=== PATIENT | female | born 1980 | race Caucasian/White ===

== ENCOUNTER 2023-10-06 08:14 | Outpatient (OUT) | payer BC, SELFPAY ==
[2023-10-06 08:46] LABS: Basophils Absolute Auto 0.1 10^3/uL (0.0-0.1); Basophils Percent Auto 1.3 % (0.2-2.0); Eosinophils Absolute Auto 0.5 10^3/uL (0.0-0.7); Eosinophils Percent Auto 7.2 % (0.9-7.0); Hematocrit 38.3 % (36.0-48.0); Immature Granulocytes Abs Auto 0.02 10^3/uL (0.00-0.03); Immature Granulocytes Pct Auto 0.3 % (0.0-0.5); Lymphocytes Absolute Auto 1.8 10^3/uL (1.2-3.8); Lymphocytes Percent Auto 25.7 % (20.5-60.0); Mean Corpuscular HGB Conc 31.3 g/dL (29.9-35.2); Mean Corpuscular Hemoglobin 26.7 pg (26.7-34.0); Mean Corpuscular Volume 85.1 fL (81.0-99.0); Mean Platelet Volume 9.3 fL (9.5-13.5); Monocytes Absolute Auto 0.6 10^3/uL (0.3-0.8); Monocytes Percent Auto 8.9 % (1.7-12.0); Neutrophils Absolute Auto 3.9 10^3/uL (1.4-6.5); Neutrophils Percent Auto 56.6 % (43.0-75.0); Platelet Count 340 10^3/uL (150-450); Red Cell Distribution Width 14.6 % (11.0-15.0); White Blood Count 6.9 10^3/uL (4.0-11.0)
[2023-10-06 09:43] LABS: Estimated Average Glucose 103 mg/dL; Glycohemoglobin A1C 5.2 % (4.5-6.2)
[2023-10-06 11:44] LABS: Alanine Aminotransferase 18 U/L (14-59); Albumin Globulin Ratio 0.8; Albumin Level 3.3 g/dL (3.4-5.0); Alkaline Phosphatase 91 U/L (46-116); Anion Gap 13.5; Aspartate Amino Transferase 15 U/L (15-37); BUN Creatinine Ratio 21.1; Bilirubin Total 0.3 mg/dL (0.2-1.0); Calcium 8.6 mg/dL (8.5-10.1); Carbon Dioxide 25.7 mmol/L (21.0-32.0); Chloride 105 mmol/L (98-107); Chol HDL Ratio 4.6; Cholesterol 193 mg/dL (<=200); Estimated GFR (African America >60 (>=60); Estimated GFR (Non-African Ame >60 (>=60); Free T3 3.35 pg/mL (2.18-3.98); Glucose 100 mg/dL (74-106); HDL Cholesterol 42 mg/dL (40-60); LDL Cholesterol Calculated 122.8 mg/dL; Potassium 4.2 mmol/L (3.5-5.1); Sodium 140 mmol/L (136-145); Thyroid Stimulating Hormone 0.325 uIU/mL (0.358-3.740); Total Protein 7.3 g/dL (6.4-8.2); Triglycerides 141 mg/dL (<=150); VLDL CHOLESTEROL 28.2 mg/dL
[2023-10-08 12:07] LABS: Insulin 41.9 uIU/mL (2.6-24.9)
== END 2023-10-06 08:15 | disposition home or self-care (01) ==
PROVIDERS: PCP Nurse Practitioner Family; Visit Provider Nurse Practitioner Family
DX: Z00.00 Encounter for general adult medical examination without abnormal findings (principal)
CPT/HCPCS: 36415; 80053; 80061; 82306; 83036; 83525; 83540; 84436; 84443; 84481; 85025

== ENCOUNTER 2024-12-11 11:53 | Outpatient (OUT) | payer BC, SELFPAY ==
--- NOTE | 2024-12-11 12:00 | CT_ITS ---
[address] [address] Patient Name: LISS PARRA MRN: [id number] date: 1980 Sex: F Assigned Patient Location: CT Current Patient Location: CT Accession/Order Number: [id number] Exam Date: 12/11/2024 13:00 Report Date: 12/11/2024 22:12 At the request of: TOPHER SCHWARTZ MD Procedure: CT abdomen pelvis wo/w con CT abdomen pelvis wo/w con 12/11/2024 1:07 PM SIGNS AND SYMPTOMS: ^intraabdominal and pelvic swelling, mass and lump, splenomeg TECHNIQUE: Multidetector ct axial images of the abdomen and pelvis were obtained with and without IV contrast. Multiplanar reformats were performed and reviewed to further define anatomy and possible pathology. CT was performed with one or more of the following dose reduction techniques: Automated exposure control, adjustment of the mA and/or kV according to patient size, or use of iterative reconstruction technique. COMPARISON: 11/25/2024 FINDINGS: Lower Chest: Within normal limits. ABDOMEN: Liver: The liver is hypoattenuating suggesting hepatic steatosis. Bile Ducts: Normal caliber. Gallbladder: Previously removed Pancreas: Within normal limits. Spleen: There is a 2.2 cm cystlike structure in the spleen with internal areas of increased attenuation on noncontrast CT. No abnormal enhancement is noted on postcontrast imaging. This is nonspecific but may represent a complex cyst versus previous splenic hematoma. Adrenals: Within normal limits. Kidneys: Within normal limits. Pelvis: Reproductive Organs: There is a 3.5 cm suspected fibroid within the uterine fundus. Ureters: Within normal limits. Bladder: Within normal limits. Bowel: Normal caliber. Mesenteric Lymph Nodes: No enlarged mesenteric lymph nodes. Peritoneum: No ascites or free air, no fluid collection. Vessels: within normal limits Retroperitoneum: Within normal limits. Abdominal Wall: There is a fat-containing periumbilical hernia. Bones: Within normal limits. CT/CT abdomen pelvis wo/w con IMPRESSION: There is a 2.2 cm cystlike structure in the spleen with internal areas of increased attenuation on noncontrast CT. No abnormal enhancement is noted on postcontrast imaging. This is nonspecific but may represent a complex cyst versus previous splenic hematoma. This is unchanged. There is a 3.5 cm suspected fibroid within the uterine fundus. Findings suggest hepatic steatosis. There is a fat-containing periumbilical hernia. Impression dictated by: Tj Benton M.D. 12/11/2024 10:12 PM Dictation Location: [place] [address] Electronically authenticated by: [id number] Y Date: 12/11/2024 22:12
--- OUTSIDE RECORDS SUMMARY | 2024-12-11 12:09 | XMS_ITS | CCD ---
Author Organization [facility] Care Team Providers Care Automation Lead Name Role Phone Jamison Chidi Odalys Primary Care Provider Unavailab System, Provider Not In Primary Care Provider Un available Alie Peterson MD Primary Care Provider [phone] Alie Peterson MD Primary Care Provider [phone] HERMES, NORMA Admitting Unavailable HERMES, NORMA Attending Unavailable HERMES, NORMA Primary Care Unavailable DR ROMINA HART V Consulting Unavailable HERMES, NORMA Consulting Unavailable HERMES, NORMA Admitting Unavailable HERMES, NORMA Attending Unavailable HERMES, NORMA Primary Care Unavailable HERMES, NORMA Admitting Unavailable HERMES, NORMA Attending Unavailable HERMES, NORMA Primary Care Unavailable HERMES, NORMA Admitting Unavailable HERMES, NORMA Attending Unavailable HERMES, NORMA Primary Care Unavailable HERMES, NORMA Admitting Unavailable HERMES, NORMA Attending Unavailable HERMES, NORMA Primary Care Unavailable DR ROMINA HART V Consulting Unavailable HERMES, NORMA Consulting Unavailable Alie Peterson MD Primary Care Provider [phone] TERESA Mirza Primary Care Provider [phone] TERESA Mirza Rayna Attending Provider [phone] DO Rishi Lenz Referring Provider TERESA Mirza Rayna Primary Care Provider [phone] Self, Referral Attending Provider Unavailable Natalie Romero Unavailable Jorge Ngo MD Primary Care Provider Natalie Romero M Unavailable SHASHI Preciado Attending Provider Hermes, JUANJOSE-C Norma Rayna Primary Care Provider HOY, ALIE Primary Care Unavailable HOY, ALIE Primary Care Unavailable Hermes DIRECTOR TRAFFIC AND PLANNING-C, Norma Rayna Primary Care Provider Self, Referral Attending Provider Unavailable Hermes DIRECTOR TRAFFIC AND PLANNING-CNorma Attending Provider [phone] Michelle-Nossek PRINTED CIRCUIT BOARD LAYOUT 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Natalie Unavailable Hermes Norma Rayna Primary Care Unavailable Self, Referral Admitting Unavailable Self, Referral Attending Unavailable Hermes, Norma Rayna Admitting Unavailable Hermes, Norma Rayna Primary Care Unavailable Hermes, Norma Way Attending Unavailable Hermes, Norma Rayna Primary Care Unavailable Ozzy Acacia M Admitting Unavailable Ozzy Acacia M Attending Unavailable Hermes, Norma Rayna Primary Care Unavailable Hermes, Norma Oropezae Attending Unavailable Hermes, Norma Rayna Admitting Unavailable KIESHA GRAY Attending Unavailable HERMES, NORMA Referring Unavailable CHINMAY NORMAN Attending Unavailable HERMES, NORMA Referring Unavailable CHINMAY NORMAN Attending Unavailable HERMES, NORMA Referring Unavailable EMERSON, CHINMAY Attending Unavailable HERMES, NORMA Referring Unavailable CHINMAY NORMAN Attending Unavailable HERMES, NORMA Referring Unavailable MICHELLE-NOSSEK, NATALIE M Attending Unavailab le MICHELLE-NOSSEKSANJUNATALIE M Attending Unavailab le MICHELLE-NOSSEKSANJUNATALIE M Attending Unavailab le MICHELLE-NOSSEK, NATALIE M Attending Unavailab agapito MIRZA NORMA S Primary Care Unavailable IONTAVARESHAMID M Admitting Unavailable ION, MUHAMID M Attending Unavailable IRMA PIRES Consulting Unavailable Hermes PRINTED CIRCUIT BOARD LAYOUT DESIGNER-COGNOS REPORT DEVELOPER, Norma S Primary Care Provider LYDAVIDSON MORALES Attending Unavailable HOY, ALIE Primary Care Unavailable LYDAVIDSON Attending Unavailable HOY, ALIE Primary Care Unavailable HOY, ALIE Primary Care Unavailable DAVIDSON LY Attending Unavailable DAVIDSON LY Attending Unavailable HOY, ALIE Primary Care Unavailable Jorge Ngo MD Primary Care Provider Allergies Allergy Classification Reported Allergen(s) Allergy Type Date of Onset Reaction(s) Facility (20 sources) Sulfonamides (Antibiotic); Translations: [SULFA (SULFONAMIDE ANTIBIOTICS)] Propensity to adverse reactions 9 Rash [facility] (1 source) Sulfonamides (Antibiotic) Drug allergy (disorder) 4 [facility] (20 sources) Sulfanilamide Propensity to adverse reactions 3 Rash [facility] Medications Current Medications Medication Drug Class(es) Dates Sig (Normalized) Sig (Original) 0.4 ml adalimumab 100 mg/ml auto-injector (20 sources) Tumor Necrosis Factor Audra Start: 07-11-2024 inject 0.4 mL by subcutaneous injection once adalimumab (Humira,CF, Pen) 40 mg/0.4 mL PnKt Indications: Seropositive rheumatoid arthritis (HCC) Inject 0.4 mL (40 mg total) under the skin every 14 (fourteen) days . 1 kit 11 07/11/2024 Active Start: 07-23-2023 Adalimumab ([place](Cf) Pen) 40 mg/0.4 mL pen injector kit Active 0 SUBCUT .COMPLEX July 23, 2023 12:00am inject one - 40 mg/0.4 mL pen every 2 weeks subcut Start: 02-14-2022 Humira Pen 40 MG/0.4ML Pen-injector Kit pen-injector Inject 40 mg under the skin every 14 (fourteen) days 02/14/2022 Active Start: 03-19-2021 End: 03-28-2024 inject 0.4 mL by subcutaneous injection once adalimumab (Humira,CF, Pen) 40 mg/0.4 mL PnKt Indications: Rheumatoid arthritis, seropositive (HCC) Inject 0.4 mL (40 mg total) under the skin every 14 (fourteen) days . 1 kit 11 09/21/2023 03/28/2024 Discontinued (Availability) adalimumab-ryvk (Simlandi,CF, Autoinjector) 40 mg/0.4 mL atIK (8 sources) Start: 03-28-2024 adalimumab-ryvk (Simlandi,CF, Autoinjector) 40 mg/0.4 mL atIK Indications: Seropositive rheumatoid arthritis (HCC) Inject 40 mg under the skin every 14 (fourteen) days . 2 each 5 03/28/2024 Active [id number] 200 actuat albuterol 0.09 mg/actuat metered dose inhaler (2 sources) beta2-Adrener gic Agonist Start: 07-06-2024 take 1 puff(s) by inhalation every four hours Albuterol Sulfate 90 mcg/actuation HFA aerosol inhaler Active 2 PUFF INHALATION Q4H 1 July 06, 2024 12:00am Start: 01-26-2017 take 2 puff(s) by in halation every four hours as needed PROAIR HFA 90 mcg/actuation inhaler Inhale 2 puffs every 4 (four) hours as needed. 11 01/26/2017 Active albuterol 0.833 mg/ml / ipratropium bromide 0.167 mg/ml inhalation solution (1 source) Anticholinergic, beta2-Adrenergic Agonist Start: 11-26-2024 End: 12-26-2024 take 3 mL by inhalation every six hours as needed for wheezing ipratropium-albuteroL (DUONEB) 0.5 mg-3 mg(2.5 mg base)/3 mL nebulizer Indications: Pneumonia due to infectious organism, unspecified laterality, unspecified part of lung Inhale 3 mL by nebulization every 6 (six) hours as needed for wheezing for up to 30 days. 360 mL 11/26/2024 12/26/2024 Active ALPRAZolam 0.25 mg oral tablet (20 sources) Benzodiazepine Start: 11-06-2024 End: 01-09-2025 take 1 tablet by mouth every eight hours for anxiety ALPRAZolam (Xanax) 0.25 MG tablet Indications: Panic disorder Take 1 tablet (0.25 mg) by mouth every 8 (eight) hours if needed for anxiety 30 tablet 12/10/2024 01/09/2025 Active Start: 07-05-2022 End: 09-19-2024 take 1 tablet by mouth once daily as needed for anxiety, then take 1 tablet by mouth once daily as needed for anxiety ALPRAZolam (Xanax) 0.25 MG tablet Indications: KATHRYN (generalized anxiety disorder) Take 1 tablet (0.25 mg) by mouth Daily as needed for anxiety (1 tablet daily prn) 30 tablet 04/13/2023 09/19/2024 Discontinued Start: 12-12-2016 ALPRAZolam (XA NAX) 0.25 mg tablet 2 12/12/2016 Active amitriptyline hydrochloride 25 mg oral tablet (9 sources) Tricyclic Antidepressant Start: 03-19-2024 take 1 tablet by mouth at bedtime amitriptyline (Elavil) 25 MG tablet Take 25 mg by mouth at bedtime 03/19/2024 Active cholecalciferol 0.05 mg oral capsule (20 sources) Vitamin D Start: 01-14-2022 take 1 capsule by mouth in the morning cholecalciferol (Vitamin D-3) 50 MCG (1999 UT) capsule Take 2,000 Units by mouth in the morning. 01/14/2022 Active Start: 10-09-2021 take 1 capsule by mo uth once daily cholecalciferol (Vitamin D-3) 50 MCG (1999 UT) capsule Take 2,000 Units by mouth Daily 01/14/2022 Active ferrous sulfate 325 mg delayed release oral tablet (20 sources) Start: 07-10-2024 take 1 tablet by lexie once daily at breakfast ferrous sulfate 325 (65 FE) mg EC tablet Take 1 tablet (325 mg total) by mouth daily with breakfast. 07/10/2024 Active Start: 06-27-2022 End: 11-13-2024 take 1 tablet by mouth at mealtime ferrous sulfate 325 (65 Fe) MG tablet Take 325 mg by mouth in the morning. Take with meals. 06/27/2022 Active Start: 04-19-2021 End: 06-15-2022 take 1 tablet by mouth twice daily ferrous sulfate 325 (65 FE) MG tablet Indications: Iron deficiency anemia, unspecified iron deficiency anemia type Take 1 (one) tablet (325 mg total) by mouth 2 (two) times a day . 60 tablet 3 04/19/2021 06/15/2022 Discontinued (Reorder (Suppress CancelRx Message to Pharmacy)) hydroCHLOROthiazide 12.5 mg oral tablet (20 sources) Thiazide Diuretic Start: 10-08-2021 take 1 tablet by mouth once daily hydroCHLOROthiazide (HYDRODIURIL) 12.5 MG tablet Take 1 (one) tablet (12.5 mg total) by mouth daily . 10/08/2021 Active ibuprofen 800 mg oral tablet (20 sources) Nonsteroidal Anti-inflammator y Drug take 1 tablet by mouth every six hours as needed ibuprofen 800 MG tablet Take 800 mg by mouth every 6 (six) hours if needed Active take 1 tablet by lexie th three times daily as needed for pain ibuprofen (ADVIL,MOTRIN) 800 MG tablet T devika 1 (one) tablet (800 mg total) by mouth 3 (three) times a day as needed for pain . Active lamoTRIgine 200 mg oral tablet (20 sources) Mood Stabilizer, Anti-epileptic Agent Start: 01-09-2023 End: 03-10-2025 take 1 tablet by mouth once daily lamoTRIgine (LaMICtal) 200 MG tablet Indications: Bipolar 2 disorder (HCC) Take 1 tablet (200 mg) by mouth Daily 90 tablet 12/10/2024 03/10/2025 Active Start: 01-25-2017 take 1 tablet by lexie th in the morning lamoTRIgine (LaMICtal) 100 mg tablet Take 1 tablet (100 mg total) by mouth in the morning. 1 01/25/2017 Active leflunomide 20 mg oral tablet (20 sources) Antirheumatic Agent Start: 04-03-2023 End: 09-02-2024 take 1 tablet by mouth once daily leFLUNomide (ARAVA) 20 MG tablet Indications: Seropositive rheumatoid arthritis (HCC) Take 1 (one) tablet (20 mg total) by mouth daily . 30 tablet 4 09/02/2024 Active Start: 11-01-2022 End: 03-27-2023 take 1 tablet by mouth once daily leFLUNomide (ARAVA) 20 MG tablet Indications: Rheumatoid arthritis, seropositive (HCC) Take 1 (one) tablet (20 mg total) by mouth daily . 30 tablet 4 11/01/2022 03/27/2023 Discontinued (Reorder (Suppress CancelRx Message to Pharmacy)) Start: 06-27-2022 End: 10-17-2022 take 1 tablet by mouth once daily leflunomide (ARAVA) 20 MG tablet Indications: Rheumatoid arthritis, seropositive (HCC) Take 1 (one) tablet (20 mg total) by mouth daily . 30 tablet 4 06/27/2022 10/17/2022 Discontinued (Reorder (Suppress CancelRx Message to Pharmacy)) Start: 02-17-2021 End: 06-15-2022 take 1 tablet by mouth once daily leflunomide (ARAVA) 20 MG tablet Indications: Rheumatoid arthritis, seropositive (HCC) Take 1 (one) tablet (20 mg total) by mouth daily . 30 tablet 4 02/10/2022 06/15/2022 Discontinued (Reorder (Suppress CancelRx Message to Pharmacy)) Start: 02-15-2021 End: 02-17-2021 take 1 tablet by mouth once daily leflunomide (ARAVA) 10 MG tablet Indications: Rheumatoid arthritis, seropositive (HCC) Take 1 (one) tablet (10 mg total) by mouth daily . 30 tablet 2 02/15/2021 02/17/2021 Discontinued (Reorder) levothyroxine sodium 0.2 mg oral tablet (20 sources) l-Thyroxine Start: 07-23-2023 take 1 tablet by mouth once daily Levothyroxine 200 mcg tablet Active 200 MCG PO Daily July 23, 2023 12:00am Start: 07-26-2022 End: 10-24-2023 take 1 tablet by mouth once daily Levothyroxine 25 mcg tablet Active 25 MCG PO Daily July 23, 2023 12:00am Start: 01-25-2017 levothyroxine (SYNTHROID, LEVOTHROID) 175 MCG tablet 1 01/25/2017 Active Start: 01-25-2017 levothyroxine (SYNTHROID, LEVOTHROID) 175 MCG tablet 225 mcg . 01/25/2017 Active lisinopril 5 mg oral tablet (20 sources) Angiotensin Converting Enzyme Inhibitor Start: 10-09-2021 take 1 tablet by mouth once daily lisinopriL (PRINIVIL,ZESTRIL) 5 MG tablet Take 1 (one) tablet (5 mg total) by mouth daily . 10/09/2021 Active metFORMIN hydrochloride 500 mg oral tablet (20 sources) Biguanide Start: 10-10-2023 take 1 tablet by mouth once daily at bedtime metFORMIN (GLUCOPHAGE) 500 MG tablet Take 1 (one) tablet (500 mg total) by mouth every night at bedtime . 10/10/2023 Active take 1 tablet by lexie th every twenty-four hours at mealtime metFORMIN XR (Glucophage-XR) 500 MG 24 h r tablet Take 500 mg by mouth in the evening. Take with meals Do not crush, chew, or split. Active methylPREDNISolone 4 mg oral tablet (8 sources) Corticosteroid Start: 07-06-2024 methylPREDNISo lone (MEDROL DOSEPACK) 4 mg tablet Take 1 (one) tablet (4 mg total) by mouth . 07/06/2024 Active Start: 07-06-2024 take 1 tablet by mouth once Me thylprednisolone (Medrol ([place])) 4 mg tablets,dose pack Active 0 PO per package directions July 06, 2024 12:00am PO PER PKG DIR for 6 days Start: 06-14-2024 End: 06-20-2024 methylPREDNISolone (MEDROL D OSEPACK) 4 mg tablet Indications: Seropositive rheumatoid arthritis (HCC) Follow package directions . 21 tablet 06/14/2024 06/20/2024 Active metoprolol tartrate 25 mg oral tablet (20 sources) beta-Adrenergic Audra Start: 06-24-2022 End: 12-10-2024 take 1 tablet by mouth in the morning metoprolol tartrate (Lopressor) 25 MG tablet Take 25 mg by mouth in the morning and 25 mg before bedtime. 06/24/2022 12/10/2024 Discontinued (Therapy completed) nabumetone 500 mg oral tablet (20 sources) Nonsteroidal Anti-inflammatory Drug Start: 01-10-2017 nabumetone (Relafen) 500 MG tablet Take 500 mg by mouth as needed in the morning and 500 mg as needed in the evening. 07/26/2022 Active omeprazole 20 mg delayed release oral capsule (20 sources) Proton Pump Inhibitor take 1 capsule by mouth once daily omeprazole (PRILOSEC) 20 MG capsule Take 1 (one) capsule (20 mg total) by mouth daily . Active ondansetron 4 mg disintegrating oral tablet (20 sources) Serotonin-3 Receptor Antagonist Start: 07-06-2024 take 1 tablet by mouth every eight hours as needed Ondansetron 4 mg tablet,disintegra ting Active 4 MG PO Every 8 hours as needed July 06, 2024 12:00am Start: 04-15-2022 ondansetron (Z ofran) 4 MG tablet Take 4 mg by mouth if needed 04/15/2022 Active phentermine hydrochloride 37.5 mg oral tablet (20 sources) Sympathomimetic Amine Anorectic Start: 10-14-2021 take 1 tablet by mouth once daily phentermine (ADIPEX-P) 37.5 mg tablet Take 1 (one) tablet (37.5 mg total) by mouth daily . 10/14/2021 Active Start: 01-08-2021 take 1 tablet by lexie th once daily phentermine (ADIPEX-P) 37.5 mg tablet Take 37.5 mg by mouth daily . 0 01/08/2021 Active predniSONE 2.5 mg oral table t (20 sources) Start: 07-08-2024 End: 11-05-2024 predniSONE (DELTASONE) 2.5 M G tablet Indications: Rheumatoid arthritis, seropositive (HCC) Take 1 (one) tablet to 2 (two) tablets (2.5-5 mg total) by mouth daily With food . 60 tablet 3 07/08/2024 Active Start: 04-21-2023 End: 10-21-2024 take 1 tablet by mouth once daily predniSONE (DELTASONE) 10 MG tablet Indications: Seropositive rheumatoid arthritis (HCC) Take 1 (one) tablet (10 mg total) by mouth daily . 30 tablet 2 04/24/2023 10/21/2024 Discontinued (Therapy completed) Start: 02-22-2017 predniSONE (DE LTASONE) 10 mg tablet Indications: Subacute sinusitis, unspecified location 6 tabs daily x 2 days, 5 tabs daily x 2 days, 4 tabs x 2 days, 3 tablets x 2 days, 2 tablets x 2 days, and 1 tab x 2 days. 42 tablet 02/22/2017 Active Pyrilamine-Dextromethorphan ([place] Dm) 7.5-7.5 mg/5 mL liquid (1 source) Start: 07-06-2024 take 1 mL by mouth every eight hours Pyrilamine-Dextromethorphan ([place] Dm) 7.5-7.5 mg/5 mL liquid Active 10 ML PO Every 8 hours 150 5 July 06, 2024 12:00am QUEtiapine 200 mg oral tablet (20 sources) Atypical Antipsycho tic Start: 12-10-2024 End: 01-09-2025 take 1 tablet by mouth at bedtime QUEtiapine (SEROquel) 200 MG tablet Indications: Bipolar 2 disorder (HCC) Take 1 tablet (200 mg) by mouth at bedtime 30 tablet 1 12/10/2024 01/09/2025 Active Start: 09-28-2023 End: 12-18-2024 take 1 tablet by mouth at bedtime QUEtiapine (SEROquel) 100 MG tablet Indications: Bipolar 2 disorder (HCC) Take 1 tablet (100 mg) by mouth at bedtime 90 tablet 09/19/2024 12/10/2024 Discontinued Start: 07-23-2023 take 1 tablet by lexie th once at bedtime Quetiapine 100 mg tablet Active 100 MG PO once at bedtime July 23, 2023 12:00am Start: 03-06-2023 End: 06-10-2023 take 1 tablet by mouth at bedtime QUEtiapine (SEROquel) 100 MG tablet Indications: Bipolar 2 disorder (CMS/HCC) Take 1 tablet (100 mg) by mouth at bedtime 30 tablet 1 04/11/2023 06/10/2023 Active Start: 01-25-2017 take 2 tablets by mo [facility] once daily QUEtiapine (SEROquel) 50 mg tablet Take 2 tablets (100 mg total) by mouth nightly. 2 01/25/2017 Active Start: 01-25-2017 take 1 tablet by lexie th once daily QUEtiapine (SEROQUEL) 50 MG tablet Take 50 mg by mouth nightly . 0 01/25/2017 Active sertraline 100 mg oral tablet (20 sources) Serotonin Reuptake Inhibitor Start: 01-09-2023 End: 03-10-2025 take 1 tablet by mouth once daily sertraline (Zoloft) 100 MG tablet Indications: KATHRYN (generalized anxiety disorder) Take 1 tablet (100 mg) by mouth Daily 90 tablet 12/10/2024 03/10/2025 Active take 2 tablets by mouth once [place]ermo [place] sertraline HCl (ZOLOFT ORAL) Take 2 tablets by mouth daily . Active take 2 tablets by mouth once guillermo ly sertraline HCl (ZOLOFT ORAL) Take 2 tablets by mouth daily . 0 Active traZODone hydrochloride 50 mg oral tablet (20 sources) Serotonin Reuptake Inhibitor Start: 10-06-2021 End: 04-11-2023 traZODone (DESYREL) 50 MG tablet Take 1 (one) tablet to 2 (two) tablets (50-100 mg total) by mouth at bedtime as needed . 10/06/2021 Active Completed/Discontinued Medications Medication Drug Class(es) Dates Sig (Normalized) Sig (Original) 1 ml etanercept 50 mg/ml prefilled syringe (2 sources) Tumor Necrosis Factor Audra Start: End: 2 inject 1 mL by subcutaneous injection every week etanercept (EnbreL) 50 mg/mL (1 mL) single use prefilled syringe Indications: Rheumatoid arthritis, seropositive (HCC) Inject 1 mL (50 mg total) under the skin once a week . 4 mL 4 03/08/2021 03/18/2021 Discontinued (Cost of medication) hydroxychloroquine sulfate 200 mg oral tablet (13 sources) Antimalarial, Antirheumatic Agent Start: 1 End: 2 take 1 tablet by mouth twice daily hydrOXYchloroQUINE (PLAQUENIL) 200 mg tablet Indications: Rheumatoid arthritis, seropositive (HCC) Take 1 (one) tablet (200 mg total) by mouth 2 (two) times a day . 60 tablet 2 02/15/2021 10/19/2021 Discontinued (Prescriber Discontinued) pantoprazole 40 mg delayed release oral tablet (20 sources) Proton Pump Inhibitor Start: 4 Pantoprazole Active MG PO July 23, 2023 12:00am Start: 06-13-2022 End: 07-06-2024 take 1 tablet by mouth at bedtime pantoprazole (ProtoNix) 40 MG EC tablet Take 40 mg by mouth at bedtime 06/13/2022 Active Problems Active Problems Problem Classification Problem Date Documented Date Episodic/Chronic Anxiety disorders (20 sources) Generalized anxiety disorder; Translations: [Generalized anxiety disorder] Onset: 07-05-2022 07-05-2022 Chronic Complications of surgical procedures or medical care (1 source) Postprocedural hypothyroidism; Translations: [POSTPROCEDURAL HYPOTHYROIDISM] Onset: 03-18-2021 Chronic Deficiency and other anemia (2 sources) Iron deficiency anemia, unspecified; Translations: [Iron deficiency anemia, unspecified] Onset: 11-14-2023 Episodic Fluid and electrolyte disorders (1 source) Hypokalemia; Translations: [Hypokalemia] Onset: 11-25-2024 11-25-2024 Episodic Menstrual disorders (5 sources) Irregular menstruation, unspecified; Translations: [Excessive and frequent menstruation with regular cycle] Onset: 03-15-2021 Chronic Mood disorders (20 sources) Bipolar II disorder; Translations: [Bipolar II disorder] Onset: 07-05-2022 07-05-2022 Chronic Non-Hodgkin`s lymphoma (1 source) Non-Hodgkin lymphoma, unspecified, unspecified site; Translations: [Non-Hodgkin lymphoma, unspecified, unspecified site] Onset: 11-25-2024 Chronic Other aftercare (20 sources) Patient encounter status; Translations: [Other residential (current) drug therapy] Onset: 02-20-2021 Episodic Other aftercare (4 sources) Other residential (current) drug therapy; Translations: [Other rat exterminator (current) drug therapy] Onset: 02-20-2021 Episodic Other aftercare (2 sources) intermission coordinator (current) use of non-steroidal anti-inflammatories (NSAID); Translations: [MCC (current) use of non-steroidal anti-inflammatories (nsaid)] Onset: 02-20-2021 Episodic Other aftercare (2 sources) Taking high risk medication; Translations: [Other rat exterminator (current) drug therapy] 12-09-2024 Episodic Other injuries and conditions due to external causes (6 sources) Thumb injury ; Translations: [Unspecified injury of right wrist, hand and finger(s), initial encounter] 07-23-2023 Episodic Other lower respiratory disease (1 source) Shortness of breath; Translations: [Shortness of breath] Onset: 11-25-2024 Episodic Other lower respiratory disease (1 source) Shortness of breath Onset: 11-25-2024 Episodic Other lower respiratory disease (1 source) Dyspnea; Translations: [Shortness of breath] 12-04-2024 Episodic Other nervous system disorders (2 sources) Anesthesia of skin; Translations: [Anesthesia of skin] Onset: 11-14-2023 Episodic Other non-traumatic joint disorders (6 sources) Pain in left shoulder; Translations: [Pain in joint, shoulder region] Onset: 03-15-2024 03-26-2024 Episodic Other nutritional; endocrine; and metabolic disorders (20 sources) Body mass index 40+ - severely obese; Translations: [Morbid (severe) obesity due to excess calories] Onset: 02-20-2021 Chronic Other nutritional; endocrine; and metabolic disorders (1 source) Hypomagnesemia; Translations: [Hypomagnesemia] Onset: 11-25-2024 11-25-2024 Chronic Other nutritional; endocrine; and metabolic disorders (2 sources) Morbid (severe) obesity due to excess calories; Translations: [Morbid (severe) obesity due to excess calories] Onset: 02-20-2021 Chronic Other nutritional; endocrine; and metabolic disorders (2 sources) Body mass index (BMI) 40.0-44.9, adult; Translations: [Body mass index (BMI) 40.0-44.9, adult] Onset: 02-20-2021 Chronic Other screening for suspected conditions (not mental disorders or infectious disease) (3 sources) Encounter for screening mammogram for malignant neoplasm of breast; Translations: [Other abnormal and inconclusive findings on diagnostic imaging of breast] Onset: 01-13-2022 Episodic Pneumonia (except that caused by tuberculosis or sexually transmitted disease) (2 sources) Pneumonia, unspecified organism; Translations: [Bilateral pneumonia] Onset: 11-25-2024 11-25-2024 Episodic Residual codes; unclassified (1 source) Family history of other malignant neoplasms of lymphoid, hematopoietic and related tissues; Translations: [FAM HX OTH MAL YARY LYMPH HEMATPOETC] Onset: 01-13-2022 Episodic Residual codes; unclassified (2 sources) H/O: high risk medication; Translations: [Personal history of other drug therapy] 12-09-2024 Episodic Rheumatoid arthritis and related disease (20 sources) Seropositive rheumatoid arthritis; Translations: [Rheumatoid arthritis with rheumatoid factor, unspecified] Onset: 02-20-2021 Chronic Superficial injury; contusion (8 sources) Contusion of right thumb; Translations: [Contusion of right thumb without damage to nail, initial encounter] 07-23-2023 Episodic Thyroid disorders (3 sources) Acquired hypothyroidism; Translations: [Goiter] Onset: 12-10-2008 12-10-2008 Chronic Unclassified (1 source) Shortness of Breath; Fever Onset: 11-25-2024 Past or Other Problems Problem Classification Problem Date Documented Da te Episodic/Chronic Deficiency and other anemia (16 sources) Iron deficiency anemia; Translations: [Iron deficiency anemia, unspecified] Onset: 11-14-2023 Episodic Mood disorders (7 sources) Mood disorders Onset: 04-30-2024 Resolved: 12-10-2024 04-30-2024 Other aftercare (12 sources) Long-term current use of drug therapy; Translations: [Other residential (current) drug therapy] Onset: 02-20-2021 02-20-2021 Episodic Other aftercare (12 sources) intermission coordinator current use of non-steroidal anti-inflammatory drug; Translations: [intermission coordinator (current) use of non-steroidal anti-inflammatories (NSAID)] Onset: 02-20-2021 02-20-2021 Episodic Other injuries and conditions due to external causes (1 source) Unspecified injury of right wrist, hand and finger(s), initial encounter; Translations: [Unspecified injury of right wrist, hand and finger(s), initial encounter] Onset: 07-23-2023 Episodic Other nervous system disorders (15 sources) Numbness of foot ; Translations: [Anesthesia of skin] Onset: 11-14-2023 03-27-2023 Episodic Other upper respiratory disease (1 source) Deviated nasal septum; Translations: [Deviated nasal septum] Onset: 02-22-2017 02-22-2017 Episodic Other upper respiratory infections (1 source) Sinusitis; Translations: [Acute sinusitis, unspecified] Onset: 02-22-2017 02-22-2017 Episodic Results Test Name Value Interpretation Reference Range Facility Drugs of abuse panel Screen (U)on 12-10-2024 Amphetamines Ql (U) Negative [facility] Barbiturates Ql (U) Negative [facility] Benzodiazepines Ql (U) Negative [facility] Benzoylecgonine Ql (U) Negative [facility] Carboxy tetrahydrocannabinol (Mec) [Mass/Mass] Negative [facility] Interpretation and review of laboratory results Normal [facility] Methadone (U) [Mass/Vol] Negative [facility] Methamphetamine (U) [Mass/Vol] Negative [facility] Methylenedioxymethamphetamin e Screen Ql (U) Negative [facility] Morphine (U) [Mass/Vol] Negative [facility] Opiates Ql (U) Negative [facility] oxyCODONE Ql (U) Negative [facility] Phencyclidine Ql (U) Negative [facility] Reference Lab Test ID Negative [facility] Tricyclic antidepressants [Mass/Vol] Negative [facility] CBC WITH AUTO DIFFERENTIALon 11-26-2024 BASOPHILS ABSOLUTE COUNT (10*3/UL) BY AUTOMATED COUNT 0.1 10*3/uL Normal 0.0-0.2 [facility] Comment on above: Result Comment: This is an appended report. These results have been appended to a previously preliminary verified report. Performed By: #### D DMR #### [facility] ([address] [address] VIR BASOPHILS RELATIVE PERCENT B Y AUTOMATED COUNT 0.9 % Normal [facility] Comment on above: Result Comment: This is an appended report. These results have been appended to a previously preliminary verified report. Performed By: #### D DMR #### [facility] ([address] [address] VIR CELLAVISION DIFFERENTIAL TYPE AUTOMATED DIFFERENTIAL Normal [facility] Comment on above: Result Comment: This is an appended report. These results have been appended to a previously preliminary verified report. Performed By: #### D DMR #### [facility] ([address] [address] VIR Eosinophils (Bld) [#/Vol] 0.0 10*3/uL Normal 0.0-0.4 [facility] Comment on above: Result Comment: This is an appended report. These results have been appended to a previously preliminary verified report. Performed By: #### D DMR #### [facility] ([address] [address] VIR EOSINOPHILS RELATIVE PERCENT BY AUTOMATED COUNT 0.7 % Normal [facility] Comment on above: Result Comment: This is an appended report. These results have been appended to a previously preliminary verified report. Performed By: #### D DMR #### [facility] ([address] [address] VIR Erythrocyte distribution wid th (RBC) [Ratio] 20.6 % High 11.5-15 [facility] Comment on above: Performed By: #### D DMR #### [facility] ([address] [address] VIR Hematocrit (Bld) [Volume fraction] 31.0 % Low 35-47 [facility] Comment on above: Performed By: #### D DMR #### [facility] ([address] [address] VIR Hemoglobin (Bld) [Mass/Vol] 10.4 g/dL Low 11.7-15. 5 [facility] Comment on above: Performed By: #### D DMR #### [facility] ([address] [address] VIR LYMPHOCYTES ABSOLUTE COUNT (10*3/UL) BY AUTOMATED COUNT 1.4 10*3/uL Normal 1.0-3.5 [facility] Comment on above: Result Comment: This is an appended report. These results have been appended to a previously preliminary verified report. Performed By: #### D DMR #### [address] [address] VIR LYMPHOCYTES RELATIVE PERCENT BY AUTOMATED COUNT 19.6 % Normal [facility] Comment on above: Result Comment: This is an appended report. These results have been appended to a previously preliminary verified report. Performed By: #### D DMR #### [facility] ([address] [address] VIR MCH (RBC) [Entitic mass] 26.3 pg Low 27-34 [facility] Comment on above: Performed By: #### D DMR #### [facility] ([address] [address] VIR MCHC (RBC) [Mass/Vol] 33.6 g/dL Normal 32-36 [facility] Comment on above: Performed By: #### D DMR #### [facility] ([address] [address] VIR MCV (RBC) [Entitic vol] 78 fL Low 80-100 [facility] Comment on above: Performed By: #### D DMR #### [facility] ([place]) [address] [place] [address] VIR MONOCYTES ABSOLUTE COUNT (10*3/UL) BY AUTOMATED COUNT 0.8 10*3/uL Normal 0.0-0.9 [facility] Comment on above: Result Comment: This is an appended report. These results have been appended to a previously preliminary verified report. Performed By: #### D DMR #### [facility] ([address] [address] VIR MONOCYTES RELATIVE PERCENT B Y AUTOMATED COUNT 10.7 % Normal [facility] Comment on above: Result Comment: This is an appended report. These results have been appended to a previously preliminary verified report. Performed By: #### D DMR #### [facility] ([address] [address] VIR NEUTROPHILS ABSOLUTE COUNT B Y AUTOMATED COUNT 4.9 10*3/uL Normal 1.5-6.6 [facility] Comment on above: Result Comment: This is an appended report. These results have been appended to a previously preliminary verified report. Performed By: #### D DMR #### [facility] ([address] [address] VIR NEUTROPHILS RELATIVE PERCENT BY AUTOMATED COUNT 68.1 % Normal [facility] Comment on above: Result Comment: This is an appended report. These results have been appended to a previously preliminary verified report. Performed By: #### D DMR #### [facility] ([address] [address] VIR Platelet mean volume (Bld) [Entitic vol] 7.7 fL Normal 7-12 [facility] Comment on above: Performed By: #### D DMR #### [facility] ([address] [address] VIR Platelets (Bld) [#/Vol] 213 10*3/uL Normal 150-450 [facility] Comment on above: Performed By: #### D DMR #### [facility] ([address] [place] [address] VIR RBC COUNT 3.96 X10E12/L Normal 3.8-5.2 [facility] Comment on above: Performed By: #### D DMR #### [facility] ([address] [place] [address] VIR WBC (Bld) [#/Vol] 7.1 10*3/uL Normal 4-11 [facility] Comment on above: Performed By: #### D DMR #### [facility] ([address] [place] [address] VIR COMPREHENSIVE METABOLIC PANE Timmy 11-26-2024 Albumin [Mass/Vol] 2.8 g/dL Low 3.2-5.3 [facility] Comment on above: Performed By: #### D DMR #### [facility] ([address] [place] [address] VIR ALP [Catalytic activity/Vol] 100 U/L Normal 39-130 [facility] Comment on above: Performed By: #### D DMR #### [facility] ([address] [place] [address] VIR ALT [Catalytic activity/Vol] 51 U/L High <=31 [facility] Comment on above: Performed By: #### D DMR #### [facility] ([address] [place] [address] VIR Anion gap [Moles/Vol] 10 mmol/L Normal 5-15 [facility] Comment on above: Performed By: #### D DMR #### [facility] ([address] [place] [address] VIR AST [Catalytic activity/Vol] 44 U/L High <=41 [facility] Comment on above: Performed By: #### D DMR #### [facility] ([place] [address] [place] [address] VIR Bilirubin [Mass/Vol] 0.6 mg/dL Normal 0.3-1.2 [facility] Comment on above: Performed By: #### D DMR #### [facility] ([place] [address] [place] [address] VIR Calcium [Mass/Vol] 7.4 mg/dL Low 8.5-10.5 [facility] Comment on above: Performed By: #### D DMR #### [facility] ([place] [address] [place] [address] VIR Chloride [Moles/Vol] 102 mmol/L Normal 98-109 [facility] Comment on above: Performed By: #### D DMR #### [facility] ([address] [place] [address] VIR CO2 [Moles/Vol] 23 mmol/L Normal 22-32 [facility] Comment on above: Performed By: #### D DMR #### [facility] ([address] [place] [address] VIR Creatinine [Mass/Vol] 0.69 mg/dL Normal 0.40-1.00 [facility] Comment on above: Result Comment: METH OD TRACEABLE TO IDMS STANDARD Performed By: #### D DMR #### [facility] ([place] [address] [place] [address] VIR EGFR (CKD-EPI) NON-RACE DEPENDENT >^90 Normal >=60 [facility] Comment on above: Result Comment: eGFR not reported due to non-numeric value for Creatinine. Reported eGFR is based on the CKD-EPI 2020 equation that does not use a race coefficient. Performed By: #### D DMR #### [facility] ([place] [address] [place] [address] VIR Glucose [Mass/Vol] 103 mg/dL High 65-99 [facility] Comment on above: Performed By: #### D DMR #### [facility] ([place] [address] [place] [address] VIR Potassium [Moles/Vol] 3.0 mmol/L Low 3.5-5.0 [facility] Comment on above: Performed By: #### D DMR #### [facility] ([address] [place] [address] VIR Protein [Mass/Vol] 6.5 g/dL Normal 6.0-8.0 [facility] Comment on above: Performed By: #### D DMR #### [facility] ([address] [place] [address] VIR Sodium [Moles/Vol] 135 mmol/L Normal 134-146 [facility] Comment on above: Performed By: #### D DMR #### [facility] ([address] [place] [address] VIR Urea nitrogen [Mass/Vol] 9 mg/dL Normal 5-23 [facility] Comment on above: Performed By: #### D DMR #### [facility] ([address] [place] [address] VIR MAGNESIUMon 11-26-2024 Magnesium [Mass/Vol] 2.1 mg/dL Normal 1.8-2.6 [facility] Comment on above: Performed By: #### D DMR #### [facility] ([address] [place] [address] VIR Magnesium [Mass/Vol] 2.1 mg/dL Normal 1.8-2.6 [facility] Comment on above: Performed By: #### D DMR #### [facility] ([address] [place] [address] VIR POTASSIUMon 11-26-2024 Potassium [Moles/Vol] 3.5 mmol/L Normal 3.5-5.0 [facility] Comment on above: Performed By: #### K ####[facility] ([facility])[address] [place] [address] [address] VIR Potassium [Moles/Vol] 3.4 mmol/L Low 3.5-5.0 [facility] Comment on above: Performed By: #### D DMR #### [facility] ([address] [address] VIR ACETONE,(BETAHYDROXYBUTYRATE , KETONE) QUANTITATIVE SERUMon 11-25-2024 BETAHYDROXYBUTYRATE 0.11 mmol/L Normal 0.02-0.27 [facility] Comment on above: Performed By: #### K ETB #### [facility] ([address] [address] VIR B-TYPE NATRIURETIC PEPTIDEon 11-25-2024 Natriuretic peptide B (Bld) [Mass/Vol] 31 pg/mL Normal <=100 [facility] Comment on above: Performed By: #### B DIRECTOR TRAFFIC AND PLANNING #### [facility] ([address] [address] VIR BLOOD CULTUREon 11-25-2024 Bacteria identified Cx Nom (Bld) CULTURE RESULTS NO GROWTH 5 DAYS Normal [facility] Comment on above: Order Comment: *SIRS Criteria: (must display 2 without other explanation)-Temperature < 36 or >38-Pulse >90-Resp rate >20-WBC less than 4K or greater than 12KRepeat blood cultures not needed:-To document that a blood culture is a contaminant when 1 of 2 bottles is positive for a common contaminant (already listed in Epic with the culture result)-To document clearance of gram negative bacteremia in patients with suspected urinary source who are improving Performed By: #### D DMR #### [facility] ([facility]) [address] [place] [address] VIR Bacteria identified Cx Nom (Bld) CULTURE RESULTS NO GROWTH 5 DAYS Normal [facility] Comment on above: Order Comment: *SIRS Criteria: (must display 2 without other explanation)-Temperature < 36 or >38-Pulse >90-Resp rate >20-WBC less than 4K or greater than 12KRepeat blood cultures not needed:-To document that a blood culture is a contaminant when 1 of 2 bottles is positive for a common contaminant (already listed in Epic with the culture result)-To document clearance of gram negative bacteremia in patients with suspected urinary source who are improving Performed By: #### B C ####[facility] (TT)[address] [facility] [address], [place] [address] VIR CBC WITH AUTO DIFFERENTIALon 11-25-2024 BASOPHILS ABSOLUTE COUNT (10*3/UL) BY AUTOMATED COUNT 0.0 10*3/uL Normal 0.0-0.2 [facility] Comment on above: Result Comment: This is an appended report. These results have been appended to a previously preliminary verified report. Performed By: #### C BCA #### [facility] ([facility]) [address] [place] [address] VIR BASOPHILS RELATIVE PERCENT B Y AUTOMATED COUNT 0.5 % Normal [facility] Comment on above: Result Comment: This is an appended report. These results have been appended to a previously preliminary verified report. Performed By: #### C BCA #### [facility] ([facility]) [address] [place] [address]. [place] [address] VIR CELLAVISION DIFFERENTIAL TYPE AUTOMATED DIFFERENTIAL Normal [facility] Comment on above: Result Comment: This is an appended report. These results have been appended to a previously preliminary verified report. Performed By: #### C BCA #### [facility] ([facility]) [address] [place] [address] VIR CELLAVISION RBC FRAGMENTS 1+ Normal [facility] Comment on above: Result Comment: This is an appended report. These results have been appended to a previously preliminary verified report. Performed By: #### C BCA #### [facility] ([facility]) [address] [place] [address] VIR Eosinophils (Bld) [#/Vol] 0.1 10*3/uL Normal 0.0-0.4 [facility] Comment on above: Result Comment: This is an appended report. These results have been appended to a previously preliminary verified report. Performed By: #### C BCA #### [facility] ([address] [address] VIR EOSINOPHILS RELATIVE PERCENT BY AUTOMATED COUNT 0.5 % Normal [facility] Comment on above: Result Comment: This is an appended report. These results have been appended to a previously preliminary verified report. Performed By: #### C BCA #### [facility] ([address] [address] VIR Erythrocyte distribution wid th (RBC) [Ratio] 20.5 % High 11.5-15 [facility] Comment on above: Performed By: #### C BCA #### [facility] ([address] [address] VIR Hematocrit (Bld) [Volume fraction] 38.0 % Normal 35-47 [facility] Comment on above: Performed By: #### C BCA #### [facility] ([address] [address] VIR Hemoglobin (Bld) [Mass/Vol] 12.8 g/dL Normal 11.7-15. 5 [facility] Comment on above: Performed By: #### C BCA #### [facility] ([address] [address] VIR LYMPHOCYTES ABSOLUTE COUNT (10*3/UL) BY AUTOMATED COUNT 0.8 10*3/uL Low 1.0-3.5 [facility] Comment on above: Result Comment: This is an appended report. These results have been appended to a previously preliminary verified report. Performed By: #### C BCA #### [facility] ([address] [address] VIR LYMPHOCYTES RELATIVE PERCENT BY AUTOMATED COUNT 8.2 % Normal [facility] Comment on above: Result Comment: This is an appended report. These results have been appended to a previously preliminary verified report. Performed By: #### C BCA #### [facility] ([facility]) [address] [place] [address] VIR MCH (RBC) [Entitic mass] 26.4 pg Low 27-34 [facility] Comment on above: Performed By: #### C BCA #### [facility] ([address] [address] VIR MCHC (RBC) [Mass/Vol] 33.7 g/dL Normal 32-36 [facility] Comment on above: Performed By: #### C BCA #### [facility] ([address] [address] VIR MCV (RBC) [Entitic vol] 78 fL Low 80-100 [facility] Comment on above: Performed By: #### C BCA #### [facility] ([address] [address] VIR MONOCYTES ABSOLUTE COUNT (10*3/UL) BY AUTOMATED COUNT 1.2 10*3/uL High 0.0-0.9 [facility] Comment on above: Result Comment: This is an appended report. These results have been appended to a previously preliminary verified report. Performed By: #### C BCA #### [facility] ([facility]) [address] [place] [address] VIR MONOCYTES RELATIVE PERCENT B Y AUTOMATED COUNT 12.0 % Normal [facility] Comment on above: Result Comment: This is an appended report. These results have been appended to a previously preliminary verified report. Performed By: #### C BCA #### [facility] ([address] [address] VIR NEUTROPHILS ABSOLUTE COUNT B Y AUTOMATED COUNT 7.5 10*3/uL High 1.5-6.6 [facility] Comment on above: Result Comment: This is an appended report. These results have been appended to a previously preliminary verified report. Performed By: #### C BCA #### [facility] ([address] [address] VIR NEUTROPHILS RELATIVE PERCENT BY AUTOMATED COUNT 78.8 % Normal [facility] Comment on above: Result Comment: This is an appended report. These results have been appended to a previously preliminary verified report. Performed By: #### C BCA #### [facility] ([address] [address] VIR Platelet mean volume (Bld) [Entitic vol] 7.2 fL Normal 7-12 [facility] Comment on above: Performed By: #### C BCA #### [facility] ([address] [address] VIR Platelets (Bld) [#/Vol] 244 10*3/uL Normal 150-450 [facility] Comment on above: Performed By: #### C BCA #### [facility] ([address] [address] VIR RBC COUNT 4.85 X10E12/L Normal 3.8-5.2 [facility] Comment on above: Performed By: #### C BCA #### [facility] ([address] [address] VIR WBC (Bld) [#/Vol] 9.6 10*3/uL Normal 4-11 [facility] Comment on above: Performed By: #### C BCA #### [facility] ([address] [address] VIR COMPREHENSIVE METABOLIC PANE [facility] 11-25-2024 Albumin [Mass/Vol] 3.6 g/dL Normal 3.2-5.3 [facility] Comment on above: Performed By: #### C MP #### [facility] ([facility]) [address] [place] [address] VIR ALP [Catalytic activity/Vol] 103 U/L Normal 39-130 [facility] Comment on above: Performed By: #### C MP #### [facility] ([place] [address] [place] [address] VIR ALT [Catalytic activity/Vol] 42 U/L High <=31 [facility] Comment on above: Performed By: #### C MP #### [facility] ([place] [address] [place] [address] VIR Anion gap [Moles/Vol] 10 mmol/L Normal 5-15 [facility] Comment on above: Performed By: #### C MP #### [facility] ([place] [address] [place] [address] VIR AST [Catalytic activity/Vol] 41 U/L Normal <=41 [facility] Comment on above: Performed By: #### C MP #### [facility] ([place] [address] [place] [address] VIR Bilirubin [Mass/Vol] 0.7 mg/dL Normal 0.3-1.2 [facility] Comment on above: Performed By: #### C MP #### [facility] ([place] [address] [place] [address] VIR Calcium [Mass/Vol] 8.2 mg/dL Low 8.5-10.5 [facility] Comment on above: Performed By: #### C MP #### [facility] ([place] [address] [place] [address] VIR Chloride [Moles/Vol] 99 mmol/L Normal 98-109 [facility] Comment on above: Performed By: #### C MP #### [facility] ([place] [address] [place] [address] VIR CO2 [Moles/Vol] 24 mmol/L Normal 22-32 [facility] Comment on above: Performed By: #### C MP #### [facility] ([address] [place] [address] VIR Creatinine [Mass/Vol] 0.75 mg/dL Normal 0.40-1.00 [facility] Comment on above: Result Comment: METH OD TRACEABLE TO IDMS STANDARD Performed By: #### C MP #### [facility] ([address] [place] [address] VIR EGFR (CKD-EPI) NON-RACE DEPENDENT >^90 Normal >=60 [facility] Comment on above: Result Comment: eGFR not reported due to non-numeric value for Creatinine. Reported eGFR is based on the CKD-EPI 2020 equation that does not use a race coefficient. Performed By: #### C MP #### [facility] ([address] [place] [address] VIR Glucose [Mass/Vol] 105 mg/dL High 65-99 [facility] Comment on above: Performed By: #### C MP #### [facility] ([address] [address] VIR Potassium [Moles/Vol] 3.1 mmol/L Low 3.5-5.0 [facility] Comment on above: Performed By: #### C MP #### [facility] ([address] [place] [address] VIR Protein [Mass/Vol] 7.8 g/dL Normal 6.0-8.0 [facility] Comment on above: Performed By: #### C MP #### [facility] ([address] [address] VIR Sodium [Moles/Vol] 133 mmol/L Low 134-146 [facility] Comment on above: Performed By: #### C MP #### [facility] ([facility]) [address] [place] [address] VIR Urea nitrogen [Mass/Vol] 11 mg/dL Normal 5-23 [facility] Comment on above: Performed By: #### C #### [facility] ([facility]) [address] [place] [address] CTA CHESTon 11-25-[address] CTA CHEST CTA PULMONARY ANGIOGRAM Clinical history: Chest pain with elevated d-dimer. Trouble breathing. Left-sided back pain. Technique: Spiral multidetector CT pulmonary angiogram was performed after the intravenous administration of contrast material including 3-D reconstructions displayed on a PACS workstation and reviewed by the radiologist. Automated dose reduction techniques were utilized. All CT scans at this facility use dose modulation, iterative reconstruction, and/or weight based dosing when appropriate to reduce radiation dose to as low as reasonably achievable. Comparisons: Portable chest x-ray same day. Findings: There are areas of dense consolidation containing air bronchograms within the medial aspect of predominantly the superior segment of both lower lobes. There are some patchy areas of nodular and groundglass opacity in the left upper lobe, right middle lobe and right lower lobe as well. No pleural effusion or pneumothorax. No mediastinal nor hilar lymphadenopathy. There is no axillary lymphadenopathy. No enlarged supraclavicular lymph nodes. No coronary artery calcifications. There is a 2.3 cm low-attenuation lesion within the superior margin of the spleen which is nonspecific. Additionally the visualized portions of the spleen has a diffusely mottled appearance no acute fracture. No destructive bone lesion. IMPRESSION: 1. Bilateral lower lobe dense consolidation containing air bronchograms as well as nodular and groundglass opacities in both lungs. Findings are nonspecific yet multifocal infection including atypical infection is considered most likely. There is a low-attenuation lesion within the spleen in the spleen has somewhat of an infiltrative appearance and other etiologies including sarcoid or pulmonary lymphoma are not completely excluded. [id number] Finalized by Chidi Lara MD on 11/25/2024 12:28 PM Normal [facility] D-DIMERon 11-25-2024 D DIMER 468 ng/mL High 1-255 [facility] Comment on above: Result Comment: Resu lts >255 ng/mL DDU: Results may be indicative of the presence of VTE. The use of the Wells score and further diagnostic tests should be considered. Elevated D-Dimer levels can be associated with DIC, neoplasm, , trauma and liver disease. Elevated levels of rheumatoid factor may lead to an overestimation of the D-Dimer level. Performed By: #### D DMR #### [facility] ([address] [place] [address] VIR LACTATE W/ REFLEXon 11-26-19 25 LACTATE W/REFLEX 0.8 mmol/L Normal 0.4-2.0 [facility] Comment on above: Order Comment: Resul t did not trigger repeat Lactate, re-order if needed. Performed By: #### L ACTS #### [facility] ([address] [place] [address] VIR MAGNESIUMon 11-25-2024 Magnesium [Mass/Vol] 1.7 mg/dL Low 1.8-2.6 [facility] Comment on above: Performed By: #### M G #### [facility] ([address] [place] [address] VIR RESP PATHOGENS PANEL/SARS-CO V-2on 11-25-2024 SARS-CoV-2 (COVID-19) RNA KAYLA+probe Ql (Resp) SARS COV 2 BY PCR Not Detected ADENOVIRUS Not Detected CORONAVIRUS 229E Not Detected CORONAVIRUS HKU1 Not Detected CORONAVIRUS NL63 Not Detected CORONAVIRUS OC43 Not Detected HUMAN METAPNEUVIRUS Not Detected RHINO/ENTEROVIRUS Detected INFLUENZA A Not Detected INFLUENZA B Not Detected PARAINFLUENZA 1 Not Detected PARAINFLUENZA 2 Not Detected PARAINFLUENZA 3 Not Detected PARAINFLUENZA 4 Not Detected RESP SYNCYTIAL VIRUS Not Detected BORD PARAPERTUSSIS Not Detected BORDETELLA PERTUSSIS Not Detected CHLAM.PNEUMONIAE Not Detected MYCOPLASMA PNEUMONIAE Not Detected Normal Not Detected [facility] Comment on above: Order Comment: The B ioFire Respiratory Panel 2.1 (RP2.1) is a multiplexed nucleic acid test intended for the simultaneous qualitative detection and differentiation of nucleic acid from multiple viral and bacterial respiratory organisms, including nucleic acid from Severe Acute Respiratory Syndrome Coronavirus 2 (SARS-CoV-2), in nasopharyngeal swabs obtained from individuals suspected of COVID-19 by their healthcare provider. Testing is limited to laboratories certified under the Clinical Laboratory Improvement Amendments of 1988 (CLIA), to perform high complexity or moderate complexity tests.SARS-CoV-2 RNA and nucleic acids from the other respiratory viral and bacterial organisms identified by this test are generally detectable in nasopharyngeal swabs during the acute phase of infection. The detection and identification of specific viral and bacterial nucleic acids from individuals exhibiting signs and/or symptoms of respiratory infection is indicative of the presence of the identified microorganism and aids in the diagnosis of respiratory infection if used in conjunction with other clinical and epidemiological information. Positive results are indicative of the presence of the identified organism, but do not rule out co-infection with other pathogens. The agent(s) detected by the GnamGname RP2.1 may not be the definite cause of disease and clinical correlation with patient history and other diagnostic information is necessary to determine patient infection status.Negative results in the setting of a respiratory illness may be due to infection with pathogens not detected by this test, or lower respiratory tract infection that may not be detected by a nasopharyngeal specimen. Negative results do not preclude SARS-CoV-2 infection and should not be used as the sole basis for patient management decisions. Negative MARLYS-CoV-2 results must be combined with clinical observations, patient history and epidemiological information. Negative results for other organisms identified by the test may require additional laboratory testing when evaluating a patient with possible respiratory tract infection. Performed By: #### D [facility] #### [facility] ([place] [address] VIR SARS/FLU A+B/RSV BY NAAT/MOL ECULAR (M4RT COLLECTION TUBE)on 11-25-2024 SARS/FLU A+B/RSV BY NAAT/MOLECULAR (M4RT COLLECTION TUBE) FLU A PCR Negative FLU B PCR Negative RSV BY PCR Negative SARS COV 2 BY PCR Not Detected Normal Not Detected [facility] Comment on above: Order Comment: The PivotLink pert Xpress SARS-CoV-2/Flu/RSV Plus test is a rapid, multiplexed real-time RT-PCR test intended for the simultaneous qualitative detection and differentiation of SARS-CoV-2, influenza A, influenza B and respiratory syncytial virus (RSV) viral RNA from individuals suspected of respiratory viral infection consistent with COVID-19 by Their healthcare provider. This test has not been validated in asymptomatic patients. The Xpert Xpress SARS-CoV-2 test is intended for use by qualified and trained operators who are performing tests using either InstaGIS DX or Nexavis systems and is limited to laboratories that meet the CLIA requirements to perform high and moderate complexity tests. The Xpert Xpress SARS-CoV-2/Flu/RSV Plus is only for use under the Food and Drug Administration's Emergency Use Authorization. Results are for the simultaneous detection and differentiation of SARS-CoV-2, influenza A, influenza B and RSV nucleic acids in clinical specimens. SARS-CoV-2, influenza A, influenza B and RSV RNA identified by this test are generally detectable in upper respiratory samples during the acute phase of infection. Positive results are Indicative of the presence of the identified virus, but do not rule out bacterial infection or co-infection with other pathogens not detected by this test. Clinical correlation with patient history and other diagnostic information is necessary to determine patient infection status. The agent detected may not be the definite cause of disease. Negative results do not preclude SARS-CoV-2, influenza A, influenza B and RSV infection and should not be used as the sole basis for treatment or other patient management decisions. Negative results must be combined with clinical observations, patient history and epidemiological information. An Invalid result may occur with specimen-associated inhibition unable to be resolved with specimen repeat. Fact Sheet for Healthcare Providers: https://www.fda.gov/media/985878/download Fact Sheet for Patients: https://www.fda.gov/media/875260/download Performed By: #### C OVFLR #### [facility] ([address] [address] VIR THYROID PROFILE INCLUDES TSH FT4on 11-25-2024 Free T4 [Mass/Vol] 1.09 ng/dL Normal 0.61-1.60 [facility] Comment on above: Performed By: #### D DMR #### [facility] ([address] [address] VIR TSH 0.36 uIU/mL Low 0.49-4.67 [facility] Comment on above: Performed By: #### D DMR #### [facility] ([facility]) [address] [place] [address]. [place] [address] VIR TROP I, HIGH SENSITIVITY 1 H OURon 11-25-2024 TROPONIN I, HIGH SENSITIVITY 6 ng/L Normal <16 [facility] Comment on above: Performed By: #### D DMR #### [facility] ([facility]) [address] [place] [address]. [place] [address] VIR TROPONIN I, HIGH SENSITIVITY 0 HOURon 11-25-2024 TROPONIN I, HIGH SENSITIVITY 6 ng/L Normal <16 [facility] Comment on above: Performed By: #### T NIHS0 #### [facility] ([facility]) [address] [place] [address]. [place] [address] VIR XR CHEST 1 VWon 11-25-2024 XR CHEST 1 VW XR CHEST 1 VW Single view chest History: Cough. Chest pain. Comparison: None Findings: Single portable view of the chest. Cardiac silhouette is stable in size. Low lung volumes. Mild perihilar fullness with left basilar opacity. No pleural effusion. No measurable pneumothorax. Impression: 1. Low lung volumes with mild perihilar fullness with left basilar opacity, possibly pneumonia versus mild pulmonary vascular congestion with atelectasis. 702 Finalized by Valdemar Nguyễn MD on 11/25/2024 11:47 AM Normal [facility] Pardeep 10-22-2024 ALT [Catalytic activity/Vol] 13 U/L Normal -29 [facility] Comment on above: Performed By: #### 6 399, 822, 823, 375, 809 #### [facility] [address], [address] [place] [id number] Repair Order Clerk: Teofilo Quintanilla MD ALT [Catalytic activity/Vol] 13 U/L 6 - 29 U/L [facility] [place] 10-22-2024 AST [Catalytic activity/Vol] 16 U/L Normal 10-30 [facility] Comment on above: Performed By: #### 6 399, 822, 823, 375, 809 #### [facility] [place] [address] Repair Order Clerk: Teofilo Quintanilla MD AST [Catalytic activity/Vol] 16 U/L 10 - 30 U/L [facility] C-REACTIVE PROTEINon 025 CRP [Mass/Vol] 3.9 mg/L Normal <8.0 [facility] Comment on above: Performed By: #### 8 23, 822, 809, 375, 6399 #### [facility] [place] [address] Repair Order Clerk: Teofilo Quintanilla MD CBC (INCLUDES DIFF/PLT)on Basophils (Bld) [#/Vol] 0.087 10*3/uL Normal 0-200 [facility] Comment on above: Performed By: #### 8 23, 822, 809, 375, 6399 #### [facility] [place] [address] Repair Order Clerk: Teofilo Quintanilla MD Basophils/100 WBC (Bld) 1.3 % Normal [facility] Comment on above: Performed By: #### 8 23, 822, 809, 375, 6399 #### [facility] [place] [address] Repair Order Clerk: Teofilo Quintanilla MD Eosinophils (Bld) [#/Vol] 0.362 10*3/uL Normal 15-500 [facility] Comment on above: Performed By: #### 8 23, 822, 809, 375, 6399 #### [facility] [place] [address] Repair Order Clerk: Teofilo Quintanilla MD Eosinophils/100 WBC (Bld) 5.4 % Normal [facility] Comment on above: Performed By: #### 8 23, 822, 809, 375, 6399 #### [facility] [place] [address] Repair Order Clerk: Teofilo Quintanilla MD Hematocrit (Bld) [Volume fraction] 41.7 % Normal 35.0-45.0 [facility] Comment on above: Performed By: #### 8 23, 822, 809, 375, 6399 #### [facility] [place] [address] Repair Order Clerk: Teofilo Quintanilla MD Hemoglobin (Bld) [Mass/Vol] 13.0 g/dL Normal 11.7-15. 5 [facility] Comment on above: Performed By: #### 8 23, 822, 809, 375, 6399 #### [facility] [place] [address] Repair Order Clerk: Teofilo Quintanilla MD Lymphocytes (Bld) [#/Vol] 2.057 10*3/uL Normal 850-390 0 [facility] Comment on above: Performed By: #### 8 23, 822, 809, 375, 6399 #### [facility] [place] [address] Repair Order Clerk: Teofilo Quintanilla MD Lymphocytes/100 WBC (Bld) 30.7 % Normal [facility] Comment on above: Performed By: #### 8 23, 822, 809, 375, 6399 #### [facility] [place] [address] Repair Order Clerk: Teofilo Quintanilla MD MCH (RBC) [Entitic mass] 25.1 pg Low 27.0-33.0 [facility] Comment on above: Performed By: #### 8 23, 822, 809, 375, 6399 #### [facility] [place] [address] Repair Order Clerk: Teofilo Quintanilla MD MCHC (RBC) [Mass/Vol] 31.2 g/dL Low 32.0-36.[address] [facility] Comment on above: Result Comment: For adults, a slight decrease in the calculated MCHC value (in the range of 30 to 32 g/dL) is most likely not clinically significant; however, it should be interpreted with caution in correlation with other red cell parameters and the patient's clinical condition. Performed By: #### 8 23, 822, 809, 375, 6399 #### [facility] [place] [address] Repair Order Clerk: Teofilo Quintanilla MD MCV (RBC) [Entitic vol] 80.5 fL Normal 80.0-100.0 [facility] Comment on above: Performed By: #### 8 23, 822, 809, 375, 6399 #### [facility] [place] [address] Repair Order Clerk: Teofilo Quintanilla MD Monocytes (Bld) [#/Vol] 0.643 10*3/uL Normal 200-950 [facility] Comment on above: Performed By: #### 8 23, 822, 809, 375, 6399 #### [facility] [place] [address] Repair Order Clerk: Teofilo Quintanilla MD Monocytes/100 WBC (Bld) 9.6 % Normal [facility] Comment on above: Performed By: #### 8 23, 822, 809, 375, 6399 #### [facility] [place] [address] Repair Order Clerk: Teofilo Quintanilla MD Neutrophils (Bld) [#/Vol] 3.551 10*3/uL Normal 1500-78 00 [facility] Comment on above: Performed By: #### 8 23, 822, 809, 375, 6399 #### [facility] [place] [address] Repair Order Clerk: Teofilo Quintanilla MD Neutrophils/100 WBC (Bld) 53 % Normal [facility] Comment on above: Performed By: #### 8 23, 822, 809, 375, 6399 #### [facility] [place] [address] Repair Order Clerk: Teofilo Quintanilla MD Platelet mean volume (Bld) [Entitic vol] 9.6 fL Normal 7.5-12.5 [facility] Comment on above: Performed By: #### 8 23, 822, 809, 375, 6399 #### [facility] [place] [address] Repair Order Clerk: Teofilo Quintanilla MD Platelets (Bld) [#/Vol] 293 10*3/uL Normal 140-400 [facility] Comment on above: Performed By: #### 8 23, 822, 809, 375, 6399 #### [facility] [place] [address] Repair Order Clerk: Teofilo Quintanilla MD RBC (Bld) [#/Vol] 5.18 10*6/uL High 3.80-5.10 [facility] Comment on above: Performed By: #### 8 23, 822, 809, 375, 6399 #### [facility] [place] [address] Repair Order Clerk: Teofilo Quintanilla MD RDW Normal 11.0-15.0 [facility] Comment on above: Result Comment: Due to platelet or RBC variability in size or shape the result cannot be reported accurately. Performed By: #### 8 23, 822, 809, 375, 6399 #### [facility] [place] [address] Repair Order Clerk: Teofilo Quintanilla MD WBC (Bld) [#/Vol] 6.7 10*3/uL Normal 3.8-10.8 [facility] Comment on above: Performed By: #### 8 23, 822, 809, 375, 6399 #### [facility] [place] [address] Repair Order Clerk: Teofilo Quintanilla MD CBC and Differentialon 10-22 Basophils (Bld) [#/Vol] 87 10*3/uL [facility] Basophils/100 WBC (Bld) 1.3 % [facility] Eosinophils (Bld) [#/Vol] 362 10*3/uL [facility] Eosinophils/100 WBC (Bld) 5.4 % [facility] Erythrocyte distribution wid th (RBC) [Ratio] 11.0 - 15.0 % [facility] Comment on above: Due to platelet or R BC variability in size or shape the result cannot be reported accurately. Hematocrit (Bld) [Volume fraction] 41.7 % 35.0 - 45.0 % [facility] Hemoglobin (Bld) [Mass/Vol] 13 g/dL 11.7 - 15.5 g/dL [facility] Interpretation and review of laboratory results Abnormal [facility] Lymphocytes (Bld) [#/Vol] 2056 10*3/uL [facility] Lymphocytes/100 WBC (Bld) 30.7 % [facility] MCH (RBC) [Entitic mass] 25.1 pg Low 27. 0 - 33.0 pg [facility] MCHC (RBC) [Mass/Vol] 31.2 g/dL Low 32.0 - 36.0 g/dL [facility] Comment on above: For adults, a slight decrease in the calculated MCHC value (in the range of 30 to 32 g/dL) is most likely not clinically significant; however, it should be interpreted with caution in correlation with other red cell parameters and the patient's clinical condition. MCV (RBC) [Entitic vol] 80.5 fL 80.0 - 100.0 fL [facility] Monocytes (Bld) [#/Vol] 643 10*3/uL [facility] Monocytes/100 WBC (Bld) 9.6 % [facility] Neutrophils (Bld) [#/Vol] 3551 10*3/uL [facility] Neutrophils/100 WBC (Bld) 53 % [facility] Platelet mean volume (Bld) [Entitic vol] 9.6 fL 7.5 - 12.5 fL [facility] Platelets (Bld) [#/Vol] 293 10*3/uL [facility] RBC (Bld) [#/Vol] 5.18 10*6/uL High [facility] ealth WBC (Bld) [#/Vol] 6.7 10*3/uL [facility] alth [facility] CREATININEon 10-22-2024 Creatinine [Mass/Vol] 0.68 mg/dL Normal 0.50-0.99 Counts Include [facility] Comment on above: Performed By: #### 6 399, 822, 823, 375, 809 #### [facility] [place], [address] [place], [place] [id number] Repair Order Clerk: Teofilo Quintanilla MD GFR/1.73 sq M.predicted ashlee g non-blacks MDRD (S/P/Bld) [Vol rate/Area] 110 mL/min/{1.73_m2} Normal > OR = 60 [facility] Comment on above: Performed By: #### 6 399, 822, 823, 375, 809 #### [facility] [address], [address] [place], [place] [id number] Repair Order Clerk: Teofilo Quintanilla MD CRP [Mass/Vol]on 10-22-2024 [facility] CRP, Inflammationon 10-23-19 25 CRP [Mass/Vol] 3.9 mg/L NINF - 8.0 mg/L [facility] Creatinine [Mass/Vol]on 09-28 GFR/1.73 sq M.predicted ashlee g non-blacks MDRD (S/P/Bld) [Vol rate/Area] 110 mL/min/{1.73_m2} > OR = 60 mL/min/1.7 3m2 [facility] Creatinine, serumon 10-23-19 Creatinine [Mass/Vol] 0.68 mg/dL 0.50 - 0.99 mg/dL [facility] ESR Westergren method (Bld) [Velocity]on 10-22-2024 ESR (Bld) [Velocity] 28 mm/h High < OR = 20 [facility] Interpretation and review of laboratory results Abnormal [facility] No Panel Informationon 10-22 [facility] SED RATE BY MODIFIED WESTERG RENon 10-22-2024 SED RATE BY MODIFIED WESTERGREN 28 mm/h High < OR = 20 [facility] Comment on above: Performed By: #### 6 399, 822, 823, 375, 809 #### [facility] [place] [id number] Repair Order Clerk: Teofilo Quintanilla MD [place] 07-09-2024 ALT [Catalytic activity/Vol] 11 U/L Normal - [facility] Comment on above: Performed By: #### 8 23, 822, 809, 375, 6399 #### [facility] [place] [address] Repair Order Clerk: Teofilo Quintanilla MD [place] 07-09-2024 AST [Catalytic activity/Vol] 13 U/L Normal 10-30 [facility] Comment on above: Performed By: #### 8 23, 822, 809, 375, 6399 #### [facility] [place] [address] Repair Order Clerk: Teofilo Quintanilla MD C-REACTIVE PROTEINon CRP [Mass/Vol] 17.8 mg/L High <8.0 [facility] Comment on above: Performed By: #### 8 23, 822, 809, 375, 6399 #### [facility] [place] [address] Repair Order Clerk: Teofilo Quintanilla MD CBC (INCLUDES DIFF/PLT)on Basophils (Bld) [#/Vol] 0.104 10*3/uL Normal 0-200 [facility] Comment on above: Performed By: #### 8 23, 822, 809, 375, 6399 #### [facility] [place] [address] Repair Order Clerk: Teofilo Quintanilla MD Basophils/100 WBC (Bld) 1.0 % Normal [facility] Comment on above: Performed By: #### 8 23, 822, 809, 375, 6399 #### [facility] [place] [address] Repair Order Clerk: Teofilo Quintanilla MD Eosinophils (Bld) [#/Vol] 0.146 10*3/uL Normal 15-500 [facility] Comment on above: Performed By: #### 8 23, 822, 809, 375, 6399 #### [facility] [place] [address] Repair Order Clerk: Teofilo Quintanilla MD Eosinophils/100 WBC (Bld) 1.4 % Normal [facility] Comment on above: Performed By: #### 8 23, 822, 809, 375, 6399 #### [facility] [place] [address] Repair Order Clerk: Teofilo Quintanilla MD Erythrocyte distribution wid th (RBC) [Ratio] 15.5 % High 11.0-15.0 [facility] Comment on above: Performed By: #### 8 23, 822, 809, 375, 6399 #### [facility] [place] [address] Repair Order Clerk: Teofilo Quintanilla MD Hematocrit (Bld) [Volume fraction] 34.1 % Low 35.0-45.0 [facility] Comment on above: Performed By: #### 8 23, 822, 809, 375, 6399 #### [facility] [place] [address] Repair Order Clerk: Teofilo Quintanilla MD Hemoglobin (Bld) [Mass/Vol] 10.1 g/dL Low 11.7-15. 5 [facility] Comment on above: Performed By: #### 8 23, 822, 809, 375, 6399 #### [facility] [place] [address] Repair Order Clerk: Teofilo Quintanilla MD Lymphocytes (Bld) [#/Vol] 4.118 10*3/uL High 850-390 0 [facility] Comment on above: Performed By: #### 8 23, 822, 809, 375, 6399 #### [facility] [place] [address] Repair Order Clerk: Teofilo Quintanilla MD Lymphocytes/100 WBC (Bld) 39.6 % Normal [facility] Comment on above: Performed By: #### 8 23, 822, 809, 375, 6399 #### [facility] [place] [address] Repair Order Clerk: Teofilo Quintanilla MD MCH (RBC) [Entitic mass] 23.7 pg Low 27.0-33.0 [facility] Comment on above: Performed By: #### 8 23, 822, 809, 375, 6399 #### [facility] [place] [address] Repair Order Clerk: Teofilo Quintanilla MD MCHC (RBC) [Mass/Vol] 29.6 g/dL Low 32.0-36.[address] [facility] Comment on above: Result Comment: For adults, a slight decrease in the calculated MCHC value (in the range of 30 to 32 g/dL) is most likely not clinically significant; however, it should be interpreted with caution in correlation with other red cell parameters and the patient's clinical condition. Performed By: #### 8 23, 822, 809, 375, 6399 #### [facility] [place] [address] Repair Order Clerk: Teofilo Quitnanilla MD MCV (RBC) [Entitic vol] 80.0 fL Normal 80.0-100.0 [facility] Comment on above: Performed By: #### 8 23, 822, 809, 375, 6399 #### [facility] [place] [address] Repair Order Clerk: Teofilo Quintanilla MD Monocytes (Bld) [#/Vol] 0.738 10*3/uL Normal 200-950 [facility] Comment on above: Performed By: #### 8 23, 822, 809, 375, 6399 #### [facility] [place] [address] Repair Order Clerk: Tefoilo Quintanilla MD Monocytes/100 WBC (Bld) 7.1 % Normal [facility] Comment on above: Performed By: #### 8 23, 822, 809, 375, 6399 #### [facility] [place] [address] Repair Order Clerk: Teofilo Quintanilla MD Neutrophils (Bld) [#/Vol] 5.294 10*3/uL Normal 1500-78 00 [facility] Comment on above: Performed By: #### 8 23, 822, 809, 375, 6399 #### [facility] of [place] [address] Repair Order Clerk: Teofilo Quintanilla MD Neutrophils/100 WBC (Bld) 50.9 % Normal [facility] Comment on above: Performed By: #### 8 23, 822, 809, 375, 6399 #### [facility] of [place] [address] Repair Order Clerk: Teofilo Quintanilla MD Platelet mean volume (Bld) [Entitic vol] 9.1 fL Normal 7.5-12.5 [facility] Comment on above: Performed By: #### 8 23, 822, 809, 375, 6399 #### [facility] of [place] [address] Repair Order Clerk: Teofilo Quintanilla MD Platelets (Bld) [#/Vol] 415 10*3/uL High 140-400 [facility] Comment on above: Performed By: #### 8 23, 822, 809, 375, 6399 #### [facility] of [place] [address] Repair Order Clerk: Teofilo Quintanilla MD RBC (Bld) [#/Vol] 4.26 10*6/uL Normal 3.80-5.10 [facility] Comment on above: Performed By: #### 8 23, 822, 809, 375, 6399 #### [facility] of [place] [address] Repair Order Clerk: Teofilo Quintanilla MD WBC (Bld) [#/Vol] 10.4 10*3/uL Normal 3.8-10.8 [facility] Comment on above: Performed By: #### 8 23, 822, 809, 375, 6399 #### [facility] of [place] [address] Repair Order Clerk: Teofilo Quintanilla MD CREATININEon 07-09-2024 Creatinine [Mass/Vol] 0.71 mg/dL Normal 0.50-0.99 Counts Include [address] [facility] Comment on above: Performed By: #### 8 23, 822, 809, 375, 6399 #### [facility] [place] [address] Repair Order Clerk: Teofilo Quintanilla MD GFR/1.73 sq M.predicted ashlee g non-blacks MDRD (S/P/Bld) [Vol rate/Area] 108 mL/min/{1.73_m2} Normal > OR = 60 [facility] Comment on above: Performed By: #### 8 23, 822, 809, 375, 6399 #### [facility] [place] [address] Repair Order Clerk: Teofilo Quintanilla MD SED RATE BY MODIFIED WESTERG RENon 07-09-2024 SED RATE BY MODIFIED WESTERGREN 63 mm/h High < OR = 20 [facility] Comment on above: Performed By: #### 8 23, 822, 809, 375, 6399 #### [facility] of [address], [address] [place] [address] Repair Order Clerk: Teofilo Quintanilla MD MTB SCREENon 07-08-2024 MITOGEN-NIL 9.9713 IU/mL Normal [facility] Comment on above: Performed By: #### L [id number] #### [facility] [address] [place] [address] Luan Uribe M.D. [id number] MTB SCREEN INTERPRETATION Negative Normal Negative [facility] Comment on above: Result Comment: No I FN-gamma response to M tuberculosis antigens was detected. Latent infection with M tuberculosis is unlikely. A single negative result does not exclude infection with M tuberculosis. In patients at high risk for M tuberculosis infection,a second test should be considered Performed By: #### L [id number] #### [facility] [address] [place] [address] Luan Uribe M.D. [id number] NIL 0.0287 IU/mL Normal [facility] Comment on above: Performed By: #### L [id number] #### [facility] [address] [place] [address] Luan Uribe M.D. [id number] TB1-NIL 0.0548 IU/mL Normal 0.00 0.34 [facility] Comment on above: Performed By: #### L [id number] #### [facility] [address] [place] [address] Luan Uribe M.D. [id number] TB2-NIL 0.0624 IU/mL Normal 0.00 0.34 [facility] Comment on above: Result Comment: Inte rferon gamma release is measured for specimens from each of the four collection tubes. A qualitative result (Negative, Positive, or Indeterminate) is based on interpretation of the four values, NIL, MITOGEN minus NIL (MITOGEN-NIL), TB1 minus NIL (TB1-NIL), and TB2 minus NIL (TB2-NIL). The NIL value represents nonspecific reactivity produced by the patient specimen. The MITOGEN-NIL value serves as the positive control for the patient specimen, demonstrating successful lymphocyte reactivity. The TB1-NIL tube specifically detects CD4+ lymphocyte reactivity, specifically stimulated by the TB1 antigens. The TB2-NIL tube detects both CD4+ and CD8+ lymphocyte reactivity, stimulated by the TB2 antigens. An overall Negative result does not completely rule out TB Infection. Performed By: #### L [id number] #### [facility] [address] [place] [address] Luan Uribe M.D. [id number] No Panel InformationOrdered By: Yeni Hodges on 07-06-2024 Quick Strep (POC) [facility] MM special view RT w/CADon 0 04-08-2024 MM special view RT w/CAD [facility] Main [address] [address] Ultrasound Report Signed Patient: Robbie Willson MR#: [id number] 63 : 1980 Acct:[id number] Age/Sex: 43 / F ADM Date: 04/08/24 Loc: MS Room: Type: [facility] Attending Dr: Norma Mirza DIRECTOR TRAFFIC AND PLANNING-C Ordering Provider: Norma Mirza CNP Date of Service: 04/08/24 MM/MM special view RT w/CAD: R92.8 ([id number]) US/US breast RT limited: R92.8 Copies to: Norma Mirza CNP RIGHT Diagnostic Full Field digital mammogram with 3-D imaging. Spot compression with mediolateral view COMPARISON: 03/15/2024 HISTORY: Annual screening BREAST COMPOSITION: Scattered fibroglandular densities of the breast parenchyma identified BREAST CALCIFICATIONS: Benign calcifications present. VASCULAR CALCIFICATIONS: None ARCHITECTURAL DISTORTION: None BREAST NODULE: No residual nodularity with compression. AXILLARY LYMPH NODES: Normal POSTSURGICAL CHANGES: None Targeted right breast ultrasound performed. At the 1:00 position 4 cm from the nipple there is an anechoic 3 mm cyst identified. This is benign. US/US breast RT limited IMPRESSION: No mammographic evidence of malignancy. Benign anechoic 3 mm cyst. No further diagnostic assessment recommended. Routine follow-up recommended in one year. RESULT CODE: 2 Benign Findings(s) DENSITY CODE: 2 (approximately 25-50% glandular) FOLLOW UP: 1YR THE FALSE-NEGATIVE RATE OF MAMMOGRAPHY IS APPROXIMATELY 10%. IMAGING OF A PALPABLE ABNORMALITY MUST BE BASED ON CLINICAL GROUNDS. PATIENT WAS ENTERED INTO A REMINDER SYSTEM WITH A TARGET DUE DATE FOR THE NEXT MAMMOGRAM. Impression dictated by: Vladimir Tyson M.D.04/08/2024 11:50 AM Dictation Location: [facility] Tech: Radha Milton Transcribed By: ADAN 04/08/24 1150 Dictated By: Vladimir Tyson DO 04/08/24 1148 Signed By: 04/08/24 1150 Normal [facility] MM screening mammo BI w/CADo n 03-15-2024 MM screening mammo BI w/CAD [facility] [place] [place] [address] Mammography Report Signed Patient: Robbie Willson MR#: [id number] [birth year] : 1980 Acct:[id number] Age/Sex: 43 / F ADM Date: 03/15/24 Loc: MS Room: Type: REG CLI Attending Dr: Referral Self Copies to: Norma Mirza CNP SELF,REFERRAL Ordering Provider: SELF,REFERRAL Date of Service: 03/15/24 MM/MM screening mammo BI w/CAD: SCREENING CLINICAL DATA: Screening for malignancy. SCREENING MAMMOGRAM - FULL FIELD DIGITAL WITH TOMOSYNTHESIS AND CAD COMPARISON:Priors dating back to 2021 Tomosynthesis craniocaudal and mediolateral oblique views of both breasts were obtained using low- dose digital technique. This examination was reviewed with the aid of CAD. Within the superior medial right breast 6 cm from the nipple there is a 3 mm focal asymmetry. This is only seen on the MLO. Otherwise the The breast tissue is almost entirely fatty. There are no no additional dominant masses, typically malignant calcifications or architectural distortion. There has been no significant interval change. MM/MM screening mammo BI w/CAD IMPRESSION: 3 mm focal asymmetry upper inner quadrant right breast requires spot compression views and possible ultrasound. RESULT CODE: 0 Incomplete: Needs Additional Imaging Evaluation DENSITY CODE: 1 (<25% glandular) FOLLOW UP: ADD The false-negative rate of mammography is approximately 10-percent. Management of a palpable abnormality must be based on clinical grounds. Patient was entered into a reminder system with a target due date for the next mammogram. Impression dictated by: Dayo Crenshaw M.D.03/15/2024 1:22 PM Dictation Location: [facility] Transcribed By: [facility] 03/15/24 1322 Dictated By: Dayo Crenshaw MD 03/15/24 1314 Signed By: 03/15/24 1322 Normal [facility] Mammography reportOrdered By : Dayo Crenshaw on 03-15-2024 Diagnostic imaging study [facility] [place] [place] [address] Mammography Report Signed Patient: Robbie Willson MR#: [id number] : 1980 Acct:[id number] Age/Sex: 43 / F ADM Date: 5 Loc: MS Room: Type: REG CLI Attending Dr: Referral Self Copies to: Norma Mirza CNP SELF,REFERRAL ~ Ordering Provider: SELF,REFERRAL Date of Service: 03/15/24 MM/MM screening mammo BI w/CAD: SCREENING CLINICAL DATA: Screening for malignancy. SCREENING MAMMOGRAM - FULL FIELD DIGITAL WITH TOMOSYNTHESIS AND CAD COMPARISON:Priors dating back to 2021 Tomosynthesis craniocaudal and mediolateral oblique views of both breasts were obtained using low-dose digital technique. This examination was reviewed with the aid of CAD. Within the superior medial right breast 6 cm from the nipple there is a 3 mm focal asymmetry. This is only seen on the MLO. Otherwise the The breast tissue is almost entirely fatty. There are no no additional dominant masses, typically malignant calcifications or architectural distortion. There has been no significant interval change. MM/MM screening mammo BI w/CAD IMPRESSION: 3 mm focal asymmetry upper inner quadrant right breast requires spotcompression views and possible ultrasound. RESULT CODE: 0 Incomplete: Needs Additional Imaging Evaluation DENSITY CODE: 1 (<25% glandular) FOLLOW UP: ADD The false-negative rate of mammography is approximately 10-percent. Management of a palpable abnormality must be based on clinical grounds. Patient was entered into a reminder system with a target due date for the next mammogram. Impression dictated by: Dayo Crenshaw M.D.03/15/2024 1:22 PM Dictation Location: [facility] Transcribed By: ADAN 03/15/24 1322 Dictated By: Dayo Crenshaw MD 03/15/24 1314 Signed By: 03/15/24 1322 [facility] Work Phone: X-ray reportOrdered By: Praneeth العراقي on 03-15-2024 Study report [facility] [place] [place] [address] XRay Report Signed Patient: Robbie Willson MR#: [id number] : 1980 Acct:[id number] Age/Sex: 43 / F ADM Date: 5 Loc: XD Room: Type: [facility] Attending Dr: Norma Mirza DIRECTOR TRAFFIC AND PLANNING-C Copies to: Norma Mirza CNP~ Ordering Provider: Norma Mirza CNP Date of Service: 03/15/24 XR/XR shoulder LT min 2V*: M25.512 LEFT SHOULDER - - 3 views CLINICAL HISTORY: Left shoulder pain for months. COMPARISON: None FINDINGS: AC and glenohumeral joints appear unremarkable. Subacromial space appears maintained. XR/XR shoulder LT min 2V* IMPRESSION: No acute bony process. Impression dictated by: Anna Wong Jr.OBrown03/15/2024 3:53 PM Dictation Location: [facility] Transcribed By: PWS 03/15/241552 Dictated By: Jeferson العراقي Jr, DO 03/15/241552 Signed By: 03/15/241552 [facility] XR shoulder LT min 2V*on XR shoulder LT min 2V* [facility] [place] [place] [address] XRay Report Signed Patient: Robbie Willson MR#: [id number] [birth year] : 1980 Acct:[id number] Age/Sex: 43 / F ADM Date: 03/15/24 Loc: XD Room: Type: [facility] Attending Dr: Norma Mirza DIRECTOR TRAFFIC AND PLANNING-C Copies to: Norma Mirza CNP Ordering Provider: Norma Mirza CNP Date of Service: 03/15/24 XR/XR shoulder LT min 2V*: M25.512 LEFT SHOULDER - - 3 views CLINICAL HISTORY: Left shoulder pain for months. COMPARISON: None FINDINGS: AC and glenohumeral joints appear unremarkable. Subacromial space appears maintained. XR/XR shoulder LT min 2V* IMPRESSION: No acute bony process. Impression dictated by: Anna Wong Jr.OBrown03/15/2024 3:53 PM Dictation Location: [facility] Transcribed By: PWS 03/15/24 155 Dictated By: Jeferson العراقي Jr DO 03/15/241552 Signed By: 03/15/241552 [place] [facility] [place] 11-14-2023 ALT [Catalytic activity/Vol] 12 U/L 0-35 U/ L [facility] ALT [Catalytic activity/Vol] 12 U/L Normal 0-35 U/ L [facility] Comment on above: Performed By: #### 4 [id number] #### [facility] [address] [place] [address] Rosemarie Fischer M.D. [id number] [place] 11-14-2023 AST [Catalytic activity/Vol] 15 U/L 0-35 U/ L [facility] AST [Catalytic activity/Vol] 15 U/L Normal 0-35 U/ L [facility] Comment on above: Performed By: #### 4 5131 #### [facility] [address] [place] [address] Rosemarie Fischer M.D. [id number] CBC WITH AUTO DIFFERENTIALon 11-14-2023 AUTO NRBC 0.0 % Normal [facility] Comment on above: Performed By: #### L [id number] #### [facility] [address] [place] [address] Rosemarie Fischer M.D. [id number] AUTO NRBC ABS COUNT 0.00 K/mcL Normal 0.00-0.00 [facility] Comment on above: Performed By: #### L [id number] #### [facility] [address] [place] [address] Rosemarie Fischer M.D. [id number] BASOPHILS ABSOLUTE COUNT 0.07 K/mcL Normal 0.00-0.30 [facility] Comment on above: Performed By: #### L [id number] #### [facility] [address] [place] [address] Rosemarie Fischer M.D. [id number] Basophils/100 WBC (Bld) 0.9 % Normal [facility] Comment on above: Performed By: #### L [id number] #### [facility] [address] [place] [address] Rosemarie Fischer M.D. [id number] Eosinophils (Bld) [#/Vol] 0.66 10*3/uL High 0.00-0.5 0 [facility] Comment on above: Performed By: #### L [id number] #### [facility] [address] [place] [address] Rosemarie Fischer M.D. [id number] Eosinophils/100 WBC (Bld) 8.9 % Normal [facility] Comment on above: Performed By: #### L [id number] #### [facility] [address] [place] [address] Rosemarie Fischer M.D. [id number] Erythrocyte distribution wid th (RBC) [Ratio] 15.0 % High 11.6-14.8 [facility] Comment on above: Performed By: #### L [id number] #### [facility] [address] [place] [address] Rosemarie Fischer M.D. [id number] Hematocrit (Bld) [Volume fraction] 40.0 % Normal 36.0-46.0 [facility] Comment on above: Performed By: #### L [id number] #### [facility] [address] [place] [address] Rosemarie Fischer M.D. [id number] Hemoglobin (Bld) [Mass/Vol] 12.9 g/dL Normal 12.0-16. 0 [facility] Comment on above: Performed By: #### L [id number] #### [facility] [address] [place] [address] Rosemarie Fischer M.D. [id number] IG ABSOLUTE 0.02 K/mcL Normal 0.00-0.30 [facility] Comment on above: Performed By: #### L [id number] #### [facility] [address] [place] [address] Rosemarie Fischer M.D. [id number] IG PERCENT 0.30 % Normal [facility] Comment on above: Result Comment: The IG parameter is the percentage of metamyelocytes, myelocytes and promyelocytes. An immature granulocyte count (IG) of 1% or more suggests the possibility of infection, an IG count of 3% is very likely related to an infection. Performed By: #### L [id number] #### [facility] [address] [place] [address] Rosemarie Fischer M.D. [id number] Lymphocytes (Bld) [#/Vol] 2.40 10*3/uL Normal 0.90-4.0 0 [facility] Comment on above: Performed By: #### L [id number] #### [facility] [address] [place], [place] [address] Rosemarie Fischer M.D. [id number] Lymphocytes/100 WBC (Bld) 32.3 % Normal [facility] Comment on above: Performed By: #### L [id number] #### [facility] [address] [place], [place] [address] Rosemarie Fischer M.D. [id number] MCH (RBC) [Entitic mass] 26.7 pg Normal 26.0-34.0 [facility] Comment on above: Performed By: #### L [id number] #### [facility] [address] [place], [place] [address] Rosemarie Fischer M.D. [id number] MCV (RBC) [Entitic vol] 82.8 fL Normal 80.0-100.0 [facility] Comment on above: Performed By: #### L [id number] #### [facility] [address] [place], [place] [address] Rosemarie Fischer M.D. [id number] MEAN CORPUSCULAR HEMOGLOBIN CONC 32.3 g/dL Normal 31.0-37.0 [facility] Comment on above: Performed By: #### L [id number] #### [facility] [address] [place], [place] [address] Rosemarie Fischer M.D. [id number] Monocytes (Bld) [#/Vol] 0.73 10*3/uL Normal 0.30-0.90 [facility] Comment on above: Performed By: #### L [id number] #### [facility] [address] [place], [place] [address] Rosemarie Fischer M.D. [id number] Monocytes/100 WBC (Bld) 9.8 % Normal [facility] Comment on above: Performed By: #### L [id number] #### [facility] [address] [place] [address] Rosemarie Fischer M.D. [id number] NEUTROPHILS ABSOLUTE COUNT 3.54 K/mcL Normal 1.70-7.00 [facility] Comment on above: Performed By: #### L [id number] #### [facility] [address] [place], [place] [address] Rosemarie Fischer M.D. [id number] Neutrophils/100 WBC (Bld) 47.8 % Normal [facility] Comment on above: Performed By: #### L [id number] #### [facility] [address] [place], [place] [address] Rosemarie Fischer M.D. [id number] Platelet mean volume (Bld) [Entitic vol] 9.9 fL Normal 9.4-12.4 [facility] Comment on above: Performed By: #### L [id number] #### [facility] [address] [place], [place] [address] Rosemarie Fischer M.D. [id number] Platelets (Bld) [#/Vol] 359 10*3/uL Normal 150-400 [facility] Comment on above: Performed By: #### L [id number] #### [facility] [address] [place], [place] [address] Rosemarie Fischer M.D. [id number] RBC (Bld) [#/Vol] 4.83 10*6/uL Normal 4.00-5.20 [facility] Comment on above: Performed By: #### L [id number] #### [facility] [address] [place], [place] [address] Rosemarie Fischer M.D. [id number] WBC (Bld) [#/Vol] 7.42 10*3/uL Normal 4.50-11.00 [facility] Comment on above: Performed By: #### L [id number] #### [facility] [address] [place], [place] [address] Rosemarie Fischer M.D. [id number] CREATININE, SERUMon 11-14-19 24 Creatinine [Mass/Vol] 0.65 mg/dL Normal 0.40-1.10 [facility] Comment on above: Order Comment: [facility] has implemented the eGFR calculation approach that does not have a coefficient for race that conforms to the NKF-ASN Task Force Recommendations. Performed By: #### 4 [id number] #### [facility] [address] [place], [place] [address] Rosemarie Fischer M.D. [id number] EGFR 112 mL/min/1.73 m2 Normal >=60 [facility] Comment on above: Order Comment: [facility] has implemented the eGFR calculation approach that does not have a coefficient for race that conforms to the NKF-ASN Task Force Recommendations. Result Comment: Deyanira mated GFR was calculated using the 2020 CKD-EPI creatinine equation. Performed By: #### 4 [id number] #### [facility] [address] [place], [place] [address] Rosemarie Fischer M.D. [id number] Creatinine [Mass/Vol]on 10-28 GFR/1.73 sq M.predicted CKD- EPI (S/P/Bld) [Vol rate/Area] 112 - PINF [facility] Comment on above: Estimated GFR was ca lculated using the 2020 CKD-EPI creatinine equation. [facility] has implemented the eGFR calculation approach that does not have a coefficient for race that conforms to the NKF-ASN Task Force Recommendations. [facility] Creatinine, serumon 11-14-19 Creatinine [Mass/Vol] 0.65 mg/dL 0.40 - 1.10 mg/dL [facility] IRON STUDY WITH FERRITINon 0 11-14-2023 Ferritin [Mass/Vol] 30 ng/mL Normal 13-150 [facility] Comment on above: Performed By: #### 4 [id number] #### [facility] [address] [place], [place] [address] Rosemarie Fischer M.D. [id number] Iron [Mass/Vol] 44 ug/dL Normal 30-160 [facility] Comment on above: Performed By: #### 4 [id number] #### [facility] [address] [place], [place] [address] Rosemarie Fischer M.D. [id number] IRON SATURATION 15 % Low 20-50 [facility] Comment on above: Performed By: #### 4 7645 #### [facility] [address] [place], [place] [address] Rosemarie Fischer M.D. [id number] TIBC (CALCULATED) 295 mcg/dL Normal 225-430 [facility] Comment on above: Performed By: #### 4 7645 #### [facility] [address] [place], [place] [address] Rosemarie Fischer M.D. [id number] Iron Study with Ferritinon 0 11-14-2023 Ferritin [Mass/Vol] 30 ng/mL 13 - 150 ng/mL [facility] Interpretation and review of laboratory results Abnormal [facility] Iron [Mass/Vol] 44 ug[facility] [Mass/Vol] 295 [facility] Iron saturation [Mass fraction] 15 % Low 20 - 50 % [facility] No Panel Informationon 11-13 Interpretation and review of laboratory results Normal [facility] XR hand RT min 3V*on 024 XR hand RT min 3V* [facility] [place] [address] XRay Report Signed Patient: Robbie Willson MR#: [id number] 63 : 1980 Acct:[id number] Age/Sex: 42 / F ADM Date: 07/23/23 Loc: XDUCLY Room: Type: [facility] Attending Dr: Acacia Preciado APRN Copies to: Acacia Preciado APRN Ordering Provider: Acacia Preciado APRN Date of Service: 07/23/23 XR/XR hand RT min 3V*: S69.91XA - Unspecified injury of right wrist, hand and fi... RIGHT HAND - 3 views CLINICAL DATA: Patient injured right after falling onto hand 3 days ago. COMPARISON: None AP, lateral and oblique views were obtained. There is no evidence of fracture or dislocation. There are no significant soft tissue abnormalities. XR/XR hand RT min 3V* IMPRESSION: NO ACUTE BONY INJURY. Impression dictated by: Melony Cason M.D.07/23/2023 12:18 PM Dictation Location: [place] [address] Transcribed By: [facility] 07/23/23 1218 Dictated By: Melony Cason MD 07/23/23 1218 Signed By: 07/23/23 1218 Normal [facility] [place] 04-03-2023 ALT [Catalytic activity/Vol] 12 U/L 0-35 U/ L [facility] [place] 04-03-2023 AST [Catalytic activity/Vol] 16 U/L 0-35 U/ L [facility] Creatinine [Mass/Vol]on GFR/1.73 sq M.predicted CKD- EPI (S/P/Bld) [Vol rate/Area] 111 - PINF [facility] Comment on above: Estimated GFR was ca lculated using the 2020 CKD-EPI creatinine equation. [facility] Services has implemented the eGFR calculation approach that does not have a coefficient for race that conforms to the NKF-ASN Task Force Recommendations. [facility] Creatinine, serumon 04-03-19 Creatinine [Mass/Vol] 0.70 mg/dL 0.40 - 1.10 mg/dL [facility] No Panel Informationon 04-03 Interpretation and review of laboratory results Normal [facility] Comprehensive metabolic 2000 panelon 06-27-2022 Albumin [Mass/Vol] 3.3 g/dL 3.2 - 5.2 g/dL [facility] ALP [Catalytic activity/Vol] 77 U/L 40 - 150 U/L [facility] ALT [Catalytic activity/Vol] 27 U/L 14 - 65 U/L [facility] Anion gap [Moles/Vol] 7 mmol/L Low 10 - 2 0 mmol/L [facility] AST [Catalytic activity/Vol] 19 U/L 0 - 45 U/L [facility] Bilirubin [Mass/Vol] 0.3 mg/dL 0.0 - 1 .3 mg/dL [facility] Calcium [Mass/Vol] 8.5 mg/dL 8.4 - 10. 2 mg/dL [facility] Chloride [Moles/Vol] 106 mmol/L 98 - 10 8 mmol/L [facility] Creatinine [Mass/Vol] 0.64 mg/dL 0.40 - 1.10 mg/dL [facility] GFR/1.73 sq M.predicted CKD- EPI (S/P/Bld) [Vol rate/Area] 114 - PINF [place] [facility] Comment on above: Estimated GFR was ca lculated using the 2020 CKD-EPI creatinine equation. Glucose [Mass/Vol] 82 mg/dL 65 - 99 mg/dL [facility] HCO3 [Moles/Vol] 25 mmol/L 21 - 32 mmol/L [facility] Interpretation and review of laboratory results Abnormal [facility] Potassium [Moles/Vol] 3.6 mmol/L 3.5 - 5.1 mmol/L [facility] Protein [Mass/Vol] 7.3 g/dL 6.0 - 8.0 g/dL [facility] Sodium [Moles/Vol] 134 mmol/L Low 135 - 145 mmol/L [facility] Urea nitrogen [Mass/Vol] 9 mg/dL 8 - 25 mg/dL [facility] Urea nitrogen/Creatinine [Ma ss ratio] 14.1 mg/mg 10.0 - 20.0 [facility] has implemented the eGFR calculation approach that does not have a coefficient for race that conforms to the NKF-ASN Task Force Recommendations. [facility] INSULINon 01-11-2022 Insulin 24.4 uIU/mL Normal 2.6-24.9 [facility] Comment on above: Performed By: #### I NSULIN ####[facility] [address] [place] [address]Dr. Ghassan Beckham CBC AUTO DIFFon 01-10-2022 BASO # 0.1 103/ul Normal 0.0-0.1 [facility] Comment on above: Performed By: #### C BC #### [facility] [address] [place] [address] Dr. Ghassan Beckham Basophils/100 WBC (Bld) 1.3 % Normal 0.2-2.0 [facility] Comment on above: Performed By: #### C BC #### [facility] [address] [address] [address] Ghassan Beckham EO # 0.6 103/ul Normal 0.0-0.7 [facility] Comment on above: Performed By: #### C BC #### [facility] [address] [address] [address] Ghassan Beckham Eosinophils/100 WBC (Bld) 9.2 % Critically high 0.9-7 .0 [facility] Comment on above: Performed By: #### C BC #### [facility] [address] [place] [address] Dr. Ghassan Beckham Erythrocyte distribution wid th (RBC) [Ratio] 14.7 % Normal 11.0-15.0 [facility] Comment on above: Performed By: #### C BC #### [facility] [address] [place] [address] Dr. Ghassan Beckham Hematocrit (Bld) [Volume fraction] 35.8 % Critically low 36.0-48.0 [facility] Comment on above: Performed By: #### C BC #### [facility] [address] [place] [address] Dr. Ghassan Beckham Hemoglobin (Bld) [Mass/Vol] 11.6 g/dL Critically low 12.0 -16.0 [facility] Comment on above: Performed By: #### C BC #### [facility] [address] [place] [address] Dr. Ghassan Beckham IG # 0.01 10e3/ul Normal 0.00-0.03 [facility] Comment on above: Performed By: #### C BC #### [facility] [address] [place] [address] Dr. Ghassan Beckham IG % 0.2 % Normal 0.0-0.5 [facility] Comment on above: Performed By: #### C BC #### [facility] [address] [place] [address] Dr. Ghassan Beckham LYMPH # 2.1 103/ul Normal 1.2-3.8 [facility] Comment on above: Performed By: #### C BC #### [facility] [address] [place] [address] Dr. Ghassan Beckham Lymphocytes/100 WBC (Bld) 32.6 % Normal 20.5-60.0 [facility] Comment on above: Performed By: #### C BC #### [facility] [address] [place] [address] Dr. Ghassan Beckham MANUAL DIFF REQ NO Normal [facility] Comment on above: Performed By: #### C BC #### [facility] [address] [place] [address] Dr. Ghassan Beckham MCH (RBC) [Entitic mass] 26.2 pg Critically low 26.7-34 .0 [facility] Comment on above: Performed By: #### C BC #### [facility] [address] [place] [address] Dr. Ghassan Beckham MCHC (RBC) [Mass/Vol] 32.4 g/dL Normal 29.9-35.2 [facility] Comment on above: Performed By: #### C BC #### [facility] [address] [place] [address] Dr. Ghassan Beckham MCV (RBC) [Entitic vol] 80.8 fL Critically low 81.0-99. 0 [facility] Comment on above: Performed By: #### C BC #### [facility] [address] [place] [address] Dr. Ghassan Beckham MONO # 0.6 103/ul Normal 0.3-0.8 [facility] Comment on above: Performed By: #### C BC #### [facility] [address] [place] [address] Dr. Ghassan Beckham Monocytes/100 WBC (Bld) 9.7 % Normal 1.7-12.0 [facility] Comment on above: Performed By: #### C BC #### [facility] [address] [place] [address] Dr. Ghassan Beckham NEUT # 3.0 103/ul Normal 1.4-6.5 [facility] Comment on above: Performed By: #### C BC #### [facility] [address] [place] [address] Dr. Ghassan Beckham Neutrophils/100 WBC (Bld) 47.0 % Normal 43.0-75.0 [facility] Comment on above: Performed By: #### C BC #### [facility] [address] [place] [address] Dr. Ghassan Beckham Platelet mean volume (Bld) [Entitic vol] 9.5 fL Normal 9.5-13.5 [facility] Comment on above: Performed By: #### C BC #### [facility] [address] [place] [address] Dr. Ghassan Beckham PLT 305 103/ul Normal 150-450 [facility] Comment on above: Performed By: #### C BC #### [facility] [address] [address] [address] Ghassan Beckham RBC 4.43 106/ul Normal 4.20-5.40 [facility] Comment on above: Performed By: #### C BC #### [facility] [address] [address] [address] Ghassan Beckham WBC 6.3 103/ul Normal 4.0-11.0 [facility] Comment on above: Performed By: #### C BC #### [facility] [address] [address] [address] Ghassan Beckham FREE THYROXINE INDEX T7on FTI 2.01 Normal 1.30-4.50 [facility] Comment on above: Performed By: #### T SH, T7, CMP, LIPID ####[facility] [address] [place] [address]Dr. Ghassan Beckham T3U 30.0 % Normal 30.0-39.0 [facility] Comment on above: Performed By: #### T SH, T7, CMP, LIPID ####[facility] [address] [place] [address]Dr. Ghassan Beckham T4 [Mass/Vol] 6.70 ug/dL Normal 4.80-13.90 [facility] Comment on above: Performed By: #### T SH, T7, CMP, LIPID ####[facility] [address] [place] [address]DrBrown Beckham GLYCOHEMOGLOBIN A1Con 2021 ADA RECOMMENDATION SEE BELOW Normal [facility] Comment on above: Result Comment: ADA RECOMMENDED LIMIT 4.0 - 6.0 ADA THERAPEUTIC TARGET < 7.0 ACTION SUGGESTED > 7.0 Performed By: #### A 1C ####[facility] [address] [place] [address]DrBrown Beckham Glucose [Mass/Vol] 111 mg/dL Normal [facility] Comment on above: Performed By: #### A 1C ####[facility] [address] [place], [place] [address]VwBrown Beckham HbA1c (Bld) [Mass fraction] 5.5 % Normal 4.5-6.2 [facility] Comment on above: Performed By: #### A 1C ####[facility] [address] [place], [place] [address]AyBrown Beckham IRONon 01-10-2022 Iron [Mass/Vol] 32.0 ug/dL Critically low 50.0-170.0 [facility] Comment on above: Performed By: #### V ITAD, IRON #### [facility] [address] [place], [place] [address] Dr. Ghassan Beckham LIPID PROFILEon 01-10-2022 CHOL-HDL RATIO NORM SEE BELOW Normal [facility] Comment on above: Result Comment: 3.3 - 4.4 LOW RISK 4.4 - 7.1 AVERAGE RISK 7.1 - 11.0 MODERATE RISK >11.0 HIGH RISK Performed By: #### T SH, T7, CMP, LIPID ####[facility] [address] [place], [place] [address]If. Ghassan Beckham Cholesterol [Mass/Vol] 201 mg/dL Critically high <=200 [facility] Comment on above: Performed By: #### T SH, T7, CMP, LIPID ####[facility] [address] [place], [place] [address]Lh. Ghassan Beckham Cholesterol in HDL [Mass/Vol] 42 mg/dL Normal 40-60 [facility] Comment on above: Performed By: #### T SH, T7, CMP, LIPID ####[facility] [address] [place], [place] [address]Qi. Ghassan Beckham Cholesterol in LDL [Mass/Vol] 129.8 mg/dL Normal [facility] Comment on above: Performed By: #### T SH, T7, CMP, LIPID ####[facility] [address] [place], [place] [address]Zt. Ghassan Beckham Cholesterol.total/Cholestero l in HDL [Mass ratio] 4.8 {ratio} Normal [facility] Comment on above: Performed By: #### T SH, T7, CMP, LIPID ####[facility] [address] [place] [id number]. Ghassan Beckham HDL NORMAL > or = 60 mg/dl - LOW CARDIOVASCULAR RISK <40 mg/dl - HIGH CARDIOVASCULAR RISK Normal [facility] Comment on above: Performed By: #### T SH, T7, CMP, LIPID ####[facility] [address] [place] [id number]. Ghassan Beckham LDL CALC NORMAL SEE BELOW Normal [facility] Comment on above: Result Comment: <100 mg/dl OPTIMAL 100 - 129 mg/dl NEAR OR ABOVE OPTIMAL 130 - 159 mg/dl BORDERLINE HIGH 160 - 189 mg/dl HIGH >190 mg/dl VERY HIGH Performed By: #### T SH, T7, CMP, LIPID ####[facility] [address] [place] [id number]. Ghassan Beckham Triglyceride [Mass/Vol] 146 mg/dL Normal <=150 [facility] Comment on above: Performed By: #### T SH, T7, CMP, LIPID ####[facility] [address] [place] [id number]. Ghassan Beckham VLDL CALC 29.2 mg/dL Normal [facility] Comment on above: Performed By: #### T SH, T7, CMP, LIPID ####[facility] [address] [place] [id number]. Ghassan Beckham MG MAMM SCREEN 3D ANA LUISA CADon 01-10-2022 MG MAMM SCREEN 3D ANA LUISA CAD Patient: ROBBIE FLORES Exam Date: 01/10/2022 : 1980 Gender:F Ordering : NORMA MIRZA [facility] Admission #: [id number] Family : Order #: [id number] CLICK HERE TO VIEW EXAM RADIOLOGY REPORT PROCEDURE: MAMMOGRAM SCREENING 3D BILATERAL CAD COMPARISON: None. INDICATIONS: Screening mammography Calculator Name NCI Breast Cancer Risk Assessment Tool 5 Year Breast Cancer Risk 0.50% Lifetime Breast Cancer Risk 9.00% Personal Breast Cancer No Personal Ovarian Cancer No Treatments None Family Cancers Mother with non hodgekins lymphoma cancer at age 43. LOCATION: [facility] BREAST COMPOSITION: Scattered areas fibroglandular density. FINDINGS: DIAGNOSTIC CATEGORY 2--BENIGN FINDING: Scattered benign-appearing calcifications are present. Scattered benign-appearing lymph nodes are present. RIGHT BREAST: No significant suspicious finding. Reniform nodular upper-outer quadrant, intramammary lymph node is favored LEFT BREAST: No significant suspicious finding. RECOMMENDATIONS: ROUTINE MAMMOGRAM AND CLINICAL EVALUATION IN 12 MONTHS. PLEASE NOTE: A NORMAL MAMMOGRAM DOES NOT EXCLUDE THE POSSIBILITY OF BREAST CANCER. A CLINICALLY SUSPICIOUS PALPABLE LUMP SHOULD BE BIOPSIED. Dictated by: Romina Hart MD on 01/10/2022 at 15:30 Approved by: Romina Hart MD on 01/10/2022 at 15:31 Normal [facility] PROF 14(COMP METB)on 022 Albumin [Mass/Vol] 3.1 g/dL Critically low 3.4-5.0 [facility] Comment on above: Performed By: #### T SH, T7, CMP, LIPID ####[facility] [address] [place] [address]Dr. Ghassan Beckham Albumin/Globulin [Mass ratio] 0.8 {ratio} Normal [facility] Comment on above: Performed By: #### T SH, T7, CMP, LIPID ####[facility] [address] [place] [id number]. Ghassan Beckham ALP [Catalytic activity/Vol] 73 U/L Normal 46-116 [facility] Comment on above: Performed By: #### T SH, T7, CMP, LIPID ####[facility] [address] [place] [id number]. Ghassan Beckham ALT [Catalytic activity/Vol] 21 U/L Normal 14-59 [facility] Comment on above: Performed By: #### T SH, T7, CMP, LIPID ####[facility] [address] [place] [phone]. Ghassan Beckham Anion gap [Moles/Vol] 7.8 mmol/L Normal [facility] Comment on above: Performed By: #### T SH, T7, CMP, LIPID ####[facility] [address] [place] [phone]. Ghassan Beckham AST [Catalytic activity/Vol] 14 U/L Critically low 15- 37 [facility] Comment on above: Performed By: #### T SH, T7, CMP, LIPID ####[facility] [address] [place] [address]Dr. Ghassan Beckham Bilirubin [Mass/Vol] 0.2 mg/dL Normal 0.2-1.0 [facility] Comment on above: Performed By: #### T SH, T7, CMP, LIPID ####[facility] [address] [place] [address]Dr. Ghassan Beckham Calcium [Mass/Vol] 7.4 mg/dL Critically low 8.5-10.1 Th e [facility] Comment on above: Performed By: #### T SH, T7, CMP, LIPID ####[facility] [address] [place], [place] [address]Dr. Ghassan Beckham Chloride [Moles/Vol] 104 mmol/L Normal 98-107 [facility] Comment on above: Performed By: #### T SH, T7, CMP, LIPID ####[facility] [address] [place], [place] [address]Dr. Ghassan Beckham CO2 [Moles/Vol] 29.6 mmol/L Normal 21.0-32.0 [facility] Comment on above: Performed By: #### T SH, T7, CMP, LIPID ####[facility] [address] [place], [place] [address]Dr. Ghassan Beckham Creatinine [Mass/Vol] 0.65 mg/dL Normal 0.55-1.02 [facility] Comment on above: Performed By: #### T SH, T7, CMP, LIPID ####[facility] [address] [place] [address]Dr. Ghassan Beckham EGFR-AF LIBERIAN >60 Normal >=60 [facility] Comment on above: Performed By: #### T SH, T7, CMP, LIPID ####[facility] [address] [place], [place] [address]Dr. Ghassan Beckham EGFR-NON AF LIBERIAN >60 Normal >=60 [facility] Comment on above: Performed By: #### T SH, T7, CMP, LIPID ####[facility] [address] [place] [address]Dr. Ghassan Beckham Globulin (S) [Mass/Vol] 3.7 g/dL Normal T [facility] Comment on above: Performed By: #### T SH, T7, CMP, LIPID ####[facility] [address] [place] [address]Dr. Ghassan Beckham Glucose [Mass/Vol] 93 mg/dL Normal 74-106 [facility] Comment on above: Performed By: #### T SH, T7, CMP, LIPID ####[facility] [address] [place] [address]Dr. Ghassan Beckham Potassium [Moles/Vol] 3.4 mmol/L Critically low 3.5-5.1 [facility] Comment on above: Performed By: #### T SH, T7, CMP, LIPID ####[facility] [address] [place], [place] [address]Dr. Ghassan Beckham Protein [Mass/Vol] 6.8 g/dL Normal 6.4-8.2 [facility] Comment on above: Performed By: #### T SH, T7, CMP, LIPID ####[facility] [address] [place] [address]Dr. Ghassan Beckham Sodium [Moles/Vol] 138 mmol/L Normal 136-145 [facility] Comment on above: Performed By: #### T SH, T7, CMP, LIPID ####[facility] [address] [place] [address]Dr. Ghassan Beckham Urea nitrogen [Mass/Vol] 11.0 mg/dL Normal 7.0-18.0 [facility] Comment on above: Performed By: #### T SH, T7, CMP, LIPID ####[facility] [address] [place] [address]Dr. Ghassan Beckham Urea nitrogen/Creatinine [Ma ss ratio] 16.9 mg/mg Normal [facility] Comment on above: Performed By: #### T SH, T7, CMP, LIPID ####[facility] [address] [place] [address]Dr. Ghassan Beckham TSHon 01-10-2022 TSH 0.908 uIU/mL Normal 0.358-3.74 0 [facility] Comment on above: Performed By: #### T SH, T7, CMP, LIPID ####[facility] [address] [place], [place] [address]DhDr. Ghassan Beckham VITAMIN D 25 OHon 01-10-2022 VIT D 25-OH 16.6 ng/mL Normal [facility] Comment on above: Performed By: #### V ITAD, IRON #### [facility] [address], [place] [address] Dr. Ghassan Beckham VIT D RANGES SEE BELOW Normal [facility] Comment on above: Result Comment: <20 ng/mL Vit D deficient 20 - <30 ng/mL Vit D insufficient 30 - 100 ng/mL Vit D sufficient >100 ng/mL Potential Toxicity Performed By: #### V ITAD, IRON #### [facility] [address] [place], [place] [address] Dr. Ghassan Beckham Pardeep 04-19-2021 ALT [Catalytic activity/Vol] 21 U/L 14 - 65 U/L [facility] [place] 04-19-2021 AST [Catalytic activity/Vol] 18 U/L 0 - 45 U/L [facility] Creatinine [Mass/Vol]on 03-31 GFR/1.73 sq M.predicted CKD- EPI (S/P/Bld) [Vol rate/Area] 103 >=60 mL/min/1.7 3 m2 [facility] The eGFR should be used for monitoring renal function only and not for medication dosing. [facility] Creatinine, serumon 04-19-19 Creatinine [Mass/Vol] 0.73 mg/dL 0.40 - 1.10 [facility] No Panel Informationon 04-19 Interpretation and review of laboratory results Normal [facility] US PELVIS TRANSVAGon 022 US PELVIS TRANSVAG Begin Addendum #1 The complex myometrial mass likely represents a fibroid. Findings discussed with Dea Glover by telephone Original Report EXAMINATION: US PELVIS TRANSVAG HISTORY: Excessive and frequent menstruation COMPARISON: No relevant comparison available. FINDINGS: The uterus is normal in size size and contour. Complex mass in the fundal myometrium measuring 2.5 x 2.2 x 2.2 cm. The uterus is anteverted. Uterus measures 8.6 x 5.8 x 5.2 cm. Endometrium measures 1.5 cm and is heterogeneous. Areas of hypoechogenicity measuring up to 4 mm, nonspecific. The right ovary is normal in appearance measuring 2.0 x 2.8 x 1.5 cm. Normal resistive index of 0.5. The left ovary measures 2.1 x 2.7 x 1.7 cm. Normal resistive index of 0.5. Area of anechoic echogenicity measuring 1.1 x 1.0 x 1.2 cm, follicle or cyst is favored IMPRESSION: Heterogeneous prominent endometrium, correlate with the menstrual cycle. Consider follow-up in 2 months to document resolution Normal [facility] CBC AUTO DIFFon 03-15-2021 BASO # 0.1 103/ul Normal 0.0-0.1 [facility] Comment on above: Performed By: #### C BC ####[facility] [address] [place] [address]Dr. Ghassan Beckham Basophils/100 WBC (Bld) 1.3 % Normal 0.2-2.0 [facility] Comment on above: Performed By: #### C BC ####[facility] [address] [place] [address]DrBrown Beckham EO # 0.4 103/ul Normal 0.0-0.7 [facility] Comment on above: Performed By: #### C BC ####[facility] [address] [place] [address]DrBrown Beckham Eosinophils/100 WBC (Bld) 4.4 % Normal 0.9-7.0 [facility] Comment on above: Performed By: #### C BC ####[facility] [address] [place] [address]DrBrown Beckham Erythrocyte distribution wid th (RBC) [Ratio] 20.8 % Critically high 11.0-15.0 [facility] Comment on above: Performed By: #### C BC ####[facility] [address] [place] [address]DrBrown Beckham Hematocrit (Bld) [Volume fraction] 33.6 % Critically low 36.0-48.0 [facility] Comment on above: Performed By: #### C BC ####[facility] [address] [place] [address]Dr. Winifredalondra Beckham Hemoglobin (Bld) [Mass/Vol] 10.3 g/dL Critically low 12.0 -16.0 [facility] Comment on above: Performed By: #### C BC ####[facility] [address] [place] [address]Dr. Ghassan Beckham IG # 0.02 10e3/ul Normal 0.00-0.03 [facility] Comment on above: Performed By: #### C BC ####[facility] [address] [place], [place] [address]Dr. Ghassan Beckham IG % 0.3 % Normal 0.0-0.5 [facility] Comment on above: Performed By: #### C BC ####[facility] [address] [place], [place] [address]Dr. Ghassan Beckham LYMPH # 1.9 103/ul Normal 1.2-3.8 [facility] Comment on above: Performed By: #### C BC ####[facility] [address] [place], [place] [address]Dr. Ghassan Beckham Lymphocytes/100 WBC (Bld) 23.6 % Normal 20.5-60.0 [facility] Comment on above: Performed By: #### C BC ####[facility] [address] [place], [place] [address]Dr. Ghassan Beckham MANUAL DIFF REQ NO Normal [facility] Comment on above: Performed By: #### C BC ####[facility] [address] [place], [place] [address]Dr. Ghassan Beckham MCH (RBC) [Entitic mass] 23.7 pg Critically low 26.7-34 .0 [facility] Comment on above: Performed By: #### C BC ####[facility] [address] [place], [place] [address]Dr. Ghassan Beckham MCHC (RBC) [Mass/Vol] 30.7 g/dL Normal 29.9-35.2 [facility] Comment on above: Performed By: #### C BC ####[facility] [address] [place], [place] [address]DrBrown Beckham MCV (RBC) [Entitic vol] 77.2 fL Critically low 81.0-99. 0 [facility] Comment on above: Performed By: #### C BC ####[facility] [address] [place], [place] [address]DrBrown Beckham MONO # 0.6 103/ul Normal 0.3-0.8 [facility] Comment on above: Performed By: #### C BC ####[facility] [address] [address] [place], [place] [address]DrBrown Beckham Monocytes/100 WBC (Bld) 7.1 % Normal 1.7-12.0 [facility] Comment on above: Performed By: #### C BC ####[facility] [address] [place], [place] [address]DrBrown Beckham NEUT # 5.0 103/ul Normal 1.4-6.5 [facility] Comment on above: Performed By: #### C BC ####[facility] [address] [place], [place] [address]DrBrown Beckham Neutrophils/100 WBC (Bld) 63.3 % Normal 43.0-75.0 [facility] Comment on above: Performed By: #### C BC ####[facility] [address] [place], [place] [address]DrBrown Beckham Platelet mean volume (Bld) [Entitic vol] 8.6 fL Critically low 9.5-13.5 [facility] Comment on above: Performed By: #### C BC ####[facility] [address] [place], [place] [address]DrBrown Beckham PLT 370 103/ul Normal 150-450 [facility] Comment on above: Performed By: #### C BC ####[facility] [address] [place], [place] [address]DrBrown Beckham RBC 4.35 106/ul Normal 4.20-5.40 [facility] Comment on above: Performed By: #### C BC ####[facility] [address] [address]Dr. Ghassan Beckham WBC 7.9 103/ul Normal 4.0-11.0 [facility] Comment on above: Performed By: #### C BC ####[facility] [address] [address]Dr. Ghassan Beckham FREE THYROXINE INDEX T7on FTI 2.76 Normal [facility] Comment on above: Performed By: #### P REGQNT, TSH, T7 #### [facility] [address] [address] [address] Ghassan Beckham T3U 30.0 % Normal 23.5-40.5 [facility] Comment on above: Performed By: #### P REGQNT, TSH, T7 #### [facility] [address] [address] [address] Ghassan Beckham T4 [Mass/Vol] 9.20 ug/dL Normal 5.53-11.00 [facility] Comment on above: Performed By: #### P REGQNT, TSH, T7 #### [facility] [address] [address] [address] Ghassan Beckham PREG QUANT HCGon 03-15-2021 HCG QUANT 1 mIU/mL Normal [facility] Comment on above: Performed By: #### P REGQNT, TSH, T7 #### [facility] [address] [place] [address] Dr. Ghassan Beckham HCG RANGE SEE BELOW Normal [facility] Comment on above: Result Comment: 5-50 0-1 WEEK 40-300 1-2 WEEKS 100-1,000 2-3 WEEKS 500-6,000 3-4 WEEKS 5,000-200,000 1-2 MONTHS 10,000-100,000 2-3 MONTHS 3,000-50,000 2ND TRIMESTER 1,000-50,000 3RD TRIMESTER Performed By: #### P REGQNT, TSH, T7 #### [facility] [address] [address] [address] Ghassan Beckham PROTIMEon 03-15-2021 INR Coag (PPP) [Relative time] 0.97 {INR} Normal [facility] Comment on above: Performed By: #### P T, PTT #### [facility] [address] [place] [address] Dr. Ghassan Beckham INR GUIDELINES SEE BELOW Normal [facility] Comment on above: Result Comment: SARAH RED INR: 2.0 - 3.0 CONDITIONS NOT LISTED BELOW 2.5 - 3.5 FOR PROSTHETIC HEART VALVE REPLACEMENT 2.5 - 3.5 RECURRENT THROMBOSIS Performed By: #### P T, PTT #### [facility] [address] [place] [address] Dr. Ghassan Beckham PT Coag (PPP) [Time] 10.5 s Normal 9.0-11.6 [facility] Comment on above: Performed By: #### P T, PTT #### [facility] [address] [place] [address] Dr. Ghassan Beckham PTTon 03-15-2021 aPTT Coag (Bld) [Time] 26.8 s Normal 22.3-36.2 Th e [facility] Comment on above: Performed By: #### P T, PTT #### [facility] [address] [place] [address] Dr. Ghassan Beckham TSHon 03-15-2021 TSH 33.698 uIU/mL Critically high 0.470-4.68 0 [facility] Comment on above: Performed By: #### P REGQNT, TSH, T7 #### [facility] [address] [place] [address] Dr. Ghassan Beckham TSH RANGE SEE BELOW Normal [facility] Comment on above: Result Comment: <0.3 4 UIU/ml HYPERTHYROID 0.34-5.60 UIU/ml EUTHYROID >5.60 UIU/ml HYPOTHYROID Performed By: #### P REGQNT, TSH, T7 #### [facility] [address] [place] [address] Dr. Ghassan Beckham VITAMIN D 25 OHon 03-15-2021 VIT D 25-OH 5.2 ng/mL Normal [facility] Comment on above: Performed By: #### V ITAD ####[facility] [address] [place], [place] [address]Pq. Ghassan Beckham VIT D RANGES SEE BELOW Normal [facility] Comment on above: Result Comment: <20 ng/mL Vit D deficient 20 - <30 ng/mL Vit D insufficient 30 - 100 ng/mL Vit D sufficient >100 ng/mL Potential Toxicity Performed By: #### V ITAD ####[facility] [address] [place], [place] [address]Oz. Ghassan Beckham M. Tuberculosis by QuantiFER ONOrdered By: Jorge Amos on 02-18-2021 M. tuberculosis by Quantifer on in tube Negative Negative [facility] M. 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 The Pap test does not represent a final diagnostic test for cervical cancer. Furthermore, the Pap test was not designed to screen for other malignancies (endometrial, ovarian cancer, etc....). False negatives and false positives have occurred. If clinically indicated, further patient evaluation is recommended. [facility] Vital Signs Date Time Vital Sign Value Performing Clinician Facility 12-10-2024 10: Body mass index (BMI) [Ratio] 36.31 kg/m2 Natalie Lane [employer] Work Phone: [facility] 12-10-2024 10:15 Body weight 92.[address] [employer]ED [employer]ARD LAYOUT DESIGNER[employer]ality Work Phone: [facility] 12-10-2024 [id number] Diastolic blood pressure 84 mm[Hg] Natalie Lane [employer]INTED CIRCUIT BOARD LAYOUT 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 Work Phone: [facility] 12-10-2024 10:15-0400 Heart rate 81 /min Natalie Lane [employer]ED [employer] BOARD LAYOUT 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 Work Phone: [facility] 12-10-2024 10:15-0400 Systolic blood pressure 126 mm[Hg] Natalie Lane [employer]INTED [employer] BOARD LAYOUT 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 Work Phone: [facility] 10-21-2024 14:35-0400 Diastolic blood pressure 96 mm[Hg] Davidson Ly MD Work Phone: [facility] 10-21-2024 14:35-0400 Systolic blood pressure 146 mm[Hg] Davidson Ly MD Work Phone: [facility] 10-21-2024 14:17-0400 Body height 157.5 cm Davidson Ly MD Work Phone: [facility] 10-21-2024 14:17-0400 Body mass index (BMI) [Ratio] 37.71 kg/m2 Davidson Ly MD Work Phone: [facility] 10-21-2024 14:17-0400 Body temperature 98.1 [degF] Davidson Ly MD Work Phone: [facility] 10-21-2024 14:17-0400 Body weight 93.53 kg Davidson Ly MD Work Phone: [facility] 10-21-2024 14:17-0400 Heart rate 96 /min Davidson Ly MD Work Phone: [facility] 10-21-2024 14:17-0400 SaO2% (BldA) [Mass fraction] 94 % Davidson Ly MD Work Phone: [facility] Comment on above: Room air 09-19-2024 15:46-0400 Body mass index (BMI) [Ratio] 36.67 kg/m2 Natalie Lane [employer]ED [employer] BOARD LAYOUT 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 Work Phone: [facility] 09-19-2024 15:46-0400 Body weight 93.89 kg Natalie Michelle-Nossek [employer]ED [employer] BOARD LAYOUT 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 Work Phone: [facility] 09-19-2024 15:46-0400 Diastolic blood pressure 86 mm[Hg] Natalie Michelle-Nossek [employer]INTED [employer] BOARD LAYOUT 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 Work Phone: [facility] 09-19-2024 15:46-0400 Heart rate 90 /min Natalie Michelle-Nossek [employer]ED [employer] BOARD LAYOUT 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 Work Phone: [facility] 09-19-2024 15:46-0400 Systolic blood pressure 130 mm[Hg] Natalie Michelle-Nossek [employer]INTED [employer] BOARD LAYOUT 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 Work Phone: [facility] 07-08-2024 09:15-0400 Diastolic blood pressure 97 mm[Hg] Davidson Ly MD Work Phone: [facility] 07-08-2024 09:15-0400 Systolic blood pressure 146 mm[Hg] Davidson Ly MD Work Phone: [facility] 07-08-2024 08:58-0400 Body height 157.5 cm Davidson Ly MD Work Phone: [facility] 07-08-2024 08:58-0400 Body mass index (BMI) [Ratio] 39.36 kg/m2 Davidson Ly MD Work Phone: [facility] 07-08-2024 08:58-0400 Body temperature 97.81 [degF] Davidson Ly MD Work Phone: [facility] 07-08-2024 08:58-0400 Body weight 97.61 kg Davidson Ly MD Work Phone: [facility] 07-08-2024 08:58-0400 Heart rate 88 /min Davidson Ly MD Work Phone: [facility] 07-08-2024 08:58-0400 SaO2% (BldA) [Mass fraction] 95 % Davidson Ly MD Work Phone: [facility] 07-06-2024 11:07-0400 Body height 157.48 cm [facility] 07-06-2024 11:07-0400 Body mass index (BMI) [Ratio] 39.5 kg/m2 [facility] 07-06-2024 11:07-0400 Body temperature 97.8 [degF] [facility] 07-06-2024 11:07-0400 Body weight 98.08 kg [facility] 07-06-2024 11:07-0400 Diastolic blood pressure 95 mm[Hg] [facility] 07-06-2024 11:07-0400 Heart rate 99 /min [facility] 07-06-2024 11:07-0400 Respiratory rate 18 /min [facility] 07-06-2024 11:07-0400 SaO2% (BldA) [Mass fraction] 95 % [facility] 07-06-2024 11:07-0400 Systolic blood pressure 138 mm[Hg] [facility] 04-30-2024 10:47-0500 Body mass index (BMI) [Ratio] 38.62 kg/m2 Natalie Michelle-Nossek PRINTED [employer] BOARD LAYOUT 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 Work Phone: [facility] 04-30-2024 10:47-0500 Body weight 98.88 kg Natalie Michelle-Nossek [employer]ED [employer]ARD LAYOUT 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 Work Phone: [facility] 04-30-2024 10:47-0500 Diastolic blood pressure 86 mm[Hg] Natalie Michelle-Nossek PRINTED [employer] BOARD LAYOUT 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 Work Phone: [facility] 04-30-2024 10:47-0500 Heart rate 96 /min Natalie Michelle-Nossek PRINTED [employer] BOARD LAYOUT 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 Work Phone: [facility] 04-30-2024 10:47-0500 Systolic blood pressure 140 mm[Hg] Natalie Michelle-Nossek PRINTED [employer] BOARD LAYOUT 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 Work Phone: [facility] 01-30-2024 10:25-0500 Body mass index (BMI) [Ratio] 38.62 kg/m2 Natalie Michelle-Nossek PRINTED [employer] BOARD LAYOUT 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 Work Phone: [facility] 01-30-2024 10:25-0500 Body weight 98.88 kg Natalie [place]-Nossek PRINTED [employer] BOARD LAYOUT 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 Work Phone: [facility] 01-30-2024 10:25-0500 Diastolic blood pressure 78 mm[Hg] Natalie Fieldsor-Nossek PRINTED [employer] BOARD LAYOUT 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 Work Phone: [facility] 01-30-2024 10:25-0500 Heart rate 100 /min Natalie Fieldsor-Nossek PRINTED [employer] BOARD LAYOUT 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 Work Phone: [facility] 01-30-2024 10:25-0500 Systolic blood pressure 118 mm[Hg] Natalie Fieldsor-Nossek PRINTED [employer] BOARD LAYOUT 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 Work Phone: [facility] 11-14-2023 13:05-0400 Body height 157.5 cm Davidson Ly MD Work Phone: [facility] 11-14-2023 13:05-0400 Body mass index (BMI) [Ratio] 39.8 kg/m2 Davidson Ly MD Work Phone: [facility] 11-14-2023 13:05-0400 Body temperature 97.11 [degF] Davidson Ly MD Work Phone: [facility] 11-14-2023 13:05-0400 Body weight 98.7 kg Davidson Ly MD Work Phone: [facility] 11-14-2023 13:05-0400 Diastolic blood pressure 85 mm[Hg] Davidson Ly MD Work Phone: [facility] 11-14-2023 13:05-0400 Heart rate 77 /min Davidson Ly MD Work Phone: [facility] 11-14-2023 13:05-0400 SaO2% (BldA) [Mass fraction] 95 % Davidson Ly MD Work Phone: [facility] Comment on above: Room air 11-14-2023 13:05-0400 Systolic blood pressure 123 mm[Hg] Davidson Ly MD Work Phone: [facility] 10-24-2023 13:23-0400 Body mass index (BMI) [Ratio] 38.09 kg/m2 Natalie Michelle-Nossek PRINTED CIRCUIT BOARD LAYOUT 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 Work Phone: [facility] 10-24-2023 13:23-0400 Body weight 97.52 kg Natalie Michelle-Nossek PRINTED CIRCUIT BOARD LAYOUT 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 Work Phone: [facility] 10-24-2023 13:23-0400 Diastolic blood pressure 86 mm[Hg] Natalie Michelle-Nossek PRINTED [employer] BOARD LAYOUT 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 Work Phone: [facility] 10-24-2023 13:23-0400 Heart rate 77 /min Natalie Michelle-Nossek PRINTED CIRCUIT BOARD LAYOUT 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 Work Phone: [facility] 10-24-2023 13:23-0400 Systolic blood pressure 126 mm[Hg] Natalie Michelle-Nossek PRINTED CIRCUIT BOARD LAYOUT 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 Work Phone: [facility] 07-23-2023 11:07-0400 Body height 157.48 cm DIRECTOR TRAFFIC [employer] PLANNING-C Norma Mccainmer Work Phone: [facility] 07-23-2023 11:07-0400 Body mass index (BMI) [Ratio] 41 kg/m2 DIRECTOR TRAFFIC AND PLANNING-C Norma Hermes Work Phone: [facility] 07-23-2023 11:07-0400 Body temperature 95.7 [degF] DIRECTOR TRAFFIC AND PLANNING-C Norma Hermes Work Phone: [facility] 07-23-2023 11:07-0400 Body weight 101.71 kg DIRECTOR TRAFFIC AND PLANNING-C Norma Hermes Work Phone: [facility] 07-23-2023 11:07-0400 Diastolic blood pressure 89 mm[Hg] DIRECTOR TRAFFIC AND PLANNING-C Norma Hermes Work Phone: [facility] 07-23-2023 11:07-0400 Heart rate 69 /min DIRECTOR TRAFFIC AND PLANNING-C Norma Mirza Work Phone: [facility] 07-23-2023 11:07-0400 Respiratory rate 16 /min DIRECTOR TRAFFIC AND PLANNING-C Norma Mirza Work Phone: [facility] 07-23-2023 11:07-0400 SaO2% (BldA) [Mass fraction] 96 % DIRECTOR TRAFFIC AND PLANNING-C Norma Mirza Work Phone: [facility] 07-23-2023 11:07-0400 Systolic blood pressure 131 mm[Hg] DIRECTOR TRAFFIC AND PLANNING-C Norma Mirza Work Phone: [facility] 04-11-2023 12:55-0500 Body mass index (BMI) [Ratio] 41.81 kg/m2 Natalie Michelle-Nossek PRINTED [employer] BOARD LAYOUT 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 Work Phone: [facility] 04-11-2023 12:55-0500 Body weight 107.05 kg Natalie Michelle-Nossek PRINTED [employer] BOARD LAYOUT 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 Work Phone: [facility] 04-11-2023 12:55-0500 Diastolic blood pressure 82 mm[Hg] Natalie Michelle-Nossek PRINTED CIRCUIT BOARD LAYOUT 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 Work Phone: [facility] 04-11-2023 12:55-0500 Heart rate 90 /min Natalie Michelle-Nossek PRINTED CIRCUIT BOARD LAYOUT 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 Work Phone: [facility] 04-11-2023 12:55-0500 Systolic blood pressure 132 mm[Hg] Natalie Michelle-Nossek PRINTED CIRCUIT BOARD LAYOUT 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 Work Phone: [facility] 04-03-2023 09:47-0500 Body height 157.5 cm Davidson Ly MD Work Phone: [facility] 04-03-2023 09:47-0500 Body mass index (BMI) [Ratio] 42.65 kg/m2 Davidson Ly MD Work Phone: [facility] 04-03-2023 09:47-0500 Body temperature 97.59 [degF] Davidson Ly MD Work Phone: [facility] 04-03-2023 09:47-0500 Body weight 105.78 kg Davidson Ly MD Work Phone: [facility] 04-03-2023 09:47-0500 Diastolic blood pressure 75 mm[Hg] Davidson Ly MD Work Phone: [facility] 04-03-2023 09:47-0500 Heart rate 78 /min Davidson Ly MD Work Phone: [facility] 04-03-2023 09:47-0500 Systolic blood pressure 117 mm[Hg] Davidson Ly MD Work Phone: [facility] 11-01-2022 13:04-0400 Body height 157.5 cm Davidson Ly MD Work Phone: [facility] 11-01-2022 13:04-0400 Body mass index (BMI) [Ratio] 42.8 kg/m2 Davidson Ly MD Work Phone: [facility] 11-01-2022 13:04-0400 Body temperature 98.1 [degF] Davidson Ly MD Work Phone: [facility] 11-01-2022 13:04-0400 Body weight 106.14 kg Davidson Ly MD Work Phone: [facility] 11-01-2022 13:04-0400 Diastolic blood pressure 89 mm[Hg] Davidson Ly MD Work Phone: [facility] 11-01-2022 13:04-0400 Heart rate 71 /min Davidson Ly MD Work Phone: [facility] 11-01-2022 13:04-0400 SaO2% (BldA) [Mass fraction] 95 % Davidson Ly MD Work Phone: [facility] 11-01-2022 13:04-0400 Systolic blood pressure 131 mm[Hg] Davidson Ly MD Work Phone: [facility] 06-27-2022 15:05-0400 Body height 157.5 cm Davidson Ly MD Work Phone: [facility] 06-27-2022 15:05-0400 Body mass index (BMI) [Ratio] 40.79 kg/m2 Davidson Ly MD Work Phone: [facility] 06-27-2022 15:05-0400 Body temperature 97.3 [degF] Davidson Ly MD Work Phone: [facility] 06-27-2022 15:05-0400 Body weight 101.15 kg Davidson yL MD Work Phone: [facility] 06-27-2022 15:05-0400 Diastolic blood pressure 85 mm[Hg] Davidson Ly MD Work Phone: [facility] 06-27-2022 15:05-0400 Heart rate 73 /min Davidson Ly MD Work Phone: [facility] 06-27-2022 15:05-0400 SaO2% (BldA) [Mass fraction] 95 % Davidson Ly MD Work Phone: [facility] Comment on above: Room air 06-27-2022 15:05-0400 Systolic blood pressure 121 mm[Hg] Davidson Ly MD Work Phone: [facility] 02-24-2022 09:51-0500 Body height 157.5 cm Davidson Ly MD Work Phone: [facility] 02-24-2022 09:51-0500 Body mass index (BMI) [Ratio] 40.24 kg/m2 Davidson Ly MD Work Phone: [facility] 02-24-2022 09:51-0500 Body temperature 96.91 [degF] Davidson Ly MD Work Phone: [facility] 02-24-2022 09:51-0500 Body weight 99.79 kg Davidson Ly MD Work Phone: [facility] 02-24-2022 09:51-0500 Diastolic blood pressure 83 mm[Hg] Davidson Ly MD Work Phone: [facility] 02-24-2022 09:51-0500 Heart rate 89 /min Davidson Ly MD Work Phone: [facility] 02-24-2022 09:51-0500 SaO2% (BldA) [Mass fraction] 98 % Davidson Ly MD Work Phone: [facility] Comment on above: room air 02-24-2022 09:51-0500 Systolic blood pressure 127 mm[Hg] Davidson Ly MD Work Phone: [facility] 10-19-2021 13:28-0400 Body height 157.5 cm Davidson Ly MD Work Phone: [facility] 10-19-2021 13:28-0400 Body mass index (BMI) [Ratio] 41.7 kg/m2 Davidson Ly MD Work Phone: [facility] 10-19-2021 13:28-0400 Body temperature 98.01 [degF] Davidson Ly MD Work Phone: [facility] 10-19-2021 13:28-0400 Body weight 103.42 kg Davidson Ly MD Work Phone: [facility] 10-19-2021 13:28-0400 Diastolic blood pressure 85 mm[Hg] Davidson Ly MD Work Phone: [facility] 10-19-2021 13:28-0400 Heart rate 85 /min Davidson Ly MD Work Phone: [facility] 10-19-2021 13:28-0400 SaO2% (BldA) [Mass fraction] 95 % Davidson Ly MD Work Phone: [facility] Comment on above: ROOM AIR 10-19-2021 13:28-0400 Systolic blood pressure 122 mm[Hg] Davidson Ly MD Work Phone: [facility] 04-19-2021 08:38-0500 Body height 157.5 cm Davidson Ly MD Work Phone: [facility] 04-19-2021 08:38-0500 Body mass index (BMI) [Ratio] 41.85 kg/m2 Davidson Ly MD Work Phone: [facility] 04-19-2021 08:38-0500 Body temperature 98.01 [degF] Davidson Ly MD Work Phone: [facility] 04-19-2021 08:38-0500 Body weight 103.78 kg Davidson Ly MD Work Phone: [facility] 04-19-2021 08:38-0500 Diastolic blood pressure 86 mm[Hg] Davidson Ly MD Work Phone: [facility] 04-19-2021 08:38-0500 Heart rate 96 /min Davidson Ly MD Work Phone: [facility] 04-19-2021 08:38-0500 SaO2% (BldA) [Mass fraction] 96 % Davidson Ly MD Work Phone: [facility] 04-19-2021 08:38-0500 Systolic blood pressure 132 mm[Hg] Davidson Ly MD Work Phone: [facility] 02-15-2021 10:23-0500 Body height 157.5 cm Davidson Ly MD Work Phone: [facility] 02-15-2021 10:23-0500 Body mass index (BMI) [Ratio] 42.8 kg/m2 Davidson Ly MD Work Phone: [facility] 02-15-2021 10:23-0500 Body temperature 97.9 [degF] Davidson Ly MD Work Phone: [facility] 02-15-2021 10:23-0500 Body weight 106.14 kg Davidson Ly MD Work Phone: [facility] 02-15-2021 10:23-0500 Diastolic blood pressure 90 mm[Hg] Davidson Ly MD Work Phone: [facility] 02-15-2021 10:23-0500 Heart rate 95 /min Davidson Ly MD Work Phone: [facility] 02-15-2021 10:23-0500 SaO2% (BldA) [Mass fraction] 94 % Davidson Ly MD Work Phone: [facility] 02-15-2021 10:23-0500 Systolic blood pressure 126 mm[Hg] Davidson Ly MD Work Phone: [facility] Encounters Encounter Date Encounter Type Care Provider Facility Start: 12-10-2024 End: 12-10-2024 [place] Natalie Tamar [employer] Work Phone: [facility] Start: 12-10-2024 End: 12-10-2024 [place] Natalie Tamar [employer] Work Phone: [facility] Start: 12-10-2024 End: 12-10-2024 Office outpatient visit 25 minutes Natalie Tamar [employer] Work Phone: [employer] Comment on above: Hx of high risk medi cation treatment; High risk medication use; KATHRYN (generalized anxiety disorder); Bipolar 2 disorder (HCC); Panic disorder Start: 12-04-2024 End: 12-04-2024 Orders Only Jamilah Lemus [facility] Pulmonary/Sleep Medicine Comment on above: SOB (shortness of br eath) (Primary Dx) Start: 12-03-2024 End: 12-03-2024 Documentation procedure Davidson Ly MD Work Phone: [facility] Comment on above: Julio Denial Start: 12-03-2024 ambulatory DAVIDSON LY [facility] Start: 11-25-2024 End: 11-26-2024 ambulatory NORMALAURYN MIRZA [facility] Start: 10-21-2024 End: 10-21-2024 Office outpatient visit 25 minutes Davidson Ly MD Work Phone: [facility] Comment on above: Rheumatoid arthritis , seropositive (HCC) (Primary Dx); Encounter for long-term (current) use of medications; NSAID long-term use; Morbid obesity with BMI of 40.0-44.9, adult (HCC); Numbness in feet Start: 10-21-2024 End: 10-21-2024 ambulatory [facility] Start: 09-19-2024 End: 09-19-2024 Office outpatient visit [address] PRINTED CIRCUIT BOARD LAYOUT 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 Work Phone: [facility] Comment on above: Bipolar 2 disorder ( HCC); KATHRYN (generalized anxiety disorder) Start: 09-19-2024 End: 09-19-[address] Not Available Start: 09-02-2024 End: 09-02-2024 Refill Davidson Ly MD Work Phone: [facility] Comment on above: Seropositive rheumat oid arthritis (HCC) Start: 07-11-2024 End: 07-11-2024 Documentation procedure Davidson Ly MD Work Phone: [facility] Comment on above: Humira Authorization Seropositive rheumat oid arthritis (HCC) (Primary Dx) Start: 07-08-2024 End: 07-08-2024 ambulatory [facility] Start: 07-08-2024 End: 07-08-2024 Office outpatient visit 25 minutes Davidson Ly MD Work Phone: [facility] Comment on above: Rheumatoid arthritis , seropositive (HCC) (Primary Dx); Encounter for long-term (current) use of medications; NSAID long-term use; Morbid obesity with BMI of 40.0-44.9, adult (HCC); Numbness in feet Start: 07-06-2024 End: 07-06-2024 ambulatory [facility] Work Phone: Start: 07-06-2024 End: 07-06-2024 Patient encounter procedure [facility] [place] Work Phone: Start: 06-14-2024 End: 06-14-2024 Orders Only Davidson Ly MD Work Phone: [facility] Comment on above: Seropositive rheumat oid arthritis (HCC) (Primary Dx) Start: 04-30-2024 End: 04-30-2024 Bamboo flowsheet Natalie Boyle Michelle-Nossek PRINTED CIRCUIT BOARD LAYOUT 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 Work Phone: [facility] Start: 04-30-2024 End: 04-30-2024 Bamboo flowsheet Natalie Tamar Michelle-Nossek PRINTED CIRCUIT BOARD LAYOUT 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 Work Phone: [facility] Start: 04-30-2024 End: 04-30-2024 Office outpatient visit 15 minutes Natalie M Michelle-Nossek PRINTED CIRCUIT BOARD LAYOUT 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 Work Phone: [facility] Comment on above: Bipolar 2 disorder ( CMS/HCC); KATHRYN (generalized anxiety disorder) (CMS/HCC) Start: 04-30-2024 End: 04-30-2024 ambulatory NATALIE Boyle MICHELLE-NOSSEK Not Available Start: 04-12-2024 End: 04-17-2024 Telephone encounter Chinmay Norman HAM DOCTOR [facility] Comment on above: Cx PT today (Pending pt call back.); fu (Last PT 04/08) Start: 04-08-2024 End: 04-08-2024 ambulatory Chinmay Norman HAM DOCTOR [facility] Comment on above: Left shoulder pain, unspecified chronicity (Primary Dx) Start: 04-08-2024 End: 04-08-2024 Patient encounter procedure Norma Mirza DIRECTOR TRAFFIC AND PLANNING-C Work Phone: [facility] Work Phone: Start: 04-08-2024 End: 04-08-2024 ambulatory Norma Mirza DIRECTOR TRAFFIC AND PLANNING-C Work Phone: [facility] Work Phone: Start: 04-05-2024 End: 04-05-2024 ambulatory Chinmay Norman HAM DOCTOR [facility] Comment on above: Left shoulder pain, unspecified chronicity (Primary Dx) Start: 04-05-2024 End: 04-05-2024 Bamboo flowsheet Chinmay Norman HAM DOCTOR [facility] Start: 04-05-2024 End: 04-05-2024 Bamboo flowsheet Chinmay Norman HAM DOCTOR [facility] Start: 04-01-2024 End: 04-01-2024 ambulatory Chinmay Norman HAM DOCTOR [facility] Comment on above: Left shoulder pain, unspecified chronicity (Primary Dx) Start: 04-01-2024 End: 04-01-2024 Bamboo flowsheet Chinmay Norman HAM DOCTOR [facility] Start: 04-01-2024 End: 04-01-2024 Bamboo flowsheet Chinmay Norman HAM DOCTOR [facility] Start: 03-28-2024 End: 03-28-2024 ambulatory Chinmay Norman HAM DOCTOR [facility] Comment on above: Left shoulder pain, unspecified chronicity (Primary Dx) Start: 03-28-2024 End: 03-28-2024 Bamboo flowsheet Chinmay Norman HAM DOCTOR [facility] Start: 03-28-2024 End: 03-28-2024 Bamboo flowsheet Chinmay Norman HAM DOCTOR [facility] Start: 03-28-2024 End: 03-28-2024 Documentation procedure Davidson Ly MD Work Phone: [facility] Comment on above: Senait Authorizati on Seropositive rheumat oid arthritis (HCC) (Primary Dx) Start: 03-26-2024 End: 03-26-2024 ambulatory Kiesha Gray PT [facility] Comment on above: Left shoulder pain, unspecified chronicity (Primary Dx) Start: 03-26-2024 End: 03-26-2024 Bamboo flowsheet Kiesha Gray PT [facility] Start: 03-26-2024 End: 03-26-2024 Bamboo flowsheet Kiesha Gray PT [facility] Start: 03-21-2024 End: 03-21-2024 Documentation procedure Davidson Ly MD Work Phone: [facility] Comment on above: Insurance change to [facility] Start: 03-15-2024 End: 03-15-2024 Patient encounter procedure Norma Mirza DIRECTOR TRAFFIC AND PLANNING-C Work Phone: [facility] Work Phone: Start: 03-15-2024 End: 03-15-2024 ambulatory Norma Rayna Mirza DIRECTOR TRAFFIC AND PLANNING-C Work Phone: [facility] Work Phone: Start: 03-12-2024 End: 03-13-2024 Refill Natalie Tamar Michelle-Nossek PRINTED CIRCUIT BOARD LAYOUT 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 Work Phone: [facility] Comment on above: Bipolar 2 disorder ( CMS/HCC) Start: 01-30-2024 End: 01-30-2024 Bamboo flowsheet Natalie Tamar Michelle-Nossek PRINTED CIRCUIT BOARD LAYOUT 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 Work Phone: [facility] Start: 01-30-2024 End: 01-30-2024 Bamboo flowsheet Natalie Tamar Michelle-Nossek PRINTED CIRCUIT BOARD LAYOUT 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 Work Phone: [facility] Start: 01-30-2024 End: 01-30-2024 Office outpatient visit 25 minutes Natalie Tamar Michelle-Nossek PRINTED CIRCUIT BOARD LAYOUT 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 Work Phone: [facility] Comment on above: Bipolar 2 disorder ( CMS/HCC) Start: 01-30-2024 End: 01-30-2024 ambulatory NATALIE Tamar MICHELLE-NOSSEK Not Available Start: 11-14-2023 End: 11-18-2023 ambulatory [facility] Start: 11-14-2023 End: 11-14-2023 Office outpatient visit 25 minutes Davidson Ly MD Work Phone: [facility] Comment on above: Seropositive rheumat oid arthritis (HCC) (Primary Dx); Encounter for long-term (current) use of medications; NSAID long-term use; Morbid obesity with BMI of 40.0-44.9, adult ([facility]); Numbness in feet; Iron deficiency anemia, unspecified iron deficiency anemia type Start: 10-24-2023 End: 10-24-2023 Bamboo flowsheet Natalie Martinez-Bradsek PRINTED CIRCUIT BOARD LAYOUT 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 Work Phone: [facility] Start: 10-24-2023 End: 10-24-2023 Bamboo flowsheet Natalie Boyle Michelle-Nossek PRINTED CIRCUIT BOARD LAYOUT 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 Work Phone: [facility] Start: 10-24-2023 End: 10-24-2023 Office outpatient visit 15 minutes Natalie Fieldsor-Nossek PRINTED CIRCUIT BOARD LAYOUT 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 Work Phone: [facility] Comment on above: KATHRYN (generalized anx iety disorder) ([facility]); Bipolar 2 disorder ([facility]) Start: 10-24-2023 End: 10-24-2023 ambulatory NATALIE DAMONSEWellington Not Available Start: 09-21-2023 End: 09-21-2023 Refill Davidson Ly MD Work Phone: [facility] Comment on above: Rheumatoid arthritis , seropositive ([facility]) Start: 09-12-2023 End: 09-12-2023 Documentation procedure Davidson Ly MD Work Phone: [facility] Comment on above: Humira Authorization Start: 07-23-2023 End: 07-23-2023 Patient encounter procedure DIRECTOR TRAFFIC AND PLANNING-C Norma Mirza Work Phone: [facility] [place] Work Phone: Start: 07-23-2023 End: 07-23-2023 ambulatory DIRECTOR TRAFFIC AND PLANNING-C Norma Mirza Work Phone: [facility] Work Phone: Start: 07-23-2023 End: 07-23-2023 ambulatory DIRECTOR TRAFFIC AND PLANNING-C Norma Mirza Work Phone: [facility] Work Phone: Start: 07-23-2023 End: 07-23-2023 Patient encounter procedure DIRECTOR TRAFFIC AND PLANNING-C Norma Mirza Work Phone: [facility] [place] Work Phone: Start: 04-21-2023 Orders Only Davidson Ly MD Work Phone: [facility] Comment on above: Seropositive rheumat oid arthritis (HCC) (Primary Dx) Start: 04-13-2023 Refill Tahmina Epps GAMMA RAY OPERATOR [facility] Comment on above: KATHRYN (generalized anx iety disorder) (CMS/HCC) Start: 04-11-2023 Bamboo flowsheet Natalie M Fio r-Nossek PRINTED CIRCUIT BOARD LAYOUT 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 Work Phone: [facility] Start: 04-11-2023 Bamboo flowsheet Natalie M Fio r-Nossek PRINTED CIRCUIT BOARD LAYOUT 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 Work Phone: [facility] Start: 04-11-2023 End: 04-11-2023 Office outpatient visit 25 minutes Natalie Tamar Michelle-Nossek PRINTED CIRCUIT BOARD LAYOUT 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 Work Phone: [facility] Comment on above: KATHRYN (generalized anx iety disorder) (CMS/HCC); Bipolar 2 disorder (CMS/HCC) Start: 04-03-2023 End: 04-07-2023 ambulatory [facility] Start: 04-03-2023 End: 04-03-2023 Office outpatient visit 25 minutes Davidson Ly MD Work Phone: [facility] Comment on above: Rheumatoid arthritis , seropositive (HCC) (Primary Dx); Encounter for long-term (current) use of medications; NSAID long-term use; Morbid obesity with BMI of 40.0-44.9, adult (HCC); Numbness in feet; Iron deficiency anemia, unspecified iron deficiency anemia type Start: 02-07-2023 End: 02-07-2023 ambulatory DIRECTOR TRAFFIC AND PLANNING-C Norma Mirza Work Phone: [facility] Work Phone: Start: 02-07-2023 End: 02-07-2023 Patient encounter procedure DIRECTOR TRAFFIC AND PLANNING-C Norma Mirza Work Phone: [facility] Work Phone: Start: 01-17-2023 Refill Davidson Ly MD Work Phone: [facility] Comment on above: Rheumatoid arthritis , seropositive (HCC) Start: 11-01-2022 End: 11-01-2022 Office outpatient visit 25 minutes Davidson Ly MD Work Phone: [facility] Comment on above: Rheumatoid arthritis , seropositive (HCC) (Primary Dx); Encounter for long-term (current) use of medications; NSAID long-term use; Morbid obesity with BMI of 40.0-44.9, adult (HCC); Iron deficiency anemia, unspecified iron deficiency anemia type Start: 06-27-2022 End: 06-27-2022 Office outpatient visit 15 minutes Davidson Ly MD Work Phone: [facility] Comment on above: Rheumatoid arthritis , seropositive (HCC) (Primary Dx); Encounter for long-term (current) use of medications; NSAID long-term use; Morbid obesity with BMI of 40.0-44.9, adult (HCC); Iron deficiency anemia, unspecified iron deficiency anemia type Start: 03-21-2022 End: 03-21-2022 ambulatory DIRECTOR TRAFFIC AND PLANNING-C Norma Mirza Work Phone: [facility] Work Phone: Start: 03-21-2022 End: 03-21-2022 Patient encounter procedure DIRECTOR TRAFFIC AND PLANNING-C Norma Miraz Work Phone: [facility] Work Phone: Start: 03-15-2022 End: 03-15-2022 ambulatory DIRECTOR TRAFFIC AND PLANNING-C Norma Mirza Work Phone: [facility] Work Phone: Start: 03-15-2022 End: 03-15-2022 Patient encounter procedure DIRECTOR TRAFFIC AND PLANNING-C Norma Mirza Work Phone: [facility] Work Phone: Start: 02-24-2022 End: 02-24-2022 Office outpatient visit 15 minutes Davidson Ly MD Work Phone: [facility] Comment on above: Rheumatoid arthritis , seropositive (HCC) (Primary Dx); Encounter for long-term (current) use of medications; NSAID long-term use; Morbid obesity with BMI of 40.0-44.9, adult (HCC) Start: 02-14-2022 Refill Davidson Ly MD Work Phone: [facility] Comment on above: Rheumatoid arthritis , seropositive (HCC) Start: 02-10-2022 Refill Davidson Ly MD Work Phone: [facility] Comment on above: Rheumatoid arthritis , seropositive (HCC) Start: 01-13-2022 Encounter for genera l adult medical examination without abnormal findings NORMA MIRZA [facility] Start: 01-10-2022 End: 01-11-2022 ambulatory NORMA MIRZA Facility:[facility] Start: 01-10-2022 End: 01-11-2022 Encounter for general adult medical examination without abnormal findings NORMA MIRZA Facility:[facility] Start: 10-20-2021 Documentation procedure Davidson Ly MD Work Phone: [facility] Comment on above: Humira approval Start: 10-19-2021 End: 10-19-2021 Office outpatient visit 15 minutes Davidson Ly MD Work Phone: [facility] Comment on above: Rheumatoid arthritis , seropositive (HCC) (Primary Dx); Encounter for long-term (current) use of medications; NSAID long-term use; Morbid obesity with BMI of 40.0-44.9, adult (HCC) Start: 09-09-2021 ambulatory NORMA MIRZA Facility: [facility] Start: 07-19-2021 Refill Davidson Ly MD Work Phone: [facility] Comment on above: Rheumatoid arthritis , seropositive (HCC) Start: 04-27-2021 ambulatory NORMA MIRZA Facility: Start: 04-19-2021 Orders Only Davidson Ly MD Work Phone: [facility] Comment on above: Iron deficiency anem ia, unspecified iron deficiency anemia type (Primary Dx) Start: 04-19-2021 End: 04-19-2021 Office outpatient visit 25 minutes Davidson Ly MD Work Phone: [facility] Comment on above: Rheumatoid arthritis , seropositive (HCC) (Primary Dx); Encounter for long-term (current) use of medications; NSAID long-term use; Morbid obesity with BMI of 40.0-44.9, adult (HCC) Start: 04-01-2021 Documentation procedure Davidson Ly MD Work Phone: [facility] Comment on above: Aravindira Start: 03-25-2021 Documentation procedure Davidson Ly MD Work Phone: [facility] Comment on above: Humira Approval Start: 03-18-2021 Orders Only Davidson Ly MD Work Phone: [facility] Comment on above: Rheumatoid arthritis , seropositive (HCC) (Primary Dx) Start: 03-15-2021 End: 03-16-2021 ambulatory NORMALAURYN MCCAINMER Facility: Start: 03-13-2021 ambulatory [facility]MA [facility] Facility: Start: 03-12-2021 Documentation procedure Davidson Ly MD Work Phone: [facility] Comment on above: Enbrel Denial Start: 02-17-2021 Refill Davidson Ly MD Work Phone: [facility] Comment on above: Rheumatoid arthritis , seropositive (HCC) Start: 02-15-2021 End: 02-15-2021 Office outpatient new 45 minutes Davidson Ly MD Work Phone: [facility] Comment on above: Rheumatoid arthritis , seropositive (HCC) (Primary Dx); Encounter for long-term (current) use of medications; NSAID long-term use; Morbid obesity with BMI of 40.0-44.9, adult (HCC) Start: 01-05-2021 Transcribe Orders Kristin Parson MA [facility] Comment on above: Rheumatoid arthritis , seropositive (HCC) (Primary Dx) Start: 12-31-2020 Chart abstracting Davidson Ly MD Work Phone: [facility] Start: 04-06-1998 End: 04-06-1998 Patient encounter procedure Conversion Darlene Migue [facility] Start: 04-06-1998 Results Only Conversion Darlene Migue [facility] Procedures Date Procedure Procedure Detail Performing Clinician Start: 12-10-2024 Drug test prsmv read direct optical obs pr date Natalie Lane PRINTED CIRCUIT BOARD LAYOUT 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 Work Phone: Start: 10-21-2024 C-reactive protein Stephanie Ly MD Work Phone: Start: 10-21-2024 Complete blood count with white cell differential, manual Davidson Ly MD Work Phone: Start: 10-21-2024 Creatinine blood Davidson Ly MD Work Phone: Start: 07-06-2024 Quick Strep (POC) Start: 04-08-2024 Ultrasonography of r ight breast Norma Hermes DIRECTOR TRAFFIC AND PLANNING-C Work Phone: Start: 04-08-2024 Mammography of right breast Norma Hermes DIRECTOR TRAFFIC AND PLANNING-C Work Phone: Start: 03-15-2024 Plain X-ray of left shoulder Norma Hermes DIRECTOR TRAFFIC AND PLANNING-C Work Phone: Start: 03-15-2024 Screening mammograph y of bilateral breasts Norma Hermes DIRECTOR TRAFFIC AND PLANNING-C Work Phone: Start: 07-23-2023 Plain X-ray of right hand DIRECTOR TRAFFIC AND PLANNING-C Norma Hermes Work Phone: Start: 04-06-1998 CONVERTED CYTOLOGY DIGITAL INTERN Conversion Darlene Camarena Start: 04-06-1998 Microscopic observat ion [Identifier] in Cervix by Cyto stain Natalie Lane PRINTED CIRCUIT BOARD LAYOUT 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 Work Phone: Plan of Treatment Date Care Activity Detail Author Start: 11-25-2025 Adult BMI Screening Adult BMI Screening [facility] Start: 11-25-2025 Tobacco Screening Tobacco Screening [facility] Start: 03-04-2025 End: 03-04-2025 Patient encounter procedure 03/04/2025 2:00 PM EST Office Visit [facility] [address] [facility] [place] [address] Davidson Ly MD [address] [facility] [place] [address] [facility] Start: 01-09-2025 End: 01-09-2025 Patient encounter procedure 01/09/2025 11:00 AM EST Office Visit [facility] [address] [facility] [address] [place] [address], PRINTED CIRCUIT BOARD LAYOUT 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 [address] [facility] [facility] [address] [place] [address] [facility] Start: 12-26-2024 End: 12-26-2024 Patient encounter procedure 12/26/2024 1:00 PM EDT Office Visit [facility] [address] [facility] [address] [place] [address], PRINTED CIRCUIT BOARD LAYOUT 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 [address] [facility] [address] [place] [address] [facility] Start: 12-18-2024 End: 12-18-2024 Patient encounter procedure 12/18/2024 10:00 AM EDT Office Visit [facility] [address] [address] Magali Washington MD [address] [address] [facility] Start: 12-18-2024 End: 12-18-2024 ambulatory 12/18/2024 9:30 AM EDT Support Visit [facility] [address] [facility] [address] [place] [id number] [facility] Start: 12-10-2024 End: 12-10-2024 Patient encounter procedure 12/10/2024 10:30 AM EDT Office Visit [facility] [address] [facility] [address] [place] [address], PRINTED CIRCUIT BOARD LAYOUT 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 [address] [facility] [address] [place] [address] Hx of high risk medication treatment; High risk medication use [facility] Comment on above: Hx of high risk medication treatment; High risk medication use Start: 10-28-2024 COVID-19 Vaccine () COVID-19 Vaccine () [facility] Start: 10-28-2024 Influenza vaccination [facility] Start: 10-08-2024 End: 10-08-2024 Patient encounter procedure 10/08/2024 2:30 PM EDT Office Visit [facility] [address] [place] [phone] [place] [address] [place] [id number] [facility] Start: 07-31-2024 End: 07-31-2024 Patient encounter procedure 07/31/2024 4:00 PM EDT Office Visit [facility] [address] [facility] [address] [place] [address], PRINTED CIRCUIT BOARD LAYOUT 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 [address] [facility] [address] [place] [address] [facility] Start: 06-27-2024 End: 06-27-2024 Patient encounter procedure 06/27/2024 9:45 AM EDT Office Visit [facility] [address] [place] [address] Davidson Ly MD [address] [place] [address] [facility] Start: 05-13-2024 End: 05-13-2024 Patient encounter procedure 05/13/2024 2:00 PM EDT Office Visit [facility] [address] [place] [address] Davidson Ly MD [address] [place] [address] [facility] Start: 04-30-2024 End: 04-30-2024 Patient encounter procedure [facility] Comment on above: Bipolar 2 disorder (CMS/HCC); KATHRYN (generalized anxiety disorder) (CMS/[facility]) Start: 04-11-2024 End: 04-11-2024 ambulatory 04/11/2024 2:30 PM EST Treatment [facility] [address] [place] [address] Kiesha Gray, PT [facility] Start: 04-08-2024 End: 04-08-2024 ambulatory 04/08/2024 2:30 PM EST Treatment [facility] [address] [place] [address] Chinmay Norman, HAM DOCTOR [facility] Start: 04-05-2024 End: 04-05-2024 ambulatory [facility] Comment on above: Arrived Start: 04-04-2024 End: 04-04-2024 ambulatory 04/04/2024 2:30 PM EST Treatment [facility] [address] [place] [address] Chinmay Norman, HAM DOCTOR [facility] Start: 04-01-2024 End: 04-01-2024 ambulatory [facility] Comment on above: Arrived Start: 03-28-2024 End: 03-28-2024 ambulatory [facility] Comment on above: Arrived Start: 03-26-2024 End: 03-26-2024 ambulatory 03/26/2024 2:30 PM EST Evaluation [facility] [address] [place] [address] Kiesha Gray, PT Arrived [facility] Comment on above: Arrived Start: 01-30-2024 End: 01-30-2024 Patient encounter procedure 01/30/2024 10:30 AM EST Office Visit [facility] [address] [place] [address], PRINTED CIRCUIT BOARD LAYOUT 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 [address] [place] [address] Arrived [facility] Comment on above: Arrived Start: 01-24-2024 End: 01-24-2024 Patient encounter procedure 01/24/2024 1:00 PM EST Office Visit [facility] [address] [place] [address], PRINTED CIRCUIT BOARD LAYOUT 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 [address] [facility] [address] [place] [address] [facility] Start: 10-29-2023 COVID-19 Vaccine ( season) COVID-19 Vaccine ( season) [facility] Start: 10-29-2023 COVID-19 Vaccine ( season) COVID-19 Vaccine ( season) [facility] Start: 10-29-2023 Influenza vaccination Influenza Vaccine (#1) [facility] [facility] Start: 10-24-2023 End: 10-24-2023 Patient encounter procedure 10/24/2023 1:30 PM EDT Office Visit [facility] [address] [place] [address], PRINTED CIRCUIT BOARD LAYOUT 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 [address] [place] [address] Arrived [facility] Comment on above: Arrived Start: 10-03-2023 End: 10-03-2023 Patient encounter procedure 10/03/2023 8:45 AM EDT Office Visit [facility] [address] [place] [address] Davidson Ly MD [address] [place] [address] [facility] Start: 08-03-2023 End: 08-03-2023 Patient encounter procedure 08/03/2023 2:15 PM EDT Office Visit [facility] [address] [place] [id number] Davidson Ly MD [address] [place] [address] [facility] Start: 07-10-2023 End: 07-10-2023 Patient encounter procedure 07/10/2023 1:00 PM EDT Office Visit [facility] [address] [facility] [address] [place] [address], PRINTED CIRCUIT BOARD LAYOUT 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 [address] [facility] [address] [place] [address] [facility] Start: 04-11-2023 End: 04-11-2023 Patient encounter procedure 04/11/2023 1:00 PM EST Office Visit [facility] [address] [facility] [address] [place] [address], PRINTED CIRCUIT BOARD LAYOUT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 blood pressure monitor, ask your primary care provider if you would benefit from measuring your blood pressure at home. documented in this encounter [facility] 10-21-2024 History of Present illness Narrative RAPID3 Composite Score MDHAQ (0-10): 0.3 Patient pain VAS (0-10): 2 Patient global assessment VAS (0-10): 0 RAPID3 Total Score: 2.3 Remission: <3 Low Disease Activity: <6 Moderate Disease Activity: >=6 and <=12 High Disease Activity: >12 Review of Systems CONSTITUTIONAL: Fever no Fatigue no Abnormal weight loss/gain no HEENT: Change of Vision no Dry eyes yes Painful eye yes Dry Mouth no Mouth sores/lesions no Hair loss no Difficulty swallowing no Scalp Tenderness no Jaw Pain no Swollen glands no CVS: Chest pain/ discomfort no Palpitations no RESPIRATORY: Shortness of breath no Difficulty breathing no Cough no Edema no : Blood in urine no Painful urination no GI: Change in stool no Black stool no Visible blood in stool no Abdominal pain no Heartburn no NEURO: Convulsions no Headache no Dizziness yes Weakness no Numbness no INTEGUMENTARY: Rash, generalized no Rash, facial no Finger pain with discoloration (Raynaud s)no Digital ulcers no HEMATOLOGY: Easy bruisability no PSYCH: Anxiety no Depression no Problems with social activities no Cosigned by Davidson Ly MD at 10/22/2024 1:35 PM EDT I had the pleasure of seeing Robbie Willson in FOLLOW UP at [facility] [address] [place] [phone] for Management of 1. Rheumatoid arthritis, seropositive (HCC) Sedimentation Rate CRP, Inflammation Sedimentation Rate CRP, Inflammation 2. Encounter for long-term (current) use of medications ALT AST CBC and Differential Creatinine, serum CBC and Differential Creatinine, serum AST ALT 3. NSAID long-term use 4. Morbid obesity with BMI of 40.0-44.9, adult (HCC) 5. Numbness in feet Interim history: Last visit 3 months ago, she was not doing very well. Biosimilar Humira/Simlandi was on hold because of repeated infections including COVID and parainfluenza about 6 months ago she also has had shingles on the face. She is back on brand Humira, tolerating better than Simlandi and doing better. Also continues on Arava 20 mg daily for seropositive rheumatoid arthritis. she is up-to-date on immunization. She has lost weight, about 9 pounds she is not using as much of Motrin. She is off the prednisone No hair loss from Arava She is on iron supplementation for iron deficiency anemia, he is taking it only 3 times a week now Numbness in the feet is improved Medications: Current Outpatient Medications Medication Sig Dispense Refill adalimumab (Humira,CF, Pen) 40 mg/0.4 mL PnKt Inject 0.4 mL (40 mg total) under the skin every 14 (fourteen) days . 1 kit 11 cholecalciferol, vitamin D3, 50 mcg (2,000 unit) cap Take by mouth daily . ferrous sulfate 325 (65 FE) MG tablet Take 1 (one) tablet (325 mg total) by mouth 2 (two) times a day . (Patient taking differently: Take 1 (one) tablet (325 mg total) by mouth daily with breakfast .) 60 tablet 4 ibuprofen (ADVIL,MOTRIN) 800 MG tablet Take 1 (one) tablet (800 mg total) by mouth 3 (three) times a day as needed for pain . lamoTRIgine (LAMICTAL) 100 MG tablet Take 1 (one) tablet (100 mg total) by mouth daily . leFLUNomide (ARAVA) 20 MG tablet Take 1 (one) tablet (20 mg total) by mouth daily . 30 tablet 4 levothyroxine (SYNTHROID, LEVOTHROID) 175 MCG tablet 225 mcg . metFORMIN (GLUCOPHAGE) 500 MG tablet Take 1 (one) tablet (500 mg total) by mouth every night at bedtime . metoprolol tartrate (LOPRESSOR) 25 MG tablet nabumetone (RELAFEN) 500 MG tablet pantoprazole (PROTONIX) 40 MG tablet Take 1 (one) tablet (40 mg total) by mouth daily . QUEtiapine (SEROQUEL) 50 MG tablet Take 2 (two) tablets (100 mg total) by mouth nightly . sertraline HCl (ZOLOFT ORAL) Take 2 tablets by mouth daily . traZODone (DESYREL) 50 MG tablet Take 1 (one) tablet to 2 (two) tablets (50-100 mg total) by mouth at bedtime as needed . adalimumab-ryvk (WANDA Sapp, Autoinjector) 40 mg/0.4 mL atIK Inject 40 mg under the skin every 14 (fourteen) days . 2 each 5 hydroCHLOROthiazide (HYDRODIURIL) 12.5 MG tablet Take 1 (one) tablet (12.5 mg total) by mouth daily . lisinopriL (PRINIVIL,ZESTRIL) 5 MG tablet Take 1 (one) tablet (5 mg total) by mouth daily . methylPREDNISolone (MEDROL DOSEPACK) 4 mg tablet Take 1 (one) tablet (4 mg total) by mouth . omeprazole (PRILOSEC) 20 MG capsule Take 1 (one) capsule (20 mg total) by mouth daily . phentermine (ADIPEX-P) 37.5 mg tablet Take 1 (one) tablet (37.5 mg total) by mouth daily . predniSONE (DELTASONE) 10 MG tablet Take 1 (one) tablet (10 mg total) by mouth daily . (Patient not taking: Reported on 11/14/2023 .) 30 tablet 2 predniSONE (DELTASONE) 2.5 MG tablet Take 1 (one) tablet to 2 (two) tablets (2.5-5 mg total) by mouth daily With food . 60 tablet 3 No current facility-administered medications for this visit. Past Medical History: She Past Medical History: Diagnosis Date Arthropathy of wrist COVID Deviated septum Frozen shoulder Hand swelling Hypothyroidism Knee swelling Migraine Periarthritis of shoulder Post-influenza syndrome Seropositive rheumatoid arthritis (HCC) Shingles Subacute sinusitis Past Surgical History: She Past Surgical History: Procedure Laterality Date ADENOIDECTOMY CHOLECYSTECTOMY THYROIDECTOMY TONSILLECTOMY Social History: She Social History Socioeconomic History Marital status: Tobacco Use Smoking status: Never Smokeless tobacco: Never Vaping Use Vaping status: Never Used Substance and Sexual Activity Alcohol use: Yes Comment: Couple times a year Drug use: Never Sexual activity: Yes Partners: Male control/protection: Vasectomy Comment: had vasectomy ROS- SEE ATTESTED STAFF NOTE Physical Examination: BP (!) 153/101 (BP Location: Left arm, Patient Position: Sitting, BP Cuff Size: Adult) Pulse 96 Temp 98.1 F (36.7 C) (Oral) Ht 5' 2 Wt 93.5 kg (206 lb 3.2 oz) SpO2 94% Comment: Room air BMI 37.71 kg/m last visit 215 pounds and prior to that 233 pounds GENERAL: She is in no apparent distress. HEENT: No oral ulcers, malar rash ,parotid gland enlargement, uveitis. NECK: Supple without thyromegaly. No cervical or supraclavicular lymphadenopathy. HEART: Regular rate and rhythm without murmurs, rubs, or gallops. LUNGS: Clear to auscultation bilaterally without use of accessory muscles.No crakcles or rales MUSCULOSKELETAL: Reveals normal range of motion in all the joints, including both the shoulders and hips . Left trochanteric bursa tenderness absent. Hip is normal. Bilateral knee crepitus but no obvious synovitis in any of the joints, no obvious joint deformities, no subluxation or ulnar deviation. No synovitis small joints of the hands Diagnostic Data: Component Latest Ref Rng 07/08/2024 WBC ([facility]) 3.8 - 10.8 Thousand/uL 10.4 RBC ([facility]) 3.80 - 5.10 Million/uL 4.26 Hemoglobin ([facility]) 11.7 - 15.5 g/dL 10.1 (L) HCT ([facility]) 35.0 - 45.0 % 34.1 (L) MCV ([facility]) 80.0 - 100.0 fL 80.0 MCH ([facility]) 27.0 - 33.0 pg 23.7 (L) MCHC (Quest) 32.0 - 36.0 g/dL 29.6 (L) RDW ([facility]) 11.0 - 15.0 % 15.5 (H) Platelets ([facility]) 140 - 400 Thousand/uL 415 (H) MPV ([facility]) 7.5 - 12.5 fL 9.1 Absolute Neutrophils ([facility]) 1,500 - 7,800 cells/uL 5,294 Absolute Lymphocytes ([facility]) 850 - 3,900 cells/uL 4,118 (H) Absolute Monocytes ([facility]) 200 - 950 cells/uL 738 Absolute Eosinophils (Quest) 15 - 500 cells/uL 146 Absolute Basophils ([facility]) 0 - 200 cells/uL 104 Neutrophils (Quest) % 50.9 Lymphocytes (Quest) % 39.6 Monocytes (Quest) % 7.1 Eosinophils (Quest) % 1.4 Basophils (Quest) % 1.0 Creatinine (Quest) 0.50 - 0.99 mg/dL 0.71 eGFR (Quest) > OR = 60 mL/min/1.73m2 108 Sed Rate (Quest) < OR = 20 mm/h 63 (H) AST (Quest) 10 - 30 U/L 13 ALT ([facility]) 6 - 29 U/L 11 C - Reactive Protein ([facility]) <8.0 mg/L 17.8 (H) Legend: (L) Low (H) High Component Latest Ref Rng 11/14/2023 WBC 4.50 - 11.00 K/mcL 7.42 RBCs 4.00 - 5.20 M/mcL 4.83 Hemoglobin 12.0 - 16.0 g/dL 12.9 Hematocrit 36.0 - 46.0 % 40.0 MCV 80.0 - 100.0 fL 82.8 MCH 26.0 - 34.0 pg 26.7 MCHC 31.0 - 37.0 g/dL 32.3 Platelets 150 - 400 K/mcL 359 RDW 11.6 - 14.8 % 15.0 (H) MPV 9.4 - 12.4 fL 9.9 Neutrophils % 47.8 Lymphocytes % 32.3 Monocytes % 9.8 Eosinophils % 8.9 Basophils % 0.9 IG Percent % 0.30 Neutrophils Abs 1.70 - 7.00 K/mcL 3.54 Lymphocytes Abs 0.90 - 4.00 K/mcL 2.40 Monocytes Abs 0.30 - 0.90 K/mcL 0.73 Eosinophils Abs 0.00 - 0.50 K/mcL 0.66 (H) Basophils Abs 0.00 - 0.30 K/mcL 0.07 IG Absolute 0.00 - 0.30 K/mcL 0.02 Nucleated RBC % 0.0 Nucleated RBC Abs 0.00 - 0.00 K/mcL 0.00 Iron 30 - 160 mcg/dL 44 TIBC 225 - 430 mcg/dL 295 Iron Saturation 20 - 50 % 15 (L) Ferritin 13 - 150 ng/mL 30 Creatinine 0.40 - 1.10 mg/dL 0.65 eGFR >=60 mL/min/1.73 m2 112 ALT 0-35 U/L U/L 12 AST 0-35 U/L U/L 15 Legend: (H) High (L) Low Component Latest Ref [facility] 04/03/2023 WBC 4.50 - 11.00 K/mcL 10.39 RBCs 4.00 - 5.20 M/mcL 4.80 Hemoglobin 12.0 - 16.0 g/dL 13.4 Hematocrit 36.0 - 46.0 % 41.4 MCV 80.0 - 100.0 fL 86.3 MCH 26.0 - 34.0 pg 27.9 MCHC 31.0 - 37.0 g/dL 32.4 Platelets 150 - 400 K/mcL 361 RDW 11.6 - 14.8 % 14.1 MPV 9.4 - 12.4 fL 10.1 Neutrophils % 48.5 Lymphocytes % 36.3 Monocytes % 9.8 Eosinophils % 4.1 Basophils % 1.0 IG Percent % 0.30 Neutrophils Abs 1.70 - 7.00 K/mcL 5.04 Lymphocytes Abs 0.90 - 4.00 K/mcL 3.77 Monocytes Abs 0.30 - 0.90 K/mcL 1.02 (H) Eosinophils Abs 0.00 - 0.50 K/mcL 0.43 Basophils Abs 0.00 - 0.30 K/mcL 0.10 IG Absolute 0.00 - 0.30 K/mcL 0.03 Nucleated RBC % 0.0 Nucleated RBC Abs 0.00 - 0.00 K/mcL 0.00 Creatinine 0.40 - 1.10 mg/dL 0.70 eGFR >=60 mL/min/1.73 m2 111 ALT 0-35 U/L U/L 12 AST 0-35 U/L U/L 16 Legend: (H) High Component Latest Ref [facility] 06/27/2022 WBC 4.50 - 11.00 K/mcL 8.41 RBCs 4.00 - 5.20 M/mcL 4.72 Hemoglobin 12.0 - 16.0 g/dL 13.4 Hematocrit 36.0 - 46.0 % 41.4 MCV 80.0 - 100.0 fL 87.7 MCH 26.0 - 34.0 pg 28.4 MCHC 31.0 - 37.0 g/dL 32.4 Platelets 150 - 400 K/mcL 346 RDW 11.6 - 14.8 % 14.2 MPV 9.4 - 12.4 fL 9.8 Neutrophils % 53.7 Lymphocytes % 29.5 Monocytes % 9.9 Eosinophils % 5.4 Basophils % 1.3 IG Percent % 0.20 Neutrophils Abs 1.70 - 7.00 K/mcL 4.52 Lymphocytes Abs 0.90 - 4.00 K/mcL 2.48 Monocytes Abs 0.30 - 0.90 K/mcL 0.83 Eosinophils Abs 0.00 - 0.50 K/mcL 0.45 Basophils Abs 0.00 - 0.30 K/mcL 0.11 IG Absolute 0.00 - 0.30 K/mcL 0.02 Nucleated RBC % 0.0 Nucleated RBC Abs 0.00 - 0.00 K/mcL 0.00 Sodium 135 - 145 mmol/L 134 (L) Potassium 3.5 - 5.1 mmol/L 3.6 Chloride 98 - 108 mmol/L 106 Bicarbonate 21 - 32 mmol/L 25 Anion Gap 10 - 20 mmol/L 7 (L) Glucose 65 - 99 mg/dL 82 BUN 8 - 25 mg/dL 9 Creatinine 0.40 - 1.10 mg/dL 0.64 eGFR >=60 mL/min/1.73 m2 114 BUN/Creatinine Ratio 10.0 - 20.0 14.1 Total Protein 6.0 - 8.0 g/dL 7.3 Albumin 3.2 - 5.2 g/dL 3.3 Calcium 8.4 - 10.2 mg/dL 8.5 ALK PHOS 40 - 150 U/L 77 AST 0 - 45 U/L 19 Total Bilirubin 0.0 - 1.3 mg/dL 0.3 ALT 14 - 65 U/L 27 Legend: (L) Low Component Latest Ref Rng & Units 02/15/2021 Hep A Total Ab Negative Negative Hep B Core Total Ab Negative Negative Hep B S Ab Negative Positive (A) Hepatitis C Ab Negative Negative Hepatitis B surface antigen negative QuantiFERON-TB test negative in June 2024 and March 2023 My clinical impression and plan 1. Rheumatoid arthritis, seropositive (HCC), well-controlled continue Arava at the same dose along with prednisone 2.5 mg daily and Humira 40 mg subcu injection every 2 weeks Sed rate and CRP ordered to assess disease activity 2. Encounter for long-term (current) use of medications, no infections on Humira did have infections on Simlandi ALT AST CBC and Differential Creatinine, serum today, Up-to-date on COVID vaccination, declines flu and pneumonia vaccine 3. NSAID long-term use, she is taking it minimally, blood pressure is slightly high Encouraged to discontinue 4. Morbid obesity with BMI of 40.0-44.9, adult (HCC), marked improvement, BMI dropped from 42.6-37.7 today continue lifestyle modification 5. numbness bilateral feet. Improved Because autoimmune disease is associated with increased risk of atherosclerosis, recommend careful attention to blood pressure and lipid control. I recommend using the preventive guidelines established for people with diabetes. Return in about 4 months (around 02/20/2025) for Next scheduled follow up. Davidson Ly M.D. Rheumatology Alie Peterson MD;No ref. provider found Note: This dictation was generated using [employer] voice recognition software. Please excuse any grammatical or spelling errors that may have occurred using the system. documented in this encounter [facility] 10-21-2024 Note I had the pleasure o f seeing Robbie Anamika in FOLLOW UP at [facility] [address] [place] [id number] for Management of 1. Rheumatoid arthritis, seropositive (HCC) Sedimentation Rate CRP, Inflammation Sedimentation Rate CRP, Inflammation 2. Encounter for long-term (current) use of medications ALT AST CBC and Differential Creatinine, serum CBC and Differential Creatinine, serum AST ALT 3. NSAID long-term use 4. Morbid obesity with BMI of 40.0-44.9, adult (HCC) 5. Numbness in feet Interim history: Last visit 3 months ago, she was not doing very well. Biosimilar Humira/Simlandi was on hold because of repeated infections including COVID and parainfluenza about 6 months ago she also has had shingles on the face. She is back on brand Humira, tolerating better than Simlandi and doing better. Also continues on Arava 20 mg daily for seropositive rheumatoid arthritis. she is up-to-date on immunization. She has lost weight, about 9 pounds she is not using as much of Motrin. She is off the prednisone No hair loss from Arava She is on iron supplementation for iron deficiency anemia, he is taking it only 3 times a week now Numbness in the feet is improved Medications: Current Outpatient Medications Medication Sig Dispense Refill adalimumab (Humira,CF, Pen) 40 mg/0.4 mL PnKt Inject 0.4 mL (40 mg total) under the skin every 14 (fourteen) days . 1 kit 11 cholecalciferol, vitamin D3, 50 mcg (2,000 unit) cap Take by mouth daily . ferrous sulfate 325 (65 FE) MG tablet Take 1 (one) tablet (325 mg total) by mouth 2 (two) times a day . (Patient taking differently: Take 1 (one) tablet (325 mg total) by mouth daily with breakfast .) 60 tablet 4 ibuprofen (ADVIL,MOTRIN) 800 MG tablet Take 1 (one) tablet (800 mg total) by mouth 3 (three) times a day as needed for pain . lamoTRIgine (LAMICTAL) 100 MG tablet Take 1 (one) tablet (100 mg total) by mouth daily . leFLUNomide (ARAVA) 20 MG tablet Take 1 (one) tablet (20 mg total) by mouth daily . 30 tablet 4 levothyroxine (SYNTHROID, LEVOTHROID) 175 MCG tablet 225 mcg . metFORMIN (GLUCOPHAGE) 500 MG tablet Take 1 (one) tablet (500 mg total) by mouth every night at bedtime . metoprolol tartrate (LOPRESSOR) 25 MG tablet nabumetone (RELAFEN) 500 MG tablet pantoprazole (PROTONIX) 40 MG tablet Take 1 (one) tablet (40 mg total) by mouth daily . QUEtiapine (SEROQUEL) 50 MG tablet Take 2 (two) tablets (100 mg total) by mouth nightly . sertraline HCl (ZOLOFT ORAL) Take 2 tablets by mouth daily . traZODone (DESYREL) 50 MG tablet Take 1 (one) tablet to 2 (two) tablets (50-100 mg total) by mouth at bedtime as needed . adalimumab-ryvk (WANDA Sapp, Autoinjector) 40 mg/0.4 mL atIK Inject 40 mg under the skin every 14 (fourteen) days . 2 each 5 hydroCHLOROthiazide (HYDRODIURIL) 12.5 MG tablet Take 1 (one) tablet (12.5 mg total) by mouth daily . lisinopriL (PRINIVIL,ZESTRIL) 5 MG tablet Take 1 (one) tablet (5 mg total) by mouth daily . methylPREDNISolone (MEDROL DOSEPACK) 4 mg tablet Take 1 (one) tablet (4 mg total) by mouth . omeprazole (PRILOSEC) 20 MG capsule Take 1 (one) capsule (20 mg total) by mouth daily . phentermine (ADIPEX-P) 37.5 mg tablet Take 1 (one) tablet (37.5 mg total) by mouth daily . predniSONE (DELTASONE) 10 MG tablet Take 1 (one) tablet (10 mg total) by mouth daily . (Patient not taking: Reported on 11/14/2023 .) 30 tablet 2 predniSONE (DELTASONE) 2.5 MG tablet Take 1 (one) tablet to 2 (two) tablets (2.5-5 mg total) by mouth daily With food . 60 tablet 3 No current facility-administered medications for this visit. Past Medical History: She Past Medical History: Diagnosis Date Arthropathy of wrist COVID Deviated septum Frozen shoulder Hand swelling Hypothyroidism Knee swelling Migraine Periarthritis of shoulder Post-influenza syndrome Seropositive rheumatoid arthritis (HCC) Shingles Subacute sinusitis Past Surgical History: She Past Surgical History: Procedure Laterality Date ADENOIDECTOMY CHOLECYSTECTOMY THYROIDECTOMY TONSILLECTOMY Social History: She Social History Socioeconomic History Marital status: Tobacco Use Smoking status: Never Smokeless tobacco: Never Vaping Use Vaping status: Never Used Substance and Sexual Activity Alcohol use: Yes Comment: Couple times a year Drug use: Never Sexual activity: Yes Partners: Male control/protection: Vasectomy Comment: had vasectomy ROS- SEE ATTESTED STAFF NOTE Physical Examination: BP (!) 153/101 (BP Location: Left arm, Patient Position: Sitting, BP Cuff Size: Adult) Pulse 96 Temp 98.1 degrees F (36.7 degrees C) (Oral) Ht 5' 2 Wt 93.5 kg (206 lb 3.2 oz) SpO2 94% Comment: Room air BMI 37.71 kg/m last visit 215 pounds and prior to that 233 pounds GENERAL: She is in no apparent dist (more content not included)... [facility] 09-19-2024 History of Present illness Narrative Images from the original note were not included. HPI: Robbie Willson is a 44 y.o. female with a history of Bipolar II Disorder and Anxiety. Patient is here today for follow-up. Patient has been stable since last appointment. Mood is reported as Good. Denies depression or anxiety. Sleep is 8 HOURS. Patient reports they have been compliant with medication regimen. Patient denies any side effects or somatic complaints. Patient denies abuse of substances. Medical problems since last visit: On amitriptyline at hs for migraines. COVID, SHINGlES, Flu. Psychosocial stressors include: 17 yr old is having a baby. Middle child bought a house. Best friend having complications after mastectomy. Had to put dog down. SUBJECTIVE: PAST MEDICAL HISTORY: Past Medical History: Diagnosis Date Anemia Anxiety Bipolar disorder (CMS/HCC) Depression (CMS/HCC) 1995 H/O total thyroidectomy (CMS/HCC) 2014 History of laparoscopic cholecystectomy 2016 Hx of appendectomy 2017 Hx of headache Hx of tonsillectomy 1996 Hypertension (CMS/HCC) Hypothyroidism (CMS/HCC) Panic attack (CMS/[facility]) 1995 POTS (postural orthostatic tachycardia syndrome) Post COVID Rheumatoid arthritis ([facility]) MEDICATIONS: Current Outpatient Medications Medication Instructions ALPRAZolam (XANAX) 0.25 mg, Oral, Daily PRN amitriptyline (ELAVIL) 25 mg, Nightly cholecalciferol (VITAMIN D-3) 2,000 Units, Daily ferrous sulfate 325 mg, Daily with breakfast Humira (2 Pen) 40 mg, Every 14 days ibuprofen 800 mg, Every 6 hours PRN lamoTRIgine (LAMICTAL) 200 mg, Oral, Daily leflunomide (ARAVA) 20 mg, Daily levothyroxine (SYNTHROID, LEVOXYL) 200 mcg, Daily before breakfast metFORMIN XR (GLUCOPHAGE-XR) 500 mg, Daily with evening meal metoprolol tartrate (LOPRESSOR) 25 mg, 2 times daily nabumetone (RELAFEN) 500 mg, 2 times daily PRN ondansetron (ZOFRAN) 4 mg, As needed pantoprazole (PROTONIX) 40 mg, Nightly QUEtiapine (SEROQUEL) 100 mg, Oral, Nightly sertraline (ZOLOFT) 100 mg, Oral, Daily ALLERGIES: Allergies Allergen Reactions Sulfanilamide Rash SURGICAL HISTORY: No past surgical history on file. FAMILY HISTORY: Family History Problem Relation Name Age of Onset Mental illness Mother Flor Stroke Mother Flor Cancer Mother Flor Rheum arthritis Mother Flor Hypothyroidism Mother Flor Atrial fibrillation Mother Flor Anxiety disorder Mother Flor Depression Mother Flor Mental illness Father Brian Hypertension Father Brian Anxiety disorder Father Brian Depression Father Brian Mental illness Mother's Sister Mental illness Mother's Brother Dementia Maternal Grandfather Beth ADD / ADHD Other Son SOCIAL HISTORY: Social History Tobacco Use Smoking status: Never Smokeless tobacco: Never Vaping Use Vaping status: Never Used Substance Use Topics Alcohol use: Yes Comment: Couple times a year Caffine: 12 oz daily Drug use: Never Types: Marijuana Patient Health Questionnaire-9 Score: 0 KATHRYN-7 Total Score: 1 Patient Care Team: Jorge Ngo MD as PCP - General (Family Medicine) JOSE ColladoRECYCLING MANAGER as Nurse Practitioner (Psychiatry) PSYCHIATRIC REVIEW OF SYMPTOMS AND MENTAL STATUS EXAM ROS: Appearance Appearance: Normal grooming and hygiene. Appears stated age. Dressed appropriately for weather. Behavior Calm, cooperative, pleasant. Good posture. Psychomotor Activity Intact. No abnormal movements noted. Eye contact Good Speech Normal, clear, regular rate, rhythm and volume Affect Full range. Stable. Appropriate and congruent with mood. Mood Euthymic, SAD Thought Process Organized, logical, and goal directed Thought Content: Denies suicidal and homicidal ideation. Perception: Denies auditory or visual hallucinations. No evidence of delusions. Denies derealization and depersonalization. Cognition Alert and attentive during visit Memory Immediate, recent and remote memory intact Insight Good. Acknowledges predominant symptoms of illness and need for treatment Judgement Good. Able to make reasonable life decisions. OBJECTIVE: Visit Vitals BP 140/86 (BP Location: Right arm, Patient Position: Sitting, BP Cuff Size: Adult) Pulse 96 Wt 218 lb BMI 38.62 kg/m Smoking Status Never BSA 2.1 m No results found for: TSH Lab Results Component Value Date GLU 82 06/27/2022 CALCIUM 8.5 06/27/2022 BUN 9 06/27/2022 CREATININE 0.65 11/14/2023 No results found for: WBC , HGB , HCT , MCV , PLT No results found for: CHOL No results found for: HDL No results found for: LDLCALC No results found for: TRIG ASSESSMENT AND PLAN: Impression: This is a 41 year old being treated for KATHRYN and Bipolar II Disorder will continue current medications Quetiapine and lamictal to target mood. Zoloft target depression and anxiety. Xanax is prn severe anxiety. Assessment/Plan Diagnoses and all orders for this visit: Bipolar 2 disorder ([facility]) KATHRYN (generalized anxiety disorder) ([facility]) Plans to fax labs done -LAST DONE 10/20 QUEtiapine Fumarate Tablet, 100 MG, TAKE 1 TABLET BY MOUTH EVERY DAY, Orally, at hs, LaMICtal Tablet, 200 MG, 1 tablet, Orally, daily, Zoloft Tablet, 100 MG, 1 tablet, Orally, Once a day, DECLINES COUNSELING - RTC in 3 months. Discussed any medication changes and follow-up plan with patient. Encouraged patient to call office sooner if symptoms worsen or if any questions/concerns arise. Patient was seen Face to Face, Total time spent with patient was 25MIN, which includes reviewing chart documents, previous notes/records, counseling and discussion with patient and/or coordination of care as described above. Electronically signed by Natalie Lane PRINTED CIRCUIT BOARD LAYOUT 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 at 09/19/2024 4:23 PM EDT documented in this encounter [facility] 07-11-2024 History of Present illness Narrative Kierra Approved Humira Valid 07/11/24-12/28/24. Claim Number [id number]. documented in this encounter [facility] 07-08-2024 Instructions Sandip Alston MA - 07/08/2024 9:16 AM EDT Start prednisone 2.5 mg 1-2 tablets daily with food Complete labs Our office is going to request humira for you Our office does not accept electronic refill requests from pharmacies. If you need refills, please notify our staff at the time of your office visit or by contacting our office via phone or [employer]. Based on your blood pressure reading today while in our office we recommend you notify your primary care provider as soon as possible. If you do not have a primary care provider you can visit our website at [email or web address] or call our Physician Referral line at [phone] to locate a provider of your choice. If you have a blood pressure monitor at home, please read over the patient education hand out How to measure your blood pressure at home . If you do not have a blood pressure monitor, ask your primary care provider if you would benefit from measuring your blood pressure at home. Thank You For Trusting [facility] with Your Care! Our goal is to provide you with exceptional patient care. You may receive a patient satisfaction survey via email or text from [employer]. We appreciate your feedback and kindly ask that you complete the survey The associates caring for you today were: Fuel Cell Systems Engineer: Sandip Nurse: Taylor Straw Hat Brim Raiser Operator: Sobia You can help manage your healthcare 19/09 with [facility] [employer]. To activate your account, visit [email or web address]. Until your next visit, Davidson yL MD and Team documented in this encounter [facility] 07-08-2024 Note I had the pleasure o f seeing Robbie Willson in FOLLOW UP at [facility] [place] [place] [id number] for Management of 1. Rheumatoid arthritis, seropositive (HCC) Sedimentation Rate CRP, Inflammation predniSONE (DELTASONE) 2.5 MG tablet 2. Encounter for long-term (current) use of medications ALT AST CBC and Differential Creatinine, serum MTB SCREEN 3. NSAID long-term use 4. Morbid obesity with BMI of 40.0-44.9, adult (HCC) 5. Numbness in feet Interim history: Last visit 8 months ago, last appointment missed. She has been sick. About 2-1/2 months ago she was diagnosed with COVID infection then came down with shingles on the face and then most recently couple of weeks ago she was diagnosed with parainfluenza. She is recovering okay. She was treated with a Medrol Dosepak for pulmonary issues associated with parainfluenza. Before that she had called my office because she has had worsening joint symptoms and she was given Medrol Dosepak at that stage. Steroids have helped her joints She continues on Arava 20 mg daily along with Humira biosimilar Simlandi 40 mg subcu injections every 2 weeks for seropositive rheumatoid arthritis. She does not think Simlandi is working as well and also she has been having more frequent infections since she has been on it. She has had increased swelling in the hands and feet no injection site reaction headaches. she is up-to-date on immunization. She has not lost any more weight She is not using as much of Motrin. No hair loss from Arava She is on iron supplementation for iron deficiency anemia, he is taking it only 3 times a week now Numbness in the feet is improved Medications: Current Outpatient Medications Medication Sig Dispense Refill adalimumab-ryvk (Simlandi,CF, Autoinjector) 40 mg/0.4 mL atIK Inject 40 mg under the skin every 14 (fourteen) days . 2 each 5 cholecalciferol, vitamin D3, 50 mcg (2,000 unit) cap Take by mouth daily . ibuprofen (ADVIL,MOTRIN) 800 MG tablet Take 1 (one) tablet (800 mg total) by mouth 3 (three) times a day as needed for pain . lamoTRIgine (LAMICTAL) 100 MG tablet Take 1 (one) tablet (100 mg total) by mouth daily . leFLUNomide (ARAVA) 20 MG tablet Take 1 (one) tablet (20 mg total) by mouth daily . 30 tablet 4 levothyroxine (SYNTHROID, LEVOTHROID) 175 MCG tablet 225 mcg . metFORMIN (GLUCOPHAGE) 500 MG tablet Take 1 (one) tablet (500 mg total) by mouth every night at bedtime . methylPREDNISolone (MEDROL DOSEPACK) 4 mg tablet Take 1 (one) tablet (4 mg total) by mouth . metoprolol tartrate (LOPRESSOR) 25 MG tablet nabumetone (RELAFEN) 500 MG tablet pantoprazole (PROTONIX) 40 MG tablet Take 1 (one) tablet (40 mg total) by mouth daily . QUEtiapine (SEROQUEL) 50 MG tablet Take 2 (two) tablets (100 mg total) by mouth nightly . sertraline HCl (ZOLOFT ORAL) Take 2 tablets by mouth daily . traZODone (DESYREL) 50 MG tablet Take 1 (one) tablet to 2 (two) tablets (50-100 mg total) by mouth at bedtime as needed . ferrous sulfate 325 (65 FE) MG tablet Take 1 (one) tablet (325 mg total) by mouth 2 (two) times a day . (Patient not taking: Reported on 07/08/2024 .) 60 tablet 4 hydroCHLOROthiazide (HYDRODIURIL) 12.5 MG tablet Take 1 (one) tablet (12.5 mg total) by mouth daily . lisinopriL (PRINIVIL,ZESTRIL) 5 MG tablet Take 1 (one) tablet (5 mg total) by mouth daily . omeprazole (PRILOSEC) 20 MG capsule Take 1 (one) capsule (20 mg total) by mouth daily . phentermine (ADIPEX-P) 37.5 mg tablet Take 1 (one) tablet (37.5 mg total) by mouth daily . predniSONE (DELTASONE) 10 MG tablet Take 1 (one) tablet (10 mg total) by mouth daily . (Patient not taking: Reported on 11/14/2023 .) 30 tablet 2 predniSONE (DELTASONE) 2.5 MG tablet Take 1 (one) tablet to 2 (two) tablets (2.5-5 mg total) by mouth daily With food . 60 tablet 3 No current facility-administered medications for this visit. Past Medical History: She Past Medical History: Diagnosis Date Arthropathy of wrist COVID Deviated septum Frozen shoulder Hand swelling Hypothyroidism Knee swelling Migraine Periarthritis of shoulder Post-influenza syndrome Seropositive rheumatoid arthritis (HCC) Shingles Subacute sinusitis Past Surgical History: She Past Surgical History: Procedure Laterality Date ADENOIDECTOMY CHOLECYSTECTOMY THYROIDECTOMY TONSILLECTOMY Social History: She Social History Socioeconomic History Marital status: Tobacco Use Smoking status: Never Smokeless tobacco: Never Vaping Use Vaping status: Never Used Substance and Sexual Activity Alcohol use: Yes Comment: Couple times a year Drug use: Never Sexual activity: Yes Partners: Male control/protection: Vasectomy Comment: had vasectomy ROS- SEE ATTESTED STAFF NOTE Physical Examination: BP (!) 146/97 (BP Location: Left arm, (more content not included)... [facility] 07-08-2024 History of Present illness Narrative I had the pleasure of seeing Robbie Willson in FOLLOW UP at [facility] [address] [place] [phone] for Management of 1. Rheumatoid arthritis, seropositive (HCC) Sedimentation Rate CRP, Inflammation predniSONE (DELTASONE) 2.5 MG tablet 2. Encounter for long-term (current) use of medications ALT AST CBC and Differential Creatinine, serum MTB SCREEN 3. NSAID long-term use 4. Morbid obesity with BMI of 40.0-44.9, adult (HCC) 5. Numbness in feet Interim history: Last visit 8 months ago, last appointment missed. She has been sick. About 2-1/2 months ago she was diagnosed with COVID infection then came down with shingles on the face and then most recently couple of weeks ago she was diagnosed with parainfluenza. She is recovering okay. She was treated with a Medrol Dosepak for pulmonary issues associated with parainfluenza. Before that she had called my office because she has had worsening joint symptoms and she was given Medrol Dosepak at that stage. Steroids have helped her joints She continues on Arava 20 mg daily along with Humira biosimilar Simlandi 40 mg subcu injections every 2 weeks for seropositive rheumatoid arthritis. She does not think Simlandi is working as well and also she has been having more frequent infections since she has been on it. She has had increased swelling in the hands and feet no injection site reaction headaches. she is up-to-date on immunization. She has not lost any more weight She is not using as much of Motrin. No hair loss from Arava She is on iron supplementation for iron deficiency anemia, he is taking it only 3 times a week now Numbness in the feet is improved Medications: Current Outpatient Medications Medication Sig Dispense Refill adalimumab-ryvk (Simlandi,CF, Autoinjector) 40 mg/0.4 mL atIK Inject 40 mg under the skin every 14 (fourteen) days . 2 each 5 cholecalciferol, vitamin D3, 50 mcg (2,000 unit) cap Take by mouth daily . ibuprofen (ADVIL,MOTRIN) 800 MG tablet Take 1 (one) tablet (800 mg total) by mouth 3 (three) times a day as needed for pain . lamoTRIgine (LAMICTAL) 100 MG tablet Take 1 (one) tablet (100 mg total) by mouth daily . leFLUNomide (ARAVA) 20 MG tablet Take 1 (one) tablet (20 mg total) by mouth daily . 30 tablet 4 levothyroxine (SYNTHROID, LEVOTHROID) 175 MCG tablet 225 mcg . metFORMIN (GLUCOPHAGE) 500 MG tablet Take 1 (one) tablet (500 mg total) by mouth every night at bedtime . methylPREDNISolone (MEDROL DOSEPACK) 4 mg tablet Take 1 (one) tablet (4 mg total) by mouth . metoprolol tartrate (LOPRESSOR) 25 MG tablet nabumetone (RELAFEN) 500 MG tablet pantoprazole (PROTONIX) 40 MG tablet Take 1 (one) tablet (40 mg total) by mouth daily . QUEtiapine (SEROQUEL) 50 MG tablet Take 2 (two) tablets (100 mg total) by mouth nightly . sertraline HCl (ZOLOFT ORAL) Take 2 tablets by mouth daily . traZODone (DESYREL) 50 MG tablet Take 1 (one) tablet to 2 (two) tablets (50-100 mg total) by mouth at bedtime as needed . ferrous sulfate 325 (65 FE) MG tablet Take 1 (one) tablet (325 mg total) by mouth 2 (two) times a day . (Patient not taking: Reported on 07/08/2024 .) 60 tablet 4 hydroCHLOROthiazide (HYDRODIURIL) 12.5 MG tablet Take 1 (one) tablet (12.5 mg total) by mouth daily . lisinopriL (PRINIVIL,ZESTRIL) 5 MG tablet Take 1 (one) tablet (5 mg total) by mouth daily . omeprazole (PRILOSEC) 20 MG capsule Take 1 (one) capsule (20 mg total) by mouth daily . phentermine (ADIPEX-P) 37.5 mg tablet Take 1 (one) tablet (37.5 mg total) by mouth daily . predniSONE (DELTASONE) 10 MG tablet Take 1 (one) tablet (10 mg total) by mouth daily . (Patient not taking: Reported on 11/14/2023 .) 30 tablet 2 predniSONE (DELTASONE) 2.5 MG tablet Take 1 (one) tablet to 2 (two) tablets (2.5-5 mg total) by mouth daily With food . 60 tablet 3 No current facility-administered medications for this visit. Past Medical History: She Past Medical History: Diagnosis Date Arthropathy of wrist COVID Deviated septum Frozen shoulder Hand swelling Hypothyroidism Knee swelling Migraine Periarthritis of shoulder Post-influenza syndrome Seropositive rheumatoid arthritis (HCC) Shingles Subacute sinusitis Past Surgical History: She Past Surgical History: Procedure Laterality Date ADENOIDECTOMY CHOLECYSTECTOMY THYROIDECTOMY TONSILLECTOMY Social History: She Social History Socioeconomic History Marital status: Tobacco Use Smoking status: Never Smokeless tobacco: Never Vaping Use Vaping status: Never Used Substance and Sexual Activity Alcohol use: Yes Comment: Couple times a year Drug use: Never Sexual activity: Yes Partners: Male control/protection: Vasectomy Comment: had vasectomy ROS- SEE ATTESTED STAFF NOTE Physical Examination: BP (!) 146/97 (BP Location: Left arm, Patient Position: Sitting, BP Cuff Size: X-large Adult) Pulse 88 Temp 97.8 F (36.6 C) (Oral) Ht 5' 2 Wt 97.6 kg (215 lb 3.2 oz) SpO2 95% BMI 39.36 kg/m last visit 217 pounds and prior to that 233 pounds GENERAL: She is in no apparent distress. HEENT: No oral ulcers, malar rash ,parotid gland enlargement, uveitis. NECK: Supple without thyromegaly. No cervical or supraclavicular lymphadenopathy. HEART: Regular rate and rhythm without murmurs, rubs, or gallops. LUNGS: Clear to auscultation bilaterally without use of accessory muscles.No crakcles or rales MUSCULOSKELETAL: Reveals normal range of motion in all the joints, including both the shoulders and hips . Left trochanteric bursa tenderness absent. Hip is normal. Bilateral knee crepitus but no obvious synovitis in any of the joints, no obvious joint deformities, no subluxation or ulnar deviation. Of note patient is status post 2 Medrol Dosepak's over the last few weeks, masking physical findings. She brings a picture of active synovitis in the hands Diagnostic Data: Component Latest Ref Rng 11/14/2023 WBC 4.50 - 11.00 K/mcL 7.42 RBCs 4.00 - 5.20 M/mcL 4.83 Hemoglobin 12.0 - 16.0 g/dL 12.9 Hematocrit 36.0 - 46.0 % 40.0 MCV 80.0 - 100.0 fL 82.8 MCH 26.0 - 34.0 pg 26.7 MCHC 31.0 - 37.0 g/dL 32.3 Platelets 150 - 400 K/mcL 359 RDW 11.6 - 14.8 % 15.0 (H) MPV 9.4 - 12.4 fL 9.9 Neutrophils % 47.8 Lymphocytes % 32.3 Monocytes % 9.8 Eosinophils % 8.9 Basophils % 0.9 IG Percent % 0.30 Neutrophils Abs 1.70 - 7.00 K/mcL 3.54 Lymphocytes Abs 0.90 - 4.00 K/mcL 2.40 Monocytes Abs 0.30 - 0.90 K/mcL 0.73 Eosinophils Abs 0.00 - 0.50 K/mcL 0.66 (H) Basophils Abs 0.00 - 0.30 K/mcL 0.07 IG Absolute 0.00 - 0.30 K/mcL 0.02 Nucleated RBC % 0.0 Nucleated RBC Abs 0.00 - 0.00 K/mcL 0.00 Iron 30 - 160 mcg/dL 44 TIBC 225 - 430 mcg/dL 295 Iron Saturation 20 - 50 % 15 (L) Ferritin 13 - 150 ng/mL 30 Creatinine 0.40 - 1.10 mg/dL 0.65 eGFR >=60 mL/min/1.73 m2 112 ALT 0-35 U/L U/L 12 AST 0-35 U/L U/L 15 Legend: (H) High (L) Low Component Latest Ref Rng 04/03/2023 WBC 4.50 - 11.00 K/mcL 10.39 RBCs 4.00 - 5.20 M/mcL 4.80 Hemoglobin 12.0 - 16.0 g/dL 13.4 Hematocrit 36.0 - 46.0 % 41.4 MCV 80.0 - 100.0 fL 86.3 MCH 26.0 - 34.0 pg 27.9 MCHC 31.0 - 37.0 g/dL 32.4 Platelets 150 - 400 K/mcL 361 RDW 11.6 - 14.8 % 14.1 MPV 9.4 - 12.4 fL 10.1 Neutrophils % 48.5 Lymphocytes % 36.3 Monocytes % 9.8 Eosinophils % 4.1 Basophils % 1.0 IG Percent % 0.30 Neutrophils Abs 1.70 - 7.00 K/mcL 5.04 Lymphocytes Abs 0.90 - 4.00 K/mcL 3.77 Monocytes Abs 0.30 - 0.90 K/mcL 1.02 (H) Eosinophils Abs 0.00 - 0.50 K/mcL 0.43 Basophils Abs 0.00 - 0.30 K/mcL 0.10 IG Absolute 0.00 - 0.30 K/mcL 0.03 Nucleated RBC % 0.0 Nucleated RBC Abs 0.00 - 0.00 K/mcL 0.00 Creatinine 0.40 - 1.10 mg/dL 0.70 eGFR >=60 mL/min/1.73 m2 111 ALT 0-35 U/L U/L 12 AST 0-35 U/L U/L 16 Legend: (H) High Component Latest Ref Rng 06/27/2022 WBC 4.50 - 11.00 K/mcL 8.41 RBCs 4.00 - 5.20 M/mcL 4.72 Hemoglobin 12.0 - 16.0 g/dL 13.4 Hematocrit 36.0 - 46.0 % 41.4 MCV 80.0 - 100.0 fL 87.7 MCH 26.0 - 34.0 pg 28.4 MCHC 31.0 - 37.0 g/dL 32.4 Platelets 150 - 400 K/mcL 346 RDW 11.6 - 14.8 % 14.2 MPV 9.4 - 12.4 fL 9.8 Neutrophils % 53.7 Lymphocytes % 29.5 Monocytes % 9.9 Eosinophils % 5.4 Basophils % 1.3 IG Percent % 0.20 Neutrophils Abs 1.70 - 7.00 K/mcL 4.52 Lymphocytes Abs 0.90 - 4.00 K/mcL 2.48 Monocytes Abs 0.30 - 0.90 K/mcL 0.83 Eosinophils Abs 0.00 - 0.50 K/mcL 0.45 Basophils Abs 0.00 - 0.30 K/mcL 0.11 IG Absolute 0.00 - 0.30 K/mcL 0.02 Nucleated RBC % 0.0 Nucleated RBC Abs 0.00 - 0.00 K/mcL 0.00 Sodium 135 - 145 mmol/L 134 (L) Potassium 3.5 - 5.1 mmol/L 3.6 Chloride 98 - 108 mmol/L 106 Bicarbonate 21 - 32 mmol/L 25 Anion Gap 10 - 20 mmol/L 7 (L) Glucose 65 - 99 mg/dL 82 BUN 8 - 25 mg/dL 9 Creatinine 0.40 - 1.10 mg/dL 0.64 eGFR >=60 mL/min/1.73 m2 114 BUN/Creatinine Ratio 10.0 - 20.0 14.1 Total Protein 6.0 - 8.0 g/dL 7.3 Albumin 3.2 - 5.2 g/dL 3.3 Calcium 8.4 - 10.2 mg/dL 8.5 ALK PHOS 40 - 150 U/L 77 AST 0 - 45 U/L 19 Total Bilirubin 0.0 - 1.3 mg/dL 0.3 ALT 14 - 65 U/L 27 Legend: (L) Low Component Latest Ref Rng & Units 02/15/2021 Hep A Total Ab Negative Negative Hep B Core Total Ab Negative Negative Hep B S Ab Negative Positive (A) Hepatitis C Ab Negative Negative Hepatitis B surface antigen negative QuantiFERON-TB test negative March 2023 My clinical impression and plan 1. Rheumatoid arthritis, seropositive (HCC), not as well-controlled as used to be continue Arava at the same dose along with prednisone 2.5 mg daily I would hold off on bio similar Simlandi because of ongoing infections Will check base with the insurance and see if they would cover the original Humira as that was more effective for her 2. Encounter for long-term (current) use of medications, appears to have increased frequency of infections ALT AST CBC and Differential Creatinine, serum today, Mycobacterium tuberculosis testing also Up-to-date on COVID vaccination, declines flu and pneumonia vaccine Advised to hold Senait, would request the original Humira injections 3. NSAID long-term use, she is taking it minimally, blood pressure is slightly high Encouraged to discontinue 4. Morbid obesity with BMI of 40.0-44.9, adult (HCC), marked improvement, BMI dropped from 42.6-39. 4 today, continue lifestyle modification 5. numbness bilateral feet. Improved Because autoimmune disease is associated with increased risk of atherosclerosis, recommend careful attention to blood pressure and lipid control. I recommend using the preventive guidelines established for people with diabetes. Return in about 3 months (around 10/08/2024) for Next scheduled follow up. Davidson Ly M.D. Rheumatology Alie Peterson MD;No ref. provider found Note: This dictation was generated using [employer] voice recognition software. Please excuse any grammatical or spelling errors that may have occurred using the system. RAPID3 Composite Score MDHAQ (0-10): 3 Patient pain VAS (0-10): 7 Patient global assessment VAS (0-10): 5 RAPID3 Total Score: 15 Remission: <3 Low Disease Activity: <6 Moderate Disease Activity: >=6 and <=12 High Disease Activity: >12 Review of Systems CONSTITUTIONAL: Fever no Fatigue yes Abnormal weight loss/gain no HEENT: Change of Vision no Dry eyes no Painful eye no Dry Mouth no Mouth sores/lesions no Hair loss no Difficulty swallowing no Scalp Tenderness no Jaw Pain yes Swollen glands no CVS: Chest pain/ discomfort no Palpitations no RESPIRATORY: Shortness of breath no Difficulty breathing no Cough yes Edema no : Blood in urine no Painful urination no GI: Change in stool no Black stool no Visible blood in stool no Abdominal pain no Heartburn no NEURO: Convulsions no Headache yes Dizziness no Weakness no Numbness no INTEGUMENTARY: Rash, generalized no Rash, facial no Finger pain with discoloration (Raynaud s)no Digital ulcers no HEMATOLOGY: Easy bruisability no PSYCH: Anxiety no Depression no Problems with social activities no Cosigned by Davidson Ly MD at 07/08/2024 9:05 AM EDT documented in this encounter [facility] 04-30-2024 History of Present illness Narrative Images from the original note were not included. HPI: Robbie Willson is a 43 y.o. female with a history of Bipolar II Disorder and Anxiety. Patient is here today for follow-up. Patient has improved since last appointment. Mood is reported as 'VERY GOOD. ' Denies depression and anxiety. Sleep is reported as good. Patient reports they have been compliant with medication regimen. Patient denies any side effects or somatic complaints. Patient denies abuse of substances. Medical problems since last visit: Was put on amitriptyline at for migraines. Feels it has helps. Psychosocial stressors include: 17 yr old is having a baby. Middle child bought a house. SUBJECTIVE: PAST MEDICAL HISTORY: Past Medical History: Diagnosis Date Anemia Anxiety Bipolar disorder ([facility]) Depression ([facility]) 1995 H/O total thyroidectomy ([facility]) 2014 History of laparoscopic cholecystectomy 2016 Hx of appendectomy 2017 Hx of headache Hx of tonsillectomy 1995 Hypertension (CMS/HCC) Hypothyroidism ([facility]) Panic attack ([facility]) 1995 POTS (postural orthostatic tachycardia syndrome) Post COVID Rheumatoid arthritis ([facility] [facility]) MEDICATIONS: Current Outpatient Medications Medication Instructions ALPRAZolam (XANAX) 0.25 mg, Oral, Daily PRN amitriptyline (ELAVIL) 25 mg, Nightly cholecalciferol (VITAMIN D-3) 2,000 Units, Daily ferrous sulfate 325 mg, Daily with breakfast Humira (2 Pen) 40 mg, Every 14 days ibuprofen 800 mg, Every 6 hours PRN lamoTRIgine (LAMICTAL) 200 mg, Oral, Daily leflunomide (ARAVA) 20 mg, Daily levothyroxine (SYNTHROID, LEVOXYL) 200 mcg, Daily before breakfast metFORMIN XR (GLUCOPHAGE-XR) 500 mg, Daily with evening meal metoprolol tartrate (LOPRESSOR) 25 mg, 2 times daily nabumetone (RELAFEN) 500 mg, 2 times daily PRN ondansetron (ZOFRAN) 4 mg, As needed pantoprazole (PROTONIX) 40 mg, Nightly QUEtiapine (SEROQUEL) 100 mg, Oral, Nightly sertraline (ZOLOFT) 100 mg, Oral, Daily ALLERGIES: Allergies Allergen Reactions Sulfanilamide Rash SURGICAL HISTORY: No past surgical history on file. FAMILY HISTORY: Family History Problem Relation Name Age of Onset Mental illness Mother Flor Stroke Mother Flor Cancer Mother Flor Rheum arthritis Mother Flor Hypothyroidism Mother Flor Atrial fibrillation Mother Flor Anxiety disorder Mother Flor Depression Mother Flor Mental illness Father Brian Hypertension Father Brian Anxiety disorder Father Brian Depression Father Brian Mental illness Mother's Sister Mental illness Mother's Brother Dementia Maternal Grandfather Beth ADD / ADHD Other Son SOCIAL HISTORY: Social History Tobacco Use Smoking status: Never Smokeless tobacco: Never Vaping Use Vaping status: Never Used Substance Use Topics Alcohol use: Yes Comment: Couple times a year Caffine: 12 oz daily Drug use: Never Types: Marijuana Patient Health Questionnaire-9 Score: 0 KATHRYN-7 Total Score: 1 Patient Care Team: Jorge Ngo MD as PCP - General (Family Medicine) Natalie Lane APRN-MECCA as Nurse Practitioner (Psychiatry) PSYCHIATRIC REVIEW OF SYMPTOMS AND MENTAL STATUS EXAM ROS: Appearance Appearance: Normal grooming and hygiene. Appears stated age. Dressed appropriately for weather. Behavior Calm, cooperative, pleasant. Good posture. Psychomotor Activity Intact. No abnormal movements noted. Eye contact Good Speech Normal, clear, regular rate, rhythm and volume Affect Full range. Stable. Appropriate and congruent with mood. Mood Euthymic Thought Process Organized, logical, and goal directed Thought Content: Denies suicidal and homicidal ideation. Perception: Denies auditory or visual hallucinations. No evidence of delusions. Denies derealization and depersonalization. Cognition Alert and attentive during visit Memory Immediate, recent and remote memory intact Insight Good. Acknowledges predominant symptoms of illness and need for treatment Judgement Good. Able to make reasonable life decisions. OBJECTIVE: Visit Vitals BP 140/86 (BP Location: Right arm, Patient Position: Sitting, BP Cuff Size: Adult) Pulse 96 Wt 218 lb BMI 38.62 kg/m Smoking Status Never BSA 2.1 m No results found for: TSH Lab Results Component Value Date GLU 82 06/27/2022 CALCIUM 8.5 06/27/2022 BUN 9 06/27/2022 CREATININE 0.65 11/14/2023 No results found for: WBC , HGB , HCT , MCV , PLT No results found for: CHOL No results found for: HDL No results found for: LDLCALC No results found for: TRIG ASSESSMENT AND PLAN: Impression: This is a 41 year old being treated for KATHRYN and Bipolar II Disorder will continue current medications Quetiapine and lamictal to target mood. Zoloft target depression and anxiety. Xanax is prn severe anxiety. Assessment/Plan Diagnoses and all orders for this visit: Bipolar 2 disorder ([facility]) KATHRYN (generalized anxiety disorder) ([facility]) Plans to fax labs done -from [place]. -Not receieved QUEtiapine Fumarate Tablet, 100 MG, TAKE 1 TABLET BY MOUTH EVERY DAY, Orally, at hs, LaMICtal Tablet, 200 MG, 1 tablet, Orally, daily, Zoloft Tablet, 100 MG, 1 tablet, Orally, Once a day, Xanax Tablet, 0.25 MG, 1 tablet, Orally, daily prn-has not needed - Continue counseling for additional mental health support and treatment. - RTC in 3 months. Discussed any medication changes and follow-up plan with patient. Encouraged patient to call office sooner if symptoms worsen or if any questions/concerns arise. Patient was seen Face to Face, Total time spent with patient was 21min , which includes reviewing chart documents, previous notes/records, counseling and discussion with patient and/or coordination of care as described above. documented in this encounter [facility] 04-16-2024 Telephone encounter Note Called to offer RS of PT from 04/12 cx. She said she is going [id number] and return date is not known. I informed if needed to contact saurabh; and she said if so she will. No fu w/ status. [facility] 04-16-2024 Miscellaneous Notes Called to offer RS of PT from 04/12 cx. She said she is going [id number] and return date is not known. I informed if needed to contact saurabh; and she said if so she will. No fu w/ status. She called for Robbie, due to the need to cx PT for today; she said Robbie will call back to rs. documented in this encounter [facility] 04-12-2024 Telephone encounter Note She called for Robbie, due to the need to cx PT for today; she said Robbie will call back to rs. [facility] 04-08-2024 Radiology Diagnostic study note [facility] Main [place] [address] [place] [address] Ultrasound Report Signed Patient: Robbie Willson MR#: [id number] : 1980 Acct:[id number] Age/Sex: 43 / F ADM Date: 5 Loc: MS Room: Type: [facility] Attending Dr: Norma Mirza DIRECTOR TRAFFIC AND PLANNING-C Ordering Provider: Norma Mirza CNP Date of Service: 04/08/24 MM/MM special view RT w/CAD: R92.8 ([id number]) US/US breast RT limited: R92.8 Copies to: Norma Mirza CNP~ RIGHT Diagnostic Full Field digital mammogram with 3-D imaging. Spot compression with mediolateral view COMPARISON: 03/15/2024 HISTORY: Annual screening BREAST COMPOSITION: Scattered fibroglandular densities of the breast parenchyma identified BREAST CALCIFICATIONS: Benign calcifications present. VASCULAR CALCIFICATIONS: None ARCHITECTURAL DISTORTION: None BREAST NODULE: No residual nodularity with compression. AXILLARY LYMPH NODES: Normal POSTSURGICAL CHANGES: None Targeted right breast ultrasound performed. At the 1:00 position 4 cm from the nipple there is an anechoic 3 mm cyst identified. This is benign. US/US breast RT limited IMPRESSION: No mammographic evidence of malignancy. Benign anechoic 3 mm cyst. No further diagnostic assessment recommended. Routine follow-up recommended in one year. RESULT CODE: 2 Benign Findings(s) DENSITY CODE: 2 (approximately 25-50% glandular) FOLLOW UP: 1YR THE FALSE-NEGATIVE RATE OF MAMMOGRAPHY IS APPROXIMATELY 10%. IMAGING OF A PALPABLE ABNORMALITY MUST BE BASED ON CLINICAL GROUNDS. PATIENT WAS ENTERED INTO A REMINDER SYSTEM WITH A TARGET DUE DATE FOR THE NEXT MAMMOGRAM. Impression dictated by: Vladimir Tyson M.D.04/08/2024 11:50 AM Dictation Location: [facility] Tech: Radha Milton Transcribed By: ADAN 04/08/24 1150 Dictated By: Vladimir Tyson DO 04/08/24 1148 Signed By: 04/08/24 1150 [facility] 03-28-2024 History of Present illness Narrative Kierra approved Simlandi valid 03/28/24-09/24/24. Claim# [id number] documented in this encounter [facility] 03-26-2024 History of Present illness Narrative Images from the original note were not included. Physical Therapy Evaluation Visit Patient Name: Robbie Willson Today's Date: 03/26/2024 Encounter Diagnoses Name Primary? Left shoulder pain, unspecified chronicity Yes Visit number: 1 Timed Code Treatment Minutes: 44 minutes Total Treatment Time: 44 minutes Time In: 1430 Time Out: 1516 History: Pt states she has been having pain in left shoulder for quite some time. States she initially thought pain was due to her RA. Recent was seen by RA specialist who believes pain is not related to her RA. Pt states she gets sharp shooting pain in left shoulder at random times. States pain is gradually becoming more frequent. Notes fatigue with overhead activities. Precautions: [place] Subjective: Left shoulder and upper arm Pain: 3/10 constant ache, 6/10 when getting sharp pains Objective: PT Evaluation (03/26/2024) LEFT SHOULDER AROM: 124 degrees flexion, 91 degrees abduction, 65 degrees ER, IR to lower thoracic region PROM: 138 degrees flexion, 101 degrees abduction, 95 degrees ER Joint play: hypermobility noted with inferior and posterior glide vs right Strength: all MMT in neutral: 4/5 flexion, 4+/5 IR, ER and abduction 4- to 4/5; supraspinatus 4-/5; all testing limited due to pain Palpation: Moderate tenderness left RC insertion and bicep tendon Special Test: Pain with Neer's at 100 degrees elevation, mild discomfort with Rebollar Roman; Pain with Speeds testing Treatment: Education: HEP education with demonstration, Educated on Eval Findings and POC Manual Therapy: Passive ROM, Joint mobilization, Soft Tissue Mobilization, Myofascial Release, Muscle Energy Technique, Neural Mobilization, Myofascial Cupping, Dry Needling, IASTM, and Scar mobilization as needed. Therapeutic Exercise: (24 minutes) Strength, Endurance, Flexibility, ROM, HEP, Neural Mobilization, Power, and Core Stability as needed. Pt performed and instructed in home program this date; written instructions and pictures issued with good pt understanding. Therapeutic Activity: Exercises to improve dynamic activities, functional tasks, functional mobility to return to prior activity level as needed. Neuromuscular re-education: Balance Training, Muscle Facilitation, Dynamic Stability, Core Stabilization, and Blood Flow Restriction Training (BFRT) as needed. Modalities: Heat, Ice, Electrical Stimulation, Ultrasound, Cervical Mechanical Traction, Lumbar Mechanical Traction, Iontophoresis, and Fluidotherapy as needed. Assessment: Pt is 43 y/o female with complaints of chronic left shoulder pain. Pt with limited active and passive ROM left shoulder. Pain with MMT. Pt with increase pain with impingement testing and Speeds testing. Moderate tenderness at RC insertion and biceps tendon. Pt instructed in home program and will benefit from further PT. Outcome Measure: Upper Extremity Functional Index (UEFI): 69/80 Rehab Diagnosis: left shoulder pain and weakness Short Term Goal: To be met in 2 weeks Goal 1: Pt to be instructed in home exercise program. Mcc Goals: To be met in 10 weeks Goal 1: Pt to report independence and compliance with home program. Goal 2: Pt to achieve 150 degrees of left shoulder flexion to assist with overhead reaching. Goal 3: Pt to achieve 130 degrees of left shoulder abduction to assist with grooming hair. Goal 4: Pt to achieve 4+ to 5/5 strength left shoulder in all planes to assist with functional tasks and lifting. Goal 5: Pt to score no less than 76/80 on UEFI indicating improved QOL. Pt will benefit from skilled PT for 2-3x/week from 03/26/2024 to 06/04/2024 to address the above impairments. I hereby deem this POC medically necessary. Please sign below. Date: documented in this encounter [facility] 03-21-2024 History of Present illness Narrative Received notification from patient's insurance that Humira needs changed to biosimilar Simlandi due to formulary change. documented in this encounter [facility] 03-13-2024 Telephone encounter Note Patient sent a message in requesting a refill on Seroquel 100mg sent to [facility] in [place]. Patient has a follow up on 04/30/24 [facility] 03-13-2024 Miscellaneous Notes Patient sent a message in requesting a refill on Seroquel 100mg sent to [facility] in [place]. Patient has a follow up on 04/30/24 documented in this encounter [facility] 01-30-2024 History of Present illness Narrative Images from the original note were not included. Robbie Willson is a 43 y.o. female presents for Medication Management. HPI: Patient is here for medication follow up. Patient is doing well. Mood is reported as not having depression. At times feels overwhelmed with helping with her mother. Otherwise anxiety is under control. Sleeping 8-9 hours. Medication compliant. No reported side effects. Denies abuse of substances. 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 Medical problems since last visit. Hx RA on Humira and Psychosocial stressors include her mother who has early dementia. SUBJECTIVE: PAST MEDICAL HISTORY: Past Medical History: Diagnosis Date Anemia Anxiety Bipolar disorder ([facility]) Depression ([facility]) 1995 H/O total thyroidectomy ([facility]) 2014 History of laparoscopic cholecystectomy 2016 Hx of appendectomy 2017 Hx of headache Hx of tonsillectomy 1995 Hypertension ([facility]) Hypothyroidism ([facility]) Panic attack ([facility]) 1995 POTS (postural orthostatic tachycardia syndrome) Post COVID Rheumatoid arthritis ([facility]) ALLERGIES: Allergies Allergen Reactions Sulfanilamide Rash SURGICAL HISTORY: No past surgical history on file. FAMILY HISTORY: Family History Problem Relation Name Age of Onset Mental illness Mother Flor Stroke Mother Flor Cancer Mother Flor Rheum arthritis Mother Flor Hypothyroidism Mother Flor Atrial fibrillation Mother Flor Anxiety disorder Mother Flor Depression Mother Flor Mental illness Father Brian Hypertension Father Brian Anxiety disorder Father Brian Depression Father Brian Mental illness Mother's Sister Mental illness Mother's Brother Dementia Maternal Grandfather Beth ADD / ADHD Other Son SOCIAL HISTORY: Social History Tobacco Use Smoking status: Never Smokeless tobacco: Never Vaping Use Vaping status: Never Used Substance Use Topics Alcohol use: Yes Comment: Couple times a uear Drug use: Never Types: Marijuana Depression: Not at risk (10/24/2023) PHQ-2 PHQ-2 Score: 0 REVIEW OF SYMPTOMS - MENTAL STATUS EXAM Appearance Appearance: Casual dress, normal grooming and hygiene Attitude Attitude: Cooperative, conversant, engaged, and with good eye contact. Behavior Cooperative, conversant, engaged, and with good eye contact. Speech Normal, clear, regular rate, rhythm and volume Affect full affect appropriate with mood Mood Anxious and overwhelmed at times. 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 Generalized anxiety disorder - F41.1 2. Bipolar II disorder - F31.81 (Primary) 3. Panic disorder [episodic paroxysmal anxiety] - F41.0 This is a 41 year old being treated for KATHRYN and Bipolar II Disorder will continue current medications Quetiapine and lamictal to target mood. Zoloft target depression and anxiety. Xanax is prn severe anxiety. QUEtiapine Fumarate Tablet, 100 MG, TAKE 1 TABLET BY MOUTH EVERY DAY, Orally, at hs, LaMICtal Tablet, 200 MG, 1 tablet, Orally, daily, Zoloft Tablet, 100 MG, 1 tablet, Orally, Once a day, Xanax Tablet, 0.25 MG, 1 tablet, Orally, daily prn Plans to fax labs done -from [place]. Patient was seen Face to Face, Reviewed chart documents and documentation, Visit time : 35min Follow up -21/2 months documented in this encounter [facility] 11-14-2023 Instructions Sandip Alston MA - 11/14/2023 1:28 PM EDT Continue same treatment Complete labs Our office does not accept electronic refill requests from pharmacies. If you need refills, please notify our staff at the time of your office visit or by contacting our office via phone or MyChart. documented in this encounter [facility] 11-14-2023 History of Present illness Narrative RAPID3 Composite Score MDHAQ (0-10): 0 Patient pain VAS (0-10): 5 Patient global assessment VAS (0-10): 1 RAPID3 Total Score: 6 Remission: <3 Low Disease Activity: <6 Moderate Disease Activity: >=6 and <=12 High Disease Activity: >12 Review of Systems CONSTITUTIONAL: Fever no Fatigue no Abnormal weight loss/gain no HEENT: Change of Vision no Dry eyes no Painful eye no Dry Mouth no Mouth sores/lesions no Hair loss no Difficulty swallowing no Scalp Tenderness no Jaw Pain no Swollen glands no CVS: Chest pain/ discomfort no Palpitations no RESPIRATORY: Shortness of breath no Difficulty breathing no Cough no Edema no : Blood in urine no Painful urination no GI: Change in stool no Black stool no Visible blood in stool no Abdominal pain no Heartburn no NEURO: Convulsions no Headache yes Dizziness no Weakness no Numbness no INTEGUMENTARY: Rash, generalized no Rash, facial no Finger pain with discoloration (Raynaud s)no Digital ulcers no HEMATOLOGY: Easy bruisability no PSYCH: Anxiety no Depression no Problems with social activities no I had the pleasure of seeing Robbie Willson in FOLLOW UP at [facility] [address] [place] [phone] for Management of 1. Seropositive rheumatoid arthritis (HCC) leFLUNomide (ARAVA) 20 MG tablet 2. Encounter for long-term (current) use of medications ALT AST CBC and Differential Creatinine, serum 3. NSAID long-term use 4. Morbid obesity with BMI of 40.0-44.9, adult (HCC) 5. Numbness in feet 6. Iron deficiency anemia, unspecified iron deficiency anemia type ferrous sulfate 325 (65 FE) MG tablet Iron Study with Ferritin Interim history: Last visit 7 months ago, last appointment missed She continues on Arava 20 mg daily along with Humira 40 mg subcu injections every 2 weeks for seropositive rheumatoid arthritis. She doing well with minimal pain swelling stiffness. No fatigue. Right shoulder has been bothersome no injection site reaction headaches. she is up-to-date on immunization. She has , Lost significant weight She is not using as much of Motrin. No hair loss from Arava She is on iron supplementation for iron deficiency anemia, he is taking it only 3 times a week now Numbness in the feet is improved She has had some left hip pain, she does take prednisone sparingly for a few days in case of a flare Medications: Current Outpatient Medications Medication Sig Dispense Refill adalimumab (Humira,CF, Pen) 40 mg/0.4 mL PnKt Inject 0.4 mL (40 mg total) under the skin every 14 (fourteen) days . 1 kit 11 cholecalciferol, vitamin D3, 50 mcg (2,000 unit) cap Take by mouth daily . ferrous sulfate 325 (65 FE) MG tablet Take 1 (one) tablet (325 mg total) by mouth 2 (two) times a day . 60 tablet 3 ibuprofen (ADVIL,MOTRIN) 800 MG tablet Take 1 (one) tablet (800 mg total) by mouth 3 (three) times a day as needed for pain . lamoTRIgine (LAMICTAL) 100 MG tablet Take 1 (one) tablet (100 mg total) by mouth daily . leFLUNomide (ARAVA) 20 MG tablet Take 1 (one) tablet (20 mg total) by mouth daily . 30 tablet 4 levothyroxine (SYNTHROID, LEVOTHROID) 175 MCG tablet 225 mcg . metFORMIN (GLUCOPHAGE) 500 MG tablet Take 1 (one) tablet (500 mg total) by mouth every night at bedtime . metoprolol tartrate (LOPRESSOR) 25 MG tablet nabumetone (RELAFEN) 500 MG tablet pantoprazole (PROTONIX) 40 MG tablet Take 1 (one) tablet (40 mg total) by mouth daily . QUEtiapine (SEROQUEL) 50 MG tablet Take 2 (two) tablets (100 mg total) by mouth nightly . sertraline HCl (ZOLOFT ORAL) Take 2 tablets by mouth daily . traZODone (DESYREL) 50 MG tablet Take 1 (one) tablet to 2 (two) tablets (50-100 mg total) by mouth at bedtime as needed . hydroCHLOROthiazide (HYDRODIURIL) 12.5 MG tablet Take 1 (one) tablet (12.5 mg total) by mouth daily . lisinopriL (PRINIVIL,ZESTRIL) 5 MG tablet Take 1 (one) tablet (5 mg total) by mouth daily . omeprazole (PRILOSEC) 20 MG capsule Take 1 (one) capsule (20 mg total) by mouth daily . phentermine (ADIPEX-P) 37.5 mg tablet Take 1 (one) tablet (37.5 mg total) by mouth daily . predniSONE (DELTASONE) 10 MG tablet Take 1 (one) tablet (10 mg total) by mouth daily . (Patient not taking: Reported on 11/14/2023 .) 30 tablet 2 No current facility-administered medications for this visit. Past Medical History: She Past Medical History: Diagnosis Date Deviated septum Hypothyroidism Migraine Seropositive rheumatoid arthritis (HCC) Subacute sinusitis Past Surgical History: She Past Surgical History: Procedure Laterality Date ADENOIDECTOMY CHOLECYSTECTOMY THYROIDECTOMY TONSILLECTOMY Social History: She Social History Socioeconomic History Marital status: Tobacco Use Smoking status: Never Smokeless tobacco: Never Vaping Use Vaping status: Never Used Substance and Sexual Activity Alcohol use: Yes Comment: RARELY Drug use: Never ROS- SEE ATTESTED STAFF NOTE Physical Examination: BP 123/85 (BP Location: Left arm, Patient Position: Sitting, BP Cuff Size: X-large Adult) Pulse 77 Temp 97.1 F (36.2 C) (Temporal) Ht 5' 2 Wt 98.7 kg (217 lb 9.6 oz) SpO2 95% Comment: Room air BMI 39.80 kg/m last visit 233 pounds GENERAL: She is in no apparent distress. HEENT: No oral ulcers, malar rash ,parotid gland enlargement, uveitis. NECK: Supple without thyromegaly. No cervical or supraclavicular lymphadenopathy. HEART: Regular rate and rhythm without murmurs, rubs, or gallops. LUNGS: Clear to auscultation bilaterally without use of accessory muscles.No crakcles or rales MUSCULOSKELETAL: Reveals normal range of motion in all the joints, including both the shoulders and hips but with slight tenderness at the right shoulder at 90 degree abduction. Left trochanteric bursa tenderness present. Hip is normal. No crepitus or synovitis in any of the joints, no obvious joint deformities, no subluxation or ulnar deviation. Diagnostic Data: Component Latest Ref Rng 04/03/2023 WBC 4.50 - 11.00 K/mcL 10.39 RBCs 4.00 - 5.20 M/mcL 4.80 Hemoglobin 12.0 - 16.0 g/dL 13.4 Hematocrit 36.0 - 46.0 % 41.4 MCV 80.0 - 100.0 fL 86.3 MCH 26.0 - 34.0 pg 27.9 MCHC 31.0 - 37.0 g/dL 32.4 Platelets 150 - 400 K/mcL 361 RDW 11.6 - 14.8 % 14.1 MPV 9.4 - 12.4 fL 10.1 Neutrophils % 48.5 Lymphocytes % 36.3 Monocytes % 9.8 Eosinophils % 4.1 Basophils % 1.0 IG Percent % 0.30 Neutrophils Abs 1.70 - 7.00 K/mcL 5.04 Lymphocytes Abs 0.90 - 4.00 K/mcL 3.77 Monocytes Abs 0.30 - 0.90 K/mcL 1.02 (H) Eosinophils Abs 0.00 - 0.50 K/mcL 0.43 Basophils Abs 0.00 - 0.30 K/mcL 0.10 IG Absolute 0.00 - 0.30 K/mcL 0.03 Nucleated RBC % 0.0 Nucleated RBC Abs 0.00 - 0.00 K/mcL 0.00 Creatinine 0.40 - 1.10 mg/dL 0.70 eGFR >=60 mL/min/1.73 m2 111 ALT 0-35 U/L U/L 12 AST 0-35 U/L U/L 16 Legend: (H) High Component Latest Ref Rng 06/27/2022 WBC 4.50 - 11.00 K/mcL 8.41 RBCs 4.00 - 5.20 M/mcL 4.72 Hemoglobin 12.0 - 16.0 g/dL 13.4 Hematocrit 36.0 - 46.0 % 41.4 MCV 80.0 - 100.0 fL 87.7 MCH 26.0 - 34.0 pg 28.4 MCHC 31.0 - 37.0 g/dL 32.4 Platelets 150 - 400 K/mcL 346 RDW 11.6 - 14.8 % 14.2 MPV 9.4 - 12.4 fL 9.8 Neutrophils % 53.7 Lymphocytes % 29.5 Monocytes % 9.9 Eosinophils % 5.4 Basophils % 1.3 IG Percent % 0.20 Neutrophils Abs 1.70 - 7.00 K/mcL 4.52 Lymphocytes Abs 0.90 - 4.00 K/mcL 2.48 Monocytes Abs 0.30 - 0.90 K/mcL 0.83 Eosinophils Abs 0.00 - 0.50 K/mcL 0.45 Basophils Abs 0.00 - 0.30 K/mcL 0.11 IG Absolute 0.00 - 0.30 K/mcL 0.02 Nucleated RBC % 0.0 Nucleated RBC Abs 0.00 - 0.00 K/mcL 0.00 Sodium 135 - 145 mmol/L 134 (L) Potassium 3.5 - 5.1 mmol/L 3.6 Chloride 98 - 108 mmol/L 106 Bicarbonate 21 - 32 mmol/L 25 Anion Gap 10 - 20 mmol/L 7 (L) Glucose 65 - 99 mg/dL 82 BUN 8 - 25 mg/dL 9 Creatinine 0.40 - 1.10 mg/dL 0.64 eGFR >=60 mL/min/1.73 m2 114 BUN/Creatinine Ratio 10.0 - 20.0 14.1 Total Protein 6.0 - 8.0 g/dL 7.3 Albumin 3.2 - 5.2 g/dL 3.3 Calcium 8.4 - 10.2 mg/dL 8.5 ALK PHOS 40 - 150 U/L 77 AST 0 - 45 U/L 19 Total Bilirubin 0.0 - 1.3 mg/dL 0.3 ALT 14 - 65 U/L 27 Legend: (L) Low Component Latest Ref Rng & Units 02/15/2021 Hep A Total Ab Negative Negative Hep B Core Total Ab Negative Negative Hep B S Ab Negative Positive (A) Hepatitis C Ab Negative Negative Hepatitis B surface antigen negative QuantiFERON-TB test negative March 2023 My clinical impression and plan 1. Rheumatoid arthritis, seropositive (HCC), very well controlled continue Humira and Arava the same dose and frequency Okay to stay off the Plaquenil and monitor. We can restart if symptoms worsen 2. Encounter for long-term (current) use of medications, no reported side effects from immunosuppression ALT AST CBC and Differential Creatinine, serum today Up-to-date on COVID vaccination, declines flu and pneumonia vaccine Advised to hold immunosuppressants while in the middle of an infection 3. NSAID long-term use, she is taking it minimally, blood pressure is normalized can use it sporadically 4. Morbid obesity with BMI of 40.0-44.9, adult (HCC), marked improvement, BMI dropped from 42.6-39.8 continue lifestyle modification 5. numbness bilateral feet. Improved Because autoimmune disease is associated with increased risk of atherosclerosis, recommend careful attention to blood pressure and lipid control. I recommend using the preventive guidelines established for people with diabetes. Return in about 6 months (around 05/13/2024) for Next scheduled follow up. Davidson Ly M.D. Rheumatology Alie Peterson MD;No ref. provider found Note: This dictation was generated using [employer] voice recognition software. Please excuse any grammatical or spelling errors that may have occurred using the system. documented in this encounter [facility] 10-24-2023 History of Present illness Narrative Images from the original note were not included. Robbie Willson is a 43 y.o. female presents for Medication Management. HPI: Patient is here for medication follow up. Has not been seen since 2022. Patient has improved since last appt. Mood is reported as not having any depression. I feel really good. Happy about things. Denies kellie or depression. Hasn't needed xanax . Started working out. Anxiety has been under control. Has been reading more. Sleeping 8 hours a night. Medication compliant. No reported side effects. Denies abuse of substances. Medical problems since last visit. Dx as prediabetic. Psychosocial stressors include father's diagnosis with colon cancer. Looking forward to sons baby, other son engaged, SUBJECTIVE: PAST MEDICAL HISTORY: Past Medical History: Diagnosis Date Anemia Anxiety Bipolar disorder ([facility]) H/O total thyroidectomy ([facility]) 2014 History of laparoscopic cholecystectomy 2016 Hx of appendectomy 2017 Hx of headache Hx of tonsillectomy 1996 Hypertension ([facility]) Hypothyroidism ([facility]) POTS (postural orthostatic tachycardia syndrome) Post COVID Rheumatoid arthritis ([facility]) ALLERGIES: Allergies Allergen Reactions Sulfanilamide Rash SURGICAL HISTORY: No past surgical history on file. FAMILY HISTORY: Family History Problem Relation Name Age of Onset Mental illness Mother Stroke Mother Cancer Mother Rheum arthritis Mother Hypothyroidism Mother Atrial fibrillation Mother Mental illness Father Hypertension Father Mental illness Mother's Sister Mental illness Mother's Brother SOCIAL HISTORY: Social History Tobacco Use Smoking status: Never Smokeless tobacco: Never Vaping Use Vaping status: Never Used Substance Use Topics Alcohol use: Not Currently Comment: rare alcohol use. 1 pop a day Drug use: Not Currently Types: Marijuana Depression: Not at risk (01/09/2023) PHQ-2 PHQ-2 Score: 0 REVIEW OF SYMPTOMS - MENTAL STATUS EXAM Appearance Appearance: Casual dress, normal grooming and hygiene Attitude Attitude: Cooperative, conversant, engaged, and with good eye contact. Behavior Cooperative, conversant, engaged, and with good eye contact. Speech Normal, clear, regular rate, rhythm and volume Affect full affect appropriate with mood Mood Depressed and Anxious Thought Process Organized and Clear Thought Content No Suicidal Ideation and No Homicidal ideation Perception No perceptual abnormalities noted Orientation Appropriate to age, Person, Place, and Time Memory/Concentration Short term intact and residential intact Insight/Judgement Good OBJECTIVE: Visit Vitals Smoking Status Never No results found for: TSH Lab Results Component Value Date GLU 82 06/27/2022 CALCIUM 8.5 06/27/2022 BUN 9 06/27/2022 CREATININE 0.70 04/03/2023 No results found for: WBC , HGB , HCT , MCV , PLT No results found for: CHOL No results found for: HDL No results found for: LDLCALC No results found for: TRIG ASSESSMENT AND PLAN: Assessment/Plan 1. Generalized anxiety disorder - F41.1 2. Bipolar II disorder - F31.81 (Primary) 3. Panic disorder [episodic paroxysmal anxiety] - F41.0 This is a 41 year old being treated for KATHRYN and Bipolar II Disorder will continue current medications Quetiapine and lamictal to target mood. Zoloft target depression and anxiety. Xanax is prn severe anxiety. QUEtiapine Fumarate Tablet, 100 MG, TAKE 1 TABLET BY MOUTH EVERY DAY, Orally, at hs, LaMICtal Tablet, 200 MG, 1 tablet, Orally, daily, Zoloft Tablet, 100 MG, 1 tablet, Orally, Once a day, Xanax Tablet, 0.25 MG, 1 tablet, Orally, daily prn Plans to fax labs done -from [place]. Patient was seen Face to Face, Reviewed chart documents and documentation, Visit time : 22min F/U 3months documented in this encounter [facility] 09-21-2023 Telephone encounter Note Patient updated. [facility] 09-21-2023 Miscellaneous Notes Patient updated. Received notification that [facility] is no longer her Specialty Pharmacy. Script will be sent to [facility]. Patient can call them at [phone] to arrange shipment of humira. documented in this encounter [facility] 09-21-2023 Telephone encounter Note Received notification that [facility] is no longer her Specialty Pharmacy. Script will be sent to [facility]. Patient can call them at [phone] to arrange shipment of humira. [facility] 09-12-2023 History of Present illness Narrative [facility] approved Humira valid 09/21/2023-09/20/2025. Claim Number [id number]. documented in this encounter [facility] 04-11-2023 History of Present illness Narrative Images from the original note were not included. History of Present Illness This is an in office appt for medication management. Overall she was doing doing well. Sleeping 8 hours. Denies depression and mild anxiety. Medication compliant. No longer twitching. Denies abuse of substances. New Medical problems since last visit. RA. Stress test and Holter and was neg. Dx with Post COVID [place]. Hasn't had any sx. Stressors are grandmother going to fci. Son having stomach issues age 16, was started on medical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 Migraine Seropositive rheumatoid arthritis (HCC) Subacute sinusitis Past Surgical History: She Past Surgical History: Procedure Laterality Date ADENOIDECTOMY CHOLECYSTECTOMY THYROIDECTOMY TONSILLECTOMY Social History: She Social History Socioeconomic History Marital status: Tobacco Use Smoking status: Never Smokeless tobacco: Never Vaping Use Vaping status: Never Used Substance and Sexual Activity Alcohol use: Yes Comment: RARELY Drug use: Never ROS- SEE ATTESTED STAFF NOTE Physical Examination: BP 121/85 (BP Location: Left arm, Patient Position: Sitting, BP Cuff Size: X-large Adult) Pulse 73 Temp 97.3 F (36.3 C) (Temporal) Ht 5' 2 Wt 101.2 kg (223 lb) SpO2 95% Comment: Room air BMI 40.79 kg/m -8 pounds GENERAL: She is in no apparent distress. HEENT: No oral ulcers, malar rash ,parotid gland enlargement, uveitis. NECK: Supple without thyromegaly. No cervical or supraclavicular lymphadenopathy. HEART: Regular rate and rhythm without murmurs, rubs, or gallops. LUNGS: Clear to auscultation bilaterally without use of accessory muscles.No crakcles or rales MUSCULOSKELETAL: Reveals normal range of motion in all the joints, no crepitus or synovitis in any of the joints, no obvious joint deformities, no subluxation or ulnar deviation. Diagnostic Data: Component Latest Ref Rng & Units 02/15/2021 Hep A Total Ab Negative Negative Hep B Core Total Ab Negative Negative Hep B S Ab Negative Positive (A) Hepatitis C Ab Negative Negative Hepatitis B surface antigen negative QuantiFERON-TB test negative My clinical impression and plan 1. Rheumatoid arthritis, seropositive (HCC), very well controlled continue Humira and Arava the same dose and frequency Okay to stay off the Plaquenil and monitor. We can restart if symptoms worsen 2. Encounter for long-term (current) use of medications, no reported side effects from immunosuppression ALT AST CBC and Differential Creatinine, serum today Up-to-date on COVID vaccination, declines flu and pneumonia vaccine 3. NSAID long-term use, she is taking it minimally, blood pressure is normalized can use it sporadically 4. Morbid obesity with BMI of 40.0-44.9, adult (HCC), significant improvement overall, none since the last visit continue lifestyle modification Because autoimmune disease is associated with increased risk of atherosclerosis, recommend careful attention to blood pressure and lipid control. I recommend using the preventive guidelines established for people with diabetes. Return in about 4 months (around 10/28/2022) for Next scheduled follow up. Davidson Ly M.D. Rheumatology Alie Peterson MD;No ref. provider found Note: This dictation was generated using [employer] voice recognition software. Please excuse any grammatical or spelling errors that may have occurred using the system. documented in this encounter [facility] 02-24-2022 Instructions Priscila Ellis LPN - 02/24/2022 10:01 AM EST Continue same treatment Recommend vaccinations documented in this encounter [facility] 02-24-2022 History of Present illness Narrative RAPID3 Composite Score MDHAQ (0-10): 0.3 Patient pain VAS (0-10): 4 Patient global assessment VAS (0-10): 1 RAPID3 Total Score: 5.3 Remission: <3 Low Disease Activity: <6 Moderate Disease Activity: >=6 and <=12 High Disease Activity: >12 Review of Systems CONSTITUTIONAL: Fever No Fatigue No Abnormal weight loss/gain No HEENT: Change of Vision No Dry eyes No Painful eye No Dry Mouth No Mouth sores/lesions No Hair loss No Difficulty swallowing No Scalp Tenderness No Jaw Pain yes Swollen glands No CVS: Chest pain/ discomfort No Palpitations No RESPIRATORY: Shortness of breath No Difficulty breathing No Cough No Edema No : Blood in urine No Painful urination No GI: Change in stool No Black stool No Visible blood in stool No Abdominal pain No Heartburn No NEURO: Convulsions No Headache yes Dizziness No Weakness No Numbness No INTEGUMENTARY: Rash, generalized No Rash, facial No Finger pain with discoloration (Raynaud s)No Digital ulcers No HEMATOLOGY: Easy bruisability No PSYCH: Anxiety No Depression No Problems with social activities No I reviewed the ROS as documented By my staff above and agree Davidson Ly MD I had the pleasure of seeing Robbie Willson in FOLLOW UP at [facility] [id number] for Management of 1. Rheumatoid arthritis, seropositive (HCC) 2. Encounter for long-term (current) use of medications ALT AST CBC and Differential Creatinine, serum M. Tuberculosis by QuantiFERON 3. NSAID long-term use 4. Morbid obesity with BMI of 40.0-44.9, adult (HCC) Interim history: Last visit 4 months ago, She continues on Arava 20 mg daily along with Humira 40 mg subcu injections every 2 weeks for seropositive rheumatoid arthritis. On the last visit, she was out of Plaquenil and decision was made not to restart she also continues She doing well with decreased pain swelling stiffness. No fatigue. She has had intermittent right shoulder pain which improves with daily stretching exercises no injection site reaction headaches or infections. She is up-to-date on immunization. She is more active she has lost weight. She is not using as much of Motrin. No hair loss from Arava Medications: Current Outpatient Medications Medication Sig Dispense Refill adalimumab (Humira,CF, Pen) 40 mg/0.4 mL PnKt Inject 0.4 mL (40 mg total) under the skin every 14 (fourteen) days . 1 kit 11 cholecalciferol, vitamin D3, 50 mcg (2,000 unit) cap Take by mouth daily . ferrous sulfate 325 (65 FE) MG tablet Take 1 (one) tablet (325 mg total) by mouth 2 (two) times a day . 60 tablet 3 hydroCHLOROthiazide (HYDRODIURIL) 12.5 MG tablet Take 1 (one) tablet (12.5 mg total) by mouth daily . ibuprofen (ADVIL,MOTRIN) 800 MG tablet Take 800 mg by mouth 3 (three) times a day as needed for pain . lamoTRIgine (LAMICTAL) 100 MG tablet Take 100 mg by mouth daily . leflunomide (ARAVA) 20 MG tablet Take 1 (one) tablet (20 mg total) by mouth daily . 30 tablet 4 levothyroxine (SYNTHROID, LEVOTHROID) 175 MCG tablet TAKE 1 TABLET BY MOUTH IN THE MORNING on an empty stomach , wait 30 MIN BEFORE EATING lisinopriL (PRINIVIL,ZESTRIL) 5 MG tablet Take 1 (one) tablet (5 mg total) by mouth daily . nabumetone (RELAFEN) 500 MG tablet omeprazole (PRILOSEC) 20 MG capsule Take 20 mg by mouth daily . phentermine (ADIPEX-P) 37.5 mg tablet Take 1 (one) tablet (37.5 mg total) by mouth daily . QUEtiapine (SEROQUEL) 50 MG tablet Take 50 mg by mouth nightly . sertraline HCl (ZOLOFT ORAL) Take 2 tablets by mouth daily . traZODone (DESYREL) 50 MG tablet Take 1 (one) tablet to 2 (two) tablets (50-100 mg total) by mouth at bedtime as needed . No current facility-administered medications for this visit. Past Medical History: She Past Medical History: Diagnosis Date Deviated septum Hypothyroidism Migraine Seropositive rheumatoid arthritis (HCC) Subacute sinusitis Past Surgical History: She Past Surgical History: Procedure Laterality Date ADENOIDECTOMY CHOLECYSTECTOMY THYROIDECTOMY TONSILLECTOMY Social History: She Social History Socioeconomic History Marital status: Tobacco Use Smoking status: Never Smokeless tobacco: Never Vaping Use Vaping Use: Never used Substance and Sexual Activity Alcohol use: Yes Comment: RARELY Drug use: Never ROS- SEE ATTESTED STAFF NOTE Physical Examination: BP 127/83 (BP Location: Left arm, Patient Position: Sitting, BP Cuff Size: X-large Adult) Pulse 89 Temp 96.9 F (36.1 C) (Temporal) Ht 5' 2 Wt 99.8 kg (220 lb) SpO2 98% Comment: room air BMI 40.24 kg/m -8 pounds GENERAL: She is in no apparent distress. HEENT: No oral ulcers, malar rash ,parotid gland enlargement, uveitis. NECK: Supple without thyromegaly. No cervical or supraclavicular lymphadenopathy. HEART: Regular rate and rhythm without murmurs, rubs, or gallops. LUNGS: Clear to auscultation bilaterally without use of accessory muscles.No crakcles or rales MUSCULOSKELETAL: Reveals normal range of motion in all the joints, no crepitus or synovitis in any of the joints, no obvious joint deformities, no subluxation or ulnar deviation. Diagnostic Data: Component Latest Ref Rng & Units 02/15/2021 Hep A Total Ab Negative Negative Hep B Core Total Ab Negative Negative Hep B S Ab Negative Positive (A) Hepatitis C Ab Negative Negative Hepatitis B surface antigen negative QuantiFERON-TB test negative My clinical impression and plan 1. Rheumatoid arthritis, seropositive (HCC), very well controlled continue Humira and Arava the same dose and frequency Okay to stay off the Plaquenil and monitor. We can restart if symptoms worsen 2. Encounter for long-term (current) use of medications, no reported side effects from immunosuppression ALT AST CBC and Differential Creatinine, serum today Up-to-date on COVID vaccination, declines flu and pneumonia vaccine 3. NSAID long-term use, she is taking it minimally, blood pressure is normalized can use it sporadically 4. Morbid obesity with BMI of 40.0-44.9, adult (HCC), significant improvement continue lifestyle modification Because autoimmune disease is associated with increased risk of atherosclerosis, recommend careful attention to blood pressure and lipid control. I recommend using the preventive guidelines established for people with diabetes. Return in about 4 months (around 06/25/2022) for Next scheduled follow up. Davidson Ly M.D. Rheumatology Alie Peterson MD;No ref. provider found Note: This dictation was generated using [employer] voice recognition software. Please excuse any grammatical or spelling errors that may have occurred using the system. documented in this encounter [facility] 10-20-2021 History of Present illness Narrative Julio Approved. [id number]. HUMIRA PEN INJ 40/0.4ML is approved through 10/19/2022. documented in this encounter [facility] 10-19-2021 Instructions Kristin Parson MA - 10/19/2021 1:37 PM EDT CONTINUE SAME TREATMENT documented in this encounter [facility] 10-19-2021 History of Present illness Narrative I had the pleasure of seeing Robbie Willson in FOLLOW UP at [facility] [address] [facility] [place] [id number] for Management of 1. Rheumatoid arthritis, seropositive (HCC) 2. Encounter for long-term (current) use of medications ALT AST CBC and Differential Creatinine, serum 3. NSAID long-term use 4. Morbid obesity with BMI of 40.0-44.9, adult ([facility]) Interim history: Last visit 6 months ago, she missed her 3-month appointment p She was advised to continue Plaquenil 400 mg daily and Arava 20 mg daily for seropositive rheumatoid arthritis. She has been out of Plaquenil for the last 4 weeks but continues Arava. She also continues on Humira 40 mg subcu injections every 2 weeks She feels much better with decreased pain swelling stiffness. No fatigue. If possible she does not want to start Plaquenil at this time no injection site reaction headaches or infections. She is up-to-date on immunization. She is more active she has lost weight. She is not using as much of Motrin. No hair loss from Arava She is up-to-date on her eye exam She has lost some weight Medications: Current Outpatient Medications Medication Sig Dispense Refill adalimumab (Humira,CF, Pen) 40 mg/0.4 mL PnKt Inject 0.4 mL (40 mg total) under the skin every 14 (fourteen) days . 1 kit 11 cholecalciferol, vitamin D3, 50 mcg (2,000 unit) cap Take by mouth daily . ferrous sulfate 325 (65 FE) MG tablet Take 1 (one) tablet (325 mg total) by mouth 2 (two) times a day . 60 tablet 3 hydroCHLOROthiazide (HYDRODIURIL) 12.5 MG tablet Take 1 (one) tablet (12.5 mg total) by mouth daily . ibuprofen (ADVIL,MOTRIN) 800 MG tablet Take 800 mg by mouth 3 (three) times a day as needed for pain . lamoTRIgine (LAMICTAL) 100 MG tablet Take 100 mg by mouth daily . leflunomide (ARAVA) 20 MG tablet Take 1 (one) tablet (20 mg total) by mouth daily . 30 tablet 3 levothyroxine (SYNTHROID, LEVOTHROID) 175 MCG tablet TAKE 1 TABLET BY MOUTH IN THE MORNING on an empty stomach , wait 30 MIN BEFORE EATING lisinopriL (PRINIVIL,ZESTRIL) 5 MG tablet Take 1 (one) tablet (5 mg total) by mouth daily . omeprazole (PRILOSEC) 20 MG capsule Take 20 mg by mouth daily . QUEtiapine (SEROQUEL) 50 MG tablet Take 50 mg by mouth nightly . sertraline HCl (ZOLOFT ORAL) Take 2 tablets by mouth daily . traZODone (DESYREL) 50 MG tablet Take 1 (one) tablet to 2 (two) tablets (50-100 mg total) by mouth at bedtime as needed . hydrOXYchloroQUINE (PLAQUENIL) 200 mg tablet Take 1 (one) tablet (200 mg total) by mouth 2 (two) times a day . (Patient not taking: Reported on 10/19/2021 .) 60 tablet 2 nabumetone (RELAFEN) 500 MG tablet phentermine (ADIPEX-P) 37.5 mg tablet Take 1 (one) tablet (37.5 mg total) by mouth daily . No current facility-administered medications for this visit. Past Medical History: She Past Medical History: Diagnosis Date Deviated septum Hypothyroidism Migraine Seropositive rheumatoid arthritis (HCC) Subacute sinusitis Past Surgical History: She Past Surgical History: Procedure Laterality Date ADENOIDECTOMY CHOLECYSTECTOMY THYROIDECTOMY TONSILLECTOMY Social History: She Social History Socioeconomic History Marital status: Tobacco Use Smoking status: Never Smokeless tobacco: Never Vaping Use Vaping Use: Never used Substance and Sexual Activity Alcohol use: Yes Comment: RARELY Drug use: Never ROS- SEE ATTESTED STAFF NOTE Physical Examination: BP 122/85 (BP Location: Right arm, Patient Position: Sitting, BP Cuff Size: Adult) Pulse 85 Temp 98 F (36.7 C) (Oral) Ht 5' 2 Wt 103.4 kg (228 lb) SpO2 95% Comment: ROOM AIR BMI 41.70 kg/m -6 pounds GENERAL: She is in no apparent distress. HEENT: No oral ulcers, malar rash ,parotid gland enlargement, uveitis. NECK: Supple without thyromegaly. No cervical or supraclavicular lymphadenopathy. HEART: Regular rate and rhythm without murmurs, rubs, or gallops. LUNGS: Clear to auscultation bilaterally without use of accessory muscles.No crakcles or rales MUSCULOSKELETAL: Reveals normal range of motion in all the joints, no crepitus or synovitis in any of the joints, no obvious joint deformities, no subluxation or ulnar deviation. Diagnostic Data: Component Latest Ref Rng & Units 02/15/2021 Hep A Total Ab Negative Negative Hep B Core Total Ab Negative Negative Hep B S Ab Negative Positive (A) Hepatitis C Ab Negative Negative Hepatitis B surface antigen negative QuantiFERON-TB test negative My clinical impression and plan 1. Rheumatoid arthritis, seropositive (HCC), very well controlled continue Humira and Arava the same dose and frequency Okay to stay off the Plaquenil and monitor. We can restart if symptoms worsen 2. Encounter for long-term (current) use of medications, no reported side effects from immunosuppression ALT AST CBC and Differential Creatinine, serum today Up-to-date on immunization 3. NSAID long-term use, she is taking it minimally, blood pressure is normalized can use it sporadically 4. Morbid obesity with BMI of 40.0-44.9, adult (HCC), significant improvement continue lifestyle modification Because autoimmune disease is associated with increased risk of atherosclerosis, recommend careful attention to blood pressure and lipid control. I recommend using the preventive guidelines established for people with diabetes. Return in about 4 months (around 02/18/2022). Davidson Ly M.D. Rheumatology Alie Peterson MD;No ref. provider found Note: This dictation was generated using [employer] voice recognition software. Please excuse any grammatical or spelling errors that may have occurred using the system. RAPID3 Composite Score MDHAQ (0-10): 1.0 Patient pain VAS (0-10): 3.0 Patient global assessment VAS (0-10): 0 RAPID3 Total Score: 4.0 Remission: <3 Low Disease Activity: <6 Moderate Disease Activity: >=6 and <=12 High Disease Activity: >12 Review of Systems CONSTITUTIONAL: Fever No Fatigue No Abnormal weight loss/gain No HEENT: Change of Vision No Dry eyes No Painful eye No Dry Mouth No Mouth sores/lesions No Hair loss No Difficulty swallowing No Scalp Tenderness No Jaw Pain No Swollen glands No CVS: Chest pain/ discomfort No Palpitations No RESPIRATORY: Shortness of breath No Difficulty breathing No Cough No Edema No : Blood in urine No Painful urination No GI: Change in stool No Black stool No Visible blood in stool No Abdominal pain No Heartburn No NEURO: Convulsions No Headache No Dizziness No Weakness No Numbness No INTEGUMENTARY: Rash, generalized No Rash, facial No Finger pain with discoloration (Raynaud s)No Digital ulcers No HEMATOLOGY: Easy bruisability No PSYCH: Anxiety yes Depression yes Problems with social activities No I reviewed the ROS as documented By my staff above and agree Davidson Ly MD documented in this encounter [facility] 04-19-2021 Instructions Kristin Parson MA - 04/19/2021 8:53 AM EST CONTINUE SAME TREATMENT - IN 1 MONTHS DECREASE PLAQUENIL TO 1 A DAY documented in this encounter [facility] 04-19-2021 History of Present illness Narrative I had the pleasure of seeing Robbie Willson in FOLLOW UP at [facility] [address] [place] [phone] for Management of 1. Rheumatoid arthritis, seropositive ([facility]) 2. Encounter for long-term (current) use of medications 3. NSAID long-term use 4. Morbid obesity with BMI of 40.0-44.9, adult ([facility]) Interim history: Patient was first evaluated in this clinic 2 months ago to establish rheumatologic care. She was advised to continue Plaquenil 400 mg daily and Arava 20 mg daily for seropositive rheumatoid arthritis. Vectra DA was ordered to assess disease activity, the number was 49, indicating high disease activity. Humira 40 mg subcu injections every 2 weeks were added. She feels much better with decreased pain swelling stiffness. No fatigue. No injection site reaction headaches or infections. She is up-to-date on immunization. She is more active she has lost weight. She is not using as much of Motrin. No hair loss from Arava She is up-to-date on her eye exam Medications: Current Outpatient Medications Medication Sig Dispense Refill adalimumab (Humira,CF, Pen) 40 mg/0.4 mL PnKt Inject 0.4 mL (40 mg total) under the skin every 14 (fourteen) days . 1 kit 11 hydrOXYchloroQUINE (PLAQUENIL) 200 mg tablet Take 1 (one) tablet (200 mg total) by mouth 2 (two) times a day . 60 tablet 2 ibuprofen (ADVIL,MOTRIN) 800 MG tablet Take 800 mg by mouth 3 (three) times a day as needed for pain . lamoTRIgine (LAMICTAL) 100 MG tablet Take 100 mg by mouth daily . leflunomide (ARAVA) 20 MG tablet Take 1 (one) tablet (20 mg total) by mouth daily . 30 tablet 3 levothyroxine (SYNTHROID, LEVOTHROID) 175 MCG tablet TAKE 1 TABLET BY MOUTH IN THE MORNING on an empty stomach , wait 30 MIN BEFORE EATING nabumetone (RELAFEN) 500 MG tablet omeprazole (PRILOSEC) 20 MG capsule Take 20 mg by mouth daily . phentermine (ADIPEX-P) 37.5 mg tablet Take 37.5 mg by mouth daily . QUEtiapine (SEROQUEL) 50 MG tablet Take 50 mg by mouth nightly . sertraline HCl (ZOLOFT ORAL) Take 2 tablets by mouth daily . No current facility-administered medications for this visit. Past Medical History: She Past Medical History: Diagnosis Date Deviated septum Hypothyroidism Migraine Seropositive rheumatoid arthritis (HCC) Subacute sinusitis Past Surgical History: She Past Surgical History: Procedure Laterality Date ADENOIDECTOMY CHOLECYSTECTOMY THYROIDECTOMY TONSILLECTOMY Social History: She Social History Socioeconomic History Marital status: Tobacco Use Smoking status: Never Smoker Smokeless tobacco: Never Used Vaping Use Vaping Use: Never used Substance and Sexual Activity Alcohol use: Yes Comment: RARELY Drug use: Never ROS- SEE ATTESTED STAFF NOTE Physical Examination: BP 132/86 (BP Location: Right arm, Patient Position: Sitting, BP Cuff Size: Adult) Pulse 96 Temp 98 F (36.7 C) (Oral) Ht 5' 2 Wt 103.8 kg (228 lb 12.8 oz) SpO2 96% BMI 41.85 kg/m -6 pounds GENERAL: She is in no apparent distress. HEENT: No oral ulcers, malar rash ,parotid gland enlargement, uveitis. NECK: Supple without thyromegaly. No cervical or supraclavicular lymphadenopathy. HEART: Regular rate and rhythm without murmurs, rubs, or gallops. LUNGS: Clear to auscultation bilaterally without use of accessory muscles.No crakcles or rales MUSCULOSKELETAL: Reveals normal range of motion in all the joints, no crepitus or synovitis in any of the joints, no obvious joint deformities, no subluxation or ulnar deviation. Diagnostic Data: Component Latest Ref Rng & Units 02/15/2021 Hep A Total Ab Negative Negative Hep B Core Total Ab Negative Negative Hep B S Ab Negative Positive (A) Hepatitis C Ab Negative Negative Hepatitis B surface antigen negative QuantiFERON-TB test negative My clinical impression and plan 1. Rheumatoid arthritis, seropositive (HCC), very well controlled continue Humira and Arava the same dose and frequency In 1 month if she continues to feel well, she can try to decrease Plaquenil to 1 a day 2. Encounter for long-term (current) use of medications, no reported side effects from immunosuppression ALT AST CBC and Differential Creatinine, serum today Up-to-date on immunization 3. NSAID long-term use, she is taking it minimally, blood pressure is normalized can use it sporadically 4. Morbid obesity with BMI of 40.0-44.9, adult (HCC), significant improvement continue lifestyle modification Because autoimmune disease is associated with increased risk of atherosclerosis, recommend careful attention to blood pressure and lipid control. I recommend using the preventive guidelines established for people with diabetes. Return in about 3 months (around 07/17/2021) for Next scheduled follow up. Davidson Ly M.D. Rheumatology Alie Peterson MD;No ref. provider found Note: This dictation was generated using [employer] voice recognition software. Please excuse any grammatical or spelling errors that may have occurred using the system. RAPID3 Composite Score MDHAQ (0-10): 1 Patient pain VAS (0-10): 2 Patient global assessment VAS (0-10): 2 RAPID3 Total Score: 5 Remission: <3 Low Disease Activity: <6 Moderate Disease Activity: >=6 and <=12 High Disease Activity: >12 Review of Systems CONSTITUTIONAL: Fever no Fatigue no Abnormal weight loss/gain no HEENT: Change of Vision no Dry eyes no Painful eye yes Dry Mouth no Mouth sores/lesions no Hair loss yes Difficulty swallowing no Scalp Tenderness no Jaw Pain no Swollen glands no CVS: Chest pain/ discomfort no Palpitations no RESPIRATORY: Shortness of breath no Difficulty breathing no Cough no Edema no : Blood in urine no Painful urination no GI: Change in stool no Black stool no Visible blood in stool no Abdominal pain no Heartburn yes NEURO: Convulsions no Headache yes Dizziness no Weakness no Numbness no INTEGUMENTARY: Rash, generalized no Rash, facial no Finger pain with discoloration (Raynaud s)no Digital ulcers no HEMATOLOGY: Easy bruisability no PSYCH: Anxiety no Depression no Problems with social activities no I reviewed the ROS as documented By my staff above and agree Davidson Ly MD documented in this encounter [facility] 04-01-2021 History of Present illness Narrative Called and spoke with pt and pt received medication yesterday and does not have any further questions or concerns. Advised the patient to call with any questions or concerns. Pt voiced understanding by phone. documented in this encounter [facility] 03-25-2021 History of Present illness Narrative Humira approval [employer] approved Humira Pen Inj. 40/0.4 ml approved for 6 months through 09/20/2021. TERESA# [id number]. documented in this encounter [facility] 03-12-2021 History of Present illness Narrative Enbrel Denial Insurance denied approval for Enbrel due to the follow reasons: One of the following: - There are paid claims or your doctor submits medical records (for example: chart notes) showing that the patient has tried or cannot use two of the follow (or a trial is not suitable): Cimzia, Humira, Rinvoq, Simponi, Xeljanz/Xeljanz XR. There are paid claims or the doctor submits medical records showing that the patient has tried or cannot us Actemra or Orencia. documented in this encounter [facility] 02-18-2021 Note The M. Tuberculosis antigen levels cannot be correlated to state or degree of infection, response to therapy or likelihood for progression to active disease. Results from QuantiFERON TB Gold must be used in conjunction with individual epidemiological history, current medical status, and results of other diagnostic evaluation. Test performed by: [facility] [address] [place] [phone] [facility] 02-15-2021 Instructions Kristin Parson MA - 02/15/2021 10:52 AM EST Get an eye exam completed Continue plaquenil and arava documented in this encounter [facility] 02-15-2021 History of Present illness Narrative I had the pleasure of seeing Robbie Willson in consultation at [facility] [address] [place] [phone] for evaluation of Alie Peterson MD;System, Provider Not In HISTORY OF PRESENT ILLNESS: External medical record reviewed, patient interviewed Robbie Willson is a 40 y.o. female who presents with known history of rheumatoid arthritis which was diagnosed in the year 2013. She was initially treated with steroids which she took for a short while and was pain-free. She did not go back for follow-up and was on no treatment until 2015 when she developed symptoms again and was started on Plaquenil, this was effective for several years until June 2020 when she developed significant pain swelling and stiffness in multiple joints especially shoulders. At this time she was started on prednisone and Arava. She was also advised to start Biologics which she was not keen on. She still has joint symptoms. More recently she was started on Relafen 500 mg twice daily which seems to help her joints. Currently she is not on prednisone. She is here to establish rheumatologic care She denies any vision problems from Plaquenil, last eye examination was in July 2019 and unremarkable. She is up-to-date on Covid vaccine but does not desire flu or pneumonia vaccine. She admits lack of regular exercise on account of pain. She is not a smoker. 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 lamoTRIgine (LAMICTAL) 100 MG tablet Take 100 mg by mouth daily . leflunomide (ARAVA) 10 MG tablet Take 10 mg by mouth daily . levothyroxine (SYNTHROID, LEVOTHROID) 175 MCG tablet TAKE 1 TABLET BY MOUTH IN THE MORNING on an empty stomach , wait 30 MIN BEFORE EATING nabumetone (RELAFEN) 500 MG tablet omeprazole (PRILOSEC) 20 MG capsule Take 20 mg by mouth daily . phentermine (ADIPEX-P) 37.5 mg tablet Take 37.5 mg by mouth daily . QUEtiapine (SEROQUEL) 50 MG tablet Take 50 mg by mouth nightly . sertraline HCl (ZOLOFT ORAL) Take 2 tablets by mouth daily . ibuprofen (ADVIL,MOTRIN) 800 MG tablet Take 800 mg by mouth 3 (three) times a day as needed for pain . No current facility-administered medications for this visit. Past Medical History: She Past Medical History: Diagnosis Date Deviated septum Hypothyroidism Migraine Seropositive rheumatoid arthritis (HCC) Subacute sinusitis Past Surgical History: She Past Surgical History: Procedure Laterality Date ADENOIDECTOMY CHOLECYSTECTOMY THYROIDECTOMY TONSILLECTOMY Family History: Her Family History Problem Relation Age of Onset Arthritis Mother Cancer Mother Rheum arthritis Mother Lupus Mother Congenital heart disease Mother Hypothyroidism Mother Fibromyalgia Mother Arthritis Father Hypertension Father Fibromyalgia Father Social History: She Social History Socioeconomic History Marital status: Tobacco Use Smoking status: Never Smoker Smokeless tobacco: Never Used Vaping Use Vaping Use: Never used Substance and Sexual Activity Alcohol use: Yes Comment: RARELY Drug use: Never ROS, SEE ATTESTED STAFF NOTE BP (!) 126/90 (BP Location: Right arm, Patient Position: Sitting, BP Cuff Size: X-large Adult) Pulse 95 Temp 97.9 F (36.6 C) (Infrared) Ht 5' 2 Wt 106.1 kg (234 lb) SpO2 94% BMI 42.80 kg/m General appearance: :well developed, well nourished, alert, oriented in no acute distress Head: Normocephalic, without obvious abnormality, atraumatic, No alopecia, No parotid gland enlargement Eyes: conjunctivae/corneas clear. PERRL, EOM's intact. ,no uveitis Throat: Lips, mucosa, and tongue normal. Teeth and gums normal. No oral ulcers, Normal salivary pool Neck: supple, symmetrical, no adenopathy and no thyromegaly , no tenderness/mass/nodules Back: no kyphosis present, no scoliosis present, range of motion normal , slight lumbar paravertebral muscle tenderness Lungs: clear to auscultation bilaterally, no rales or crackles, Heart: regular rate and rhythm, S1, S2 normal, no murmur, click, rub or gallop Abdomen: soft, non-tender. Bowel sounds normal. No masses, no hepatosplenomegaly Extremities: No clubbing cyanosis , edema ,varicosities, stasis dermatitis Pulses: 2+ and symmetric Skin: Skin color, texture, turgor normal. No rashes ,petechiae, no sub-cutaneous nodules Musculoskeletal: Reveals normal range of motion in all the joints except for significant restriction at both the shoulders, bilateral knee crepitus without effusion. Several PIP joints tender, MCP synovial thickening and tenderness 10 out of 10 joints is mild. No synovitis in the toes or ankle REVIEW OF DATA: Outside labs dated July 15, WBC 6.89, hemoglobin 11.2 hematocrit 35, MCV low, platelets normal at 329, complete metabolic profile is good, showing normal blood sugar of 93, creatinine 0.86 total albumin 4.3, normal AST and ALT at 14 and 21 respectively, sed rate was 73, CRP high at 26, T3 and T4 free within normal, TSH high at 18.5 Patient also states had labs done recently in December 2020, will get them faxed IMPRESSION/PLAN 1. Rheumatoid arthritis, seropositive (HCC), not fully controlled Vectra DA ordered to assess disease activity hydrOXYchloroQUINE (PLAQUENIL) 200 mg tablet, 2 tablets daily to continue Arava 20 mg daily to continue We will get either Enbrel or Humira approved, will add biologic therapy if Vectra DA significantly high Adverse effects of biologic agents discussed at length including but not limited to injection site reaction, infusion reactions, cutaneous problems like psoriasis, common bacterial infections, rare fungal and opportunistic infections, herpes zoster, lupus-like syndromes, precipitation of congestive heart failure and rare Demyelination syndrome especially with anti-TNF agents. 2. Encounter for long-term (current) use of medications, no reported side effects Hepatitis Profile (ABC) M. Tuberculosis by QuantiFERON Recent labs okay Encouraged to get yearly eye exam on Plaquenil Encouraged to get flu and pneumonia vaccine as she is on immunosuppressant 3. NSAID long-term use, elevated blood pressure noted encouraged to use ibuprofen sparingly, cardiac renal and GI toxicity discussed 4. Morbid obesity with BMI of 40.0-44.9, adult (HCC), contributing to some of the joint discomfort and also increases risk of cardiovascular disease diet and exercise emphasized Because autoimmune disease is associated with increased risk of atherosclerosis, recommend careful attention to blood pressure and lipid control. I recommend using the preventive guidelines established for people with diabetes. Return in about 2 months (around 04/18/2021) for Next scheduled follow up. Davidson Ly MD Rheumatology Note: This dictation was generated using [employer] voice recognition software. Please excuse any grammatical or spelling errors that may have occurred using the system. RAPID3 Composite Score MDHAQ (0-10): 0.7 Patient pain VAS (0-10): 7.0 Patient global assessment VAS (0-10): 2.5 RAPID3 Total Score: 10.2 Remission: <3 Low Disease Activity: <6 Moderate Disease Activity: >=6 and <=12 High Disease Activity: >12 Review of Systems CONSTITUTIONAL: Fever no Fatigue no Abnormal weight loss/gain no HEENT: Change of Vision no Dry eyes no Painful eye no Dry Mouth no Mouth sores/lesions no Hair loss no Difficulty swallowing no Scalp Tenderness no Jaw Pain yes Swollen glands no CVS: Chest pain/ discomfort no Palpitations no RESPIRATORY: Shortness of breath no Difficulty breathing no Cough no Edema yes : Blood in urine no Painful urination no GI: Change in stool no Black stool no Visible blood in stool no Abdominal pain no Heartburn yes NEURO: Convulsions no Headache yes Dizziness no Weakness no Numbness no INTEGUMENTARY: Rash, generalized no Rash, facial no Finger pain with discoloration (Raynaud s)no Digital ulcers no HEMATOLOGY: Easy bruisability no PSYCH: Anxiety yes Depression yes Problems with social activities no I reviewed the ROS as documented By my staff above and agree Davidson Ly MD documented in this encounter [facility] Evaluation note Diagnosis Rheumatoid arthritis, seropositive (HCC)- [facility], [facility]ositive [facility] Diagnosis Rheumatoid arthritis, seropositive (HCC)- Primary Encounter for long-term (current) use of medications Encounter for long-term (current) use of other medications NSAID long-term use Encounter for long-term (current) use of non-steroidal anti-inflammatories Morbid obesity with BMI of 40.0-44.9, adult (HCC) [facility] Diagnosis Rheumatoid arthritis, seropositive (HCC)- Primary [facility] Diagnosis Rheumatoid arthritis, seropositive (HCC)- Primary Encounter for long-term (current) use of medications Encounter for long-term (current) use of other medications NSAID long-term use Encounter for long-term (current) use of non-steroidal anti-inflammatories Morbid obesity with BMI of 40.0-44.9, adult (HCC) [facility] Diagnosis Iron deficiency anemia, unspecified iron deficiency anemia type- Primary [facility] Diagnosis Rheumatoid arthritis, seropositive (HCC)- Primary Encounter for long-term (current) use of medications Encounter for long-term (current) use of other medications NSAID long-term use Encounter for long-term (current) use of non-steroidal anti-inflammatories Morbid obesity with BMI of 40.0-44.9, adult (HCC) Iron deficiency anemia, unspecified iron deficiency anemia type Rheumatoid arthritis, seropositive (HCC) [facility] Rheumatoid arthritis, seropositive (HCC)- Primary Encounter for long-term (current) use of medications Encounter for long-term (current) use of other medications NSAID long-term use Encounter for long-term (current) use of non-steroidal anti-inflammatories Morbid obesity with BMI of 40.0-44.9, adult (HCC) [facility] Diagnosis Rheumatoid arthritis, seropositive (HCC) Rheumatoid arthritis, seropositive (HCC)- Primary Encounter for long-term (current) use of medications Encounter for long-term (current) use of other medications NSAID long-term use Encounter for long-term (current) use of non-steroidal anti-inflammatories Morbid obesity with BMI of 40.0-44.9, adult (HCC) [facility] Diagnosis Rheumatoid arthritis, seropositive (HCC) Rheumatoid arthritis, seropositive (HCC)- Primary Encounter for long-term (current) use of medications Encounter for long-term (current) use of other medications NSAID long-term use Encounter for long-term (current) use of non-steroidal anti-inflammatories Morbid obesity with BMI of 40.0-44.9, adult (HCC) [facility] Diagnosis Rheumatoid arthritis, seropositive (HCC)- Primary Encounter for long-term (current) use of medications Encounter for long-term (current) use of other medications NSAID long-term use Encounter for long-term (current) use of non-steroidal anti-inflammatories Morbid obesity with BMI of 40.0-44.9, adult (HCC) documented in this encounter [facility]No assessment information [facility] Work Phone: Evaluation note* Diagnosis Rheumatoid arthritis, seropositive (HCC)- Primary Encounter for long-term (current) use of medications Encounter for long-term (current) use of other medications NSAID long-term use Encounter for long-term (current) use of non-steroidal anti-inflammatories Morbid obesity with BMI of 40.0-44.9, adult (HCC) Iron deficiency anemia, unspecified iron deficiency anemia type [facility]* Diagnosis Rheumatoid arthritis, seropositive (HCC)- Primary Encounter for long-term (current) use of medications Encounter for long-term (current) use of other medications NSAID long-term use Encounter for long-term (current) use of non-steroidal anti-inflammatories Morbid obesity with BMI of 40.0-44.9, adult (HCC) Iron deficiency anemia, unspecified iron deficiency anemia type [facility] Diagnosis Rheumatoid arthritis, seropositive (HCC) [facility] Diagnosis Rheumatoid arthritis, seropositive (HCC)- Primary Encounter for long-term (current) use of medications Encounter for long-term (current) use of other medications NSAID long-term use Encounter for long-term (current) use of non-steroidal anti-inflammatories Morbid obesity with BMI of 40.0-44.9, adult (HCC) Numbness in feet Iron deficiency anemia, unspecified iron deficiency anemia type [facility] Diagnosis KATHRYN (generalized anxiety disorder) (CMS/HCC) Generalized anxiety disorder Bipolar 2 disorder (CMS/[facility]) Other bipolar disorders [facility] KATHRYN (generalized anxiety disorder) (CMS/[facility]) Generalized anxiety disorder [facility] Diagnosis Seropositive rheumatoid arthritis (HCC)- Primary [facility]* Diagnosis Onset Date Resolution Status Contusion of right thumb [facility] Work Phone: Evaluation note* Diagnosis Rheumatoid arthritis, seropositive (HCC) [facility]* Diagnosis Seropositive rheumatoid arthritis (HCC)- Primary Encounter for long-term (current) use of medications Encounter for long-term (current) use of other medications NSAID long-term use Encounter for long-term (current) use of non-steroidal anti-inflammatories Morbid obesity with BMI of 40.0-44.9, adult (HCC) Numbness in feet Iron deficiency anemia, unspecified iron deficiency anemia type [facility] Diagnosis Bipolar 2 disorder (CMS/HCC) Other bipolar disorders [facility] Diagnosis KATHRYN (generalized anxiety disorder) (CMS/HCC) Generalized anxiety disorder Bipolar 2 disorder (CMS/HCC) Other bipolar disorders [facility] Diagnosis Bipolar 2 disorder (CMS/HCC) Other bipolar disorders [facility] Diagnosis Left shoulder pain, unspecified chronicity- Primary [facility] Diagnosis Seropositive rheumatoid arthritis (HCC)- [facility] Diagnosis Left shoulder pain, unspecified chronicity- Primary [facility] HealthcareEvaluation note* Diagnosis Left shoulder pain, unspecified chronicity- Primary documented [facility] this encounter [facility] Diagnosis Left shoulder pain, unspecified chronicity- Primary documented in this encounter [facility]* Diagnosis Bipolar 2 disorder (CMS/HCC) Other bipolar disorders KATHRYN (generalized anxiety disorder) (CMS/HCC) Generalized anxiety disorder documented in this encounter [facility]* Diagnosis Seropositive rheumatoid arthritis (HCC)- [facility] Rheumatoid arthritis, seropositive (HCC)- Primary Encounter for long-term (current) use of medications Encounter for long-term (current) use of other medications NSAID long-term use Encounter for long-term (current) use of non-steroidal anti-inflammatories Morbid obesity with BMI of 40.0-44.9, adult (HCC) Numbness in feet [facility] Diagnosis Seropositive rheumatoid arthritis (HCC)- [facility] Diagnosis Seropositive rheumatoid arthritis (HCC) [facility] Diagnosis Bipolar 2 disorder (HCC) Other bipolar disorders KATHRYN (generalized anxiety disorder) Generalized anxiety disorder documented in this encounter [facility]* Diagnosis SOB (shortness of breath)- Primary Shortness of breath [facility] Hx of high risk medication treatment High risk medication use KATHRYN (generalized anxiety disorder) Generalized anxiety disorder Bipolar 2 disorder (HCC) Other bipolar disorders Panic disorder Panic disorder without agoraphobia documented in this encounter [facility] HealthcareInstructionsNot on filedocumented in this encounterPro[facility] SystemReason for visit Narrative* Rehabilitation - Outpatient (Routine) - Authorized Specialty Diagnoses / Procedures Referred By Contmuna t Referred To Contact Physical Therapy Diagnoses Pain in left shoulder Procedures DC PHYSICAL THERAPY EVALUATION LOW COMPLEX 20 MINS DC OFFICE/OUTPATIENT NEW HIGH MDM 60 MINUTES Norma Mirza MD [facility] [place] [address] Phone: tel: fax: [facility] [address] [place] [address] Phone: tel: fax: Referral ID Status Reason Start Date Expiration Date V isits Requested Visits Authorized [id number] Authorized 03/20/2024 09/16/2024 60 60 [facility] HealthcareReason for [facility] Narrative* Rehabilitation - Outpatient (Routine) - Authorized Specialty Diagnoses / Procedures Referred By Contac t Referred To Contact Physical Therapy Diagnoses Pain in left shoulder Procedures DC PHYSICAL THERAPY EVALUATION LOW COMPLEX 20 MINS DC OFFICE/OUTPATIENT NEW HIGH MDM 60 MINUTES Norma Mirza MD [address] [place] [address] Phone: tel:[phone] fax: [facility] [address] [address] Phone: tel: fax: Referral ID Status Reason Start Date Expiration Date V isits Requested Visits Authorized [id number] Authorized 03/20/2024 02/26/2025 60 60 [facility] Reason for Referral Specialty Diagnoses / Procedures Referred By Contac t Referred To Contact Rheumatology Diagnoses Rheumatoid arthritis, seropositive (HCC) System, Provider Not In Davidson Ly MD [address] [place] [phone] Referral ID Status Reason Start Date Expiration Date V isits Requested Visits Authorized [id number] Authorized 01/05/2021 01/05/2022 1 1 Specialty Diagnoses / Procedures Referred By Contac t Referred To Contact Diagnoses Rheumatoid arthritis, seropositive (HCC) Davidson Ly MD [address] [place] [phone] Referral ID Status Reason Start Date Expiration Date V isits Requested Visits Authorized [id number] Pending Review 1 1 Referral ID Status Reason Start Date Expiration Date Visits Re quested Visits Authorized [id number] Closed 1 1 Advance Directives Documents on File Type Date 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 Advance Directives and Livin g Will 02/15/2021 10:07 AM Advance Directive Response Recorded Date/ Time Advance Directives No October 4:28pm Advance Directive Response Recorded Date/ Time Advance Directives No October 5:28pm Date Activated Date Inactivated Comments 11/25/2024 5:48 PM 11/26/2024 3:55 PM Summary Purpose Family History No Family History Records FoundNo Family History Records FoundNo Family History Records FoundNo Family History Records FoundNo Family History Records FoundNo Family History Records FoundNo Family History Records Found Chief Complaint and Reason for Visit Chief Complaint r00.0 Chief Complaint r00.0 r00.0 Chief Complaint Screening Chief Complaint Right thumb pain wit h injury S69.91XA - Unspecified injury of right wrist, hand Reason for Visit Contusion of right t humb Chief Complaint Admit Date Screening March 15, 2024 9 :38am [id number] March 15, 2024 1 0:05am Chief Complaint Admit Date Screening March 15, 2024 9 :38am [id number] March 15, 2024 1 0:05am r92.8 April 08, 2024 10:26am Chief Complaint Admit Date sinus pressure, cough, congestion July 062024 11:02am Additional Source Comments Source Comments (unrecognize d section and content) In the event this informatio n is protected by the Federal Confidentiality of Alcohol and Drug Abuse Patient Records regulations: The Federal rules restrict any use of the information to criminally investigate or prosecute any alcohol or drug abuse patient.[facility] Care Teams (unrecognized sec tion and content) Automation Lead Relationship Specialty Start Date End Date System, Provider Not In PCP - General 12/31/20 Automation Lead Relationship Specialty Start Date End Date System, Provider Not In PCP - General 12/31/20 Automation Lead Relationship Specialty Start Date End Date Alie Peterson MD [address] [facility] [place] [address] PCP - General Family Medicine 02/15/21 Automation Lead Relationship Specialty Start Date End Date Alie Peterson MD [address] [facility] [place] [address] PCP - General Family Medicine 02/15/21 Automation Lead Relationship Specialty Start Date End Date Alie Peterson MD [address] [facility] [place] [address] PCP - General Family Medicine 02/15/21 Automation Lead Relationship Specialty Start Date End Date Alie Peterson MD [address] [facility] [place] [address] PCP - General Family Medicine 02/15/21 Automation Lead Relationship Specialty Start Date End Date Alie Peterson MD [address] [facility] [place] [address] PCP - General Family Medicine 02/15/21 Automation Lead Relationship Specialty Start Date End Date lAie Peterson MD [address] [facility] [place] [address] PCP - General Family Medicine 02/15/21 Automation Lead Relationship Specialty Start Date End Date Alie Peterson MD [address] [facility] [place] [address] PCP - General Family Medicine 02/15/21 Automation Lead Relationship Specialty Start Date End Date Alie Peterson MD [address] [facility] [place] [address] PCP - General Family Medicine 02/15/21 Automation Lead Relationship Specialty Start Date End Date Alie Peterson MD [address] [facility] [place] [address] PCP - General Family Medicine 02/15/21 Automation Lead Relationship Specialty Start Date End Date Alie Peterson MD [address] [facility] [place] [address] PCP - General Family Medicine 02/15/21 Automation Lead Relationship Specialty Start Date End Date Alie Peterson MD [address] [facility] [place] [address] PCP - General Family Medicine 02/15/21 Automation Lead Relationship Specialty Start Date End Date Alie Peterson MD [address] [place] [address] PCP - General Family Medicine 02/15/21 Team Status: Inactive Member Role Status Dates Norma Mirza NP-C Primary Care Provider, Attend ing Provider Active W Maxi Lenz DO Referring Provider Active Team Status: Active Member Role Status Dates Norma Mirza NP-C Primary Care Provider Active Team Status: Inactive Member Role Status Dates Norma Mirza NP-C Primary Care Provider, Attend ing Provider Active Automation Lead Relationship Specialty Start Date End Date Alie Peterson MD [address] [place] [address] PCP - General Family Medicine 02/15/21 Automation Lead Relationship Specialty Start Date End Date Alie Peterson MD [address] [place] [address] PCP - General Family Medicine 02/15/21 Automation Lead Relationship Specialty Start Date End Date Alie Peterson MD [address] [place] [address] PCP - General Family Medicine 02/15/21 Team Status: Inactive Member Role Status Dates AMANDA LopezC Primary Care Provider Active Referral Self Attending Provider Active Automation Lead Relationship Specialty Start Date End Date Alie Peterson MD [address] [place] [address] PCP - General Family Medicine 02/15/21 Automation Lead Relationship Specialty Start Date End Date Natalie Lane, PRINTED CIRCUIT BOARD LAYOUT 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 [address] [address] PCP - [place] [employer] 05/28/20 Jorge Ngo MD [address] [place] [address] PCP - General Family Medicine 08/04/22 Automation Lead Relationship Specialty Start Date End Date Natalie Lane, PRINTED CIRCUIT BOARD LAYOUT DESIGNER-[facility] [address] [address] PCP - [place] [employer] 05/28/20 [place] [address] [place], [place] [phone] PCP - General Family Medicine 08/04/22 Automation Lead Relationship Specialty Start Date End Date Natalie Lane, PRINTED CIRCUIT BOARD LAYOUT DESIGNER-[facility] [address] [place] [address] PCP - [place] [employer] 05/28/20 Jorge Ngo MD [address] [place] [address] PCP - General Family Medicine 08/04/22 Automation Lead Relationship Specialty Start Date End Date Alie Peterson MD [address] [place] [address] PCP - General Family Medicine 02/15/21 Team Status: Inactive Member Role Status Dates Norma Mirza DIRECTOR TRAFFIC AND PLANNING-C Primary Care Provider Active Start: July 23, 2023 End: July 23, 2023 Acacia Preciado APRN Attending Provider Active S tart: July 23, 2023 End: July 23, 2023 Team Status: Active Member Role Status Dates Acacia Preciado APRN Attending Provider Active S tart: July 23, 2023 Norma Mirza NP-Sandra Primary Care Provider Active Start: July 23, 2023 Team Status: Inactive Member Role Status Dates Acacia Preciado APRN Attending Provider Active S tart: July 23, 2023 End: July 23, 2023 Norma Mirza NP-C Primary Care Provider Active Start: July 23, 2023 End: July 23, 2023 Automation Lead Relationship Specialty Start Date End Date Alie Peterson MD [address] [place] [address] PCP - General Family Medicine 02/15/21 Automation Lead Relationship Specialty Start Date End Date Alie Peterson MD [address] [place] [address] PCP - General Family Medicine 02/15/21 Automation Lead Relationship Specialty Start Date End Date Alie Peterson MD [address] [place] [address] PCP - General Family Medicine 02/15/21 Automation Lead Relationship Specialty Start Date End Date Jorge Ngo MD [address] [place] [phone] PCP - General Family Medicine 08/04/22 Automation Lead Relationship Specialty Start Date End Date Jorge Ngo MD [address] [place] [phone] PCP - General Family Medicine 08/04/22 Automation Lead Relationship Specialty Start Date End Date Jorge Ngo MD [address] [place] [address] PCP - General Family Medicine 08/04/22 Automation Lead Relationship Specialty Start Date End Date Jorge Ngo MD [address] [place] [address] PCP - General Family Medicine 08/04/22 Team Status: Inactive Member Role Status Dates Norma Mirza DIRECTOR TRAFFIC AND PLANNING-C Primary Care Provider Active Start: March 15, 2024 End: March 15, 2024 Referral Self Attending Provider Active Start: Marysol [email or web address] End: March 15, 2024 Team Status: Inactive Member Role Status Dates Norma Mirza DIRECTOR TRAFFIC AND PLANNING-C Primary Care Pr ovider, Attending Provider Active Start: March 15, 2024 End: March 15, 2024 Automation Lead Relationship Specialty Start Date End Date Alie Peterson MD [address] [place] [address] PCP - General Family Medicine 02/15/21 Automation Lead Relationship Specialty Start Date End Date Jorge Ngo MD [address] [place] [address] PCP - General Family Medicine 08/04/[address] APRN-RECYCLING MANAGER [address] [place] [address] Nurse Practitioner Psychiatry 03/15/24 Automation Lead Relationship Specialty Start Date End Date Jorge Ngo MD [address] [place] [address] PCP - General Family Medicine 08/04/[address] APRN-RECYCLING MANAGER [address] [facility] [address] [place] [address] Nurse Practitioner Psychiatry 03/15/24 Automation Lead Relationship Specialty Start Date End Date Jorge Ngo MD [address] [place] [address] PCP - General Family Medicine 08/04/[address], PRINTED CIRCUIT BOARD LAYOUT 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 [address] [facility] [address] [place] [address] Nurse Practitioner Psychiatry 03/15/24 Automation Lead Relationship Specialty Start Date End Date Alie Peterson MD [address] [place] [address] PCP - General Family Medicine 02/15/21 Automation Lead Relationship Specialty Start Date End Date Jorge Ngo MD [address] [place] [phone] PCP - General Family Medicine 08/04/[address], PRINTED CIRCUIT BOARD LAYOUT 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 [address] [facility] [address] [place] [address] Nurse Practitioner Psychiatry 03/15/24 Automation Lead Relationship Specialty Start Date End Date Jorge Ngo MD [address] [place] [phone] PCP - General Family Medicine 08/04/[address], PRINTED CIRCUIT BOARD LAYOUT 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 [address] [facility] [address] [place] [address] Nurse Practitioner Psychiatry 03/15/24 Automation Lead Relationship Specialty Start Date End Date Jorge Ngo MD [address] [place] [address] PCP - General Family Medicine 08/04/[address], PRINTED CIRCUIT BOARD LAYOUT 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 [address] [address] Nurse Practitioner Psychiatry 03/15/24 Automation Lead Relationship Specialty Start Date End Date Jorge Ngo MD [address] [place] [address] PCP - General Family Medicine 08/04/[address], PRINTED CIRCUIT BOARD LAYOUT 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 [address] [address] Nurse Practitioner Psychiatry 03/15/24 Automation Lead Relationship Specialty Start Date End Date Jorge Ngo MD [address] [place] [address] PCP - General Family Medicine 08/04/[address], PRINTED CIRCUIT BOARD LAYOUT 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 [address] [address] Nurse Practitioner Psychiatry 03/15/24 Team Status: Inactive Member Role Status Dates Norma Mirza DIRECTOR TRAFFIC AND PLANNING-C Primary Care Pr ovidsuman, Attending Provider Active Start: April 08, 2024 End: April 08, 2024 Automation Lead Relationship Specialty Start Date End Date oJrge Ngo MD [address] [place] [address] PCP - General Family Medicine 08/04/[address] APRN-RECYCLING MANAGER [address] [place] [address] [address] [place] [address] Nurse Practitioner Psychiatry 03/15/24 Automation Lead Relationship Specialty Start Date End Date Jorge Ngo MD [address] [place] [address] PCP - General Family Medicine 08/04/[address] APRN-RECYCLING MANAGER [address] [place] [address] [address] [place] [address] Nurse Practitioner Psychiatry 03/15/24 Automation Lead Relationship Specialty Start Date End Date Alie Peterson MD [address] [place] [address] PCP - General Family Medicine 02/15/21 Automation Lead Relationship Specialty Start Date End Date Alie Peterson MD [address] [place] [address] PCP - General Family Medicine 02/15/21 Team Status: Inactive Member Role Status Dates Norma Mirza DIRECTOR TRAFFIC AND PLANNING-C Primary Care Provider Active Start: July 06, 2024 End: July 06, 2024 Yeni Hodges APRN Attending Provider Active Start: July 06, 2024 End: July 06, 2024 Automation Lead Relationship Specialty Start Date End Date Alie Peterson MD [address] [place] [address] PCP - General Family Medicine 02/15/21 Automation Lead Relationship Specialty Start Date End Date Norma Mirza APRN-[employer] REPORT DEVELOPER [address] [place] [phone] PCP - General Family Medicine 11/25/24 Automation Lead Relationship Specialty Start Date End Date Jorge Ngo MD [address] [facility] [place] [address] [phone] PCP - General Family Medicine 08/04/[address], PRINTED CIRCUIT BOARD LAYOUT 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 [address] [facility] [address] [place] [address] Nurse Practitioner Psychiatry 03/15/24 Reason for Visit (unrecogniz ed section and content) Reason Onset Date Comments Medication Refill 02/17/2021 Reason Comments Consult RA Specialty Diagnoses / Procedures Referred By Contac t Referred To Contact Rheumatology Diagnoses Rheumatoid arthritis, seropositive (HCC) System, Provider Not In LyDavidson powers MD [address] [place] [phone] Referral ID Status Reason Start Date Expiration Date V isits Requested Visits Authorized [id number] Pending Review 01/05/2021 01/05/2022 1 1 Reason Onset Date Comments Enbrel Denial 03/12/2021 Reason Onset Date Comments Humira Approval 03/25/2021 Reason Onset Date Comments Humira 04/01/2021 Reason Comments Establish Care RA Reason Onset Date Comments Medication Refill 07/19/2021 Reason Comments Follow-up [facility] Reason Onset Date Comments Humira approval 10/20/2021 Reason Onset Date Comments Medication Refill 02/10/2022 Reason Onset Date Comments Medication Refill 02/14/2022 Reason Comments Follow-up RA Reason Comments Establish Care Rheumatoid arthritis , seropositive (HCC) Reason Comments Follow-up Reason Onset Date Comments Medication Refill 01/17/2023 Reason Comments Med Management Follow-up Reason Onset Date Comments Med Refill 04/13/2023 Patient was in T ues and forgot to ask for a refill of Xanax to [facility] Reason Onset Date Comments Humira Authorization 09/12/2023 Reason Onset Date Comments Medication Refill 09/21/2023 Reason Comments Med Refill Reason Onset Date Comments Insurance change to Sim[employer] 03/21/2024 Reason Onset Date Comments Simlandi Authorization 03/28/2024 Reason Onset Date Comments Medication Refill 03/28/2024 Reason Onset Date Comments Cx PT today 04/12/2024 Pending pt call back. fu 04/16/2024 Last PT 04/08 Reason Comments Establish Care Seropositive rheumat oid arthritis (HCC) Reason Onset Date Comments Humira Authorization 07/11/2024 Reason Onset Date Comments Medication Refill 07/11/2024 Reason Onset Date Comments Medication Refill 09/02/2024 Reason Onset Date Comments Humira Denial 12/03/2024 INFORMATION SOURCE (unrecogn ized section and content) DATE CREATED AUTHOR 01/14/2022 [facility] DATE CREATED AUTHOR AUTHOR'S ORGANIZ ATION 11/20/2023 [facility] DATE CREATED AUTHOR AUTHOR'S ORGANIZ ATION 06/13/[address] [facility] DATE CREATED AUTHOR AUTHOR'S ORGANIZ ATION 09/21/2024 [facility] EPIC DATE CREATED AUTHOR AUTHOR'S ORGANIZ ATION 10/23/2024 [facility] DATE CREATED AUTHOR AUTHOR'S ORGANIZ ATION 12/01/2024 [facility] DATE CREATED AUTHOR AUTHOR'S ORGANIZ ATION 12/06/2024 [facility] Goals (unrecognized section and content) Goals may be documented in a n alternate sectionGoals may be documented in an alternate sectionGoals may be documented in an alternate sectionGoals may be documented in an alternate sectionGoals may be documented in an alternate sectionGoals may be documented in an alternate sectionGoals may be documented in an alternate sectionGoals may be documented in an alternate sectionGoals may be documented in an alternate section FOR RECORDS PERTAINING TO PATIENTS WHO ARE OR HAVE BEEN ENROLLED IN A CHEMICAL DEPENDENCY/SUBSTANCEABUSE PROGRAM, SOME INFORMATION MAY BE OMITTED. This clinical summary was aggregated from multiple sources. Caution should be exercised in using it in the provision of clinical care. This summary normalizes information from multiple sources, and as a consequence, information in this document may materially change the coding, format and clinical context of patient data. In addition, data may be omitted in some cases. CLINICAL DECISIONS SHOULD BE BASED ON THE PRIMARY CLINICAL RECORDS. [facility] Facility[facility]. provides no warranty or guarantee of the accuracy or completeness of information in this document.
== END 2024-12-11 11:54 | disposition home or self-care (01) ==
LOC: CT 11:53
PROVIDERS: PCP Nurse Practitioner Family; Visit Provider Internal Medicine Hematology & Oncology
DX: R19.09 Other intra-abdominal and pelvic swelling, mass and lump (principal); R16.1 Splenomegaly, not elsewhere classified; D64.9 Anemia, unspecified; D25.9 Leiomyoma of uterus, unspecified; K42.9 Umbilical hernia without obstruction or gangrene
CPT/HCPCS: 74178; Q9967

== ENCOUNTER 2024-12-16 13:47 | Outpatient (OUT) | payer BC, SELFPAY ==
--- OUTSIDE RECORDS SUMMARY | 2024-12-16 13:55 | XMS_ITS | CCD ---
Author Organization [facility] Care Team Providers Care Vice President Talent Management Name Role Phone Jamison Chidi Odalys Primary Care Provider Unavailab System, Provider Not In Primary Care Provider Un available Alie Peterson MD Primary Care Provider [phone] Alie Peterson MD Primary Care Provider [phone] HERMES, NORMA Admitting Unavailable HERMES, NORMA Attending Unavailable HERMES, NORMA Primary Care Unavailable DR ROMINA HART V Consulting Unavailable HERMES, NORMA Consulting Unavailable HERMES, NORMA Admitting Unavailable HERMES, NORMA Attending Unavailable HERMES, NORMA Primary Care Unavailable HERMES, NORAM Admitting Unavailable HERMES, NORMA Attending Unavailable HERMES, NORMA Primary Care Unavailable HERMES, NORMA Admitting Unavailable HERMES, NORMA Attending Unavailable HERMES, NORMA Primary Care Unavailable EHRMES, NORMA Admitting Unavailable HERMES, NORAM Attending Unavailable HERMES, NORMA Primary Care Unavailable DR ROMINA HART V Consulting Unavailable HERMES, NORMA Consulting Unavailable Alie Peterson MD Primary Care Provider [phone] TERESA Mirza Primary Care Provider [phone] TERESA Mirza Rayna Attending Provider [phone] DO Rishi Lenz Referring Provider TERESA Mirza Rayna Primary Care Provider [phone] Self, Referral Attending Provider Unavailable Natalie Romero Unavailable Jorge Ngo MD Primary Care Provider Natalie Romero M Unavailable SHASHI Preciado Attending Provider [phone] Hermes, MEDICAL IMAGING TECHNICIAN-C Norma Rayna Primary Care Provider HOY, ALIE Primary Care Unavailable HOY, ALIE Primary Care Unavailable Hermes MEDICAL IMAGING TECHNICIAN-C, Norma Rayna Primary Care Provider [phone] Self, Referral Attending Provider Unavailable Hermes MEDICAL IMAGING TECHNICIAN-C, Norma Way Attending Provider Michelle-Nossek ASSEMBLY MECHANIC-UROLOGIC SURGEON, Natalie M Unavailable Hermes Norma Rayna Primary Care Unavailable Self, Referral Admitting Unavailable Self, Referral Attending Unavailable Hermes, Norma Rayna Admitting Unavailable Hermes, Norma Rayna Primary Care Unavailable Hermes, Norma Rayna Attending Unavailable Hermes, Norma Rayna Primary Care Unavailable Ozzy Acacia M Admitting Unavailable Ozzy Acacia M Attending Unavailable Hermes, Norma Rayna Primary Care Unavailable Hermes, Norma Rayna Attending Unavailable Hermes, Norma Rayna Admitting Unavailable HERMES, NORMA S Primary Care Unavailable NEVIN LEMON Admitting Unavailable TAVARES LEMONHAMID M Attending Unavailable IRMA PIRES Consulting Unavailable Hermes ASSEMBLY MECHANIC-CYANIDE POT HARDENER, Norma S Primary Care Provider LYDAVIDSON MORALES Attending Unavailable HOY, ALIE Primary Care Unavailable LY, DAVIDSON Attending Unavailable HOY, ALIE Primary Care Unavailable HOY, ALIE Primary Care Unavailable LY, DAVIDSON Attending Unavailable LY, DAVIDSON Attending Unavailable HOY, ALIE Primary Care Unavailable Jorge Ngo MD Primary Care Provider KIESHA GRAY Attending Unavailable HERMES, NORMA Referring Unavailable CHINMAY NORMAN Attending Unavailable NORMA MIRZA Referring Unavailable CHINMAY NORMAN Attending Unavailable HERMES, NORMA Referring Unavailable CHINMAY NORMAN Attending Unavailable HERMES NORMA Referring Unavailable CHINMAY NORMAN Attending Unavailable HERMES, NORMA Referring Unavailable MICHELLE-NOSSEK, NATALIE M Attending Unavailab le MICHELLE-NOSSEK, NATALIE M Attending Unavailab le MICHELLE-NOSSEK, NATALIE M Attending Unavailab le MICHELLE-NOSSEK, NATALIE M Attending Unavailab le Allergies Allergy Classification Reported Allergen(s) Allergy Type Date of Onset Reaction(s) Facility (20 sources) Sulfonamides (Antibiotic); Translations: [SULFA (SULFONAMIDE ANTIBIOTICS)] Propensity to adverse reactions 9 Rash [facility] (1 source) Sulfonamides (Antibiotic) Drug allergy (disorder) [address] [facility] (20 sources) Sulfanilamide Propensity to [...] days . 2 each 5 03/28/2024 Active [id number] 200 actuat albuterol 0.09 mg/actuat metered dose [...] 2 days. 42 tablet 02/22/2017 Active Pyrilamine-Dextromethorphan ([place] [facility]) 7.5-7.5 mg/5 mL liquid (1 source) Start: 07-06-2024 take 1 mL by mouth every eight hours Pyrilamine-Dextromethorphan ([place] [facility]) 7.5-7.5 mg/5 mL liquid Active 10 [...] Start: 01-25-2017 take 2 tablets by mo [facility] once daily QUEtiapine (SEROquel) 50 mg tablet [...] (20 sources) Patient encounter status; Translations: [Other intermediate (current) drug therapy] Onset: 02-20-2021 Episodic Other aftercare (4 sources) Other intermediate (current) drug therapy; Translations: [Other supervisor intermediates (current) drug therapy] Onset: 02-20-2021 Episodic Other aftercare (2 sources) 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); Translations: [[facility] (current) use of non-steroidal anti-inflammatories (nsaid)] Onset: 02-20-2021 Episodic Other aftercare (2 sources) Taking high risk medication; Translations: [Other supervisor intermediates (current) drug therapy] 12-09-2024 Episodic Other injuries [...] current use of drug therapy; Translations: [Other intermediate (current) drug therapy] Onset: 02-20-2021 02-20-2021 Episodic Other aftercare (12 sources) rat exterminator current use of non-steroidal anti-inflammatory drug; Translations: [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 These results have been appended to a previously preliminary verified report. Performed By: #### D DMR #### [facility] ([address] [address] VIR BASOPHILS RELATIVE PERCENT B Y AUTOMATED COUNT 0.9 % Normal [facility] Comment on above: Result Comment: This is an appended report. These results have been appended to a previously preliminary verified report. Performed By: #### D DMR #### [facility] ([address] [address] VIR CELLAVISION DIFFERENTIAL TYPE AUTOMATED DIFFERENTIAL Normal [facility] Comment on above: Result Comment: This is an appended report. These results have been appended to a previously preliminary verified report. Performed By: #### D DMR #### [facility] ([address] [address] VIR Eosinophils (Bld) [#/Vol] 0.0 10*3/uL Normal 0.0-0.4 [facility] Comment on above: Result Comment: This is an appended report. These results have been appended to a previously preliminary verified report. Performed By: #### D DMR #### [facility] ([address] [address] VIR EOSINOPHILS RELATIVE PERCENT BY AUTOMATED COUNT 0.7 % Normal [facility] Comment on above: Result Comment: This is an appended report. These results have been appended to a previously preliminary verified report. Performed By: #### D DMR #### [facility] ([address] [address] VIR Erythrocyte distribution wid th (RBC) [Ratio] 20.6 % High 11.5-15 [facility] Comment on above: Performed By: #### D DMR #### [facility] ([address] [address] VIR Hematocrit (Bld) [Volume fraction] 31.0 % Low 35-47 [facility] Comment on above: Performed By: #### D DMR #### [facility] ([address] [address] VIR Hemoglobin (Bld) [Mass/Vol] 10.4 g/dL Low 11.7-15. 5 [facility] Comment on above: Performed By: #### D DMR #### [facility] ([address] [address] VIR LYMPHOCYTES ABSOLUTE COUNT (10*3/UL) BY AUTOMATED COUNT 1.4 10*3/uL Normal 1.0-3.5 [facility] Comment on above: Result Comment: This is an appended report. These results have been appended to a previously preliminary verified report. Performed By: #### D DMR #### [address] [address] VIR LYMPHOCYTES RELATIVE PERCENT BY AUTOMATED COUNT 19.6 % Normal [facility] Comment on above: Result Comment: This is an appended report. These results have been appended to a previously preliminary verified report. Performed By: #### D DMR #### [facility] ([address] [address] VIR MCH (RBC) [Entitic mass] 26.3 pg Low 27-34 [facility] Comment on above: Performed By: #### D DMR #### [facility] ([address] [address] VIR MCHC (RBC) [Mass/Vol] 33.6 g/dL Normal 32-36 [facility] Comment on above: Performed By: #### D DMR #### [facility] ([address] [address] VIR MCV (RBC) [Entitic vol] 78 fL Low 80-100 [facility] Comment on above: Performed By: #### D DMR #### [facility] ([place]) [address] [place] [address] VIR MONOCYTES ABSOLUTE COUNT (10*3/UL) BY AUTOMATED COUNT 0.8 10*3/uL Normal 0.0-0.9 [facility] Comment on above: Result Comment: This is an appended report. These results have been appended to a previously preliminary verified report. Performed By: #### D DMR #### [facility] ([address] [address] VIR MONOCYTES RELATIVE PERCENT B Y AUTOMATED COUNT 10.7 % Normal [facility] Comment on above: Result Comment: This is an appended report. These results have been appended to a previously preliminary verified report. Performed By: #### D DMR #### [facility] ([address] [address] VIR NEUTROPHILS ABSOLUTE COUNT B Y AUTOMATED COUNT 4.9 10*3/uL Normal 1.5-6.6 [facility] Comment on above: Result Comment: This is an appended report. These results have been appended to a previously preliminary verified report. Performed By: #### D DMR #### [facility] ([address] [address] VIR NEUTROPHILS RELATIVE PERCENT BY AUTOMATED COUNT 68.1 % Normal [facility] Comment on above: Result Comment: This is an appended report. These results have been appended to a previously preliminary verified report. Performed By: #### D DMR #### [facility] ([address] [address] VIR Platelet mean volume (Bld) [Entitic vol] 7.7 fL Normal 7-12 [facility] Comment on above: Performed By: #### D DMR #### [facility] ([address] [address] VIR Platelets (Bld) [#/Vol] 213 10*3/uL Normal 150-450 [facility] Comment on above: Performed By: #### D DMR #### [facility] ([address] [place] [address] VIR RBC COUNT 3.96 X10E12/L Normal 3.8-5.2 [facility] Comment on above: Performed By: #### D DMR #### [facility] ([address] [place] [address] VIR WBC (Bld) [#/Vol] 7.1 10*3/uL Normal 4-11 [facility] Comment on above: Performed By: #### D DMR #### [facility] ([address] [place] [address] VIR COMPREHENSIVE METABOLIC PANE Timmy 11-26-2024 Albumin [Mass/Vol] 2.8 g/dL Low 3.2-5.3 [facility] Comment on above: Performed By: #### D DMR #### [facility] ([address] [place] [address] VIR ALP [Catalytic activity/Vol] 100 U/L Normal 39-130 [facility] Comment on above: Performed By: #### D DMR #### [facility] ([address] [place] [address] VIR ALT [Catalytic activity/Vol] 51 U/L High <=31 [facility] Comment on above: Performed By: #### D DMR #### [facility] ([address] [place] [address] VIR Anion gap [Moles/Vol] 10 mmol/L Normal 5-15 [facility] Comment on above: Performed By: #### D DMR #### [facility] ([address] [place] [address] VIR AST [Catalytic activity/Vol] 44 U/L High <=41 [facility] Comment on above: Performed By: #### D DMR #### [facility] ([place] [address] [place] [address] VIR Bilirubin [Mass/Vol] 0.6 mg/dL Normal 0.3-1.2 [facility] Comment on above: Performed By: #### D DMR #### [facility] ([place] [address] [place] [address] VIR Calcium [Mass/Vol] 7.4 mg/dL Low 8.5-10.5 [facility] Comment on above: Performed By: #### D DMR #### [facility] ([place] [address] [place] [address] VIR Chloride [Moles/Vol] 102 mmol/L Normal 98-109 [facility] Comment on above: Performed By: #### D DMR #### [facility] ([address] [place] [address] VIR CO2 [Moles/Vol] 23 mmol/L Normal 22-32 [facility] Comment on above: Performed By: #### D DMR #### [facility] ([address] [address] VIR Creatinine [Mass/Vol] 0.69 mg/dL Normal 0.40-1.00 [facility] Comment on above: Result Comment: METH OD TRACEABLE TO IDMS STANDARD Performed By: #### D DMR #### [facility] ([place] [address] [place] [address] VIR EGFR (CKD-EPI) NON-RACE DEPENDENT >^90 Normal >=60 [facility] Comment on above: Result Comment: eGFR not reported due to non-numeric value for Creatinine. Reported eGFR is based on the CKD-EPI 2020 equation that does not use a race coefficient. Performed By: #### D DMR #### [facility] ([place] [address] [facility] [address] VIR Glucose [Mass/Vol] 103 mg/dL High 65-99 [facility] Comment on above: Performed By: #### D DMR #### [facility] ([place] [address] [place] [address] VIR Potassium [Moles/Vol] 3.0 mmol/L Low 3.5-5.0 [facility] Comment on above: Performed By: #### D DMR #### [facility] ([address] [place] [address] VIR Protein [Mass/Vol] 6.5 g/dL Normal 6.0-8.0 [facility] Comment on above: Performed By: #### D DMR #### [facility] ([address] [place] [address] VIR Sodium [Moles/Vol] 135 mmol/L Normal 134-146 [facility] Comment on above: Performed By: #### D DMR #### [facility] ([address] [place] [address] VIR Urea nitrogen [Mass/Vol] 9 mg/dL Normal 5-23 [facility] Comment on above: Performed By: #### D DMR #### [facility] ([address] [place] [address] VIR MAGNESIUMon 11-26-2024 Magnesium [Mass/Vol] 2.1 mg/dL Normal 1.8-2.6 [facility] Comment on above: Performed By: #### D DMR #### [facility] ([address] [place] [address] VIR Magnesium [Mass/Vol] 2.1 mg/dL Normal 1.8-2.6 [facility] Comment on above: Performed By: #### D DMR #### [facility] ([address] [place] [address] VIR POTASSIUMon 11-26-2024 Potassium [Moles/Vol] 3.5 mmol/L Normal 3.5-5.0 [facility] Comment on above: Performed By: #### K ####[facility] ([facility])[address] [place] [address].[place] [address] VIR Potassium [Moles/Vol] 3.4 mmol/L Low 3.5-5.0 [facility] Comment on above: Performed By: #### D DMR #### [facility] ([address] [address] VIR ACETONE,(BETAHYDROXYBUTYRATE , KETONE) QUANTITATIVE SERUMon 11-25-2024 BETAHYDROXYBUTYRATE 0.11 mmol/L Normal 0.02-0.27 [facility] Comment on above: Performed By: #### K ETB #### [facility] ([address] [address] VIR B-TYPE NATRIURETIC PEPTIDEon 11-25-2024 Natriuretic peptide B (Bld) [Mass/Vol] 31 pg/mL Normal <=100 [facility] Comment on above: Performed By: #### B MEDICAL IMAGING TECHNICIAN #### [facility] ([address] [address] VIR BLOOD CULTUREon 11-25-2024 Bacteria identified Cx Nom (Bld) CULTURE RESULTS NO GROWTH 5 DAYS Normal [facility] Comment on above: Order Comment: *SIRS Criteria: [...] improving Performed By: #### D DMR #### [facility] ([facility]) [address] [place] [address] VIR Bacteria identified Cx Nom (Bld) CULTURE RESULTS NO GROWTH 5 DAYS Normal [facility] Comment on above: Order Comment: *SIRS Criteria: [...] are improving Performed By: #### B C ####[facility] (TT)[address] [facility] [address], [place] [address] VIR CBC WITH AUTO DIFFERENTIALon 11-25-2024 BASOPHILS ABSOLUTE COUNT (10*3/UL) BY AUTOMATED COUNT 0.0 10*3/uL Normal 0.0-0.2 [facility] Comment on above: Result Comment: This is an appended report. These results have been appended to a previously preliminary verified report. Performed By: #### C BCA #### [facility] ([facility]) [address] [place] [address] VIR BASOPHILS RELATIVE PERCENT B Y AUTOMATED COUNT 0.5 % Normal [facility] Comment on above: Result Comment: This is an appended report. These results have been appended to a previously preliminary verified report. Performed By: #### C BCA #### [facility] ([facility]) [address] [place] [address]. [place] [address] VIR CELLAVISION DIFFERENTIAL TYPE AUTOMATED DIFFERENTIAL Normal [facility] Comment on above: Result Comment: This is an appended report. These results have been appended to a previously preliminary verified report. Performed By: #### C BCA #### [facility] ([facility]) [address] [place] [address] VIR CELLAVISION RBC FRAGMENTS 1+ Normal [facility] Comment on above: Result Comment: This is an appended report. These results have been appended to a previously preliminary verified report. Performed By: #### C BCA #### [facility] ([facility]) [address] [place] [address] VIR Eosinophils (Bld) [#/Vol] 0.1 10*3/uL Normal 0.0-0.4 [facility] Comment on above: Result Comment: This is an appended report. These results have been appended to a previously preliminary verified report. Performed By: #### C BCA #### [facility] ([address] [address] VIR EOSINOPHILS RELATIVE PERCENT BY AUTOMATED COUNT 0.5 % Normal [facility] Comment on above: Result Comment: This is an appended report. These results have been appended to a previously preliminary verified report. Performed By: #### C BCA #### [facility] ([address] [address] VIR Erythrocyte distribution wid th (RBC) [Ratio] 20.5 % High 11.5-15 [facility] Comment on above: Performed By: #### C BCA #### [facility] ([address] [address] VIR Hematocrit (Bld) [Volume fraction] 38.0 % Normal 35-47 [facility] Comment on above: Performed By: #### C BCA #### [facility] ([address] [address] VIR Hemoglobin (Bld) [Mass/Vol] 12.8 g/dL Normal 11.7-15. 5 [facility] Comment on above: Performed By: #### C BCA #### [facility] ([address] [address] VIR LYMPHOCYTES ABSOLUTE COUNT (10*3/UL) BY AUTOMATED COUNT 0.8 10*3/uL Low 1.0-3.5 [facility] Comment on above: Result Comment: This is an appended report. These results have been appended to a previously preliminary verified report. Performed By: #### C BCA #### [facility] ([address] [address] VIR LYMPHOCYTES RELATIVE PERCENT BY AUTOMATED COUNT 8.2 % Normal [facility] Comment on above: Result Comment: This is an appended report. These results have been appended to a previously preliminary verified report. Performed By: #### C BCA #### [facility] ([facility]) [address] [place] [address] VIR MCH (RBC) [Entitic mass] 26.4 pg Low 27-34 [facility] Comment on above: Performed By: #### C BCA #### [facility] ([address] [address] VIR MCHC (RBC) [Mass/Vol] 33.7 g/dL Normal 32-36 [facility] Comment on above: Performed By: #### C BCA #### [facility] ([address] [address] VIR MCV (RBC) [Entitic vol] 78 fL Low 80-100 [facility] Comment on above: Performed By: #### C BCA #### [facility] ([address] [address] VIR MONOCYTES ABSOLUTE COUNT (10*3/UL) BY AUTOMATED COUNT 1.2 10*3/uL High 0.0-0.9 [facility] Comment on above: Result Comment: This is an appended report. These results have been appended to a previously preliminary verified report. Performed By: #### C BCA #### [facility] ([facility]) [address] [place] [address] VIR MONOCYTES RELATIVE PERCENT B Y AUTOMATED COUNT 12.0 % Normal [facility] Comment on above: Result Comment: This is an appended report. These results have been appended to a previously preliminary verified report. Performed By: #### C BCA #### [facility] ([address] [address] VIR NEUTROPHILS ABSOLUTE COUNT B Y AUTOMATED COUNT 7.5 10*3/uL High 1.5-6.6 [facility] Comment on above: Result Comment: This is an appended report. These results have been appended to a previously preliminary verified report. Performed By: #### C BCA #### [facility] ([address] [address] VIR NEUTROPHILS RELATIVE PERCENT BY AUTOMATED COUNT 78.8 % Normal [facility] Comment on above: Result Comment: This is an appended report. These results have been appended to a previously preliminary verified report. Performed By: #### C BCA #### [facility] ([address] [address] VIR Platelet mean volume (Bld) [Entitic vol] 7.2 fL Normal 7-12 [facility] Comment on above: Performed By: #### C BCA #### [facility] ([address] [address] VIR Platelets (Bld) [#/Vol] 244 10*3/uL Normal 150-450 [facility] Comment on above: Performed By: #### C BCA #### [facility] ([address] [address] VIR RBC COUNT 4.85 X10E12/L Normal 3.8-5.2 [facility] Comment on above: Performed By: #### C BCA #### [facility] ([address] [address] VIR WBC (Bld) [#/Vol] 9.6 10*3/uL Normal 4-11 [facility] Comment on above: Performed By: #### C BCA #### [facility] ([address] [address] VIR COMPREHENSIVE METABOLIC PANE [facility] 11-25-2024 Albumin [Mass/Vol] 3.6 g/dL Normal 3.2-5.3 [facility] Comment on above: Performed By: #### C MP #### [facility] ([facility]) [address] [place] [address] VIR ALP [Catalytic activity/Vol] 103 U/L Normal 39-130 [facility] Comment on above: Performed By: #### C MP #### [facility] ([place] [address] [place] [address] VIR ALT [Catalytic activity/Vol] 42 U/L High <=31 [facility] Comment on above: Performed By: #### C MP #### [facility] ([place] [address] [place] [address] VIR Anion gap [Moles/Vol] 10 mmol/L Normal 5-15 [facility] Comment on above: Performed By: #### C MP #### [facility] ([place] [address] [place] [address] VIR AST [Catalytic activity/Vol] 41 U/L Normal <=41 [facility] Comment on above: Performed By: #### C MP #### [facility] ([place] [address] [place] [address] VIR Bilirubin [Mass/Vol] 0.7 mg/dL Normal 0.3-1.2 [facility] Comment on above: Performed By: #### C MP #### [facility] ([place] [address] [place] [address] VIR Calcium [Mass/Vol] 8.2 mg/dL Low 8.5-10.5 [facility] Comment on above: Performed By: #### C MP #### [facility] ([place] [address] [place] [address] VIR Chloride [Moles/Vol] 99 mmol/L Normal 98-109 [facility] Comment on above: Performed By: #### C MP #### [facility] ([place] [address] [place] [address] VIR CO2 [Moles/Vol] 24 mmol/L Normal 22-32 [facility] Comment on above: Performed By: #### C MP #### [facility] ([address] [place] [address] VIR Creatinine [Mass/Vol] 0.75 mg/dL Normal 0.40-1.00 [facility] Comment on above: Result Comment: METH OD TRACEABLE TO IDMS STANDARD Performed By: #### C MP #### [facility] ([address] [place] [address] VIR EGFR (CKD-EPI) NON-RACE DEPENDENT >^90 Normal >=60 [facility] Comment on above: Result Comment: eGFR not reported due to non-numeric value for Creatinine. Reported eGFR is based on the CKD-EPI 2020 equation that does not use a race coefficient. Performed By: #### C MP #### [facility] ([address] [place] [address] VIR Glucose [Mass/Vol] 105 mg/dL High 65-99 [facility] Comment on above: Performed By: #### C MP #### [facility] ([address] [address] VIR Potassium [Moles/Vol] 3.1 mmol/L Low 3.5-5.0 [facility] Comment on above: Performed By: #### C MP #### [facility] ([address] [place] [address] VIR Protein [Mass/Vol] 7.8 g/dL Normal 6.0-8.0 [facility] Comment on above: Performed By: #### C MP #### [facility] ([address] [address] VIR Sodium [Moles/Vol] 133 mmol/L Low 134-146 [facility] Comment on above: Performed By: #### C MP #### [facility] ([facility]) [address] [place] [address] VIR Urea nitrogen [Mass/Vol] 11 mg/dL Normal 5-23 [facility] Comment on above: Performed By: #### C #### [facility] ([facility]) [address] [address]A CHESTon 11-25-2024 CT CTA [...] Lara MD on 11/25/2024 12:28 PM Normal [facility] D-DIMERon 11-25-2024 D DIMER 468 ng/mL High 1-255 [facility] Comment on above: Result Comment: Resu lts [...] level. Performed By: #### D DMR #### [facility] ([address] [place] [address] VIR LACTATE W/ REFLEXon 11-26-19 25 LACTATE W/REFLEX 0.8 mmol/L Normal 0.4-2.0 [facility] Comment on above: Order Comment: Resul t did not trigger repeat Lactate, re-order if needed. Performed By: #### L ACTS #### [facility] ([address] [place] [address] VIR MAGNESIUMon 11-25-2024 Magnesium [Mass/Vol] 1.7 mg/dL Low 1.8-2.6 [facility] Comment on above: Performed By: #### M G #### [facility] ([address] [place] [address] VIR RESP PATHOGENS PANEL/SARS-CO V-2on 11-25-2024 SARS-CoV-2 [...] MYCOPLASMA PNEUMONIAE Not Detected Normal Not Detected [facility] Comment on above: Order Comment: The B [...] other pathogens. The agent(s) detected by the WinLocale RP2.1 may not be the definite cause [...] respiratory tract infection. Performed By: #### D [facility] #### [facility] ([place] [address] VIR SARS/FLU A+B/RSV BY NAAT/MOL ECULAR (M4RT COLLECTION TUBE)on 11-25-2024 SARS/FLU A+B/RSV BY NAAT/MOLECULAR (M4RT COLLECTION TUBE) FLU A PCR Negative FLU B PCR Negative RSV BY PCR Negative SARS COV 2 BY PCR Not Detected Normal Not Detected [facility] Comment on above: Order Comment: The Mdundo pert Xpress SARS-CoV-2/Flu/RSV Plus test is a [...] operators who are performing tests using either [employer] DX or [employer] systems and is limited to laboratories that [...] specimen repeat. Fact Sheet for Healthcare Providers: https://www.fda.gov/media/163580/download Fact Sheet for Patients: https://www.fda.gov/media/159462/download Performed By: #### C OVFLR #### [facility] ([address] [address] VIR THYROID PROFILE INCLUDES TSH FT4on 11-25-2024 Free T4 [Mass/Vol] 1.09 ng/dL Normal 0.61-1.60 [facility] Comment on above: Performed By: #### D DMR #### [facility] ([address] [address] VIR TSH 0.36 uIU/mL Low 0.49-4.67 [facility] Comment on above: Performed By: #### D DMR #### [facility] ([facility]) [address] [place] [address]. [place] [address] VIR TROP I, HIGH SENSITIVITY 1 H OURon 11-25-2024 TROPONIN I, HIGH SENSITIVITY 6 ng/L Normal <16 [facility] Comment on above: Performed By: #### D DMR #### [facility] ([facility]) [address] [place] [address]. [place] [address] VIR TROPONIN I, HIGH SENSITIVITY 0 HOURon 11-25-2024 TROPONIN I, HIGH SENSITIVITY 6 ng/L Normal <16 [facility] Comment on above: Performed By: #### T [id number] #### [facility] ([facility]) [address] [place] [address]. [place] [address] VIR XR CHEST 1 VWon 11-25-2024 XR [...] Nguyễn MD on 11/25/2024 11:47 AM Normal [facility] Pardeep 10-22-2024 ALT [Catalytic activity/Vol] 13 U/L Normal -29 [facility] Comment on above: Performed By: #### 6 399, 822, 823, 375, 809 #### [facility] [address], [address] [place] [phone] Questioned Documents Examiner: Teofilo Quintanilla MD ALT [Catalytic activity/Vol] 13 U/L 6 - 29 U/L [facility] [place] 10-22-2024 AST [Catalytic activity/Vol] 16 U/L Normal 10-30 [facility] Comment on above: Performed By: #### 6 399, 822, 823, 375, 809 #### [facility] of [place] [address] Questioned Documents Examiner: Teofilo Quintanilla MD AST [Catalytic activity/Vol] 16 U/L 10 - 30 U/L [facility] C-REACTIVE PROTEINon 025 CRP [Mass/Vol] 3.9 mg/L Normal <8.0 [facility] Comment on above: Performed By: #### 8 23, 822, 809, 375, 6399 #### [facility] of [place] [address] Questioned Documents Examiner: Teofilo Quintanilla MD CBC (INCLUDES DIFF/PLT)on Basophils (Bld) [#/Vol] 0.087 10*3/uL Normal 0-200 [facility] Comment on above: Performed By: #### 8 23, 822, 809, 375, 6399 #### [facility] of [place] [address] Questioned Documents Examiner: Teofilo Quintanilla MD Basophils/100 WBC (Bld) 1.3 % Normal [facility] Comment on above: Performed By: #### 8 23, 822, 809, 375, 6399 #### [facility] of [place] [address] Questioned Documents Examiner: Teofilo Quintanilla MD Eosinophils (Bld) [#/Vol] 0.362 10*3/uL Normal 15-500 [facility] Comment on above: Performed By: #### 8 23, 822, 809, 375, 6399 #### [facility] of [place] [address] Questioned Documents Examiner: Teofilo Quintanilla MD Eosinophils/100 WBC (Bld) 5.4 % Normal [facility] Comment on above: Performed By: #### 8 23, 822, 809, 375, 6399 #### [facility] of [place] [address] Questioned Documents Examiner: Teofilo Quintanilla MD Hematocrit (Bld) [Volume fraction] 41.7 % Normal 35.0-45.0 [facility] Comment on above: Performed By: #### 8 23, 822, 809, 375, 6399 #### [facility] of [place] [address] Questioned Documents Examiner: Teofilo Quintanilla MD Hemoglobin (Bld) [Mass/Vol] 13.0 g/dL Normal 11.7-15. 5 [facility] Comment on above: Performed By: #### 8 23, 822, 809, 375, 6399 #### [facility] of [place] [address] Questioned Documents Examiner: Teofilo Quintanilla MD Lymphocytes (Bld) [#/Vol] 2.057 10*3/uL Normal 850-390 0 [facility] Comment on above: Performed By: #### 8 23, 822, 809, 375, 6399 #### [facility] of [place] [address] Questioned Documents Examiner: Teofilo Quintanilla MD Lymphocytes/100 WBC (Bld) 30.7 % Normal [facility] Comment on above: Performed By: #### 8 23, 822, 809, 375, 6399 #### [facility] of [place] [address] Questioned Documents Examiner: Teofilo Quintanilla MD MCH (RBC) [Entitic mass] 25.1 pg Low 27.0-33.0 [facility] Comment on above: Performed By: #### 8 23, 822, 809, 375, 6399 #### [facility] [place] [address] Questioned Documents Examiner: Teofilo Quintanilla MD MCHC (RBC) [Mass/Vol] 31.2 [...] 809, 375, 6399 #### [facility] [place] [address] Questioned Documents Examiner: Teofilo Quintanilla MD MCV (RBC) [Entitic vol] 80.5 fL Normal 80.0-100.0 [facility] Comment on above: Performed By: #### 8 23, 822, 809, 375, 6399 #### [facility] [place] [address] Questioned Documents Examiner: Teofilo Quintanilla MD Monocytes (Bld) [#/Vol] 0.643 10*3/uL Normal 200-950 [facility] Comment on above: Performed By: #### 8 23, 822, 809, 375, 6399 #### [facility] [place] [address] Questioned Documents Examiner: Teofilo Quintanilla MD Monocytes/100 WBC (Bld) 9.6 % Normal [facility] Comment on above: Performed By: #### 8 23, 822, 809, 375, 6399 #### [facility] [place] [address] Questioned Documents Examiner: Teofilo Quintanilla MD Neutrophils (Bld) [#/Vol] 3.551 10*3/uL Normal 1500-78 00 [facility] Comment on above: Performed By: #### 8 23, 822, 809, 375, 6399 #### [facility] [place] [address] Questioned Documents Examiner: Teofilo Quintanilla MD Neutrophils/100 WBC (Bld) 53 % Normal [facility] Comment on above: Performed By: #### 8 23, 822, 809, 375, 6399 #### [facility] [place] [address] Questioned Documents Examiner: Teofilo Quintanilla MD Platelet mean volume (Bld) [Entitic vol] 9.6 fL Normal 7.5-12.5 [facility] Comment on above: Performed By: #### 8 23, 822, 809, 375, 6399 #### [facility] [place] [address] Questioned Documents Examiner: Teofilo Quintanilla MD Platelets (Bld) [#/Vol] 293 10*3/uL Normal 140-400 [facility] Comment on above: Performed By: #### 8 23, 822, 809, 375, 6399 #### [facility] [place] [address] Questioned Documents Examiner: Teofilo Quintanilla MD RBC (Bld) [#/Vol] 5.18 10*6/uL High 3.80-5.10 [facility] Comment on above: Performed By: #### 8 23, 822, 809, 375, 6399 #### [facility] [place] [address] Questioned Documents Examiner: Teofilo Quintanilla MD RDW Normal 11.0-15.0 [facility] Comment on above: Result Comment: Due to platelet or RBC variability in size or shape the result cannot be reported accurately. Performed By: #### 8 23, 822, 809, 375, 6399 #### [facility] [place] [address] Questioned Documents Examiner: Teofilo Quintanilla MD WBC (Bld) [#/Vol] 6.7 10*3/uL Normal 3.8-10.8 [facility] Comment on above: Performed By: #### 8 23, 822, 809, 375, 6399 #### [facility] [place] [address] Questioned Documents Examiner: Teofilo Quintanilla MD CBC and Differentialon 10-22 Basophils (Bld) [#/Vol] 87 10*3/uL [facility] Basophils/100 WBC (Bld) 1.3 % [facility] Eosinophils (Bld) [#/Vol] 362 10*3/uL [facility] Eosinophils/100 WBC (Bld) 5.4 % [facility] Erythrocyte distribution wid th (RBC) [Ratio] 11.0 - 15.0 % [facility] Comment on above: Due to platelet or R BC variability in size or shape the result cannot be reported accurately. Hematocrit (Bld) [Volume fraction] 41.7 % 35.0 - 45.0 % [facility] Hemoglobin (Bld) [Mass/Vol] 13 g/dL 11.7 - 15.5 g/dL [facility] Interpretation and review of laboratory results Abnormal [facility] Lymphocytes (Bld) [#/Vol] 2056 10*3/uL [facility] Lymphocytes/100 WBC (Bld) 30.7 % [facility] MCH (RBC) [Entitic mass] 25.1 pg Low 27. 0 - 33.0 pg [facility] MCHC (RBC) [Mass/Vol] 31.2 g/dL Low 32.0 - 36.0 g/dL [facility] Comment on above: For adults, a slight decrease in the calculated MCHC value (in the range of 30 to 32 g/dL) is most likely not clinically significant; however, it should be interpreted with caution in correlation with other red cell parameters and the patient's clinical condition. MCV (RBC) [Entitic vol] 80.5 fL 80.0 - 100.0 fL [facility] Monocytes (Bld) [#/Vol] 643 10*3/uL [facility] Monocytes/100 WBC (Bld) 9.6 % [facility] Neutrophils (Bld) [#/Vol] 3551 10*3/uL [facility] Neutrophils/100 WBC (Bld) 53 % [facility] Platelet mean volume (Bld) [Entitic vol] 9.6 fL 7.5 - 12.5 fL [facility] Platelets (Bld) [#/Vol] 293 10*3/uL [facility] RBC (Bld) [#/Vol] 5.18 10*6/uL High [facility] ealth WBC (Bld) [#/Vol] 6.7 10*3/uL [facility] alth [facility] CREATININEon 10-22-2024 Creatinine [Mass/Vol] 0.68 mg/dL Normal 0.50-0.99 [facility] [employer] Comment on above: Performed By: #### 6 399, 822, 823, 375, 809 #### [facility] [facility] [place], [address] [place], [place] [phone] Questioned Documents Examiner: Teofilo Quintanilla MD GFR/1.73 sq M.predicted ashlee g non-blacks MDRD (S/P/Bld) [Vol rate/Area] 110 mL/min/{1.73_m2} Normal > OR = 60 [facility] Comment on above: Performed By: #### 6 399, 822, 823, 375, 809 #### [facility] [address], [address] [place], [place] [phone] Questioned Documents Examiner: Teofilo Quintanilla MD CRP [Mass/Vol]on 10-22-2024 [facility] CRP, Inflammationon 10-23-19 25 CRP [Mass/Vol] 3.9 mg/L NINF - 8.0 mg/L [facility] Creatinine [Mass/Vol]on 09-28 GFR/1.73 sq M.predicted ashlee g non-blacks MDRD (S/P/Bld) [Vol rate/Area] 110 mL/min/{1.73_m2} > OR = 60 mL/min/1.7 3m2 [facility] Creatinine, serumon 10-23-19 Creatinine [Mass/Vol] 0.68 mg/dL 0.50 - 0.99 mg/dL [facility] ESR Westergren method (Bld) [Velocity]on 10-22-2024 ESR (Bld) [Velocity] 28 mm/h High < OR = 20 [facility] Interpretation and review of laboratory results Abnormal [facility] No Panel Informationon 10-22 [facility] SED RATE BY MODIFIED WESTERG RENon 10-22-2024 SED RATE BY MODIFIED WESTERGREN 28 mm/h High < OR = 20 [facility] Comment on above: Performed By: #### 6 399, 822, 823, 375, 809 #### [facility] [place] [phone] Questioned Documents Examiner: Teofilo Quintanilla MD [place] 07-09-2024 ALT [Catalytic activity/Vol] 11 U/L Normal - [facility] Comment on above: Performed By: #### 8 23, 822, 809, 375, 6399 #### [facility] [place] [address] Questioned Documents Examiner: Teofilo Quintanilla MD [place] 07-09-2024 AST [Catalytic activity/Vol] 13 U/L Normal 10-30 [facility] Comment on above: Performed By: #### 8 23, 822, 809, 375, 6399 #### [facility] [place] [address] Questioned Documents Examiner: Teofilo Quintanilla MD C-REACTIVE PROTEINon CRP [Mass/Vol] 17.8 mg/L High <8.0 [facility] Comment on above: Performed By: #### 8 23, 822, 809, 375, 6399 #### [facility] [place] [address] Questioned Documents Examiner: Teofilo Quintanilla MD CBC (INCLUDES DIFF/PLT)on Basophils (Bld) [#/Vol] 0.104 10*3/uL Normal 0-200 [facility] Comment on above: Performed By: #### 8 23, 822, 809, 375, 6399 #### [facility] [place] [address] Questioned Documents Examiner: Teofilo Quintanilla MD Basophils/100 WBC (Bld) 1.0 % Normal [facility] Comment on above: Performed By: #### 8 23, 822, 809, 375, 6399 #### [facility] [place] [address] Questioned Documents Examiner: Teofilo Quintanilla MD Eosinophils (Bld) [#/Vol] 0.146 10*3/uL Normal 15-500 [facility] Comment on above: Performed By: #### 8 23, 822, 809, 375, 6399 #### [facility] [place] [address] Questioned Documents Examiner: Teofilo Quintanilla MD Eosinophils/100 WBC (Bld) 1.4 % Normal [facility] Comment on above: Performed By: #### 8 23, 822, 809, 375, 6399 #### [facility] [place] [address] Questioned Documents Examiner: Teofilo Quintanilla MD Erythrocyte distribution wid th (RBC) [Ratio] 15.5 % High 11.0-15.0 [facility] Comment on above: Performed By: #### 8 23, 822, 809, 375, 6399 #### [facility] [place] [address] Questioned Documents Examiner: Teofilo Quintanilla MD Hematocrit (Bld) [Volume fraction] 34.1 % Low 35.0-45.0 [facility] Comment on above: Performed By: #### 8 23, 822, 809, 375, 6399 #### [facility] [place] [address] Questioned Documents Examiner: Teofilo Quintanilla MD Hemoglobin (Bld) [Mass/Vol] 10.1 g/dL Low 11.7-15. 5 [facility] Comment on above: Performed By: #### 8 23, 822, 809, 375, 6399 #### [facility] [place] [address] Questioned Documents Examiner: Teofilo Quintanilla MD Lymphocytes (Bld) [#/Vol] 4.118 10*3/uL High 850-390 0 [facility] Comment on above: Performed By: #### 8 23, 822, 809, 375, 6399 #### [facility] [place] [address] Questioned Documents Examiner: Teofilo Quintanilla MD Lymphocytes/100 WBC (Bld) 39.6 % Normal [facility] Comment on above: Performed By: #### 8 23, 822, 809, 375, 6399 #### [facility] [place] [address] Questioned Documents Examiner: Teofilo Quintanilla MD MCH (RBC) [Entitic mass] 23.7 pg Low 27.0-33.0 [facility] Comment on above: Performed By: #### 8 23, 822, 809, 375, 6399 #### [facility] [place] [address] Questioned Documents Examiner: Teofilo Quintanilla MD MCHC (RBC) [Mass/Vol] 29.6 [...] 822, 809, 375, 6399 #### [facility] [place] [address] Questioned Documents Examiner: Teofilo Quintanilla MD MCV (RBC) [Entitic vol] 80.0 fL Normal 80.0-100.0 [facility] Comment on above: Performed By: #### 8 23, 822, 809, 375, 6399 #### [facility] [place] [address] Questioned Documents Examiner: Teofilo Quintanilla MD Monocytes (Bld) [#/Vol] 0.738 10*3/uL Normal 200-950 [facility] Comment on above: Performed By: #### 8 23, 822, 809, 375, 6399 #### [facility] [place] [address] Questioned Documents Examiner: Teofilo Quintanilla MD Monocytes/100 WBC (Bld) 7.1 % Normal [facility] Comment on above: Performed By: #### 8 23, 822, 809, 375, 6399 #### [facility] [place] [address] Questioned Documents Examiner: Teofilo Quintanilla MD Neutrophils (Bld) [#/Vol] 5.294 10*3/uL Normal 1500-78 00 [facility] Comment on above: Performed By: #### 8 23, 822, 809, 375, 6399 #### [facility] [place] [address] Questioned Documents Examiner: Tefoilo Quintanilla MD Neutrophils/100 WBC (Bld) 50.9 % Normal [facility] Comment on above: Performed By: #### 8 23, 822, 809, 375, 6399 #### [facility] [place] [address] Questioned Documents Examiner: Teofilo Quintanilla MD Platelet mean volume (Bld) [Entitic vol] 9.1 fL Normal 7.5-12.5 [facility] Comment on above: Performed By: #### 8 23, 822, 809, 375, 6399 #### [facility] [place] [address] Questioned Documents Examiner: Teofilo Quintanilla MD Platelets (Bld) [#/Vol] 415 10*3/uL High 140-400 [facility] Comment on above: Performed By: #### 8 23, 822, 809, 375, 6399 #### [facility] [place] [address] Questioned Documents Examiner: Teofilo Quintanilla MD RBC (Bld) [#/Vol] 4.26 10*6/uL Normal 3.80-5.10 [facility] Comment on above: Performed By: #### 8 23, 822, 809, 375, 6399 #### [facility] [place] [address] Questioned Documents Examiner: Teofilo Quintanilla MD WBC (Bld) [#/Vol] 10.4 10*3/uL Normal 3.8-10.8 [facility] Comment on above: Performed By: #### 8 23, 822, 809, 375, 6399 #### [facility] [place] [address] Questioned Documents Examiner: Teofilo Quintanilla MD CREATININEon 07-09-2024 Creatinine [Mass/Vol] 0.71 mg/dL Normal 0.50-0.[address] [facility] Comment on above: Performed By: #### 8 23, 822, 809, 375, 6399 #### [facility] [place] [address] Questioned Documents Examiner: Teofilo Quintanilla MD GFR/1.73 sq M.predicted ashlee g non-blacks MDRD (S/P/Bld) [Vol rate/Area] 108 mL/min/{1.73_m2} Normal > OR = 60 [facility] Comment on above: Performed By: #### 8 23, 822, 809, 375, 6399 #### [facility] [place] [address] Questioned Documents Examiner: Teofilo Quintanilla MD SED RATE BY MODIFIED WESTERG RENon 07-09-2024 SED RATE BY MODIFIED WESTERGREN 63 mm/h High < OR = 20 [facility] Comment on above: Performed By: #### 8 23, 822, 809, 375, 6399 #### [facility] of [address], [address] [place] [address] Questioned Documents Examiner: Teofilo Quintanilla MD MTB SCREENon 07-08-2024 MITOGEN-NIL 9.9713 IU/mL Normal [facility] Comment on above: Performed By: #### L [id number] #### [facility] [address] [place] [address] Luan Uribe M.D. [id number] MTB SCREEN INTERPRETATION Negative Normal Negative [facility] Comment on above: Result Comment: No I FN-gamma response to M tuberculosis antigens was detected. Latent infection with M tuberculosis is unlikely. A single negative result does not exclude infection with M tuberculosis. In patients at high risk for M tuberculosis infection,a second test should be considered Performed By: #### L [id number] #### [facility] [address] [place] [address] Luan Uribe M.D. [id number] NIL 0.0287 IU/mL Normal [facility] Comment on above: Performed By: #### L [id number] #### [facility] [address] [place] [address] Luan Uribe M.D. [id number] TB1-NIL 0.0548 IU/mL Normal 0.00 0.34 [facility] Comment on above: Performed By: #### L [id number] #### [facility] [address] [place] [address] Luan Uribe M.D. [id number] TB2-NIL 0.0624 IU/mL Normal 0.00 0.34 [facility] Comment on above: Result Comment: [...] out TB Infection. Performed By: #### L [id number] #### [facility] [address] [place] [address] Luan Uribe M.D. [id number] No Panel InformationOrdered By: Yeni Hodges on 07-06-2024 Quick Strep (POC) [facility] MM special view RT w/CADon 0 04-08-2024 MM special view RT w/CAD [facility] Main [address] [address] Ultrasound Report Signed Patient: Robbie Willson MR#: [id number] 63 : 1980 Acct:[id number] Age/Sex: 43 / F ADM Date: 04/08/24 Loc: [place] Room: [facility] Attending Dr: Norma Mirza MEDICAL IMAGING TECHNICIAN-C Ordering Provider: Norma Mirza CNP Date of Service: 04/08/24 MM/MM special view RT w/CAD: R92.8 ([id number]) US/US breast RT limited: R92.8 Copies to: [...] Vladimir Tyson M.D.04/08/2024 11:50 AM Dictation Location: [facility] Tech: Radha Milton Transcribed By: ADAN 04/08/24 1150 Dictated By: Vladimir Tyson DO 04/08/24 1148 Signed By: 04/08/24 1150 Normal [facility] MM screening mammo BI w/CADo n 03-15-2024 MM screening mammo BI w/CAD [facility] [place] [address] Mammography Report Signed Patient: Robbie Willson MR#: [id number] 63 : 1980 Acct:[id number] Age/Sex: 43 / F ADM Date: 03/15/24 Loc: [place] Room: Type: REG CLI Attending Dr: Referral [...] Dayo Crenshaw M.D.03/15/2024 1:22 PM Dictation Location: [facility] Transcribed By: [facility] 03/15/24 1322 Dictated By: Dayo Crenshaw MD 03/15/24 1314 Signed By: 03/15/24 1322 Normal [facility] Mammography reportOrdered By : Dayo Crenshaw on 03-15-2024 Diagnostic imaging study [facility] [place] [address] Mammography Report Signed Patient: Robbie Willson MR#: [id number] : 1980 Acct:[id number] Age/Sex: 43 / F ADM Date: 5 Loc: MA Room: Type: REG CLI Attending Dr: Referral [...] Dayo Crenshaw M.D.03/15/2024 1:22 PM Dictation Location: [facility] Transcribed By: ADAN 03/15/24 1322 Dictated By: Dayo Crenshaw MD 03/15/24 1314 Signed By: 03/15/24 1322 [facility] Work Phone: X-ray reportOrdered By: Praneeth العراقي on 03-15-2024 Study report [facility] [place] [address] XRay Report Signed Patient: Robbie Willson MR#: [id number] : 1980 Acct:[id number] Age/Sex: 43 / F ADM Date: 5 Loc: XD Room: Type: [facility] Attending Dr: Norma Mirza MEDICAL IMAGING TECHNICIAN-C Copies to: Norma Mirza CNP~ Ordering Provider: [...] العراقي Jr, DO 03/15/241552 Signed By: 03/15/241552 [facility] XR shoulder LT min 2V*on XR shoulder LT min 2V* [facility] [place] [address] XRay Report Signed Patient: Robbie Willson MR#: [id number] [birth year] : 1980 Acct:[id number] Age/Sex: 43 / F ADM Date: 03/15/24 Loc: XD Room: Type: [facility] Attending Dr: Norma Mirza MEDICAL IMAGING TECHNICIAN-C Copies to: Norma Mirza CNP Ordering Provider: [...] العراقي Jr DO 03/15/241552 Signed By: 03/15/241552 [place] [facility] [place] 11-14-2023 ALT [Catalytic activity/Vol] 12 U/L 0-35 U/ L [facility] ALT [Catalytic activity/Vol] 12 U/L Normal 0-35 U/ L [facility] Comment on above: Performed By: #### 4 [id number] #### [facility] [address] [place] [address] Rosemarie Fischer M.D. [id number] [place] 11-14-2023 AST [Catalytic activity/Vol] 15 U/L 0-35 U/ L [facility] AST [Catalytic activity/Vol] 15 U/L Normal 0-35 U/ L [facility] Comment on above: Performed By: #### 4 5131 #### [facility] [address] [address] Rosemarie Fischer M.D. [id number] CBC WITH AUTO DIFFERENTIALon 11-14-2023 AUTO NRBC 0.0 % Normal [facility] Comment on above: Performed By: #### L [id number] #### [facility] [address] [address] Rosemarie Fischer M.D. [id number] AUTO NRBC ABS COUNT 0.00 K/mcL Normal 0.00-0.00 [facility] Comment on above: Performed By: #### L [id number] #### [facility] [address] [address] Rosemarie Fischer M.D. [id number] BASOPHILS ABSOLUTE COUNT 0.07 K/mcL Normal 0.00-0.30 [facility] Comment on above: Performed By: #### L [id number] #### [facility] [address] [address] Rosemarie Fischer M.D. [id number] Basophils/100 WBC (Bld) 0.9 % Normal [facility] Comment on above: Performed By: #### L [id number] #### [facility] [address] [address] Rosemarie Fischer M.D. [id number] Eosinophils (Bld) [#/Vol] 0.66 10*3/uL High 0.00-0.5 0 [facility] Comment on above: Performed By: #### L [id number] #### [facility] [address] [place] [address] Rosemarie Fischer M.D. [id number] Eosinophils/100 WBC (Bld) 8.9 % Normal [facility] Comment on above: Performed By: #### L [id number] #### [facility] [address] [address] Rosemarie Fischer M.D. [id number] Erythrocyte distribution wid th (RBC) [Ratio] 15.0 % High 11.6-14.8 [facility] Comment on above: Performed By: #### L [id number] #### [facility] [address] [address] Rosemarie Fischer M.D. [id number] Hematocrit (Bld) [Volume fraction] 40.0 % Normal 36.0-46.0 [facility] Comment on above: Performed By: #### L [id number] #### [facility] [address] [address] Rosemarie Fischer M.D. [id number] Hemoglobin (Bld) [Mass/Vol] 12.9 g/dL Normal 12.0-16. 0 [facility] Comment on above: Performed By: #### L [id number] #### [facility] [address] [address] Rosemarie Fischer M.D. [id number] IG ABSOLUTE 0.02 K/mcL Normal 0.00-0.30 [facility] Comment on above: Performed By: #### L [id number] #### [facility] [address] [address] Rosemarie Fischer M.D. [id number] IG PERCENT 0.30 % Normal [facility] Comment on above: Result Comment: The IG parameter is the percentage of metamyelocytes, myelocytes and promyelocytes. An immature granulocyte count (IG) of 1% or more suggests the possibility of infection, an IG count of 3% is very likely related to an infection. Performed By: #### L [id number] #### [facility] [address] [address] Rosemarie Fischer M.D. [id number] Lymphocytes (Bld) [#/Vol] 2.40 10*3/uL Normal 0.90-4.0 0 [facility] Comment on above: Performed By: #### L [id number] #### [facility] [address] [place], [place] [address] Rosemarie Fischer M.D. [id number] Lymphocytes/100 WBC (Bld) 32.3 % Normal [facility] Comment on above: Performed By: #### L [id number] #### [facility] [address] [place], [place] [address] Rosemarie Fischer M.D. [id number] MCH (RBC) [Entitic mass] 26.7 pg Normal 26.0-34.0 [facility] Comment on above: Performed By: #### L [id number] #### [facility] [address] [place], [place] [address] Rosemarie Fischer M.D. [id number] MCV (RBC) [Entitic vol] 82.8 fL Normal 80.0-100.0 [facility] Comment on above: Performed By: #### L [id number] #### [facility] [address] [place], [place] [address] Rosemarie Fischer M.D. [id number] MEAN CORPUSCULAR HEMOGLOBIN CONC 32.3 g/dL Normal 31.0-37.0 [facility] Comment on above: Performed By: #### L [id number] #### [facility] [address] [place], [place] [address] Rosemarie Fischer M.D. [id number] Monocytes (Bld) [#/Vol] 0.73 10*3/uL Normal 0.30-0.90 [facility] Comment on above: Performed By: #### L [id number] #### [facility] [address] [place], [place] [address] Rosemarie Fischer M.D. [id number] Monocytes/100 WBC (Bld) 9.8 % Normal [facility] Comment on above: Performed By: #### L [id number] #### [facility] [address] [place] [address] Rosemarie Fischer M.D. [id number] NEUTROPHILS ABSOLUTE COUNT 3.54 K/mcL Normal 1.70-7.00 [facility] Comment on above: Performed By: #### L [id number] #### [facility] [address] [place], [place] [address] Rosemarie Fischer M.D. [id number] Neutrophils/100 WBC (Bld) 47.8 % Normal [facility] Comment on above: Performed By: #### L [id number] #### [facility] [address] [place], [place] [address] Rosemarie Fischer M.D. [id number] Platelet mean volume (Bld) [Entitic vol] 9.9 fL Normal 9.4-12.4 [facility] Comment on above: Performed By: #### L [id number] #### [facility] [address] [place], [place] [address] Rosemarie Fischer M.D. [id number] Platelets (Bld) [#/Vol] 359 10*3/uL Normal 150-400 [facility] Comment on above: Performed By: #### L [id number] #### [facility] [address] [place], [place] [address] Rosemarie Fischer M.D. [id number] RBC (Bld) [#/Vol] 4.83 10*6/uL Normal 4.00-5.20 [facility] Comment on above: Performed By: #### L [id number] #### [facility] [address] [place], [place] [address] Rosemarie Fischer M.D. [id number] WBC (Bld) [#/Vol] 7.42 10*3/uL Normal 4.50-11.00 [facility] Comment on above: Performed By: #### L [id number] #### [facility] [address] [place], [place] [address] Rosemarie Fischer M.D. [id number] CREATININE, SERUMon 11-14-19 24 Creatinine [Mass/Vol] 0.65 mg/dL Normal 0.40-1.10 [facility] Comment on above: Order Comment: [facility] [place] [facility] has implemented the eGFR calculation approach that does not have a coefficient for race that conforms to the NKF-ASN Task Force Recommendations. Performed By: #### 4 5336 #### [facility] [address] [place], [place] [address] Rosemarie Fischer M.D. [id number] EGFR 112 mL/min/1.73 m2 Normal >=60 [facility] Comment on above: Order Comment: [facility] [place] [facility] has implemented the eGFR calculation approach that does not have a coefficient for race that conforms to the NKF-ASN Task Force Recommendations. Result Comment: Deyanira mated GFR was calculated using the 2020 CKD-EPI creatinine equation. Performed By: #### 4 5336 #### [facility] [address] [place], [place] [address] Rosemarie Fischer M.D. [id number] Creatinine [Mass/Vol]on 10-28 GFR/1.73 sq M.predicted CKD- EPI (S/P/Bld) [Vol rate/Area] 112 - PINF [facility] Comment on above: Estimated GFR was ca lculated using the 2020 CKD-EPI creatinine equation. [facility] has implemented the eGFR calculation approach that does not have a coefficient for race that conforms to the NKF-ASN Task Force Recommendations. [facility] Creatinine, serumon 11-14-19 Creatinine [Mass/Vol] 0.65 mg/dL 0.40 - 1.10 mg/dL [facility] IRON STUDY WITH FERRITINon 0 11-14-2023 Ferritin [Mass/Vol] 30 ng/mL Normal 13-150 [facility] Comment on above: Performed By: #### 4 [id number] #### [facility] [address] [place], [place] [address] Rosemarie Fischer M.D. [id number] Iron [Mass/Vol] 44 ug/dL Normal 30-160 [facility] Comment on above: Performed By: #### 4 7645 #### [facility] [address] [place], [place] [address] Rosemarie Fischer M.D. [id number] IRON SATURATION 15 % Low 20-50 [facility] Comment on above: Performed By: #### 4 7645 #### [facility] [address] [place], [place] [address] Rosemarie Fischer M.D. [id number] TIBC (CALCULATED) 295 mcg/dL Normal 225-430 [facility] Comment on above: Performed By: #### 4 7645 #### [facility] [address] [place], [place] [address] Rosemarie Fischer M.D. [id number] Iron Study with Ferritinon 0 11-14-2023 Ferritin [Mass/Vol] 30 ng/mL 13 - 150 ng/mL [facility] Interpretation and review of laboratory results Abnormal [facility] Iron [Mass/Vol] 44 ug[facility] capacity [Mass/Vol] 295 [facility] Iron saturation [Mass fraction] 15 % Low 20 - 50 % [facility] No Panel Informationon 11-13 Interpretation and review of laboratory results Normal [facility] XR hand RT min 3V*on 024 XR hand RT min 3V* [facility] [place] [address] XRay Report Signed Patient: Robbie Willson MR#: [id number] [birth year] : 1980 Acct:[id number] Age/Sex: 42 / F ADM Date: 07/23/23 Loc: XDUCLY Room: Type: [facility] Attending Dr: Acacia Preciado APRN Copies to: [...] Melony Cason M.D.07/23/2023 12:18 PM Dictation Location: [place] [address] Transcribed By: [facility] 07/23/23 1218 Dictated By: Melony Cason MD 07/23/23 1218 Signed By: 07/23/23 1218 Normal [facility] [place] 04-03-2023 ALT [Catalytic activity/Vol] 12 U/L 0-35 U/ L [facility] [place] 04-03-2023 AST [Catalytic activity/Vol] 16 U/L 0-35 U/ L [facility] Creatinine [Mass/Vol]on GFR/1.73 sq M.predicted CKD- EPI (S/P/Bld) [Vol rate/Area] 111 - PINF [facility] Comment on above: Estimated GFR was ca lculated using the 2020 CKD-EPI creatinine equation. [facility] has implemented the eGFR calculation approach that does not have a coefficient for race that conforms to the NKF-ASN Task Force Recommendations. [facility] Creatinine, serumon 04-03-19 Creatinine [Mass/Vol] 0.70 mg/dL 0.40 - 1.10 mg/dL [facility] No Panel Informationon 04-03 Interpretation and review of laboratory results Normal [facility] Comprehensive metabolic 2000 panelon 06-27-2022 Albumin [Mass/Vol] 3.3 g/dL 3.2 - 5.2 g/dL [facility] ALP [Catalytic activity/Vol] 77 U/L 40 - 150 U/L [facility] ALT [Catalytic activity/Vol] 27 U/L 14 - 65 U/L [facility] Anion gap [Moles/Vol] 7 mmol/L Low 10 - 2 0 mmol/L [facility] AST [Catalytic activity/Vol] 19 U/L 0 - 45 U/L [facility] Bilirubin [Mass/Vol] 0.3 mg/dL 0.0 - 1 .3 mg/dL [facility] Calcium [Mass/Vol] 8.5 mg/dL 8.4 - 10. 2 mg/dL [facility] Chloride [Moles/Vol] 106 mmol/L 98 - 10 8 mmol/L [facility] Creatinine [Mass/Vol] 0.64 mg/dL 0.40 - 1.10 mg/dL [facility] GFR/1.73 sq M.predicted CKD- EPI (S/P/Bld) [Vol rate/Area] 114 - PINF [facility] Comment on above: Estimated GFR was ca lculated using the 2020 CKD-EPI creatinine equation. Glucose [Mass/Vol] 82 mg/dL 65 - 99 mg/dL [facility] HCO3 [Moles/Vol] 25 mmol/L 21 - 32 mmol/L [facility] Interpretation and review of laboratory results Abnormal [facility] Potassium [Moles/Vol] 3.6 mmol/L 3.5 - 5.1 mmol/L [facility] Protein [Mass/Vol] 7.3 g/dL 6.0 - 8.0 g/dL [facility] Sodium [Moles/Vol] 134 mmol/L Low 135 - 145 mmol/L [facility] Urea nitrogen [Mass/Vol] 9 mg/dL 8 - 25 mg/dL [facility] Urea nitrogen/Creatinine [Ma ss ratio] 14.1 mg/mg 10.0 - 20.0 [facility] has implemented the eGFR calculation approach that does not have a coefficient for race that conforms to the NKF-ASN Task Force Recommendations. [facility] INSULINon 01-11-2022 Insulin 24.4 uIU/mL Normal 2.6-24.9 [facility] Comment on above: Performed By: #### I NSULIN ####[facility] [address] [place] [address]Dr. Ghassan Beckham CBC AUTO DIFFon 01-10-2022 BASO # 0.1 103/ul Normal 0.0-0.1 [facility] Comment on above: Performed By: #### C BC #### [facility] [address] [place] [address] Dr. Ghassan Beckham Basophils/100 WBC (Bld) 1.3 % Normal 0.2-2.0 [facility] Comment on above: Performed By: #### C BC #### [facility] [address] [address] [address] Ghassan Beckham EO # 0.6 103/ul Normal 0.0-0.7 [facility] Comment on above: Performed By: #### C BC #### [facility] [address] [address] [address] Ghassan Beckham Eosinophils/100 WBC (Bld) 9.2 % Critically high 0.9-7 .0 [facility] Comment on above: Performed By: #### C BC #### [facility] [address] [place] [address] Dr. Ghassan Beckham Erythrocyte distribution wid th (RBC) [Ratio] 14.7 % Normal 11.0-15.0 [facility] Comment on above: Performed By: #### C BC #### [facility] [address] [place] [address] Dr. Ghassan Beckham Hematocrit (Bld) [Volume fraction] 35.8 % Critically low 36.0-48.0 [facility] Comment on above: Performed By: #### C BC #### [facility] [address] [place] [address] Dr. Ghassan Beckham Hemoglobin (Bld) [Mass/Vol] 11.6 g/dL Critically low 12.0 -16.0 [facility] Comment on above: Performed By: #### C BC #### [facility] [address] [place] [address] Dr. Ghassan Beckham IG # 0.01 10e3/ul Normal 0.00-0.03 [facility] Comment on above: Performed By: #### C BC #### [facility] [address] [place] [address] Dr. Ghassan Beckham IG % 0.2 % Normal 0.0-0.5 [facility] Comment on above: Performed By: #### C BC #### [facility] [address] [place] [address] Dr. Ghassan Beckham LYMPH # 2.1 103/ul Normal 1.2-3.8 [facility] Comment on above: Performed By: #### C BC #### [facility] [address] [place] [address] Dr. Ghassan Beckham Lymphocytes/100 WBC (Bld) 32.6 % Normal 20.5-60.[address] [facility] Comment on above: Performed By: #### C BC #### [facility] [address] [place] [address] Dr. Ghassan Beckham MANUAL DIFF REQ NO Normal [facility] Comment on above: Performed By: #### C BC #### [facility] [address] [place] [address] Dr. Ghassan Beckham MCH (RBC) [Entitic mass] 26.2 pg Critically low 26.7-34 .0 [facility] Comment on above: Performed By: #### C BC #### [facility] [address] [place] [address] Dr. Ghassan Beckham MCHC (RBC) [Mass/Vol] 32.4 g/dL Normal 29.9-35.2 [facility] Comment on above: Performed By: #### C BC #### [facility] [address] [place] [address] Dr. Ghassan Beckham MCV (RBC) [Entitic vol] 80.8 fL Critically low 81.0-99. 0 [facility] Comment on above: Performed By: #### C BC #### [facility] [address] [place] [address] Dr. Ghassan Beckham MONO # 0.6 103/ul Normal 0.3-0.8 [facility] Comment on above: Performed By: #### C BC #### [facility] [address] [place] [address] Dr. Ghassan Beckham Monocytes/100 WBC (Bld) 9.7 % Normal 1.7-12.0 [facility] Comment on above: Performed By: #### C BC #### [facility] [address] [place] [address] Dr. Ghassan Beckham NEUT # 3.0 103/ul Normal 1.4-6.5 [facility] Comment on above: Performed By: #### C BC #### [facility] [address] [place] [address] Dr. Ghassan Beckham Neutrophils/100 WBC (Bld) 47.0 % Normal 43.0-75.0 [facility] Comment on above: Performed By: #### C BC #### [facility] [address] [place] [address] Dr. Ghassan Beckham Platelet mean volume (Bld) [Entitic vol] 9.5 fL Normal 9.5-13.5 [facility] Comment on above: Performed By: #### C BC #### [facility] [address] [place] [address] Dr. Ghassan Beckham PLT 305 103/ul Normal 150-450 [facility] Comment on above: Performed By: #### C BC #### [facility] [address] [place] [address] [address] Ghassan Beckham RBC 4.43 106/ul Normal 4.20-5.40 [facility] Comment on above: Performed By: #### C BC #### [facility] [address] [place] [address] [address] Ghassan Beckham WBC 6.3 103/ul Normal 4.0-11.0 [facility] Comment on above: Performed By: #### C BC #### [facility] [address] [place] [address] [address] Ghassan Beckham FREE THYROXINE INDEX T7on FTI 2.01 Normal 1.30-4.50 [facility] Comment on above: Performed By: #### T SH, T7, CMP, LIPID ####[facility] [address] [place] [address]Dr. Ghassan Beckham T3U 30.0 % Normal 30.0-39.0 [facility] Comment on above: Performed By: #### T SH, T7, CMP, LIPID ####[facility] [address] [place] [address]Dr. Ghassan Beckham T4 [Mass/Vol] 6.70 ug/dL Normal 4.80-13.90 [facility] Comment on above: Performed By: #### T SH, T7, CMP, LIPID ####[facility] [address] [place] [address]DrBrown Beckham GLYCOHEMOGLOBIN A1Con 2021 ADA RECOMMENDATION SEE BELOW Normal [facility] [place] [facility] Comment on above: Result Comment: ADA RECOMMENDED LIMIT 4.0 - 6.0 ADA THERAPEUTIC TARGET < 7.0 ACTION SUGGESTED > 7.0 Performed By: #### A 1C ####[facility] [address] [place] [address]DrBrown Beckham Glucose [Mass/Vol] 111 mg/dL Normal [facility] [place] [facility] Comment on above: Performed By: #### A 1C ####[facility] [address] [place], [place] [address]PjBrown Beckham HbA1c (Bld) [Mass fraction] 5.5 % Normal 4.5-6.[address] [facility] Comment on above: Performed By: #### A 1C ####[facility] [address] [place], [place] [address]SrBrown Beckham IRONon 01-10-2022 Iron [Mass/Vol] 32.0 ug/dL Critically low 50.0-170.0 [facility] Comment on above: Performed By: #### V ITAD, IRON #### [facility] [address] [place], [place] [address] Dr. Ghassan Beckham LIPID PROFILEon 01-10-2022 CHOL-HDL RATIO NORM SEE BELOW Normal [facility] Comment on above: Result Comment: 3.3 - 4.4 LOW RISK 4.4 - 7.1 AVERAGE RISK 7.1 - 11.0 MODERATE RISK >11.0 HIGH RISK Performed By: #### T SH, T7, CMP, LIPID ####[facility] [address] [place], [place] [address]Eh. Ghassan Beckham Cholesterol [Mass/Vol] 201 mg/dL Critically high <=[address] [facility] Comment on above: Performed By: #### T SH, T7, CMP, LIPID ####[facility] [address] [place], [place] [address]Vo. Ghassan Beckham Cholesterol in HDL [Mass/Vol] 42 mg/dL Normal 40-[address] [facility] Comment on above: Performed By: #### T SH, T7, CMP, LIPID ####[facility] [address] [place], [place] [address]Uv. Ghassan Beckham Cholesterol in LDL [Mass/Vol] 129.8 mg/dL Normal [facility] Comment on above: Performed By: #### T SH, T7, CMP, LIPID ####[facility] [address] [place], [place] [address]Yl. Ghassan Beckham Cholesterol.total/Cholestero l in HDL [Mass ratio] 4.8 {ratio} Normal [facility] Comment on above: Performed By: #### T SH, T7, CMP, LIPID ####[facility] [address] [place] [id number]. Ghassan Beckham HDL NORMAL > or = 60 mg/dl - LOW CARDIOVASCULAR RISK <40 mg/dl - HIGH CARDIOVASCULAR RISK Normal [facility] Comment on above: Performed By: #### T SH, T7, CMP, LIPID ####[facility] [address] [place] [id number]. Ghassan Beckham LDL CALC NORMAL SEE BELOW Normal [facility] Comment on above: Result Comment: <100 mg/dl OPTIMAL 100 - 129 mg/dl NEAR OR ABOVE OPTIMAL 130 - 159 mg/dl BORDERLINE HIGH 160 - 189 mg/dl HIGH >190 mg/dl VERY HIGH Performed By: #### T SH, T7, CMP, LIPID ####[facility] [address] [place] [id number]. Ghassan Beckham Triglyceride [Mass/Vol] 146 mg/dL Normal <=150 [facility] Comment on above: Performed By: #### T SH, T7, CMP, LIPID ####[facility] [address] [place] [id number]. Ghassan Beckham VLDL CALC 29.2 mg/dL Normal [facility] Comment on above: Performed By: #### T SH, T7, CMP, LIPID ####[facility] [address] [place] [id number]. Ghassan Beckham MG MAMM SCREEN 3D ANA LUISA CADon 01-10-2022 MG MAMM SCREEN 3D ANA LUISA CAD Patient: ROBBIE FLORES Exam Date: 01/10/2022 : 1980 Gender:F Ordering : [facility] Admission #: [id number] Family : Order #: [id number] CLICK HERE TO VIEW EXAM RADIOLOGY REPORT PROCEDURE: MAMMOGRAM SCREENING 3D BILATERAL CAD COMPARISON: None. INDICATIONS: Screening mammography Calculator Name NCI Breast Cancer Risk Assessment Tool 5 Year Breast Cancer Risk 0.50% Lifetime Breast Cancer Risk 9.00% Personal Breast Cancer No Personal Ovarian Cancer No Treatments None Family Cancers Mother with non hodgekins lymphoma cancer at age 43. LOCATION: [facility] BREAST COMPOSITION: Scattered areas fibroglandular density. [...] Hart MD on 01/10/2022 at 15:31 Normal [facility] PROF 14(COMP METB)on 022 Albumin [Mass/Vol] 3.1 g/dL Critically low 3.4-5.0 [facility] Comment on above: Performed By: #### T SH, T7, CMP, LIPID ####[facility] [address] [place] [address]Dr. Ghassan Beckham Albumin/Globulin [Mass ratio] 0.8 {ratio} Normal [facility] Comment on above: Performed By: #### T SH, T7, CMP, LIPID ####[facility] [address] [place] [id number]. Ghassan Beckham ALP [Catalytic activity/Vol] 73 U/L Normal 46-116 [facility] [facility] Comment on above: Performed By: #### T SH, T7, CMP, LIPID ####[facility] If[address]jajdc[address] [place] [id number]. Ghassan Beckham ALT [Catalytic activity/Vol] 21 U/L Normal 14-59 [facility] Comment on above: Performed By: #### T SH, T7, CMP, LIPID ####[facility] Xvjwscugrt47[address] [place] [id number]. Ghassan Beckham Anion gap [Moles/Vol] 7.8 mmol/L Normal [facility] Comment on above: Performed By: #### T SH, T7, CMP, LIPID ####[facility] Cfexxmkonq66[address] [place] [id number]. Ghassan Beckham AST [Catalytic activity/Vol] 14 U/L Critically low 15- 37 [facility] Comment on above: Performed By: #### T SH, T7, CMP, LIPID ####[facility] L[address]fo[address]if[address] [place] [address]Dr. Ghassan Beckham Bilirubin [Mass/Vol] 0.2 mg/dL Normal 0.2-1.[address] [facility] Comment on above: Performed By: #### T SH, T7, CMP, LIPID ####[facility] Msaxkasobe[address] [place] [address]Dr. Ghassan Beckham Calcium [Mass/Vol] 7.4 mg/dL Critically low 8.5-10.[address] [facility] Comment on above: Performed By: #### T SH, T7, CMP, LIPID ####[facility] [address] [place], [place] [address]Dr. Ghassan Beckham Chloride [Moles/Vol] 104 mmol/L Normal 98-[address] [facility] Comment on above: Performed By: #### T SH, T7, CMP, LIPID ####[facility] [address] [place], [place] [address]Dr. Ghassan Beckham CO2 [Moles/Vol] 29.6 mmol/L Normal 21.0-32.0 [facility] Comment on above: Performed By: #### T SH, T7, CMP, LIPID ####[facility] [address] [place], [place] [address]Dr. Ghassan Beckham Creatinine [Mass/Vol] 0.65 mg/dL Normal 0.55-1.[address] [facility] Comment on above: Performed By: #### T SH, T7, CMP, LIPID ####[facility] [address] [place] [address]Dr. Ghassan Beckham EGFR-AF OMANI >60 Normal >=60 [facility] Comment on above: Performed By: #### T SH, T7, CMP, LIPID ####[facility] [address] [place], [place] [address]Dr. Ghassan Beckham EGFR-NON AF OMANI >60 Normal >=[address] [facility] Comment on above: Performed By: #### T SH, T7, CMP, LIPID ####[facility] [address]uk[address] [place] [address]Dr. Ghassan Beckham Globulin (S) [Mass/Vol] 3.7 g/dL Normal [facility] Comment on above: Performed By: #### T SH, T7, CMP, LIPID ####[facility] F[address]krcyytmr[address] [place] [address]Dr. Ghassan Beckham Glucose [Mass/Vol] 93 mg/dL Normal 74-106 [facility] [place] [facility] Comment on above: Performed By: #### T SH, T7, CMP, LIPID ####[facility] Pdpkporfml[address] [place] [address]Dr. Ghassan Beckham Potassium [Moles/Vol] 3.4 mmol/L Critically low 3.5-5.1 [facility] Comment on above: Performed By: #### T SH, T7, CMP, LIPID ####[facility] [address] [place], [place] [address]Dr. Ghassan Beckham Protein [Mass/Vol] 6.8 g/dL Normal 6.4-8.2 [facility] [place] [facility] Comment on above: Performed By: #### T SH, T7, CMP, LIPID ####[facility] [address]wrx[address]ed[address] [place] [address]Dr. Ghassan Beckham Sodium [Moles/Vol] 138 mmol/L Normal 136-145 [facility] [place] [facility] Comment on above: Performed By: #### T SH, T7, CMP, LIPID ####[facility] [address]lie[address] [place] [address]Dr. Ghassan Beckham Urea nitrogen [Mass/Vol] 11.0 mg/dL Normal 7.0-18.0 [facility] Comment on above: Performed By: #### T SH, T7, CMP, LIPID ####[facility] X[address]rahvw[address] [place] [address]Dr. Ghassan Beckham Urea nitrogen/Creatinine [Ma ss ratio] 16.9 mg/mg Normal [facility] Comment on above: Performed By: #### T SH, T7, CMP, LIPID ####[facility] [address]grpblwm[address] [place] [address]Dr. Ghassan Beckham TSHon 01-10-2022 TSH 0.908 uIU/mL Normal 0.358-3.[address] [facility] Comment on above: Performed By: #### T SH, T7, CMP, LIPID ####[facility] [address]sx[address] [place], [place] [address]Dr. Ghassan Beckham VITAMIN D 25 OHon 01-10-2022 VIT D 25-OH 16.6 ng/mL Normal [facility] Comment on above: Performed By: #### V ITAD, IRON #### [facility] [address] [place], [place] [address] Dr. Ghassan Beckham VIT D RANGES SEE BELOW Normal [facility] Comment on above: Result Comment: <20 ng/mL Vit D deficient 20 - <30 ng/mL Vit D insufficient 30 - 100 ng/mL Vit D sufficient >100 ng/mL Potential Toxicity Performed By: #### V ITAD, IRON #### [facility] [address] [place], [place] [address] Dr. Ghassan Beckham Pardeep 04-19-2021 ALT [Catalytic activity/Vol] 21 U/L 14 - 65 U/L [facility] [place] 04-19-2021 AST [Catalytic activity/Vol] 18 U/L 0 - 45 U/L [facility] Creatinine [Mass/Vol]on 03-31 GFR/1.73 sq M.predicted CKD- EPI (S/P/Bld) [Vol rate/Area] 103 >=60 mL/min/1.7 3 m2 [facility] The eGFR should be used for monitoring renal function only and not for medication dosing. [facility] Creatinine, serumon 04-19-19 Creatinine [Mass/Vol] 0.73 mg/dL 0.40 - 1.10 [facility] No Panel Informationon 04-19 Interpretation and review of laboratory results Normal [facility] US PELVIS TRANSVAGon 022 US PELVIS TRANSVAG [...] 2 months to document resolution Normal [facility] CBC AUTO DIFFon 03-15-2021 BASO # 0.1 103/ul Normal 0.0-0.[address] [facility] Comment on above: Performed By: #### C BC ####[facility] W[address]cpdss[address] [place] [address]Dr. Ghassan Beckham Basophils/100 WBC (Bld) 1.3 % Normal 0.2-2.0 [facility] Comment on above: Performed By: #### C BC ####[facility] [address] [place] [address]DrBrown Beckham EO # 0.4 103/ul Normal 0.0-0.[address] [facility] Comment on above: Performed By: #### C BC ####[facility] Ieqxiafqor[address] [place] [address]DrBrown Beckham Eosinophils/100 WBC (Bld) 4.4 % Normal 0.9-7.[address] [facility] Comment on above: Performed By: #### C BC ####[facility] X[address]iaivbgi[address] [place] [address]DrBrown Beckham Erythrocyte distribution wid th (RBC) [Ratio] 20.8 % Critically high 11.0-15.0 [facility] Comment on above: Performed By: #### C BC ####[facility] Fchtntowlx87[address] [place] [address]DrBrown Beckham Hematocrit (Bld) [Volume fraction] 33.6 % Critically low 36.0-48.0 [facility] Comment on above: Performed By: #### C BC ####[facility] [address]mfvbphe[address] [place] [address]Dr. Winifredalondra Beckham Hemoglobin (Bld) [Mass/Vol] 10.3 g/dL Critically low 12.0 -16.0 [facility] Comment on above: Performed By: #### C BC ####[facility] Ekvfnfqkoj[address] [place] [address]Dr. Ghassan Beckham IG # 0.02 10e3/ul Normal 0.00-0.03 [facility] Comment on above: Performed By: #### C BC ####[facility] [address] [place], [place] [address]Dr. Ghassan Beckham IG % 0.3 % Normal 0.0-0.5 [facility] Comment on above: Performed By: #### C BC ####[facility] [address] [place], [place] [address]Dr. Ghassan Beckham LYMPH # 1.9 103/ul Normal 1.2-3.[address] [facility] Comment on above: Performed By: #### C BC ####[facility] [address]uf[address] [place], [place] [address]Dr. Ghassan Beckham Lymphocytes/100 WBC (Bld) 23.6 % Normal 20.5-60.0 [facility] Comment on above: Performed By: #### C BC ####[facility] [address] [place], [place] [address]Dr. Ghassan Beckham MANUAL DIFF REQ NO Normal [facility] Comment on above: Performed By: #### C BC ####[facility] [address]gc[address] [place], [place] [address]Dr. Ghassan Beckham MCH (RBC) [Entitic mass] 23.7 pg Critically low 26.7-[address] [facility] Comment on above: Performed By: #### C BC ####[facility] [address]wia[address] [place], [place] [address]Dr. Ghassan Beckham MCHC (RBC) [Mass/Vol] 30.7 g/dL Normal 29.9-35.2 [facility] Comment on above: Performed By: #### C BC ####[facility] [address]fu[address] [place], [place] [address]DrBrown Beckham MCV (RBC) [Entitic vol] 77.2 fL Critically low 81.0-99. 0 [facility] Comment on above: Performed By: #### C BC ####[facility] [address]pa[address] [place], [place] [address]DrBrown Beckham MONO # 0.6 103/ul Normal 0.3-0.8 [facility] Comment on above: Performed By: #### C BC ####[facility] [address] [place], [place] [address]DrBrown Beckham Monocytes/100 WBC (Bld) 7.1 % Normal 1.7-12.0 [facility] Comment on above: Performed By: #### C BC ####[facility] [address] [place], [place] [address]DrBrown Beckham NEUT # 5.0 103/ul Normal 1.4-6.5 [facility] Comment on above: Performed By: #### C BC ####[facility] [address] [place], [place] [address]DrBrown Beckham Neutrophils/100 WBC (Bld) 63.3 % Normal 43.0-75.0 [facility] Comment on above: Performed By: #### C BC ####[facility] [address] [place], [place] [address]DrBrown Beckham Platelet mean volume (Bld) [Entitic vol] 8.6 fL Critically low 9.5-13.5 [facility] Comment on above: Performed By: #### C BC ####[facility] [address] [place], [place] [address]DrBrown Beckham PLT 370 103/ul Normal 150-[address] [facility] Comment on above: Performed By: #### C BC ####[facility] [address] [place], [place] [address]DrBrown Beckham RBC 4.35 106/ul Normal 4.20-5.40 [facility] Comment on above: Performed By: #### C BC ####[facility] [address] [place] [address]Dr. Ghassan Beckham WBC 7.9 103/ul Normal 4.0-11.0 [facility] Comment on above: Performed By: #### C BC ####[facility] [address]so[address] [place] [address]Dr. Ghassan Beckham FREE THYROXINE INDEX T7on FTI 2.76 Normal [facility] Comment on above: Performed By: #### P REGQNT, TSH, T7 #### [facility] [address] [place] [address] [address] Ghassan Beckham T3U 30.0 % Normal 23.5-40.5 [facility] Comment on above: Performed By: #### P REGQNT, TSH, T7 #### [facility] [address] [place] [address] [address] Ghassan Beckham T4 [Mass/Vol] 9.20 ug/dL Normal 5.53-11.00 [facility] Comment on above: Performed By: #### P REGQNT, TSH, T7 #### [facility] [address] [place] [address] [address] Ghassan Beckham PREG QUANT HCGon 03-15-2021 HCG QUANT 1 mIU/mL Normal [facility] Comment on above: Performed By: #### P REGQNT, TSH, T7 #### [facility] [address] [place] [address] Dr. Ghassan Beckham HCG RANGE SEE BELOW Normal [facility] Comment on above: Result Comment: 5-50 0-1 WEEK 40-300 1-2 WEEKS 100-1,000 2-3 WEEKS 500-6,000 3-4 WEEKS 5,000-200,000 1-2 MONTHS 10,000-100,000 2-3 MONTHS 3,000-50,000 2ND TRIMESTER 1,000-50,000 3RD TRIMESTER Performed By: #### P REGQNT, TSH, T7 #### [facility] [address] [place] [address] [address] Ghassan Beckham PROTIMEon 03-15-2021 INR Coag (PPP) [Relative time] 0.97 {INR} Normal [facility] Comment on above: Performed By: #### P T, PTT #### [facility] [address] [place] [address] Dr. Ghassan Beckham INR GUIDELINES SEE BELOW Normal [facility] Comment on above: Result Comment: SARAH RED INR: 2.0 - 3.0 CONDITIONS NOT LISTED BELOW 2.5 - 3.5 FOR PROSTHETIC HEART VALVE REPLACEMENT 2.5 - 3.5 RECURRENT THROMBOSIS Performed By: #### P T, PTT #### [facility] [address] [place] [address] Dr. Ghassan Beckham PT Coag (PPP) [Time] 10.5 s Normal 9.0-11.6 [facility] Comment on above: Performed By: #### P T, PTT #### [facility] [address] [place] [address] Dr. Ghassan Beckham PTTon 03-15-2021 aPTT Coag (Bld) [Time] 26.8 s Normal 22.3-36.[address] [facility] Comment on above: Performed By: #### P T, PTT #### [facility] [address] [place] [address] Dr. Ghassan Beckham TSHon 03-15-2021 TSH 33.698 uIU/mL Critically high 0.470-4.68 0 [facility] Comment on above: Performed By: #### P REGQNT, TSH, T7 #### [facility] [address] [place] [address] Dr. Ghassan Beckham TSH RANGE SEE BELOW Normal [facility] Comment on above: Result Comment: <0.3 4 UIU/ml HYPERTHYROID 0.34-5.60 UIU/ml EUTHYROID >5.60 UIU/ml HYPOTHYROID Performed By: #### P REGQNT, TSH, T7 #### [facility] [address] [place] [address] Dr. Ghassan Beckham VITAMIN D 25 OHon 03-15-2021 VIT D 25-OH 5.2 ng/mL Normal [facility] Comment on above: Performed By: #### V ITAD ####[facility] [address] [place], [place] [address]Lp. Ghassan Beckham VIT D RANGES SEE BELOW Normal [facility] Comment on above: Result Comment: <20 ng/mL Vit D deficient 20 - <30 ng/mL Vit D insufficient 30 - 100 ng/mL Vit D sufficient >100 ng/mL Potential Toxicity Performed By: #### V ITAD ####[facility] [address] [place], [place] [address]Qw. Ghassan Beckham M. Tuberculosis by QuantiFER ONOrdered By: Jorge Amos on 02-18-2021 M. tuberculosis by Quantifer on in tube Negative Negative [facility] M. Tuberculosis Report See scanned report for additional information [facility] Otheron 04-24-1998 CONVERTED ELECTRONIC SIGNATURE ALFREDA INGRAM, SUPERVISORY INDUSTRIAL MANUFACTURING TECHNICIAN (Electronic signature on file) Final Signed Out: 04/24/1998 13:36 [facility] CONVERTED FINAL DIAGNOSIS SPECIMEN ADEQU ACY SATISFACTORY FOR EVALUATION GENERAL CATEGORIZATION WITHIN NORMAL LIMITS HORMONAL EVALUATION HORMONAL PATTERN COMPATIBLE WITH AGE AND HISTORY [facility] CONVERTED ORDERING PROVIDER Ordering Provider: JEFERSON SEVERINO [facility] CONVERTED PAP DISCLAIMER The Pap test serves as a screening tool for early detection of cervical cancer. The Pap test does not represent a final diagnostic test for cervical cancer. Furthermore, the Pap test was not designed to screen for other malignancies (endometrial, ovarian cancer, etc....). False negatives and false positives have occurred. If clinically indicated, further patient evaluation is recommended. [facility] Vital Signs Date Time Vital Sign Value Performing Clinician Facility 12-10-2024 10: Body mass index (BMI) [Ratio] 36.31 kg/m2 Natalie Lane [employer] Work Phone: [facility] 12-10-2024 10:15 Body weight 92.[address] [employer] Work Phone: [facility] 12-10-2024 [id number] Diastolic blood pressure 84 mm[Hg] Natalie Lane ASSEMBLY MECHANIC-UROLOGIC SURGEON Work Phone: [facility] 12-10-2024 10:15-0400 Heart rate 81 /min Natalie Lane ASSEMBLY MECHANIC-UROLOGIC SURGEON Work Phone: [facility] 12-10-2024 10:15-0400 Systolic blood pressure 126 mm[Hg] Natalie Lane ASSEMBLY MECHANIC-UROLOGIC SURGEON Work Phone: [facility] 10-21-2024 14:35-0400 Diastolic blood pressure 96 mm[Hg] Davidson Ly MD Work Phone: [facility] 10-21-2024 14:35-0400 Systolic blood pressure 146 mm[Hg] Davidson Ly MD Work Phone: [facility] 10-21-2024 14:17-0400 Body height 157.5 cm Davidson Ly MD Work Phone: [facility] 10-21-2024 14:17-0400 Body mass index (BMI) [Ratio] 37.71 kg/m2 Davidson Ly MD Work Phone: [facility] 10-21-2024 14:17-0400 Body temperature 98.1 [degF] Davidson Ly MD Work Phone: [facility] 10-21-2024 14:17-0400 Body weight 93.53 kg Davidson Ly MD Work Phone: [facility] 10-21-2024 14:17-0400 Heart rate 96 /min Davidson Ly MD Work Phone: [facility] 10-21-2024 14:17-0400 SaO2% (BldA) [Mass fraction] 94 % Davidson Ly MD Work Phone: [facility] Comment on above: Room air 09-19-2024 15:46-0400 Body mass index (BMI) [Ratio] 36.67 kg/m2 Natalie Lane ASSEMBLY MECHANIC-UROLOGIC SURGEON Work Phone: [facility] 09-19-2024 15:46-0400 Body weight 93.89 kg Natalie Michelle-Nossek ASSEMBLY MECHANIC-UROLOGIC SURGEON Work Phone: [facility] 09-19-2024 15:46-0400 Diastolic blood pressure 86 mm[Hg] Natalie Michelle-Nossek ASSEMBLY MECHANIC-UROLOGIC SURGEON Work Phone: [facility] 09-19-2024 15:46-0400 Heart rate 90 /min Natalie Michelle-Nossek ASSEMBLY MECHANIC-UROLOGIC SURGEON Work Phone: [facility] 09-19-2024 15:46-0400 Systolic blood pressure 130 mm[Hg] Natalie Michelle-Nossek ASSEMBLY MECHANIC-UROLOGIC SURGEON Work Phone: [facility] 07-08-2024 09:15-0400 Diastolic blood pressure 97 mm[Hg] Davidson Ly MD Work Phone: [facility] 07-08-2024 09:15-0400 Systolic blood pressure 146 mm[Hg] Davidson Ly MD Work Phone: [facility] 07-08-2024 08:58-0400 Body height 157.5 cm Davidson Ly MD Work Phone: [facility] 07-08-2024 08:58-0400 Body mass index (BMI) [Ratio] 39.36 kg/m2 Davidson Ly MD Work Phone: [facility] 07-08-2024 08:58-0400 Body temperature 97.81 [degF] Davidson Ly MD Work Phone: [facility] 07-08-2024 08:58-0400 Body weight 97.61 kg Davidson Ly MD Work Phone: [facility] 07-08-2024 08:58-0400 Heart rate 88 /min Davidson Ly MD Work Phone: [facility] 07-08-2024 08:58-0400 SaO2% (BldA) [Mass fraction] 95 % Davidson Ly MD Work Phone: [facility] 07-06-2024 11:07-0400 Body height 157.48 cm [facility] 07-06-2024 11:07-0400 Body mass index (BMI) [Ratio] 39.5 kg/m2 [facility] 07-06-2024 11:07-0400 Body temperature 97.8 [degF] [facility] 07-06-2024 11:07-0400 Body weight 98.08 kg [facility] 07-06-2024 11:07-0400 Diastolic blood pressure 95 mm[Hg] [facility] 07-06-2024 11:07-0400 Heart rate 99 /min [facility] 07-06-2024 11:07-0400 Respiratory rate 18 /min [facility] 07-06-2024 11:07-0400 SaO2% (BldA) [Mass fraction] 95 % [facility] 07-06-2024 11:07-0400 Systolic blood pressure 138 mm[Hg] [facility] 04-30-2024 10:47-0500 Body mass index (BMI) [Ratio] 38.62 kg/m2 Natalie Michelle-Nossek ASSEMBLY MECHANIC-UROLOGIC SURGEON Work Phone: [facility] 04-30-2024 10:47-0500 Body weight 98.88 kg Natalie Michelle-Nossek ASSEMBLY MECHANIC-UROLOGIC SURGEON Work Phone: [facility] 04-30-2024 10:47-0500 Diastolic blood pressure 86 mm[Hg] Natalie Michelle-Nossek ASSEMBLY MECHANIC-UROLOGIC SURGEON Work Phone: [facility] 04-30-2024 10:47-0500 Heart rate 96 /min Natalie Michelle-Nossek ASSEMBLY MECHANIC-UROLOGIC SURGEON Work Phone: [facility] 04-30-2024 10:47-0500 Systolic blood pressure 140 mm[Hg] Natalie Michelle-Nossek ASSEMBLY MECHANIC-UROLOGIC SURGEON Work Phone: [facility] 01-30-2024 10:25-0500 Body mass index (BMI) [Ratio] 38.62 kg/m2 Natalie Michelle-Nossek ASSEMBLY MECHANIC-UROLOGIC SURGEON Work Phone: [facility] 01-30-2024 10:25-0500 Body weight 98.88 kg Natalie Martinez-Nossek ASSEMBLY MECHANIC-UROLOGIC SURGEON Work Phone: [facility] 01-30-2024 10:25-0500 Diastolic blood pressure 78 mm[Hg] Natalie Fieldsor-Nossek ASSEMBLY MECHANIC-UROLOGIC SURGEON Work Phone: [facility] 01-30-2024 10:25-0500 Heart rate 100 /min Natalie Fieldsor-Nossek ASSEMBLY MECHANIC-UROLOGIC SURGEON Work Phone: [facility] 01-30-2024 10:25-0500 Systolic blood pressure 118 mm[Hg] Natalie Fieldsor-Nossek ASSEMBLY MECHANIC-UROLOGIC SURGEON Work Phone: [facility] 11-14-2023 13:05-0400 Body height 157.5 cm Davidson Ly MD Work Phone: [facility] 11-14-2023 13:05-0400 Body mass index (BMI) [Ratio] 39.8 kg/m2 Davidson Ly MD Work Phone: [facility] 11-14-2023 13:05-0400 Body temperature 97.11 [degF] Davidson Ly MD Work Phone: [facility] 11-14-2023 13:05-0400 Body weight 98.7 kg Davidson Ly MD Work Phone: [facility] 11-14-2023 13:05-0400 Diastolic blood pressure 85 mm[Hg] Davidson Ly MD Work Phone: [facility] 11-14-2023 13:05-0400 Heart rate 77 /min Davidson Ly MD Work Phone: [facility] 11-14-2023 13:05-0400 SaO2% (BldA) [Mass fraction] 95 % Davidson Ly MD Work Phone: [facility] Comment on above: Room air 11-14-2023 13:05-0400 Systolic blood pressure 123 mm[Hg] Davidson Ly MD Work Phone: [facility] 10-24-2023 13:23-0400 Body mass index (BMI) [Ratio] 38.09 kg/m2 Natalie Michelle-Nossek ASSEMBLY MECHANIC-UROLOGIC SURGEON Work Phone: [facility] 10-24-2023 13:23-0400 Body weight 97.52 kg Natalie Michelle-Nossek ASSEMBLY MECHANIC-UROLOGIC SURGEON Work Phone: [facility] 10-24-2023 13:23-0400 Diastolic blood pressure 86 mm[Hg] Natalie Michelle-Nossek ASSEMBLY MECHANIC-UROLOGIC SURGEON Work Phone: [facility] 10-24-2023 13:23-0400 Heart rate 77 /min Natalie Michelle-Nossek ASSEMBLY MECHANIC-UROLOGIC SURGEON Work Phone: [facility] 10-24-2023 13:23-0400 Systolic blood pressure 126 mm[Hg] Natalie Michelle-Nossek ASSEMBLY MECHANIC-UROLOGIC SURGEON Work Phone: [facility] 07-23-2023 11:07-0400 Body height 157.48 cm MEDICAL IMAGING TECHNICIAN-C Norma Mccainmer Work Phone: [facility] 07-23-2023 11:07-0400 Body mass index (BMI) [Ratio] 41 kg/m2 MEDICAL IMAGING TECHNICIAN-C Norma Hermes Work Phone: [facility] 07-23-2023 11:07-0400 Body temperature 95.7 [degF] MEDICAL IMAGING TECHNICIAN-C Norma Hermes Work Phone: [facility] 07-23-2023 11:07-0400 Body weight 101.71 kg MEDICAL IMAGING TECHNICIAN-C Norma Hermes Work Phone: [facility] 07-23-2023 11:07-0400 Diastolic blood pressure 89 mm[Hg] MEDICAL IMAGING TECHNICIAN-C Norma Hermes Work Phone: [facility] 07-23-2023 11:07-0400 Heart rate 69 /min MEDICAL IMAGING TECHNICIAN-C Norma Mirza Work Phone: [facility] 07-23-2023 11:07-0400 Respiratory rate 16 /min MEDICAL IMAGING TECHNICIAN-C Norma Mirza Work Phone: [facility] 07-23-2023 11:07-0400 SaO2% (BldA) [Mass fraction] 96 % MEDICAL IMAGING TECHNICIAN-C Norma Mirza Work Phone: [facility] 07-23-2023 11:07-0400 Systolic blood pressure 131 mm[Hg] MEDICAL IMAGING TECHNICIAN-C Norma Mirza Work Phone: [facility] 04-11-2023 12:55-0500 Body mass index (BMI) [Ratio] 41.81 kg/m2 Natalie Michelle-Nossek ASSEMBLY MECHANIC-UROLOGIC SURGEON Work Phone: [facility] 04-11-2023 12:55-0500 Body weight 107.05 kg Natalie Michelle-Nossek ASSEMBLY MECHANIC-UROLOGIC SURGEON Work Phone: [facility] 04-11-2023 12:55-0500 Diastolic blood pressure 82 mm[Hg] Natalie Michelle-Nossek ASSEMBLY MECHANIC-UROLOGIC SURGEON Work Phone: [facility] 04-11-2023 12:55-0500 Heart rate 90 /min Natalie Michelle-Nossek ASSEMBLY MECHANIC-UROLOGIC SURGEON Work Phone: [facility] 04-11-2023 12:55-0500 Systolic blood pressure 132 mm[Hg] Natalie Michelle-Nossek ASSEMBLY MECHANIC-UROLOGIC SURGEON Work Phone: [facility] 04-03-2023 09:47-0500 Body height 157.5 cm Davidson Ly MD Work Phone: [facility] 04-03-2023 09:47-0500 Body mass index (BMI) [Ratio] 42.65 kg/m2 Davidson Ly MD Work Phone: [facility] 04-03-2023 09:47-0500 Body temperature 97.59 [degF] Davidson Ly MD Work Phone: [facility] 04-03-2023 09:47-0500 Body weight 105.78 kg Davidson Ly MD Work Phone: [facility] 04-03-2023 09:47-0500 Diastolic blood pressure 75 mm[Hg] Davidson Ly MD Work Phone: [facility] 04-03-2023 09:47-0500 Heart rate 78 /min Davidson Ly MD Work Phone: [facility] 04-03-2023 09:47-0500 Systolic blood pressure 117 mm[Hg] Davidson Ly MD Work Phone: [facility] 11-01-2022 13:04-0400 Body height 157.5 cm Davidson Ly MD Work Phone: [facility] 11-01-2022 13:04-0400 Body mass index (BMI) [Ratio] 42.8 kg/m2 Davidson Ly MD Work Phone: [facility] 11-01-2022 13:04-0400 Body temperature 98.1 [degF] Davidson Ly MD Work Phone: [facility] 11-01-2022 13:04-0400 Body weight 106.14 kg Davidson Ly MD Work Phone: [facility] 11-01-2022 13:04-0400 Diastolic blood pressure 89 mm[Hg] Davidson Ly MD Work Phone: [facility] 11-01-2022 13:04-0400 Heart rate 71 /min Davidson Ly MD Work Phone: [facility] 11-01-2022 13:04-0400 SaO2% (BldA) [Mass fraction] 95 % Davidson Ly MD Work Phone: [facility] 11-01-2022 13:04-0400 Systolic blood pressure 131 mm[Hg] Davidson Ly MD Work Phone: [facility] 06-27-2022 15:05-0400 Body height 157.5 cm Daivdson Ly MD Work Phone: [facility] 06-27-2022 15:05-0400 Body mass index (BMI) [Ratio] 40.79 kg/m2 Davidson Ly MD Work Phone: [facility] 06-27-2022 15:05-0400 Body temperature 97.3 [degF] Davidson Ly MD Work Phone: [facility] 06-27-2022 15:05-0400 Body weight 101.15 kg Davidson Ly MD Work Phone: [facility] 06-27-2022 15:05-0400 Diastolic blood pressure 85 mm[Hg] Davidson Ly MD Work Phone: [facility] 06-27-2022 15:05-0400 Heart rate 73 /min Davidson Ly MD Work Phone: [facility] 06-27-2022 15:05-0400 SaO2% (BldA) [Mass fraction] 95 % Davidson Ly MD Work Phone: [facility] Comment on above: Room air 06-27-2022 15:05-0400 Systolic blood pressure 121 mm[Hg] Davidson Ly MD Work Phone: [facility] 02-24-2022 09:51-0500 Body height 157.5 cm Davidson Ly MD Work Phone: [facility] 02-24-2022 09:51-0500 Body mass index (BMI) [Ratio] 40.24 kg/m2 Davidson Ly MD Work Phone: [facility] 02-24-2022 09:51-0500 Body temperature 96.91 [degF] Davidson Ly MD Work Phone: [facility] 02-24-2022 09:51-0500 Body weight 99.79 kg Davidson Ly MD Work Phone: [facility] 02-24-2022 09:51-0500 Diastolic blood pressure 83 mm[Hg] Davidson Ly MD Work Phone: [facility] 02-24-2022 09:51-0500 Heart rate 89 /min Davidson Ly MD Work Phone: [facility] 02-24-2022 09:51-0500 SaO2% (BldA) [Mass fraction] 98 % Davidson Ly MD Work Phone: [facility] Comment on above: room air 02-24-2022 09:51-0500 Systolic blood pressure 127 mm[Hg] Davidson Ly MD Work Phone: [facility] 10-19-2021 13:28-0400 Body height 157.5 cm Davidson Ly MD Work Phone: [facility] 10-19-2021 13:28-0400 Body mass index (BMI) [Ratio] 41.7 kg/m2 Davidson Ly MD Work Phone: [facility] 10-19-2021 13:28-0400 Body temperature 98.01 [degF] Davidson Ly MD Work Phone: [facility] 10-19-2021 13:28-0400 Body weight 103.42 kg Davidson Ly MD Work Phone: [facility] 10-19-2021 13:28-0400 Diastolic blood pressure 85 mm[Hg] Davidson Ly MD Work Phone: [facility] 10-19-2021 13:28-0400 Heart rate 85 /min Davidson Ly MD Work Phone: [facility] 10-19-2021 13:28-0400 SaO2% (BldA) [Mass fraction] 95 % Davidson Ly MD Work Phone: [facility] Comment on above: ROOM AIR 10-19-2021 13:28-0400 Systolic blood pressure 122 mm[Hg] Davidson Ly MD Work Phone: [facility] 04-19-2021 08:38-0500 Body height 157.5 cm Davidson Ly MD Work Phone: [facility] 04-19-2021 08:38-0500 Body mass index (BMI) [Ratio] 41.85 kg/m2 Davidson Ly MD Work Phone: [facility] 04-19-2021 08:38-0500 Body temperature 98.01 [degF] Davidson Ly MD Work Phone: [facility] 04-19-2021 08:38-0500 Body weight 103.78 kg Davidson Ly MD Work Phone: [facility] 04-19-2021 08:38-0500 Diastolic blood pressure 86 mm[Hg] Davidson Ly MD Work Phone: [facility] 04-19-2021 08:38-0500 Heart rate 96 /min Davidson Ly MD Work Phone: [facility] 04-19-2021 08:38-0500 SaO2% (BldA) [Mass fraction] 96 % Davidson Ly MD Work Phone: [facility] 04-19-2021 08:38-0500 Systolic blood pressure 132 mm[Hg] Davidson Ly MD Work Phone: [facility] 02-15-2021 10:23-0500 Body height 157.5 cm Davidson Ly MD Work Phone: [facility] 02-15-2021 10:23-0500 Body mass index (BMI) [Ratio] 42.8 kg/m2 Davidson Ly MD Work Phone: [facility] 02-15-2021 10:23-0500 Body temperature 97.9 [degF] Davidson Ly MD Work Phone: [facility] 02-15-2021 10:23-0500 Body weight 106.14 kg Davidson Ly MD Work Phone: [facility] 02-15-2021 10:23-0500 Diastolic blood pressure 90 mm[Hg] Davidson Ly MD Work Phone: [facility] 02-15-2021 10:23-0500 Heart rate 95 /min Davidson Ly MD Work Phone: [facility] 02-15-2021 10:23-0500 SaO2% (BldA) [Mass fraction] 94 % Davidson Ly MD Work Phone: [facility] 02-15-2021 10:23-0500 Systolic blood pressure 126 mm[Hg] Davidson Ly MD Work Phone: [facility] Encounters Encounter Date Encounter Type Care Provider Facility Start: 12-10-2024 End: 12-10-[address] ASSEMBLY MECHANIC-[employer] Work Phone: [facility] Start: 12-10-2024 End: 12-10-2024 [employer] Natalie Martinez-Bradsedennis ASSEMBLY MECHANIC-[employer] Work Phone: [facility] [employer] Start: 12-10-2024 End: 12-10-2024 Office outpatient visit 25 minutes Natalie Martinez-Bradsedennis ASSEMBLY MECHANIC-[employer] Work Phone: [employer] Comment on above: Hx of high risk medi cation treatment; High risk medication use; KATHRYN (generalized anxiety disorder); Bipolar 2 disorder (HCC); Panic disorder Start: 12-10-2024 End: 12-10-[address] Not Available Start: 12-04-2024 End: 12-04-2024 Orders Only Jamilah Lemus LPN [facility] Comment on above: SOB (shortness of br eath) (Primary Dx) Start: 12-03-2024 End: 12-03-2024 Documentation procedure Davidson Ly MD Work Phone: [facility] Comment on above: Humira Denial Start: 12-03-2024 ambulatory DAVIDSON LY [facility] Start: 11-25-2024 End: 11-26-2024 ambulatory NORMA S [facility] Start: 10-21-2024 End: 10-21-2024 Office outpatient visit 25 minutes Davidson Ly MD Work Phone: [facility] Comment on above: Rheumatoid arthritis , seropositive (HCC) (Primary Dx); Encounter for long-term (current) use of medications; NSAID long-term use; Morbid obesity with BMI of 40.0-44.9, adult (HCC); Numbness in feet Start: 10-21-2024 End: 10-21-2024 ambulatory [facility] Start: 09-19-2024 End: 09-19-2024 Office outpatient visit [address] ASSEMBLY MECHANIC-[facility] Work Phone: [facility] Comment on above: Bipolar 2 disorder ( HCC); KATHRYN (generalized anxiety disorder) Start: 09-19-2024 End: 09-19-[address] Not Available Start: 09-02-2024 End: 09-02-2024 Refill Davidson Ly MD Work Phone: [facility] Comment on above: Seropositive rheumat oid arthritis (HCC) Start: 07-11-2024 End: 07-11-2024 Documentation procedure Davidson Ly MD Work Phone: [facility] Comment on above: Humira Authorization Seropositive rheumat oid arthritis (HCC) (Primary Dx) Start: 07-08-2024 End: 07-08-2024 ambulatory [facility] Start: 07-08-2024 End: 07-08-2024 Office outpatient visit 25 minutes Davidson Ly MD Work Phone: [facility] Comment on above: Rheumatoid arthritis , seropositive (HCC) (Primary Dx); Encounter for long-term (current) use of medications; NSAID long-term use; Morbid obesity with BMI of 40.0-44.9, adult (HCC); Numbness in feet Start: 07-06-2024 End: 07-06-2024 ambulatory [facility] Work Phone: Start: 07-06-2024 End: 07-06-2024 Patient encounter procedure [facility] Work Phone: Start: 06-14-2024 End: 06-14-2024 Orders Only Davidson Ly MD Work Phone: [facility] Comment on above: Seropositive rheumat oid arthritis (HCC) (Primary Dx) Start: 04-30-2024 End: 04-30-2024 Bamboo flowsheet Natalie Boyle Michelle-Nossek ASSEMBLY MECHANIC-UROLOGIC SURGEON Work Phone: [facility] Start: 04-30-2024 End: 04-30-2024 Bamboo flowsheet Natalie Boyle Michelle-Nossek ASSEMBLY MECHANIC-UROLOGIC SURGEON Work Phone: [facility] Start: 04-30-2024 End: 04-30-2024 Office outpatient visit 15 minutes Natalie Boyle Michelle-Nossek ASSEMBLY MECHANIC-UROLOGIC SURGEON Work Phone: [facility] Comment on above: Bipolar 2 disorder ( CMS/HCC); KATHRYN (generalized anxiety disorder) (CMS/HCC) Start: 04-30-2024 End: 04-30-2024 ambulatory NATALIE Boyle MICHELLE-NOSSEK Not Available Start: 04-12-2024 End: 04-17-2024 Telephone encounter Chinmay Norman PTA [facility] Comment on above: Cx PT today (Pending pt call back.); fu (Last PT 04/08) Start: 04-08-2024 End: 04-08-2024 ambulatory Chinmay Norman ELECTRICAL MANAGER [facility] Comment on above: Left shoulder pain, unspecified chronicity (Primary Dx) Start: 04-08-2024 End: 04-08-2024 Patient encounter procedure Norma Mirza MEDICAL IMAGING TECHNICIAN-C Work Phone: [facility] Work Phone: Start: 04-08-2024 End: 04-08-2024 ambulatory Norma Mirza MEDICAL IMAGING TECHNICIAN-C Work Phone: [facility] Work Phone: Start: 04-05-2024 End: 04-05-2024 ambulatory Chinmay Norman ELECTRICAL MANAGER [facility] Comment on above: Left shoulder pain, unspecified chronicity (Primary Dx) Start: 04-05-2024 End: 04-05-2024 Bamboo flowsheet Chinmay Norman ELECTRICAL MANAGER [facility] Start: 04-05-2024 End: 04-05-2024 Bamboo flowsheet Chinmay Norman ELECTRICAL MANAGER [facility] Start: 04-01-2024 End: 04-01-2024 ambulatory Chinmay Norman ELECTRICAL MANAGER [facility] Comment on above: Left shoulder pain, unspecified chronicity (Primary Dx) Start: 04-01-2024 End: 04-01-2024 Bamboo flowsheet Chinmay Norman ELECTRICAL MANAGER [facility] Start: 04-01-2024 End: 04-01-2024 Bamboo flowsheet Cihnmay Norman ELECTRICAL MANAGER [facility] Start: 03-28-2024 End: 03-28-2024 ambulatory Chinmay Norman ELECTRICAL MANAGER [facility] Comment on above: Left shoulder pain, unspecified chronicity (Primary Dx) Start: 03-28-2024 End: 03-28-2024 Bamboo flowsheet Chinmay Norman ELECTRICAL MANAGER [facility] Start: 03-28-2024 End: 03-28-2024 Bamboo flowsheet Chinmay Norman ELECTRICAL MANAGER [facility] Start: 03-28-2024 End: 03-28-2024 Documentation procedure Davidson Ly MD Work Phone: [facility] Comment on above: Senait Authorizati on Seropositive rheumat oid arthritis (HCC) (Primary Dx) Start: 03-26-2024 End: 03-26-2024 ambulatory Kiesha Gray PT [facility] Comment on above: Left shoulder pain, unspecified chronicity (Primary Dx) Start: 03-26-2024 End: 03-26-2024 Bamboo flowsheet Kiesha Gray PT [facility] Start: 03-26-2024 End: 03-26-2024 Bamboo flowsheet Kiesha Grya PT [facility] Start: 03-21-2024 End: 03-21-2024 Documentation procedure Davidson Ly MD Work Phone: [facility] Comment on above: Insurance change to [facility] Start: 03-15-2024 End: 03-15-2024 Patient encounter procedure Norma Mirza MEDICAL IMAGING TECHNICIAN-C Work Phone: [facility] Work Phone: Start: 03-15-2024 End: 03-15-2024 ambulatory Norma Rayna Hermes MEDICAL IMAGING TECHNICIAN-C Work Phone: [facility] Work Phone: Start: 03-12-2024 End: 03-13-2024 Refill Natalie Boyle Michelle-Nossek ASSEMBLY MECHANIC-UROLOGIC SURGEON Work Phone: [facility] Comment on above: Bipolar 2 disorder ( CMS/HCC) Start: 01-30-2024 End: 01-30-2024 Bamboo flowsheet Natalie Tamar Michelle-Nossek ASSEMBLY MECHANIC-UROLOGIC SURGEON Work Phone: [facility] Start: 01-30-2024 End: 01-30-2024 Bamboo flowsheet Natalie Tamar Michelle-Nossek ASSEMBLY MECHANIC-UROLOGIC SURGEON Work Phone: [facility] Start: 01-30-2024 End: 01-30-2024 Office outpatient visit 25 minutes Natalie Boyle Michelle-Nossek ASSEMBLY MECHANIC-UROLOGIC SURGEON Work Phone: [facility] Comment on above: Bipolar 2 disorder ( CMS/HCC) Start: 01-30-2024 End: 01-30-2024 ambulatory NATALIE Tamar MICHELLE-NOSSEK Not Available Start: 11-14-2023 End: 11-18-2023 ambulatory [facility] Start: 11-14-2023 End: 11-14-2023 Office outpatient visit 25 minutes Davidson Ly MD Work Phone: [facility] Comment on above: Seropositive rheumat oid arthritis (HCC) (Primary Dx); Encounter for long-term (current) use of medications; NSAID long-term use; Morbid obesity with BMI of 40.0-44.9, adult ([facility]); Numbness in feet; Iron deficiency anemia, unspecified iron deficiency anemia type Start: 10-24-2023 End: 10-24-2023 Bamboo flowsheet Natalie Boyle [employer] ASSEMBLY MECHANIC[employer] Work Phone: [facility] Start: 10-24-2023 End: 10-24-2023 Bamboo flowsheet Natalie Boyle [employer] ASSEMBLY MECHANIC-[employer] Work Phone: [facility] Start: 10-24-2023 End: 10-24-2023 Office outpatient visit 15 minutes Natalie Boyle [employer] ASSEMBLY MECHANIC[employer] Work Phone: [facility] Comment on above: KATHRYN (generalized anx iety disorder) ([facility]); Bipolar 2 disorder ([facility]) Start: 09-21-2023 End: 09-21-2023 Refill Davidson Ly MD Work Phone: [facility] Comment on above: Rheumatoid arthritis , seropositive ([facility]) Start: 09-12-2023 End: 09-12-2023 Documentation procedure Davidson Ly MD Work Phone: [facility] Comment on above: Humira Authorization Start: 07-23-2023 End: 07-23-2023 Patient encounter procedure MEDICAL IMAGING TECHNICIAN-C Norma Mirza Work Phone: [facility] Work Phone: Start: 07-23-2023 End: 07-23-2023 ambulatory MEDICAL IMAGING TECHNICIAN-C Norma Mirza Work Phone: [facility] Work Phone: Start: 07-23-2023 End: 07-23-2023 ambulatory MEDICAL IMAGING TECHNICIAN-C Norma Mirza Work Phone: [facility] Work Phone: Start: 07-23-2023 End: 07-23-2023 Patient encounter procedure MEDICAL IMAGING TECHNICIAN-C Norma Mirza Work Phone: [facility] Work Phone: Start: 04-21-2023 Orders Only Davidson Ly MD Work Phone: [facility] Comment on above: Seropositive rheumat oid arthritis (HCC) (Primary Dx) Start: 04-13-2023 Refill Tahmina Epps MEAT PACKER [facility] Comment on above: KATHRYN (generalized anx iety disorder) (CMS/HCC) Start: 04-11-2023 Bamboo flowsheet Natalie M Fio r-Nossek ASSEMBLY MECHANIC-UROLOGIC SURGEON Work Phone: [facility] Start: 04-11-2023 Bamboo flowsheet Natalie M Fio r-Nossek ASSEMBLY MECHANIC-UROLOGIC SURGEON Work Phone: [facility] Start: 04-11-2023 End: 04-11-2023 Office outpatient visit 25 minutes Natalie Tamar Michelle-Nossek ASSEMBLY MECHANIC-UROLOGIC SURGEON Work Phone: [facility] Comment on above: KATHRYN (generalized anx iety disorder) (CMS/HCC); Bipolar 2 disorder (CMS/HCC) Start: 04-03-2023 End: 04-07-2023 ambulatory [facility] Start: 04-03-2023 End: 04-03-2023 Office outpatient visit 25 minutes Davidson Ly MD Work Phone: [facility] Comment on above: Rheumatoid arthritis , seropositive (HCC) (Primary Dx); Encounter for long-term (current) use of medications; NSAID long-term use; Morbid obesity with BMI of 40.0-44.9, adult (HCC); Numbness in feet; Iron deficiency anemia, unspecified iron deficiency anemia type Start: 02-07-2023 End: 02-07-2023 ambulatory MEDICAL IMAGING TECHNICIAN-C Norma Mirza Work Phone: [facility] Work Phone: Start: 02-07-2023 End: 02-07-2023 Patient encounter procedure MEDICAL IMAGING TECHNICIAN-C Norma Mirza Work Phone: [facility] Work Phone: Start: 01-17-2023 Refill Davidson Ly MD Work Phone: [facility] Comment on above: Rheumatoid arthritis , seropositive (HCC) Start: 11-01-2022 End: 11-01-2022 Office outpatient visit 25 minutes Davidson Ly MD Work Phone: [facility] Comment on above: Rheumatoid arthritis , seropositive (HCC) (Primary Dx); Encounter for long-term (current) use of medications; NSAID long-term use; Morbid obesity with BMI of 40.0-44.9, adult (HCC); Iron deficiency anemia, unspecified iron deficiency anemia type Start: 06-27-2022 End: 06-27-2022 Office outpatient visit 15 minutes Davidson Ly MD Work Phone: [facility] Comment on above: Rheumatoid arthritis , seropositive (HCC) (Primary Dx); Encounter for long-term (current) use of medications; NSAID long-term use; Morbid obesity with BMI of 40.0-44.9, adult (HCC); Iron deficiency anemia, unspecified iron deficiency anemia type Start: 03-21-2022 End: 03-21-2022 ambulatory MEDICAL IMAGING TECHNICIAN-C Norma Mirza Work Phone: [facility] Work Phone: Start: 03-21-2022 End: 03-21-2022 Patient encounter procedure MEDICAL IMAGING TECHNICIAN-C Norma Mirza Work Phone: [facility] Work Phone: Start: 03-15-2022 End: 03-15-2022 ambulatory MEDICAL IMAGING TECHNICIAN-C Norma Mirza Work Phone: [facility] Work Phone: Start: 03-15-2022 End: 03-15-2022 Patient encounter procedure MEDICAL IMAGING TECHNICIAN-C Norma Mirza Work Phone: [facility] Work Phone: Start: 02-24-2022 End: 02-24-2022 Office outpatient visit 15 minutes Davidson Ly MD Work Phone: [facility] Comment on above: Rheumatoid arthritis , seropositive (HCC) (Primary Dx); Encounter for long-term (current) use of medications; NSAID long-term use; Morbid obesity with BMI of 40.0-44.9, adult (HCC) Start: 02-14-2022 Refill Davidson Ly MD Work Phone: [facility] Comment on above: Rheumatoid arthritis , seropositive (HCC) Start: 02-10-2022 Refill Davidson Ly MD Work Phone: [facility] Comment on above: Rheumatoid arthritis , seropositive (HCC) Start: 01-13-2022 Encounter for genera l adult medical examination without abnormal findings NORMA MIRZA [facility] Start: 01-10-2022 End: 01-11-2022 ambulatory NORMA MIRZA Facility:[facility] Start: 01-10-2022 End: 01-11-2022 Encounter for general adult medical examination without abnormal findings NORMA MIRZA Facility:[facility] Start: 10-20-2021 Documentation procedure Davidson Ly MD Work Phone: [facility] Comment on above: Humira approval Start: 10-19-2021 End: 10-19-2021 Office outpatient visit 15 minutes Davidson Ly MD Work Phone: [facility] Comment on above: Rheumatoid arthritis , seropositive (HCC) (Primary Dx); Encounter for long-term (current) use of medications; NSAID long-term use; Morbid obesity with BMI of 40.0-44.9, adult (HCC) Start: 09-09-2021 ambulatory NORMA MIRZA Facility: [facility] Start: 07-19-2021 Refill Davidson Ly MD Work Phone: [facility] Comment on above: Rheumatoid arthritis , seropositive (HCC) Start: 04-27-2021 ambulatory NORMA MIRZA Facility: Start: 04-19-2021 Orders Only Davidson Ly MD Work Phone: [facility] Comment on above: Iron deficiency anem ia, unspecified iron deficiency anemia type (Primary Dx) Start: 04-19-2021 End: 04-19-2021 Office outpatient visit 25 minutes Davidson Ly MD Work Phone: [facility] Comment on above: Rheumatoid arthritis , seropositive (HCC) (Primary Dx); Encounter for long-term (current) use of medications; NSAID long-term use; Morbid obesity with BMI of 40.0-44.9, adult (HCC) Start: 04-01-2021 Documentation procedure Davidson Ly MD Work Phone: [facility] Comment on above: Aravindira Start: 03-25-2021 Documentation procedure Davidson Ly MD Work Phone: [facility] Comment on above: Humira Approval Start: 03-18-2021 Orders Only Davidson Ly MD Work Phone: [facility] Comment on above: Rheumatoid arthritis , seropositive (HCC) (Primary Dx) Start: 03-15-2021 End: 03-16-2021 ambulatory NORMAGINA MCCAINMER Facility: Start: 03-13-2021 ambulatory [facility] Facility: Start: 03-12-2021 Documentation procedure Davidson Ly MD Work Phone: [facility] Comment on above: Enbrel Denial Start: 02-17-2021 Refill Davidson Ly MD Work Phone: [facility] Comment on above: Rheumatoid arthritis , seropositive (HCC) Start: 02-15-2021 End: 02-15-2021 Office outpatient new 45 minutes Davidson Ly MD Work Phone: [facility] Comment on above: Rheumatoid arthritis , seropositive (HCC) (Primary Dx); Encounter for long-term (current) use of medications; NSAID long-term use; Morbid obesity with BMI of 40.0-44.9, adult (HCC) Start: 01-05-2021 Transcribe Orders Kristin Parson MA [facility] Comment on above: Rheumatoid arthritis , seropositive (HCC) (Primary Dx) Start: 12-31-2020 Chart abstracting Davidson Ly MD Work Phone: [facility] Start: 04-06-1998 End: 04-06-1998 Patient encounter procedure Conversion Darlene Migue [facility] Start: 04-06-1998 Results Only Conversion Darlene Migue [facility] Procedures Date Procedure Procedure Detail Performing Clinician Start: 12-10-2024 Drug test prsmv read direct optical obs pr date Natalie Lane ASSEMBLY MECHANIC-UROLOGIC SURGEON Work Phone: Start: 10-21-2024 C-reactive protein Stephanie Ly MD Work Phone: Start: 10-21-2024 Complete blood count with white cell differential, manual Davidson Ly MD Work Phone: Start: 10-21-2024 Creatinine blood Davidson Ly MD Work Phone: Start: 07-06-2024 Quick Strep (POC) Start: 04-08-2024 Ultrasonography of r ight breast Norma Hermes MEDICAL IMAGING TECHNICIAN-C Work Phone: Start: 04-08-2024 Mammography of right breast Norma Hermes MEDICAL IMAGING TECHNICIAN-C Work Phone: Start: 03-15-2024 Plain X-ray of left shoulder Norma Hermes MEDICAL IMAGING TECHNICIAN-C Work Phone: Start: 03-15-2024 Screening mammograph y of bilateral breasts Norma Hermes MEDICAL IMAGING TECHNICIAN-C Work Phone: Start: 07-23-2023 Plain X-ray of right hand MEDICAL IMAGING TECHNICIAN-C Norma Hermes Work Phone: Start: 04-06-1998 CONVERTED CYTOLOGY REFRIGERATOR CAR ICER Conversion Darlene Camarena Start: 04-06-1998 Microscopic observat ion [Identifier] in Cervix by Cyto stain Natalie Lane ASSEMBLY MECHANIC-UROLOGIC SURGEON Work Phone: Plan of Treatment Date Care Activity Detail Author Start: 11-25-2025 Adult BMI Screening Adult BMI Screening [facility] Start: 11-25-2025 Tobacco Screening Tobacco Screening [facility] Start: 03-04-2025 End: 03-04-2025 Patient encounter procedure 03/04/2025 2:00 PM EST Office Visit [facility] [address] [address] Davidson Ly MD [address] [place] [address] [facility] Start: 01-09-2025 End: 01-09-2025 Patient encounter procedure 01/09/2025 11:00 AM EST Office Visit [facility] [address] [facility] [address] [place] [address], ASSEMBLY MECHANIC-UROLOGIC SURGEON [address] [facility] [address] [place] [address] [facility] Start: 12-26-2024 End: 12-26-2024 Patient encounter procedure 12/26/2024 1:00 PM EDT Office Visit [facility] [address] [facility] [address] [place] [address], ASSEMBLY MECHANIC-UROLOGIC SURGEON [address] [facility] [address] [place] [address] [facility] Start: 12-18-2024 End: 12-18-2024 Patient encounter procedure 12/18/2024 10:00 AM EDT Office Visit [facility] [address] [address] Magali Washington MD [address] [address] [facility] Start: 12-18-2024 End: 12-18-2024 ambulatory 12/18/2024 9:30 AM EDT Support Visit [facility] [address] [facility] [address] [place] [id number] [facility] Start: 12-10-2024 End: 12-10-2024 Patient encounter procedure 12/10/2024 10:30 AM EDT Office Visit [facility] 112 [facility] [address] [place] [address], ASSEMBLY MECHANIC-UROLOGIC SURGEON [address] [facility] [address] [place] [address] Hx of high risk medication treatment; High risk medication use [facility] Comment on above: Hx of high risk medication treatment; High risk medication use Start: 10-28-2024 COVID-19 Vaccine () COVID-19 Vaccine () [facility] Start: 10-28-2024 Influenza vaccination [facility] Start: 10-08-2024 End: 10-08-2024 Patient encounter procedure 10/08/2024 2:30 PM EDT Office Visit [facility] [address] [place] [phone] [place] [address] [place] [address] [facility] Start: 07-31-2024 End: 07-31-2024 Patient encounter procedure 07/31/2024 4:00 PM EDT Office Visit [facility] [address] [facility] [address] [place] [address], ASSEMBLY MECHANIC-UROLOGIC SURGEON 112 [facility] [address] [place] [address] [facility] Start: 06-27-2024 End: 06-27-2024 Patient encounter procedure 06/27/2024 9:45 AM EDT Office Visit [facility] [address] [place] [address] Davidson Ly MD [address] [place] [address] [facility] Start: 05-13-2024 End: 05-13-2024 Patient encounter procedure 05/13/2024 2:00 PM EDT Office Visit [facility] [address] [place] [address] Davidson Ly MD [address] [place] [address] [facility] Start: 04-30-2024 End: 04-30-2024 Patient encounter procedure [facility] Comment on above: Bipolar 2 disorder (CMS/HCC); KATHRYN (generalized anxiety disorder) (CMS/[facility]) Start: 04-11-2024 End: 04-11-2024 ambulatory 04/11/2024 2:30 PM EST Treatment [facility] [address] [place] [address] [place] [address] Kiesha Gray, PT [facility] Start: 04-08-2024 End: 04-08-2024 ambulatory 04/08/2024 2:30 PM EST Treatment [facility] [address] [place] [address] [place] [address] Chinmay Norman, ELECTRICAL MANAGER [facility] Start: 04-05-2024 End: 04-05-2024 ambulatory [facility] Comment on above: Arrived Start: 04-04-2024 End: 04-04-2024 ambulatory 04/04/2024 2:30 PM EST Treatment [facility] [address] [place] [address] [place] [address] Chinmay Norman, ELECTRICAL MANAGER [facility] Start: 04-01-2024 End: 04-01-2024 ambulatory [facility] Comment on above: Arrived Start: 03-28-2024 End: 03-28-2024 ambulatory [facility] Comment on above: Arrived Start: 03-26-2024 End: 03-26-2024 ambulatory 03/26/2024 2:30 PM EST Evaluation [facility] [address] [place] [address] [place] [address] Kiesha Gray, PT Arrived [facility] Comment on above: Arrived Start: 01-30-2024 End: 01-30-2024 Patient encounter procedure 01/30/2024 10:30 AM EST Office Visit [facility] [address] [place] [address] [place] [address], ASSEMBLY MECHANIC-UROLOGIC SURGEON [address] [place] [address] [place] [address] Arrived [facility] Comment on above: Arrived Start: 01-24-2024 End: 01-24-2024 Patient encounter procedure 01/24/2024 1:00 PM EST Office Visit [facility] [address] [place] [address] [place] [address], ASSEMBLY MECHANIC-UROLOGIC SURGEON [address] [facility] [address] [place] [address] [facility] Start: 10-29-2023 COVID-19 Vaccine ( season) COVID-19 Vaccine ( season) [facility] Start: 10-29-2023 COVID-19 Vaccine ( season) COVID-19 Vaccine ( season) [facility] Start: 10-29-2023 Influenza vaccination Influenza Vaccine (#1) [facility] Start: 10-24-2023 End: 10-24-2023 Patient encounter procedure 10/24/2023 1:30 PM EDT Office Visit [facility] [address] [place] [address] [place] [address], ASSEMBLY MECHANIC-UROLOGIC SURGEON [address] [place] [address] Arrived [facility] Comment on above: Arrived Start: 10-03-2023 End: 10-03-2023 Patient encounter procedure 10/03/2023 8:45 AM EDT Office Visit [facility] [address] [place] [address] Davidson Ly MD [address] [place] [address] [facility] Start: 08-03-2023 End: 08-03-2023 Patient encounter procedure 08/03/2023 2:15 PM EDT Office Visit [facility] [address] [place] [phone] Davidson Ly MD [address] [place] [address] [facility] Start: 07-10-2023 End: 07-10-2023 Patient encounter procedure 07/10/2023 1:00 PM EDT Office Visit [facility] [address] [facility] [address] [place] [address], ASSEMBLY MECHANIC-UROLOGIC SURGEON [address] [facility] [address] [place] [address] [facility] Start: 04-11-2023 End: 04-11-2023 Patient encounter procedure 04/11/2023 1:00 PM EST Office Visit [facility] [address] [facility] [address] [place] [address], ASSEMBLY MECHANIC-UROLOGIC SURGEON [address] [facility] [address] [place] [address] Arrived [facility] Comment on above: Arrived Start: 03-06-2023 End: 03-06-2023 Patient encounter procedure 03/06/2023 2:15 PM EST Office Visit [facility] [address] [place] [address] Davidson Ly MD [address] [place] [address] [place] [address] [facility] Start: 02-07-2023 MG Breast - bilateral Screening [facility] Start: 02-07-2023 Screening mammography of bilateral breasts MM screening mammo BI w/CAD [facility] Start: 11-01-2022 End: 11-01-2022 Patient encounter procedure 11/01/2022 3:15 PM EDT Office Visit [facility] [address] [place], [place] [address] [address] Davidson Ly MD [address] [place], [place] [address] [address] [facility] Start: 10-28-2022 COVID-19 Vaccine ( season) COVID-19 Vaccine () [facility] Start: 10-28-2022 Influenza vaccination [facility] Start: 06-27-2022 End: 06-27-2022 Patient encounter procedure 06/27/2022 Office Visit Rheumatology Davidson Ly MD [address] [place], [place] [address] [address] [facility] Start: 02-24-2022 End: 02-24-2022 Patient encounter procedure 02/24/2022 Office Visit Rheumatology Davidson Ly MD [address] [place], [place] [address] [address] [facility] Start: 10-28-2021 Influenza vaccination Sequential Influenza Vaccine (#1) [facility] Start: 07-19-2021 End: 07-19-2021 Patient encounter procedure 07/19/2021 Office Visit Rheumatology Davidson Ly MD [address] [place], [place] [address] [address] [facility] Start: 05-18-2021 COVID-19 Vaccine (3 - Booster for Pfizer series) COVID-19 Vaccine (3 - Booster for Pfizer series) [facility] Start: 04-20-2021 COVID-19 Vaccine (3 - Booster for Pfizer series) COVID-19 Vaccine (3 - Booster for Pfizer series) [facility] Start: 04-19-2021 End: 04-19-2021 Patient encounter procedure 04/19/2021 Office Visit Rheumatology Davidson Ly MD [address] [place] [address] [facility] Start: 01-13-2021 COVID-19 Vaccine (3 - Booster for Pfizer series) COVID-19 Vaccine (3 - Booster for Pfizer series) [facility] Start: 01-13-2021 COVID-19 Vaccine (3 - Pfizer series) COVID-19 Vaccine (3 - Pfizer series) [facility] Start: 12-16-2020 COVID-19 Vaccine (3 - Pfizer risk series) COVID-19 Vaccine (3 - Pfizer risk series) [facility] Start: 2020 Screening for malignant neoplasm of breast Mammogram [facility] Start: 10-29-2019 Influenza vaccination INFLUENZA (#1) [facility] Start: 2010 HPV TESTING HPV TESTING [facility] Start: 2010 Screening for malignant neoplasm of cervix [facility] Start: 2001 PAP TESTING PAP TESTING [facility] Start: 2001 Screening for malignant neoplasm of cervix Pap Smear [facility] Start: 09-16-1999 Pneumococcal Vaccine: Ped or At-Risk (1 of 2 - PCV) Pneumococcal Vaccine: Ped or At-Risk (1 of 2 - PCV) [facility] Start: 09-16-1999 Urine microalbumin profile DTAP,TDAP,TD (1 - Tdap) [facility] Start: 08-17-1999 DTaP,Tdap and Td Vaccines (2 - Tdap) DTaP,Tdap and Td Vaccines (2 - Tdap) [facility] Start: 1998 Adult BMI Follow Up Plan Adult BMI Follow Up Plan [facility] Start: 1998 ANNUAL PCP TEAM CHRONIC DISEASE VISIT ANNUAL PCP TEAM CHRONIC DISEASE VISIT [facility] Start: 1998 HEPATITIS C SCREENING HEPATITIS C SCREENING [facility] Start: 1998 HIV SCREENING HIV SCREENING [facility] Start: 09-16-1995 HIV screening HIV Screening [facility] Start: 1992 Depression screening using PHQ-9 (Patient Health Questionnaire 9) score [facility] Start: 1986 Pneumococcal Vaccine: Ped or At-Risk (1 of 2 - PCV) Pneumococcal Vaccine: Ped or At-Risk (1 of 2 - PCV) [facility] Start: 09-16-1983 History and physical examination, annual for health maintenance Wellness Visit [facility] Start: 1980 Screening for malignant neoplasm of cervix Pap Smear [facility] Start: 1980 Tetanus vaccination Tetanus: Every 10yrs [facility] End: 10-13-2022 Alanine aminotransferase [Enzymatic activity/volume] in Serum or Plasma ALT Lab Routine Encounter for long-term (current) use of medications 1 Occurrences starting 10/19/2021 until 10/13/2022 [facility] Work Phone: Comment on above: 1 Occurrences starting 10/19/2021 until 10/13/2022 Alanine aminotransfe rase [Enzymatic activity/volume] in Serum or Plasma ALT Lab Routine Encounter for long-term (current) use of medications 10/19/2021 1:48 PM EDT [facility] End: 02-10-2023 Alanine aminotransferase [Enzymatic activity/volume] in Serum or Plasma ALT Lab Routine Encounter for long-term (current) use of medications 1 Occurrences starting 02/24/2022 until 02/10/2023 [facility] Work Phone: Comment on above: 1 Occurrences starting 02/24/2022 until 02/10/2023 Alanine aminotransfe rase [Enzymatic activity/volume] in Serum or Plasma ALT Lab Routine Encounter for long-term (current) use of medications 02/24/2022 10:15 AM EST [facility] End: 10-18-2023 Alanine aminotransferase [Enzymatic activity/volume] in Serum or Plasma ALT Lab Routine Encounter for long-term (current) use of medications 1 Occurrences starting 11/01/2022 until 10/18/2023 [facility] Work Phone: Comment on above: 1 Occurrences starting 11/01/2022 until 10/18/2023 Alanine aminotransfe rase [Enzymatic activity/volume] in Serum or Plasma ALT Lab Routine Encounter for long-term (current) use of medications 11/01/2022 1:31 PM EDT [facility] End: 07-08-2025 Alanine aminotransferase [Enzymatic activity/volume] in Serum or Plasma ALT Lab Routine Encounter for long-term (current) use of medications 1 Occurrences starting 07/08/2024 until 07/08/2025 [facility] Work Phone: Comment on above: 1 Occurrences starting 07/08/2024 until 07/08/2025 End: 10-13-2022 Aspartate aminotransferase [Enzymatic activity/volume] in Serum or Plasma AST Lab Routine Encounter for long-term (current) use of medications 1 Occurrences starting 10/19/2021 until 10/13/2022 [facility] Comment on above: 1 Occurrences starting 10/19/2021 until 10/13/2022 Aspartate aminotransferase [Enzymatic activity/volume] in Serum or Plasma AST Lab Routine Encounter for long-term (current) use of medications 10/19/2021 1:48 PM EDT [facility] End: 02-10-2023 Aspartate aminotransferase [Enzymatic activity/volume] in Serum or Plasma AST Lab Routine Encounter for long-term (current) use of medications 1 Occurrences starting 02/24/2022 until 02/10/2023 [facility] Comment on above: 1 Occurrences starting 02/24/2022 until 02/10/2023 Aspartate aminotransferase [Enzymatic activity/volume] in Serum or Plasma AST Lab Routine Encounter for long-term (current) use of medications 02/24/2022 10:15 AM EST [facility] End: 10-18-2023 Aspartate aminotransferase [Enzymatic activity/volume] in Serum or Plasma AST Lab Routine Encounter for long-term (current) use of medications 1 Occurrences starting 11/01/2022 until 10/18/2023 [facility] Comment on above: 1 Occurrences starting 11/01/2022 until 10/18/2023 Aspartate aminotransferase [Enzymatic activity/volume] in Serum or Plasma AST Lab Routine Encounter for long-term (current) use of medications 11/01/2022 1:31 PM EDT [facility] End: 07-08-2025 Aspartate aminotransferase [Enzymatic activity/volume] in Serum or Plasma AST Lab Routine Encounter for long-term (current) use of medications 1 Occurrences starting 07/08/2024 until 07/08/2025 [facility] Comment on above: 1 Occurrences starting 07/08/2024 until 07/08/2025 End: 07-08-2025 C reactive protein [Mass/volume] in Serum or Plasma CRP, Inflammation Lab Routine Rheumatoid arthritis, seropositive (HCC) 1 Occurrences starting 07/08/2024 until 07/08/2025 [facility] Comment on above: 1 Occurrences starting 07/08/2024 until 07/08/2025 End: 02-10-2023 Complete blood count with white cell differential, manual CBC and Differential Lab Routine Encounter for long-term (current) use of medications 1 Occurrences starting 02/24/2022 until 02/10/2023 [facility] Comment on above: 1 Occurrences starting 02/24/2022 until 02/10/2023 Complete blood count with white cell differential, manual CBC and Differential Lab Routine Encounter for long-term (current) use of medications 02/24/2022 10:15 AM EST [facility] End: 07-08-2025 Complete blood count with white cell differential, manual CBC and Differential Lab Routine Encounter for long-term (current) use of medications 1 Occurrences starting 07/08/2024 until 07/08/2025 [facility] Comment on above: 1 Occurrences starting 07/08/2024 until 07/08/2025 End: 10-13-2022 Creatinine [Mass/volume] in Serum or Plasma Creatinine, serum Lab Routine Encounter for long-term (current) use of medications 1 Occurrences starting 10/19/2021 until 10/13/2022 [facility] Comment on above: 1 Occurrences starting 10/19/2021 until 10/13/2022 Creatinine [Mass/vol ume] in Serum or Plasma Creatinine, serum Lab Routine Encounter for long-term (current) use of medications 10/19/2021 1:48 PM EDT [facility] End: 02-10-2023 Creatinine [Mass/volume] in Serum or Plasma Creatinine, serum Lab Routine Encounter for long-term (current) use of medications 1 Occurrences starting 02/24/2022 until 02/10/2023 [facility] Comment on above: 1 Occurrences starting 02/24/2022 until 02/10/2023 Creatinine [Mass/vol ume] in Serum or Plasma Creatinine, serum Lab Routine Encounter for long-term (current) use of medications 02/24/2022 10:15 AM EST [facility] End: 10-18-2023 Creatinine [Mass/volume] in Serum or Plasma Creatinine, serum Lab Routine Encounter for long-term (current) use of medications 1 Occurrences starting 11/01/2022 until 10/18/2023 [facility] Comment on above: 1 Occurrences starting 11/01/2022 until 10/18/2023 Creatinine [Mass/vol ume] in Serum or Plasma Creatinine, serum Lab Routine Encounter for long-term (current) use of medications 11/01/2022 1:31 PM EDT [facility] End: 07-08-2025 Creatinine [Mass/volume] in Serum or Plasma Creatinine, serum Lab Routine Encounter for long-term (current) use of medications 1 Occurrences starting 07/08/2024 until 07/08/2025 [facility] Comment on above: 1 Occurrences starting 07/08/2024 until 07/08/2025 End: 07-08-2025 Erythrocyte sedimentation rate Sedimentation Rate Lab Routine Rheumatoid arthritis, seropositive (HCC) 1 Occurrences starting 07/08/2024 until 07/08/2025 [facility] Comment on above: 1 Occurrences starting 07/08/2024 until 07/08/2025 End: 03-27-2024 MTB SCREEN MTB SCREEN Lab Routine Encounter for long-term (current) use of medications 1 Occurrences starting 04/03/2023 until 03/27/2024 [facility] Work Phone: Comment on above: 1 Occurrences starting 04/03/2023 until 03/27/2024 MTB SCREEN MTB SCREEN Lab R outine Encounter for long-term (current) use of medications 04/03/2023 10:30 AM [facility] End: 07-08-2025 MTB SCREEN MTB SCREEN Lab Routine Encounter for long-term (current) use of medications 1 Occurrences starting 07/08/2024 until 07/08/2025 [facility] Comment on above: 1 Occurrences starting 07/08/2024 until 07/08/2025 MTB SCREEN MTB SCREEN Lab R outine Encounter for long-term (current) use of medications 07/08/2024 9:23 AM EDT [facility] Pulmonary function t est Spirometry (Flow Volume [...] medications 1 Occurrences starting 02/24/2022 until 02/10/2023 [facility] Comment on above: 1 Occurrences starting 02/24/2022 until 02/10/2023 Tuberculosis screening M. Tuberc ulosis by [facility] Lab Routine Encounter for long-term (current) use of medications 02/24/2022 10:15 AM EST [facility] Immunizations Immunization Date Immunization Notes Care Provider Fa cili 02-17-2021 influenza virus vacc ine, unspecified formulation Davidson Ly MD Work Phone: [facility] 11-18-2020 Pfizer SARS-CoV-2 Vaccination Davidson Ly MD Work Phone: [facility] 10-28-2020 Pfizer SARS-CoV-2 Vaccination Davidson Ly MD Work Phone: [facility] 08-16-1999 TD(adult) unspecifie d formulation Davidson Ly MD Work Phone: [facility] NEGATED: Highlighted row has not occurred!02-15-2021 influenza, seasonal, injectable Davidson Ly MD Work Phone: [facility] Comment on above: Deferred: Patient de cision Payers Date Payer Category Payer Blue Cross Blue Shie ld Managed Care - Other ANTH [id number] 2023 Self-pay [id number] 2023 Blue Cross Blue Shie ld (Indemnity or Managed Care) - Out of State BCBS OUT OF STATE [facility] [id number] 2022 Blue Cross Blue Shield BCBS [id number] 2022 Unknown [id number] 2020 Unknown [id number] 1.13.385.2. [id number] 1980 Unknown [id number] 2.16.840.1.106409.3.579.2. 59 1980 Unknown [id number] 2.16.840.1.586598.3.579.2. 593 1980 Unknown [id number] 2.16.840.1.195838.3.579.2. 593 1980 Unknown [id number] 2.16840.1.415420.3.579.2. 593 1980 Unknown [id number] 2.840.1.283152.3.579.2. 593 1980 Unknown [id number] 2.16840.1.372494.3.579.2. 903 1980 Unknown [id number] 2.840.1.282456.3.579.2. 90 1980 Unknown [id number] 2.840.1.386711.3.579.2. 1286 1980 Unknown [id number] 2.840.1.540453.3.579.2. 90 1980 Unknown [id number] 2.840.1.529408.3.579.2. 1980 Unknown [id number] 2.840.1.616696.3.579.2. 1980 Unknown [id number] 2.840.1.895708.3.579.2. 1980 Unknown [id number] 2.840.1.507307.3.579.2. 1258 1980 Unknown [id number] 2840.1.505948.3.579.2. 1258 1980 Unknown [id number] 2.840.1.015609.3.579.2. 1258 1980 Unknown [id number] 2.840.1.660346.3.579.2. 1258 1980 Unknown [id number] 2.840.1.908085.3.579.2. 1258 1980 Unknown [id number] 2.840.1.709883.3.579.2. 1258 1980 Unknown [id number] .840.1.079986.3.579.2. 1259 1980 Unknown [id number] 2.16.840.1.413686.3.579.2. 1259 1980 Unknown [id number] 2.16.840.1.964809.3.579.2. 1259 1959 Self-pay [id number] 1959 Unknown [id number] Unknown O [id number] Unknown [id number] 2.16.840.1.648209.3.579.2. 531 Unknown [id number] 2.16.840.1.233008.3.579.2. 531 Unknown [id number] 2.16.840.1.844220.3.579.2. 531 Unknown [id number] 2.840.1.766007.3.579.2. 531 Social History Date Type Detail Facility Tobacco smoking stat us COIS Unknown if ever smoked [facility] Start: 1980 Sex Assigned At Not on file [facility] Start: 12-31-2020 End: 07-05-2022 Tobacco smoking status COIS Never smoked tobacco [facility] Start: 12-31-2020 End: 07-05-2022 Tobacco use and exposure Smokeless tobacco non-user [facility] Start: 12-31-2020 End: 12-10-2024 Alcohol intake Current drinker of alcohol (finding) [facility] Start: 12-31-2020 History SDOH Alcohol Comment RARELY [facility] Start: 04-09-2021 End: 06-24-2022 Exposure to SARS-CoV-2 (event) Not sure [facility] Start: 12-31-2020 End: 12-10-2024 Cigarette pack-years [facility] Start: 1980 Sex Assigned At Female F [facility] Start: 02-24-2022 End: 12-10-2024 Tobacco use panel [facility] Start: 01-09-2023 End: 04-11-2023 Alcohol intake Ex-drinker (finding) [facility] How often to you hav e a drink containing alcohol? Never [facility] How many standard drinks containing alcohol do you have on a typical day? 1 or 2 [facility] How often do you hav e 6 or more drinks on 1 occasion? Less than monthly [facility] Start: 10-05-2022 Alcohol Comment rare alcohol u se. 1 pop a day [facility] Start: 05-11-2022 Average Number of Drinks Not on file [facility] Start: 10-24-2023 End: 12-10-2024 Alcohol Comment Couple times a uear [facility] Start: 01-30-2024 Education 16 [facility] Start: 01-30-2024 End: 07-08-2024 Alcohol Comment Couple times a year [facility] Start: 02-15-2017 End: 03-16-2024 Sex Female (finding) [facility] Start: 04-30-2024 Alcohol Comment Couple times a year Caffine: 12 oz daily [facility] [facility]ALTHCARE Healthcare Start: 11-25-2024 Alcoholic beverage intake Current non-drinker of alcohol (finding) [facility] Goals Date Patient Goal Desired Activity /State Personal health goal Comment on above: Formatting of this n ote might be different from the original. Evaluation of progress towards goal: Patient will return home with self care Functional Status Date Assessment Result Facility 12-10-2024 Generalized anxiety disorder 7 item (KATHRYN- 7) [facility] 12-10-2024 Patient Health Quest ionnaire 2 item (PHQ-2) [Reported] [facility] 12-10-2024 Patient Health Questionnaire (PHQ) [Repor anastasiya] [facility] 12-10-2024 PHQ-9 quick depressi on assessment panel [Reported.PHQ] [facility] Clinical Notes 02-15-2021 to 12-10-[address] APRN-UROLOGIC SURGEON - 12/10/2024 10:30 AM Taylor Spain LPN [...] History: Diagnosis Date Anemia Anxiety Bipolar disorder ([facility]) Depression ([facility]) 1995 H/O total thyroidectomy ([facility]) 2014 History of laparoscopic cholecystectomy 2016 Hx of appendectomy 2017 Hx of headache Hx of tonsillectomy 1995 Hypertension ([facility]) Hypothyroidism ([facility]) Panic attack ([facility]) 1995 POTS (postural orthostatic tachycardia syndrome) Post COVID Rheumatoid arthritis ([facility]) MEDICATIONS: Current Outpatient Medications Medication Instructions [...] PCP - General (Family Medicine) Natalie Lane APRN-UROLOGIC SURGEON as Nurse Practitioner (Psychiatry) PSYCHIATRIC REVIEW OF [...] orders for this visit: Bipolar 2 disorder ([facility]) KAHTRYN (generalized anxiety disorder) ([facility]) Plans to fax labs done -Oct [...] as described above. documented in this encounter [facility] 12-03-2024 History of Present illness Narrative Receive denial from [employer] for Humira. Coverage will end December 28, 2024. Call [employer] PA dept and spoke with Cecy. Humira is non-formulary. Formulary changed in September 2024. Patient needs to call Celestine at [phone] to enroll for programs to help cover the cost. documented in this encounter [facility] 10-21-2024 Instructions Taylor Robins LPN - 10/21/2024 2:35 PM EDT Continue same treatment Complete labs Our office does not accept electronic refill requests from pharmacies. If you need refills, please notify our staff at the time of your office visit or by contacting our office via phone or Race Yourselft. Thank You For Trusting [facility] with Your Care! Our goal is to provide you with exceptional patient care. You may receive a patient satisfaction survey via email or text from Browsy. We appreciate your feedback and kindly ask that you complete the survey The associates caring for you today were: Ferryboat Operator: Sandip Nurse: Taylor Gun Fertilizer: Sobia You can help manage your healthcare 19/09 with [facility] MedSocket. To activate your account, visit [email or web address]. Until your next visit, Davidson Ly MD and Team Based on your blood pressure reading today while in our office we recommend you notify your primary care provider as soon as possible. If you do not have a primary care provider you can visit our website at [email or web address] or call our Physician Referral line at [phone] to locate a provider of your choice. If you have a blood pressure monitor at home, please read over the patient education hand out How to measure your blood pressure at home . If you do not have a blood pressure monitor, ask your primary care provider if you would benefit from measuring your blood pressure at home. documented in this encounter [facility] 10-21-2024 History of Present illness Narrative RAPID3 [...] seeing Robbie Willson in FOLLOW UP at [facility] [address] [place] [phone] for Management of 1. Rheumatoid arthritis, [...] (H) High (L) Low Component Latest Ref [facility] 04/03/2023 WBC 4.50 - 11.00 K/mcL 10.39 [...] 16 Legend: (H) High Component Latest Ref [facility] 06/27/2022 WBC 4.50 - 11.00 K/mcL 8.41 [...] found Note: This dictation was generated using Bjond voice recognition software. Please excuse any grammatical or spelling errors that may have occurred using the system. documented in this encounter [facility] 10-21-2024 Note I had the pleasure o f seeing Robbie Willson in FOLLOW UP at [facility] [address] [place] [phone] for Management of 1. Rheumatoid arthritis, seropositive [...] no apparent dist (more content not included)... [facility] 09-19-2024 History of Present illness [...] problems since last visit: On amitriptyline at for migraines. COVID, SHINGlES, Flu. Psychosocial stressors [...] (CMS/HCC) Hypothyroidism (CMS/HCC) Panic attack (CMS/[facility]) 1995 POTS (postural orthostatic tachycardia syndrome) Post COVID Rheumatoid arthritis ([facility]) MEDICATIONS: Current Outpatient Medications Medication Instructions [...] PCP - General (Family Medicine) Natalie Lane APRN-UROLOGIC SURGEON as Nurse Practitioner (Psychiatry) PSYCHIATRIC REVIEW OF [...] orders for this visit: Bipolar 2 disorder ([facility]) KATHRYN (generalized anxiety disorder) ([facility]) Plans to fax labs done -LAST [...] as described above. documented in this encounter [facility] 07-11-2024 History of Present illness Narrative [employer] Approved Humira Valid 07/11/24-12/28/24. Claim Number [id number]. documented in this encounter [facility] 07-08-2024 Instructions Sandip Alston MA - 07/08/2024 9:16 AM EDT Start prednisone 2.5 mg 1-2 tablets daily with food Complete labs Our office is going to request humira for you Our office does not accept electronic refill requests from pharmacies. If you need refills, please notify our staff at the time of your office visit or by contacting our office via phone or MedSocket. Based on your blood pressure reading today while in our office we recommend you notify your primary care provider as soon as possible. If you do not have a primary care provider you can visit our website at [email or web address] or call our Physician Referral line at [phone] to locate a provider of your choice. If you have a blood pressure monitor at home, please read over the patient education hand out How to measure your blood pressure at home . If you do not have a blood pressure monitor, ask your primary care provider if you would benefit from measuring your blood pressure at home. Thank You For Trusting [facility] with Your Care! Our goal is to provide you with exceptional patient care. You may receive a patient satisfaction survey via email or text from Browsy. We appreciate your feedback and kindly ask that you complete the survey The associates caring for you today were: Ferryboat Operator: Sandip Nurse: Taylor Gun Fertilizer: Sobia You can help manage your healthcare 19/09 with [facility] MedSocket. To activate your account, visit [email or web address]. Until your next visit, Davidson Ly MD and Team documented in this encounter [facility] 07-08-2024 Note I had the pleasure o f seeing Robbie Willson in FOLLOW UP at [facility] [address] [place], [place] [address] [phone] for Management of 1. Rheumatoid arthritis, seropositive [...] Location: Left arm, (more content not included)... [facility] 07-08-2024 History of Present illness Narrative I had the pleasure of seeing Robbie Willson in FOLLOW UP at [facility] [address] [place] [phone] for Management of 1. Rheumatoid arthritis, [...] 16 Legend: (H) High Component Latest Ref [facility] 06/27/2022 WBC 4.50 - 11.00 K/mcL 8.41 [...] found Note: This dictation was generated using Bjond voice recognition software. Please excuse any grammatical [...] 9:05 AM EDT documented in this encounter [facility] 04-30-2024 History of Present illness Narrative Images [...] History: Diagnosis Date Anemia Anxiety Bipolar disorder ([facility]) Depression ([facility]) 1995 H/O total thyroidectomy (CMS/[facility]) 2014 History of laparoscopic cholecystectomy 2016 Hx of appendectomy 2017 Hx of headache Hx of tonsillectomy 1995 Hypertension (CMS/[facility]) Hypothyroidism ([facility]) Panic attack ([facility]) 1995 POTS (postural orthostatic tachycardia syndrome) Post COVID Rheumatoid arthritis ([facility]) MEDICATIONS: Current Outpatient Medications Medication Instructions [...] PCP - General (Family Medicine) Natalie Lane APRN-UROLOGIC SURGEON as Nurse Practitioner (Psychiatry) PSYCHIATRIC REVIEW OF [...] orders for this visit: Bipolar 2 disorder ([facility]) KATHRYN (generalized anxiety disorder) ([facility]) Plans to fax labs done -from [place]. -Not receieved QUEtiapine Fumarate Tablet, 100 MG, [...] as described above. documented in this encounter [facility] 04-16-2024 Telephone encounter Note Called to offer RS of PT from 04/12 cx. She said she is going [id number] and return date is not known. I informed if needed to contact saurabh; and she said if so she will. No fu w/ status. [facility] 04-16-2024 Miscellaneous Notes Called to offer RS of PT from 04/12 cx. She said she is going [id number] and return date is not known. I informed if needed to contact saurabh; and she said if so she will. No fu w/ status. She called for Robbie, due to the need to cx PT for today; she said Robbie will call back to rs. documented in this encounter [facility] 04-12-2024 Telephone encounter Note She called for Robbie, due to the need to cx PT for today; she said Robbie will call back to rs. [facility] 04-08-2024 Radiology Diagnostic study note [facility] Main [place] [address] [place] [address] Ultrasound Report Signed Patient: Robbie Willson MR#: [id number] : 1980 Acct:[id number] Age/Sex: 43 / F ADM Date: 5 Loc: [place] Room: Type: [facility] Attending Dr: Norma Mirza MEDICAL IMAGING TECHNICIAN-C Ordering Provider: Norma Mirza CNP Date of Service: 04/08/24 MM/MM special view RT w/CAD: R92.8 ([id number]) US/US breast RT limited: R92.8 Copies to: [...] Vladimir Tyson M.D.04/08/2024 11:50 AM Dictation Location: [facility] Tech: Radha Milton Transcribed By: ADAN 04/08/24 1150 Dictated By: Vladimir Tyson DO 04/08/24 1148 Signed By: 04/08/24 1150 [facility] 03-28-2024 History of Present illness Narrative [employer] approved Simlandi valid 03/28/24-09/24/24. Claim# [id number] documented in this encounter [facility] 03-26-2024 History of Present illness Narrative Images [...] frequent. Notes fatigue with overhead activities. Precautions: [place] Subjective: Left shoulder and upper arm Pain: [...] to be instructed in home exercise program. Insurance Loss Adjuster Goals: To be met in 10 weeks [...] sign below. Date: documented in this encounter [facility] 03-21-2024 History of Present illness Narrative Received notification from patient's insurance that Humira needs changed to biosimilar Simlandi due to formulary change. documented in this encounter [facility] 03-13-2024 Telephone encounter Note Patient sent a message in requesting a refill on Seroquel 100mg sent to [facility] in [place]. Patient has a follow up on 04/30/24 [facility] 03-13-2024 Miscellaneous Notes Patient sent a message in requesting a refill on Seroquel 100mg sent to [facility] in [place]. Patient has a follow up on 04/30/24 documented in this encounter [facility] 01-30-2024 History of Present illness Narrative Images [...] History: Diagnosis Date Anemia Anxiety Bipolar disorder ([facility]) Depression ([facility]) 1995 H/O total thyroidectomy ([facility]) 2014 History of laparoscopic cholecystectomy 2016 Hx of appendectomy 2017 Hx of headache Hx of tonsillectomy 1995 Hypertension ([facility]) Hypothyroidism ([facility]) Panic attack ([facility]) 1995 POTS (postural orthostatic tachycardia syndrome) Post COVID Rheumatoid arthritis ([facility]) ALLERGIES: Allergies Allergen Reactions Sulfanilamide Rash [...] and Time Memory/Concentration Short term intact and supervisor intermediates intact Insight/Judgement Good OBJECTIVE: Visit Vitals Smoking [...] prn Plans to fax labs done -from [place]. Patient was seen Face to Face, Reviewed chart documents and documentation, Visit time : 35min Follow up -21/2 months documented in this encounter [facility] 11-14-2023 Instructions Sandip Alston MA - 11/14/2023 1:28 PM EDT Continue same treatment Complete labs Our office does not accept electronic refill requests from pharmacies. If you need refills, please notify our staff at the time of your office visit or by contacting our office via phone or MyChart. documented in this encounter [facility] 11-14-2023 History of Present illness Narrative RAPID3 [...] seeing Robbie Willson in FOLLOW UP at [facility] [address] [place] [phone] for Management of 1. Seropositive rheumatoid [...] found Note: This dictation was generated using Bjond voice recognition software. Please excuse any grammatical or spelling errors that may have occurred using the system. documented in this encounter [facility] 10-24-2023 History of Present illness Narrative Images [...] History: Diagnosis Date Anemia Anxiety Bipolar disorder ([facility]) H/O total thyroidectomy ([facility]) 2014 History of laparoscopic cholecystectomy 2016 Hx of appendectomy 2017 Hx of headache Hx of tonsillectomy 1996 Hypertension ([facility]) Hypothyroidism ([facility]) POTS (postural orthostatic tachycardia syndrome) Post COVID Rheumatoid arthritis ([facility]) ALLERGIES: Allergies Allergen Reactions Sulfanilamide Rash [...] and Time Memory/Concentration Short term intact and intermediate intact Insight/Judgement Good OBJECTIVE: Visit Vitals Smoking [...] prn Plans to fax labs done -from [place]. Patient was seen Face to Face, Reviewed chart documents and documentation, Visit time : 22min F/U 3months documented in this encounter [facility] 09-21-2023 Telephone encounter Note Patient updated. [facility] 09-21-2023 Miscellaneous Notes Patient updated. Received notification that [facility] is no longer her Specialty Pharmacy. Script will be sent to [facility]. Patient can call them at [phone] to arrange shipment of humira. documented in this encounter [facility] 09-21-2023 Telephone encounter Note Received notification that [facility] is no longer her Specialty Pharmacy. Script will be sent to [facility]. Patient can call them at [phone] to arrange shipment of humira. [facility] 09-12-2023 History of Present illness Narrative [facility] approved Humira valid 09/21/2023-09/20/2025. Claim Number [id number]. documented in this encounter [facility] 04-11-2023 History of Present illness Narrative Images [...] any sx. Stressors are grandmother going to halfway. Son having stomach issues age 16, was started on medical marijuana. 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 Her son called and said his girlfriend may be . Past Medical History Hypothyroidism. Allergies. Depression. Anxiety. R/A. Headaches. Anemia. Bipolar II Disorder. Hypertension. rheumatoid arthritis-[facility]. Post Covid POTS. Surgical History Tonsillectomy [...] F/U 21/2 months Brian 112 160 112 [facility] [address] [place] [address] Note generated by [employer] EMR/PM Software ([email or web address]) Uncle bleed out and is on life support. Cousin got arrested bc he stole grandma's narcotics. All happened today. documented in this encounter [facility] 04-03-2023 Instructions Sandip Alston MA - 04/03/2023 10:04 AM EST Continue same treatment documented in this encounter [facility] 04-03-2023 History of Present illness Narrative I had the pleasure of seeing Robbie Willson in FOLLOW UP at [facility] [address] [place] [phone] for Management of 1. Rheumatoid arthritis, seropositive [...] found Note: This dictation was generated using Bjond voice recognition software. Please excuse any grammatical [...] social activities no documented in this encounter [facility] 11-01-2022 Instructions Sobia Morris MA - 11/01/2022 1:18 PM EDT Complete back exercises Continue same treatment documented in this encounter [facility] 11-01-2022 History of Present illness Narrative I had the pleasure of seeing Robbie Willson in FOLLOW UP at [facility] [address] [place] [phone] for Management of 1. Rheumatoid arthritis, seropositive ([facility]) leFLUNomide (ARAVA) 20 MG tablet 2. Encounter for long-term (current) use of medications ALT AST CBC and Differential Creatinine, serum 3. NSAID long-term use 4. Morbid obesity with BMI of 40.0-44.9, adult ([facility]) 5. Iron deficiency anemia, unspecified iron deficiency [...] ulnar deviation. Diagnostic Data: Component Latest Ref [facility] 06/27/2022 WBC 4.50 - 11.00 K/mcL 8.41 [...] found Note: This dictation was generated using Bjond voice recognition software. Please excuse any grammatical [...] social activities no documented in this encounter [facility] 06-27-2022 Instructions Sandip Alston MA - 06/27/2022 3:18 PM EDT Complete labs documented in this encounter [facility] 06-27-2022 History of Present illness Narrative RAPID3 [...] seeing Robbie Willson in FOLLOW UP at [facility] [address] [place] [phone] for Management of 1. Rheumatoid arthritis, [...] found Note: This dictation was generated using Bjond voice recognition software. Please excuse any grammatical or spelling errors that may have occurred using the system. documented in this encounter [facility] 02-24-2022 Instructions Priscila Ellis LPN - 02/24/2022 10:01 AM EST Continue same treatment Recommend vaccinations documented in this encounter [facility] 02-24-2022 History of Present illness Narrative RAPID3 [...] seeing Robbie Willson in FOLLOW UP at [facility] [address] [place] [phone] for Management of 1. Rheumatoid arthritis, seropositive (HCC) 2. Encounter for long-term (current) use of medications ALT AST CBC and Differential Creatinine, serum M. Tuberculosis by QuantiFERON 3. NSAID long-term use 4. Morbid obesity with BMI of 40.0-44.9, adult ([facility]) Interim history: Last visit 4 months ago, [...] found Note: This dictation was generated using Bjond voice recognition software. Please excuse any grammatical or spelling errors that may have occurred using the system. documented in this encounter [facility] 10-20-2021 History of Present illness Narrative Julio Approved. [id number]. HUMIRA PEN INJ 40/0.4ML is approved through 10/19/2022. documented in this encounter [facility] 10-19-2021 Instructions Kristni Parson MA - 10/19/2021 1:37 PM EDT CONTINUE SAME TREATMENT documented in this encounter [facility] 10-19-2021 History of Present illness Narrative I had the pleasure of seeing Robbie Willson in FOLLOW UP at [facility] [address] [facility] [phone] for Management of 1. Rheumatoid arthritis, seropositive (HCC) 2. Encounter for long-term (current) use of medications ALT AST CBC and Differential Creatinine, serum 3. NSAID long-term use 4. Morbid obesity with BMI of 40.0-44.9, adult ([facility]) Interim history: Last visit 6 months [...] found Note: This dictation was generated using Bjond voice recognition software. Please excuse any grammatical [...] Davidson Ly MD documented in this encounter [facility] 04-19-2021 Instructions Kristin Parson MA - 04/19/2021 8:53 AM EST CONTINUE SAME TREATMENT - IN 1 MONTHS DECREASE PLAQUENIL TO 1 A DAY documented in this encounter [facility] 04-19-2021 History of Present illness Narrative I had the pleasure of seeing Robbie Willson in FOLLOW UP at [facility] [address] [place] [phone] for Management of 1. Rheumatoid arthritis, seropositive ([facility]) 2. Encounter for long-term (current) use of medications 3. NSAID long-term use 4. Morbid obesity with BMI of 40.0-44.9, adult ([facility]) Interim history: Patient was first evaluated [...] found Note: This dictation was generated using Bjond voice recognition software. Please excuse any grammatical [...] Davidson Ly MD documented in this encounter [facility] 04-01-2021 History of Present illness Narrative Called and spoke with pt and pt received medication yesterday and does not have any further questions or concerns. Advised the patient to call with any questions or concerns. Pt voiced understanding by phone. documented in this encounter [facility] 03-25-2021 History of Present illness Narrative Humira approval [facility] approved Humira Pen Inj. 40/0.4 ml approved for 6 months through 09/20/2021. PA# [id number]. documented in this encounter [facility] 03-12-2021 History of Present illness Narrative Enbrel [...] Actemra or Orencia. documented in this encounter [facility] 02-18-2021 Note The M. Tuberculosis antigen levels cannot be correlated to state or degree of infection, response to therapy or likelihood for progression to active disease. Results from [facility] TB Gold must be used in conjunction with individual epidemiological history, current medical status, and results of other diagnostic evaluation. Test performed by: [facility] [address] [place] [phone] [facility] 02-15-2021 Instructions Kristin Parson MA - 02/15/2021 10:52 AM EST Get an eye exam completed Continue plaquenil and arava documented in this encounter [facility] 02-15-2021 History of Present illness Narrative I had the pleasure of seeing [facility]bie [facility]son [facility] at [facility] [facility] [address] [place] [phone] for evaluation of Alie Peterson MD;System, [...] Rheumatology Note: This dictation was generated using Bjond voice recognition software. Please excuse any grammatical [...] Davidson Ly MD documented in this encounter [facility] Evaluation note Diagnosis Rheumatoid arthritis, seropositive (HCC)- [...] arthritis, seropositive (HCC) [facility] Rheumatoid arthritis, seropositive (HCC)- Primary Encounter for long-term (current) use of medications Encounter for long-term (current) use of other medications NSAID long-term use Encounter for long-term (current) use of non-steroidal anti-inflammatories Morbid obesity with BMI of 40.0-44.9, adult (HCC) [facility] Diagnosis Rheumatoid arthritis, seropositive (HCC) Rheumatoid arthritis, seropositive (HCC)- Primary Encounter for long-term (current) use of medications Encounter for long-term (current) use of other medications NSAID long-term use Encounter for long-term (current) use of non-steroidal anti-inflammatories Morbid obesity with BMI of 40.0-44.9, adult (HCC) [facility] Diagnosis Rheumatoid arthritis, seropositive (HCC) Rheumatoid arthritis, seropositive (HCC)- Primary Encounter for long-term (current) use of medications Encounter for long-term (current) use of other medications NSAID long-term use Encounter for long-term (current) use of non-steroidal anti-inflammatories Morbid obesity with BMI of 40.0-44.9, adult (HCC) [facility] Diagnosis Rheumatoid arthritis, seropositive (HCC)- Primary Encounter for long-term (current) use of medications Encounter for long-term (current) use of other medications NSAID long-term use Encounter for long-term (current) use of non-steroidal anti-inflammatories Morbid obesity with BMI of 40.0-44.9, adult (HCC) documented in this encounter [facility] noteNo assessment information availableTrihealth Work Phone: Evaluation note* Diagnosis Rheumatoid arthritis, seropositive (HCC)- Primary Encounter for long-term (current) use of medications Encounter for long-term (current) use of other medications NSAID long-term use Encounter for long-term (current) use of non-steroidal anti-inflammatories Morbid obesity with BMI of 40.0-44.9, adult (HCC) Iron deficiency anemia, unspecified iron deficiency anemia type [facility]* Diagnosis Rheumatoid arthritis, seropositive (HCC)- Primary [...] anxiety disorder Bipolar 2 disorder (CMS/[facility]) Other bipolar disorders [facility] Diagnosis KATHRYN (generalized anxiety disorder) (CMS/[facility]) Generalized anxiety disorder [facility]* Diagnosis Seropositive rheumatoid arthritis (HCC)- [facility] Diagnosis Onset Date Resolution Status Contusion of right thumb [facility] Work Phone: Evaluation note* Diagnosis Rheumatoid arthritis, [...] encounter [facility] HealthcareInstructionsNot on filedocumented in this encounter[facility] SystemReason for visit Narrative* Rehabilitation - Outpatient (Routine) - Authorized Specialty Diagnoses / Procedures Referred By Contmuna t Referred To Contact Physical Therapy Diagnoses Pain in left shoulder Procedures NC PHYSICAL THERAPY EVALUATION LOW COMPLEX 20 MINS NC OFFICE/OUTPATIENT NEW HIGH MDM 60 MINUTES Norma Mirza MD [facility] [place] [address] Phone: tel: fax: [facility] [address] [address] Phone: tel: fax: Referral ID Status Reason Start Date Expiration Date V isits Requested Visits Authorized [id number] Authorized 03/20/2024 09/16/2024 60 60 [facility]Reason for [facility] Narrative* Rehabilitation - Outpatient (Routine) - Authorized Specialty Diagnoses / Procedures Referred By Contac t Referred To Contact Physical Therapy Diagnoses Pain in left shoulder Procedures NC PHYSICAL THERAPY EVALUATION LOW COMPLEX 20 MINS NC OFFICE/OUTPATIENT NEW HIGH MDM 60 MINUTES Norma Mirza MD [address] [place] [address] Phone: tel:[phone] fax: [facility] [address] [address] Phone: tel: fax: Referral ID Status Reason Start Date Expiration Date V isits Requested Visits Authorized [id number] Authorized 03/20/2024 02/26/2025 60 60 [facility] Reason for Referral Specialty Diagnoses / Procedures Referred By Contac t Referred To Contact Rheumatology Diagnoses Rheumatoid arthritis, seropositive (HCC) System, Provider Not In Davidson Ly MD [address] [place] [address] Referral ID Status Reason Start Date Expiration Date V isits Requested Visits Authorized [id number] Authorized 01/05/2021 01/05/2022 1 1 Specialty Diagnoses / Procedures Referred By Contac t Referred To Contact Diagnoses Rheumatoid arthritis, seropositive (HCC) Davidson Ly MD [address] [place] [phone] Referral ID Status Reason Start Date Expiration Date V isits Requested Visits Authorized [id number] Pending Review 1 1 Referral ID Status Reason Start Date Expiration Date Visits Re quested Visits Authorized [id number] Closed 1 1 Advance Directives No Advanced Directives Records FoundDocuments on File Type Date Recorded 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 Income Expl anation Advance Directives and Nate reynolds Will 02/15/2021 10:07 AM Advance Directive Response [...] or prosecute any alcohol or drug abuse patient.[facility] Care Teams (unrecognized sec tion and content) Vice President Talent Management Relationship Specialty Start Date End Date System, Provider Not In PCP - General 12/31/20 Vice President Talent Management Relationship Specialty Start Date End Date System, Provider Not In PCP - General 12/31/20 Vice President Talent Management Relationship Specialty Start Date End Date Alie Peterson MD [address] [facility] [place] [address] PCP - General Family Medicine 02/15/21 Vice President Talent Management Relationship Specialty Start Date End Date Alie Peterson MD [address] [facility] [place] [address] PCP - General Family Medicine 02/15/21 Vice President Talent Management Relationship Specialty Start Date End Date Alie Peterson MD [address] [facility] [place] [address] PCP - General Family Medicine 02/15/21 Vice President Talent Management Relationship Specialty Start Date End Date Alie Peterson MD [address] [facility] [place] [address] PCP - General Family Medicine 02/15/21 Vice President Talent Management Relationship Specialty Start Date End Date Alie Peterson MD [address] [facility] [place] [address] PCP - General Family Medicine 02/15/21 Vice President Talent Management Relationship Specialty Start Date End Date Alie Peterson MD [address] [facility] [place] [address] PCP - General Family Medicine 02/15/21 Vice President Talent Management Relationship Specialty Start Date End Date Alie Peterson MD [address] [facility] [place] [address] PCP - General Family Medicine 02/15/21 Vice President Talent Management Relationship Specialty Start Date End Date Alie Peterson MD [address] [facility] [place] [address] PCP - General Family Medicine 02/15/21 Vice President Talent Management Relationship Specialty Start Date End Date Alie Peterson MD [address] [facility] [place] [address] PCP - General Family Medicine 02/15/21 Vice President Talent Management Relationship Specialty Start Date End Date Alie Peterson MD [address] [place] [address] PCP - General Family Medicine 02/15/21 Vice President Talent Management Relationship Specialty Start Date End Date Alie Peterson MD [address] [place] [address] PCP - General Family Medicine 02/15/21 Vice President Talent Management Relationship Specialty Start Date End Date Alie Peterson MD [address] [place] [address] PCP - General Family Medicine 02/15/21 Team Status: Inactive Member Role Status Dates Norma Mirza NP-C Primary Care Provider, Attend ing Provider Active W Maxi Lenz DO Referring Provider Active Team Status: Active Member Role Status Dates Norma Mirza NP-C Primary Care Provider Active Team Status: Inactive Member Role Status Dates AMANDA LopezC Primary Care Provider, Attend ing Provider Active Vice President Talent Management Relationship Specialty Start Date End Date Alie Peterson MD [address] [place] [address] PCP - General Family Medicine 02/15/21 Vice President Talent Management Relationship Specialty Start Date End Date Alie Peterson MD [address] [place] [address] PCP - General Family Medicine 02/15/21 Vice President Talent Management Relationship Specialty Start Date End Date Alie Peterson MD [address] [place] [address] PCP - General Family Medicine 02/15/21 Team Status: Inactive Member Role Status Dates AMANDA LopezC Primary Care Provider Active Referral Self Attending Provider Active Vice President Talent Management Relationship Specialty Start Date End Date Alie Peterson MD [address] [place] [address] PCP - General Family Medicine 02/15/21 Vice President Talent Management Relationship Specialty Start Date End Date Natalie Lane, ASSEMBLY MECHANIC-[facility] [address] [facility] [address] [place] [address] PCP - [place] [employer] 05/28/20 Jorge Ngo MD [address] [place] [phone] PCP - General Family Medicine 08/04/22 Vice President Talent Management Relationship Specialty Start Date End Date Natalie Lane, ASSEMBLY MECHANIC-[facility] [address] [facility] [address] [place] [address] PCP - [place] [employer] 05/28/20 Jorge Ngo MD [address] [place] [phone] PCP - General Family Medicine 08/04/22 Vice President Talent Management Relationship Specialty Start Date End Date Natalie Lane, [facility] [address] [address] PCP - [place] [employer] 05/28/20 Jorge Ngo MD [address] [place] [address] PCP - General Family Medicine 08/04/22 Vice President Talent Management Relationship Specialty Start Date End Date Alie Peterson MD [address] [place] [address] PCP - General Family Medicine 02/15/21 Team Status: Inactive Member Role Status Dates TERESA Lopez Primary Care Provider Active Start: July 23, 2023 End: July 23, 2023 Acacia Preciado APRN Attending Provider Active S tart: July 23, 2023 End: July 23, 2023 Team Status: Active Member Role Status Dates Acacia Preciado APRN Attending Provider Active S tart: July 23, 2023 TERESA Lopez Primary Care Provider Active Start: July 23, 2023 Team Status: Inactive Member Role Status Dates Acacia Preciado APRN Attending Provider Active S tart: July 23, 2023 End: July 23, 2023 TERESA Lopez Primary Care Provider Active Start: July 23, 2023 End: July 23, 2023 Vice President Talent Management Relationship Specialty Start Date End Date Alie Peterson MD [address] [place] [address] PCP - General Family Medicine 02/15/21 Vice President Talent Management Relationship Specialty Start Date End Date Alie Peterson MD [address] [place] [address] PCP - General Family Medicine 02/15/21 Vice President Talent Management Relationship Specialty Start Date End Date Alie Peterson MD [address] [place] [address] PCP - General Family Medicine 02/15/21 Vice President Talent Management Relationship Specialty Start Date End Date Jorge Ngo MD [address] [place] [address] PCP - General Family Medicine 08/04/22 Vice President Talent Management Relationship Specialty Start Date End Date Jorge Ngo MD [address] [place] [address] PCP - General Family Medicine 08/04/22 Vice President Talent Management Relationship Specialty Start Date End Date Jorge Ngo MD [address] [place] [address] PCP - General Family Medicine 08/04/22 Vice President Talent Management Relationship Specialty Start Date End Date Jorge Ngo MD [address] [place] [address] PCP - General Family Medicine 08/04/22 Team Status: Inactive Member Role Status Dates Norma Mirza MEDICAL IMAGING TECHNICIAN-C Primary Care Provider Active Start: March 15, 2024 End: March 15, 2024 Referral Self Attending Provider Active Start: Marysol [email or web address] End: March 15, 2024 Team Status: Inactive Member Role Status Dates Norma Mirza MEDICAL IMAGING TECHNICIAN-C Primary Care Pr ovider, Attending Provider Active Start: March 15, 2024 End: March 15, 2024 Vice President Talent Management Relationship Specialty Start Date End Date Alie Peterson MD [address] [place] [address] PCP - General Family Medicine 02/15/21 Vice President Talent Management Relationship Specialty Start Date End Date Jorge Ngo MD [address] [place] [address] PCP - General Family Medicine 08/04/[address] APRN-UROLOGIC SURGEON [address] [place] [address] Nurse Practitioner Psychiatry 03/15/24 Vice President Talent Management Relationship Specialty Start Date End Date Jorge Ngo MD [address] [place] [address] PCP - General Family Medicine 08/04/[address], ASSEMBLY MECHANIC-UROLOGIC SURGEON [address] [facility] [address] [place] [address] Nurse Practitioner Psychiatry 03/15/24 Vice President Talent Management Relationship Specialty Start Date End Date Jorge Ngo MD [address] [place] [address] PCP - General Family Medicine 08/04/[address], ASSEMBLY MECHANIC-UROLOGIC SURGEON [address] [facility] [address] [place] [address] Nurse Practitioner Psychiatry 03/15/24 Vice President Talent Management Relationship Specialty Start Date End Date Alie Peterson MD [address] [place] [address] PCP - General Family Medicine 02/15/21 Vice President Talent Management Relationship Specialty Start Date End Date Jorge Ngo MD [address] [place] [address] PCP - General Family Medicine 08/04/[address], ASSEMBLY MECHANIC-UROLOGIC SURGEON [address] [facility] [address] [place] [address] Nurse Practitioner Psychiatry 03/15/24 Vice President Talent Management Relationship Specialty Start Date End Date Jorge Ngo MD [address] [place] [address] PCP - General Family Medicine 08/04/[address], ASSEMBLY MECHANIC-UROLOGIC SURGEON [address] [facility] [address] [place] [address] Nurse Practitioner Psychiatry 03/15/24 Vice President Talent Management Relationship Specialty Start Date End Date Jorge Ngo MD [address] [place] [phone] PCP - General Family Medicine 08/04/[address], ASSEMBLY MECHANIC-UROLOGIC SURGEON [address] [address] Nurse Practitioner Psychiatry 03/15/24 Vice President Talent Management Relationship Specialty Start Date End Date Jorge Ngo MD [address] [place] [phone] PCP - General Family Medicine 08/04/[address], ASSEMBLY MECHANIC-UROLOGIC SURGEON [address] [place] [address] Nurse Practitioner Psychiatry 03/15/24 Vice President Talent Management Relationship Specialty Start Date End Date Jorge Ngo MD [address] [place] [address] PCP - General Family Medicine 08/04/[address], ASSEMBLY MECHANIC-UROLOGIC SURGEON [address] [address] Nurse Practitioner Psychiatry 03/15/24 Team Status: Inactive Member Role Status Dates Norma Mirza , MEDICAL IMAGING TECHNICIAN-C Primary Care Pr ovidsuman, Attending Provider Active Start: April 08, 2024 End: April 08, 2024 Vice President Talent Management Relationship Specialty Start Date End Date Jorge Ngo MD [address] [place] [address] PCP - General Family Medicine 08/04/[address] APRN-UROLOGIC SURGEON [address] [place] [address] [address] [place] [address] Nurse Practitioner Psychiatry 03/15/24 Vice President Talent Management Relationship Specialty Start Date End Date Jorge Ngo MD [facility] [place] [address] PCP - General Family Medicine 08/04/[address] APRN-UROLOGIC SURGEON [address] [place] [address] [address] [place] [address] Nurse Practitioner Psychiatry 03/15/24 Vice President Talent Management Relationship Specialty Start Date End Date Alie Peterson MD [address] [place] [address] PCP - General Family Medicine 02/15/21 Vice President Talent Management Relationship Specialty Start Date End Date Alie Peterson MD [address] [place] [address] PCP - General Family Medicine 02/15/21 Team Status: Inactive Member Role Status Dates Norma Mirza MEDICAL IMAGING TECHNICIAN-C Primary Care Provider Active Start: July 06, 2024 End: July 06, 2024 Yeni Hodges APRN Attending Provider Active Start: July 06, 2024 End: July 06, 2024 Vice President Talent Management Relationship Specialty Start Date End Date Alie Peterson MD [address] [place] [address] PCP - General Family Medicine 02/15/21 Vice President Talent Management Relationship Specialty Start Date End Date Norma Mirza APRN-CYANIDE POT HARDENER [address] [place] [address] [place] [address] PCP - General Family Medicine 11/25/24 Vice President Talent Management Relationship Specialty Start Date End Date Jorge Ngo MD [address] [facility] [place] [phone] PCP - General Family Medicine 08/04/[address], ASSEMBLY MECHANIC-UROLOGIC SURGEON [address] [address] Nurse Practitioner Psychiatry 03/15/24 Reason for Visit (unrecogniz ed section and content) Reason Onset Date Comments Medication Refill 02/17/2021 Reason Comments Consult RA Specialty Diagnoses / Procedures Referred By Contac t Referred To Contact Rheumatology Diagnoses Rheumatoid arthritis, seropositive (HCC) System, Provider Not In Davidson Ly MD [address] [place] [address] Referral ID Status Reason Start Date Expiration Date V isits Requested Visits Authorized [id number] Pending Review 01/05/2021 01/05/2022 1 1 Reason [...] and content) DATE CREATED AUTHOR 01/14/2022 [facility] DATE CREATED AUTHOR AUTHOR'S ORGANIZ ATION 11/20/[address] [facility] [place] [place] [facility] DATE CREATED AUTHOR AUTHOR'S ORGANIZ ATION 06/13/2024 [facility] DATE CREATED AUTHOR AUTHOR'S ORGANIZ ATION 10/23/2024 [facility] DATE CREATED AUTHOR AUTHOR'S ORGANIZ ATION 12/01/2024 [facility] DATE CREATED AUTHOR AUTHOR'S ORGANIZ ATION 12/06/2024 [facility] DATE CREATED AUTHOR AUTHOR'S ORGANIZ ATION 12/11/2024 [facility] EPIC Goals (unrecognized section and content) Goals may [...] BE BASED ON THE PRIMARY CLINICAL RECORDS. [email or web address]. provides no warranty or guarantee of the accuracy or completeness of information in this document.
[2024-12-17 17:08] LABS: Antinuclear Antibodies, IFA Positive (.)
== END 2024-12-16 13:48 | disposition home or self-care (01) ==
LOC: LAB 13:49
PROVIDERS: PCP Nurse Practitioner Family; Visit Provider Nurse Practitioner Family
DX: R21 Rash and other nonspecific skin eruption (principal)
CPT/HCPCS: 36415; 86038

== ENCOUNTER 2024-12-17 13:35 | Outpatient (RCR) | payer BC, SELFPAY ==
[2024-12-04 10:07] LABS: Hematocrit 40.8 % (36.0-48.0); Hemoglobin 13.3 g/dL (12.0-16.0); Immature Granulocytes Abs Auto 0.02 10^3/uL (0.00-0.03); Immature Granulocytes Pct Auto 0.3 % (0.0-0.5); Lymphocytes Absolute Auto 2.1 10^3/uL (1.2-3.8); Mean Corpuscular HGB Conc 32.6 g/dL (29.9-35.2); Mean Corpuscular Hemoglobin 26.6 pg (26.7-34.0); Mean Corpuscular Volume 81.6 fL (81.0-99.0); Platelet Count 428 10^3/uL (150-450); Red Blood Count 5.00 10^6/uL (4.20-5.40); White Blood Count 6.5 10^3/uL (4.0-11.0)
[2024-12-04 11:00] LABS: Alanine Aminotransferase 41 U/L (14-59); Albumin Globulin Ratio 0.7; Albumin Level 3.1 g/dL (3.4-5.0); Alkaline Phosphatase 105 U/L (46-116); Anion Gap 15.9; Aspartate Amino Transferase 26 U/L (15-37); Blood Urea Nitrogen 10.0 mg/dL (7.0-18.0); Calcium 8.1 mg/dL (8.5-10.1); Carbon Dioxide 22.9 mmol/L (21.0-32.0); Chloride 103 mmol/L (98-107); Estimated GFR (African America >60 (>=60 mL/min/1.73m^2); Estimated GFR (Non-African Ame >60 (>=60 mL/min/1.73m^2); Globulin 4.7 g/dL; Glucose 97 mg/dL (74-106); Potassium 3.8 mmol/L (3.5-5.1); Sodium 138 mmol/L (136-145); Total Protein 7.8 g/dL (6.4-8.2); Uric Acid 4.0 mg/dL (2.6-6.0)
[2024-12-04 11:12] LABS: Iron 67.0 ug/dL (50.0-170.0); Percent Iron Saturation 22.3 %; Total Iron Binding Capacity 301.0 ug/dL (250.0-450.0)
[2024-12-04 15:57] LABS: Ferritin 56.0 ng/mL (8.0-252.0)
[2024-12-08 19:07] LABS: Immunoglobulin A, Qn, Serum 259 mg/dL (87-352)
== END 2024-12-27 23:59 | disposition home or self-care (01) ==
LOC: HEMC 13:35
PROVIDERS: PCP Nurse Practitioner Family; Visit Provider Internal Medicine Hematology & Oncology
DX: D64.9 Anemia, unspecified (principal); R16.1 Splenomegaly, not elsewhere classified; R19.09 Other intra-abdominal and pelvic swelling, mass and lump; M06.9 Rheumatoid arthritis, unspecified; Z86.16 Personal history of COVID-19; Z90.49 Acquired absence of other specified parts of digestive tract; E89.0 Postprocedural hypothyroidism; Z79.899 Other long term (current) drug therapy
CPT/HCPCS: 36415; 80053; 82164; 82728; 82784; 82785; 83540; 83550; 83615; 84550; 85025; 85652; 86140; G0463